=== PATIENT | male | born 1930 | race Caucasian/White ===

== ENCOUNTER 2017-02-12 02:07 | Emergency (ER) | payer MEDICARE, BC ==
[2017-02-12 03:03] LABS: Hematocrit 28 % (42-52); Hemoglobin 8.7 g/dl (14.0-18.0); Mean Corpuscular HGB Conc 31 g/dl (31-36); Mean Corpuscular Hemoglobin 26 pg (27-31); Mean Corpuscular Volume 82 fL (80-94); Mean Platelet Volume 7 um3 (7.4-10.4); Red Blood Count 3.41 10^6/ul (4.0-5.4); Red Cell Distribution Width 19 % (10.5-15); White Blood Count 5.7 10^3/ul (3.5-10.8)
--- NOTE | 2017-02-12 04:01 | ED ---
Alice Lauren Salem, scribed for Andrzej Stone MD on 02/12/17 at 0248 . Throat Pain/Nasal Congestion - HPI Summary HPI Summary: Patient is a 87 y/o M who presents to the ED with sudden onset epistaxis to right naris for the past hour. PMHx of epistaxis. Pt is on Coumadin. He denies any recent trauma and states that he had his Coumadin level checked approximately 1 week ago. - History of Current Complaint Chief Complaint: EDEpistaxis Time Seen by Provider: 02/12/17 02:37 Hx Obtained From: Patient, Family/Religious Education Coordinator Onset/Duration: Sudden Onset, Lasting Minutes, Still Present Severity: Moderate Associated Signs And Symptoms: Positive: Negative Cough: None Related History: Other (Noted In Comments) - Allergies/Home Medications Allergies/Adverse Reactions: Allergies Allergy/AdvReac Type Severity Reaction Status Date / Time Penicillins [PCN] Allergy Unknown Verified 02/12/17 02:40 Reaction Details PMH/Surg Hx/FS Hx/Imm Hx Endocrine/Hematology History: Reports: Hx Anticoagulant Therapy - Coumadin, Hx Diabetes - "PRE DM", Hx Anemia Cardiovascular History: Reports: Hx Pacemaker/ICD, Hx Valvular Heart Disease - artificial valve Denies: Hx Congestive Heart Failure GI History: Reports: Hx Gastrointestinal Bleed Neurological History: Reports: Hx Transient Ischemic Attacks (TIA) - Cancer History Cancer Type, 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 Hx Chemotherapy: No - Surgical History Surgery Procedure, Year, and Place: PACEMAKER, artificial heart valve - Immunization History Date of Tetanus Vaccine: utd Date of Influenza Vaccine: unk Infectious Disease History: No Infectious Disease History: Denies: Traveled Outside the [place] in Last 30 Days - Family History Known Family History: Positive: Cardiac Disease - Father - CAD and [place], Other - Mother -- stomach CA Family History: reviewed and noncontributory - Social History Alcohol Use: None Hx Substance Use: No Substance Use Type: Reports: None Hx Tobacco Use: Yes Smoking Status (MU): Former Smoker Have You Smoked in the Last Year: No Review of Systems Negative: Fever Positive: Epistaxis All Other Systems Reviewed And Are Negative: Yes Physical Exam Triage Information Reviewed: Yes Vital Signs On Initial Exam: Initial Vitals Temp Pulse Resp BP Pulse Ox 97.8 F 70 16 137/52 98 02/12/17 02:02/12/17 02:08 02/12/17 02:08 02/12/17 02:08 02/12/17 02:08 Vital Signs Reviewed: Yes Appearance: Positive: Well-Appearing, No Pain Distress Skin: Positive: Warm Head/Face: Positive: Normal Head/Face Inspection Eyes: Positive: FREDDY ENT: Positive: Pharynx normal, Other - dries blood rt nare Neck: Positive: Supple Respiratory/Lung Sounds: Positive: Breath Sounds Present Cardiovascular: Positive: RRR Neurological: Positive: Alert, Oriented to Person Place, Time - Angel Luis Coma Scale Coma Scale Total: 15 Diagnostics - Vital Signs Vital Signs Temp Pulse Resp BP Pulse Ox 02/12/17 02:37 98.6 F 70 18 130/61 94 02/12/17 02:08 97.8 F 70 16 137/52 98 - Laboratory Lab Results: Lab Results 02/12/17 02/12/17 Range/Units 02:50 02:50 WBC 5.7 (3.5-10.8) 10^3/ul RBC 3.41 L (4.0-5.4) 10^6/ul Hgb 8.7 L (14.0-18.0) g/dl Hct 28 L (42-52) % MCV 82 (80-94) fL MCH 26 L (27-31) pg MCHC 31 (31-36) g/dl RDW 19 H (10.5-15) % Plt Count 163 (150-450) 10^3/ul MPV 7 L (7.4-10.4) um3 Neut % (Auto) 74.0 (38-83) % Lymph % (Auto) 11.7 L (25-47) % [place] % (Auto) 8.3 (1-9) % Eos % (Auto) 4.0 (0-6) % Baso % (Auto) 2.0 (0-2) % Absolute Neuts (auto) 4.2 (1.5-7.7) 10^3/ul Absolute Lymphs (auto) 0.7 L (1.0-4.8) 10^3/ul Absolute Monos (auto) 0.5 (0-0.8) 10^3/ul Absolute Eos (auto) 0.2 (0-0.6) 10^3/ul Absolute Basos (auto) 0.1 (0-0.2) 10^3/ul Absolute Nucleated RBC 0 10^3/ul Nucleated RBC % 0 INR (Anticoag Therapy) 2.15 H (0.89-1.11) Result Diagrams: 02/12/17 02:50 Lab Statement: Any lab studies that have been ordered have been reviewed, and results considered in the medical decision making process. Re-Evaluation - Re-Evaluation First Eval Re-Evaluation Time: 03:58 Comment: Pt is no longer actively bleeding. Second Eval Re-Evaluation Time: 04:24 Comment: Discussed plan. EENT Course/Dx - Course Course Of Treatment: 87 y/o M presents with sudden onset epistaxis to right naris for the past hour. PMHx of epistaxis. Pt is on Coumadin. He denies any recent trauma and states that he had his Coumadin level checked approximately 1 week ago. Pt is no longer bleeding and will be DC'd. - Diagnoses Provider Diagnoses: Epistaxis Discharge - Discharge Plan Condition: Stable Disposition: HOME Patient Education Materials: Nosebleed (ED) Referrals: Arjun Salter MD [Medical Doctor] - Additional Instructions: Please follow up with Dr. Salter (ENT) as needed. The documentation as recorded by the Alice tran Salem accurately reflects the service I personally performed and the decisions made by me, Andrzej Stone MD.
[2017-02-12 04:56] VITALS: BP 133/59
== END 2017-02-12 04:54 | disposition home or self-care (01) ==
LOC: ED 02:07
DX: R04.0 Epistaxis (principal)
CPT/HCPCS: 36415; 85025; 85610; 99282

== ENCOUNTER 2017-02-18 22:16 | Emergency (ER) | payer MEDICARE, BC, OTHER ==
[2017-02-18 22:25] VITALS: BP 118/51
[2017-02-18 23:38] LABS: Hematocrit 28 % (42-52); Mean Corpuscular HGB Conc 33 g/dl (31-36); Mean Corpuscular Hemoglobin 26 pg (27-31); Mean Corpuscular Volume 80 fL (80-94); Mean Platelet Volume 7 um3 (7.4-10.4); Red Blood Count 3.45 10^6/ul (4.0-5.4); Red Cell Distribution Width 20 % (10.5-15); White Blood Count 4.9 10^3/ul (3.5-10.8)
--- NOTE | 2017-02-19 00:04 | ED ---
Meek Lauren Rebecca, scribed for Andrzej Stone MD on 02/18/17 at 2358 . Throat Pain/Nasal Congestion - HPI Summary HPI Summary: Pt is an 87 y/o M who presents to ED c/o epistaxis. Sx began at 2130 tonight and had been constant since onset. Denies any associated pain. Sx aggravated and alleviated by nothing, unchanged by pressure. He was evaluated 6 days ago [place] [facility] [place] after which he has experienced smaller incidences every day. Pt is on Coumadin. Last seen by ENT in early May and last cauterization was a year prior to that appointment. - History of Current Complaint Chief Complaint: EDEpistaxis Time Seen by Provider: 02/18/17 23:57 Hx Obtained From: Patient Onset/Duration: Lasting Hours, Still Present Associated Signs And Symptoms: Positive: Negative - Allergies/Home Medications Allergies/Adverse Reactions: Allergies Allergy/AdvReac Type Severity Reaction Status Date / Time Penicillins [PCN] Allergy Unknown Verified 02/18/17 22:31 Reaction Details PMH/Surg Hx/FS Hx/Imm Hx Endocrine/Hematology History: Reports: Hx Anticoagulant Therapy - Coumadin, Hx Diabetes - "PRE DM", Hx Anemia Cardiovascular History: Reports: Hx Pacemaker/ICD, Hx Valvular Heart Disease - artificial valve Denies: Hx Congestive Heart Failure GI History: Reports: Hx Gastrointestinal Bleed Neurological History: Reports: Hx Transient Ischemic Attacks (TIA) - Cancer History Cancer Type, 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 Hx Chemotherapy: No - Surgical History Surgery Procedure, Year, and Place: PACEMAKER, artificial heart valve - Immunization History Date of Tetanus Vaccine: utd Date of Influenza Vaccine: unk Infectious Disease History: No Infectious Disease History: Denies: Traveled Outside the US in Last 30 Days - Family History Known Family History: Positive: Cardiac Disease - Father - CAD and [place], Other - Mother -- stomach CA - Social History Alcohol Use: None Hx Substance Use: No Substance Use Type: Reports: None Hx Tobacco Use: Yes Smoking Status (MU): Former Smoker Have You Smoked in the Last Year: No Review of Systems Negative: Fever Positive: Epistaxis All Other Systems Reviewed And Are Negative: Yes Physical Exam Triage Information Reviewed: Yes Vital Signs On Initial Exam: Initial Vitals Temp Pulse Resp BP Pulse Ox 98.3 F 87 18 118/51 96 02/18/17 22:22 02/18/17 22:22 02/18/17 22:22 02/18/17 22:22 02/18/17 22:22 Vital Signs Reviewed: Yes Appearance: Positive: Well-Appearing, No Pain Distress Skin: Positive: Warm Head/Face: Positive: Normal Head/Face Inspection Eyes: Positive: FREDDY ENT: Positive: Other - mild bleeding rt nares after holding pressure for 1 hour Neck: Positive: Supple Respiratory/Lung Sounds: Positive: Clear to Auscultation, Breath Sounds Present Cardiovascular: Positive: RRR Abdomen Description: Positive: Nontender, Soft Bowel Sounds: Positive: Present Musculoskeletal: Positive: Strength/ROM Intact Neurological: Positive: Alert, Oriented to Person Place, Time - Angel Luis Coma Scale Coma Scale Total: 15 Procedures - Procedure Summary Procedure Summary: rt nare packed with miracel with good hemostasis, no further active bleeding Diagnostics - Vital Signs Vital Signs Temp Pulse Resp BP Pulse Ox 02/18/17 22:28 98.3 F 87 18 118/51 96 02/18/17 22:22 98.3 F 87 18 118/51 96 - Laboratory Lab Results: Lab Results 02/18/17 02/18/17 Range/Units 23:25 23:25 WBC 4.9 (3.5-10.8) 10^3/ul RBC 3.45 L (4.0-5.4) 10^6/ul Hgb 9.0 L (14.0-18.0) g/dl Hct 28 L (42-52) % MCV 80 (80-94) fL MCH 26 L (27-31) pg MCHC 33 (31-36) g/dl RDW 20 H (10.5-15) % Plt Count 167 (150-450) 10^3/ul MPV 7 L (7.4-10.4) um3 Neut % (Auto) 60.5 (38-83) % Lymph % (Auto) 22.5 L (25-47) % [place] % (Auto) 11.0 H (1-9) % Eos % (Auto) 4.5 (0-6) % Baso % (Auto) 1.5 (0-2) % Absolute Neuts (auto) 2.9 (1.5-7.7) 10^3/ul Absolute Lymphs (auto) 1.1 (1.0-4.8) 10^3/ul Absolute Monos (auto) 0.5 (0-0.8) 10^3/ul Absolute Eos (auto) 0.2 (0-0.6) 10^3/ul Absolute Basos (auto) 0.1 (0-0.2) 10^3/ul Absolute Nucleated RBC 0 10^3/ul Nucleated RBC % 0 INR (Anticoag Therapy) 2.38 H (0.89-1.11) Result Diagrams: 02/18/17 23:25 Lab Statement: Any lab studies that have been ordered have been reviewed, and results considered in the medical decision making process. Re-Evaluation - Re-Evaluation First Eval Re-Evaluation Time: 00:22 Change: Improved Comment: No active bleeding at present time. Second Eval Re-Evaluation Time: 00:51 Change: Improved Comment: Pt continues not to bleed. Discussed D/C plan. EENT Course/Dx - Course Assessment/Plan: Pt is an 87 y/o M who presents to ED c/o constant epistaxis since 2129 tonight. Denies any associated pain. Sx unchanged by pressure. He was evaluated 6 days ago [place] [facility] [place] similar [place]x after which he has experienced smaller incidences every day. Pt is on Coumadin. Last seen by ENT in early May and last cauterization was a year prior to that appointment. RBC of 3.45, INR of 2.38. In the ED course, packing was applied. Pt will be D/C to home with Dx of epistaxis and a follow up wtih his ENT. - Diagnoses Provider Diagnoses: Epistaxis Discharge - Discharge Plan Condition: Improved Disposition: HOME Prescriptions: Cephalexin CAP* [Keflex CAP*] 250 mg PO QID #12 cap Referrals: Alonso Marquez MD [Primary Care Provider] - The documentation as recorded by the Meek tran Rebecca accurately reflects the service I personally performed and the decisions made by me, Andrzej Stone MD.
[2017-02-19] MEDS ORDERED: Cephalexin CAP* 250 MG PO ONE (00:51)
== END 2017-02-19 01:30 | disposition home or self-care (01) ==
LOC: ED 22:16
DX: R04.0 Epistaxis (principal); Z79.01 Long term (current) use of anticoagulants; Z95.0 Presence of cardiac pacemaker; Z95.2 Presence of prosthetic heart valve; Z87.891 Personal history of nicotine dependence; Z88.0 Allergy status to penicillin
CPT/HCPCS: 36415; 85025; 85610; 99282; A9270-GY

== ENCOUNTER 2018-02-06 19:14 | Emergency (ER) | payer MEDICARE, BC ==
[2018-02-06] MEDS ORDERED: Silver Nitrate/Potassium Nitr* 1 EA STICK ONE (20:03)
[2018-02-06] MEDS ORDERED: Saline NASAL SPRAY 0.65%* BTL RIGHT NARE ONE (20:08)
--- NOTE | 2018-02-06 21:16 | ED ---
Sal Lauren Tariq, scribed for Daiana Garcia MD on 02/06/18 at 2003 . Throat Pain/Nasal Congestion - HPI Summary HPI Summary: A 88 y/o male presents to ED c/o sudden onset epistaxis. According to the patient's family, the epistaxis was sudden and is unknown reasons for onset. The patient has had right epistaxis for 1.5 hours. As per triage, "Clip in place and bleeding is controlled at this time". It was noted that the patient has a mechanical valve that was placed in 2000. Additionally, the patient has a biological value that was done 6 days ago (Tuesday), completed via groin. Currently, the patient is on 5 mg/day of Coumadin and just started on 75 mg/day of Plavix. Patient had an INR of 1.3 done today. - History of Current Complaint Chief Complaint: EDEpistaxis Time Seen by Provider: 02/06/18 19:56 Hx Obtained From: Family/Netezza Developer - Family Onset/Duration: Sudden Onset - Right Epistaxis, Lasting Hours - 1.5 hours, Resolved - Currently none. Associated Signs And Symptoms: Positive: Nasal Discharge - Epistaxis of right nostril Cough: None - Allergies/Home Medications Allergies/Adverse Reactions: Allergies Allergy/AdvReac Type Severity Reaction Status Date / Time Penicillins Allergy Unknown Verified 12/30/17 12:23 Reaction Details Home Medications: Home Medications Carvedilol TAB* [Coreg TAB*] 12.5 mg PO BID 02/06/18 [History Confirmed 02/06/18 ] Clopidogrel TAB* [Plavix TAB*] 75 mg PO DAILY 02/06/18 [History Confirmed ] Ferrous Sulfate TAB* 325 mg PO DAILY 02/06/18 [History Confirmed 02/06/18] Furosemide TAB* [Lasix TAB*] 40 mg PO DAILY 02/06/18 [History Confirmed 02/06/18 ] Latanoprost 0.005%* [Xalatan 0.005%*] 1 drop BOTH EYES QPM 02/06/18 [History Confirmed 02/06/18] [place]-3 Fatty Acids (Nf) [Fish Oil (NF)] 1,000 mg PO QAM 02/06/18 [History Confirmed 02/06/18] Spironolactone TAB* [Aldactone TAB*] 12.5 mg PO DAILY 02/06/18 [History Confirmed 02/06/18] PMH/Surg Hx/FS Hx/Imm Hx Endocrine/Hematology History: Reports: Hx Anticoagulant Therapy - Coumadin, Hx Diabetes - "PRE DM", Hx Anemia Cardiovascular History: Reports: Hx Hypertension, Hx Pacemaker/ICD, Hx Valvular Heart Disease - artificial valve Denies: Hx Congestive Heart Failure GI History: Reports: Hx Gastrointestinal Bleed History: Denies: Hx Renal Disease Neurological History: Reports: Hx Transient Ischemic Attacks (TIA) - Cancer History Cancer Type, 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; LUNG CA Hx Chemotherapy: No - Surgical History Surgery Procedure, Year, and Place: PACEMAKER, artificial heart valve, CABG - Immunization History Date of Tetanus Vaccine: utd Date of Influenza Vaccine: unk Infectious Disease History: No Infectious Disease History: Denies: Traveled Outside the [place] in Last 30 Days - Family History Known Family History: Positive: Unknown, Cardiac Disease - Father - CAD and [place], Other - Mother -- stomach CA Family History: reviewed and noncontributory - Social History Alcohol Use: None Hx Substance Use: No Substance Use Type: Reports: None Hx Tobacco Use: Yes Smoking Status (MU): Former Smoker Have You Smoked in the Last Year: No Review of Systems Negative: Fever Positive: Epistaxis All Other Systems Reviewed And Are Negative: Yes Physical Exam - Summary Physical Exam Summary: VITAL SIGNS: Reviewed. GENERAL: Patient is a well-developed and nourished MALE who is lying comfortable in the stretcher. Patient is not in any acute respiratory distress. HEAD AND FACE: No signs of trauma. No ecchymosis, hematomas or skull depressions. No sinus tenderness. Nose exam: That is raw area of the right nostril anteriorly, no active bleeding. left Nostril is normal EYES: PERRLA, EOMI x 2, No injected conjunctiva, no nystagmus. EARS: Hearing grossly intact. Ear canals and tympanic membranes are within normal limits. MOUTH: Mild blood in the oropharynx, no active bleeding NECK: Supple, trachea is midline, no adenopathy, no JVD, no carotid bruit, no c- spine tenderness, neck with full ROM. CHEST: Symmetric, no tenderness at palpation LUNGS: Clear to auscultation bilaterally. No wheezing or crackles. CVS: Regular rate and rhythm, S1 and S2 present, click over the apex no murmurs or gallops appreciated. ABDOMEN: Soft, non-tender. No signs of distention. No rebound no guarding, and no masses palpated. Bowel sounds are normal. EXTREMITIES: FROM in all major joints, no edema, no cyanosis or clubbing. NEURO: Alert and oriented x 3. No acute neurological deficits. Speech is normal and follows commands. SKIN: Dry and warm Patient has an INR of 1.3 done today. Triage Information Reviewed: Yes Vital Signs On Initial Exam: Initial Vitals Temp Pulse Resp BP Pulse Ox 98.4 F 73 20 140/56 96 02/06/18 19:27 02/06/18 19:27 02/06/18 19:27 02/06/18 19:27 02/06/18 19:27 Vital Signs Reviewed: Yes Procedures - Laceration/Wound Repair 1 Location: Other - NOSE Laceration/Wound Explored: Other - RIGHT NOSE EPISTAXIS. USED SILVER NITRATE STICKS TO CAUTERIZE AREA. Diagnostics - Vital Signs Vital Signs Temp Pulse Resp BP Pulse Ox 02/06/18 19:27 98.4 F 73 20 140/56 96 - Laboratory Lab Statement: Any lab studies that have been ordered have been reviewed, and results considered in the medical decision making process. Re-Evaluation - Re-Evaluation First Eval Re-Evaluation Time: 20:55 Change: Improved Comment: NO FURTHER BLEEDING. PATIENT FEELS FINE. DISCUSSED DISCHARGE. EENT Course/Dx - Course Course Of Treatment: A 88 y/o male presents to ED c/o sudden onset epistaxis. According to the patient's family, the epistaxis was sudden and is unknown reasons for onset. The patient has had right epistaxis for 1.5 hours. As per triage, "Clip in place and bleeding is controlled at this time". In the ED course, patient was given saline nasal spray which improved his symptoms. Patient will be discharged with a diagnosis of epistaxis. Patient is to follow up with ENT in 1-2 days. Pt is agreeable with this plan. - Diagnoses Provider Diagnoses: Epistaxis Discharge - Sign-Out/Discharge Documenting (check all that apply): Discharge/Admit/Transfer - DISCHARGE - Discharge Plan Condition: Stable Disposition: HOME Patient Education Materials: Nosebleed (ED) Referrals: Alonso Marquez MD [Primary Care Provider] - Govind Barth MD [Medical Doctor] - 2 Days (FOLLOW UP WITH ENT IN 1-2 DAYS.) Additional Instructions: RETURN TO ED FOR ANY NEW OR WORSENING SYMPTOMS. - Billing Disposition and Condition Condition: STABLE Disposition: Home The documentation as recorded by the Sal tran Tariq accurately reflects the service I personally performed and the decisions made by me, Daiana Garcia MD.
[2018-02-06 21:29] VITALS: BP 125/58
== END 2018-02-06 21:32 | disposition home or self-care (01) ==
LOC: ED 19:14
DX: R10.84 Generalized abdominal pain (principal); R11.0 Nausea
CPT/HCPCS: 96374; 96375; 99283; A9270-GY

== ENCOUNTER 2018-08-03 19:20 | Emergency (ER) | payer MEDICARE, BC ==
[2018-08-03 21:18] LABS: ABS Basophils 0.1 10^3/ul (0-0.2); ABS Eosinophils 0.2 10^3/ul (0-0.6); ABS Lymphocytes 0.9 10^3/ul (1.0-4.8); ABS Monocytes 0.8 10^3/ul (0-0.8); ABS Neutrophils 5.5 10^3/ul (1.5-7.7); ABS Nucleated RBC 0 10^3/ul; Eosinophil % 3.1 %; Hematocrit 36 % (42-52); Hemoglobin 12.3 g/dl (14.0-18.0); Lymphocyte % 12.3 %; Mean Corpuscular HGB Conc 34 g/dl (31-36); Mean Corpuscular Hemoglobin 31 pg (27-31); Mean Corpuscular Volume 90 fL (80-94); Mean Platelet Volume 6.8 fL (7.4-10.4); Nucleated Red Blood Cells % 0; Platelet Count 161 10^3/ul (150-450); Red Blood Count 4.01 10^6/ul (4.00-5.40); Red Cell Distribution Width 15 % (10.5-15); White Blood Count 7.5 10^3/ul (3.5-10.8)
[2018-08-03] MEDS ORDERED: Tranexamic Acid 1,000 MG/10 ML 1,000 MG in NS 0.9% 50 ML* 50 ML IV ONE (21:32)
[2018-08-03] MEDS ORDERED: DOXYcycline CAP(*) 100 MG PO ONE (22:05)
[2018-08-03 22:08] LABS: INR 3.76 (0.77-1.02)
--- NOTE | 2018-08-03 22:11 | ED ---
Throat Pain/Nasal Congestion - HPI Summary HPI Summary: Patient complains of intermittent epistaxis 2 days. History of same. Bleeding only from right nare today. Denies trauma. Denies any other symptoms , injury or pain. No active bleeding at this time. Patient on Coumadin for artificial heart valves 2. - History of Current Complaint Chief Complaint: EDEpistaxis Time Seen by Provider: 08/03/18 20:35 Hx Obtained From: Patient Onset/Duration: Gradual Onset, Lasting Days Severity: Moderate Associated Signs And Symptoms: Positive: Negative Cough: None - Allergies/Home Medications Allergies/Adverse Reactions: Allergies Allergy/AdvReac Type Severity Reaction Status Date / Time Penicillins Allergy Unknown Verified 08/03/18 19:26 Reaction Details PMH/Surg Hx/FS Hx/Imm Hx Endocrine/Hematology History: Reports: Hx Anticoagulant Therapy - Coumadin, Hx Diabetes - "PRE DM", Hx Anemia Cardiovascular History: Reports: Hx Hypertension, Hx Pacemaker/ICD, Hx Valvular Heart Disease - artificial valve Denies: Hx Congestive Heart Failure GI History: Reports: Hx Gastrointestinal Bleed History: Denies: Hx Renal Disease Sensory History: Denies: Hx Eye Prosthesis Neurological History: Reports: Hx Transient Ischemic Attacks (TIA) Denies: Hx Developmental Delay - Cancer History Cancer Type, 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; LUNG CA Hx Chemotherapy: No - Surgical History Surgery Procedure, Year, and Place: PACEMAKER, artificial heart valve, CABG - Immunization History Date of Tetanus Vaccine: utd Date of Influenza Vaccine: unk Infectious Disease History: No Infectious Disease History: Denies: Traveled Outside the [place] in Last 30 Days - Family History Known Family History: Positive: Unknown, Cardiac Disease - Father - CAD and [place], Other - Mother -- stomach CA Family History: reviewed and noncontributory - Social History Alcohol Use: None Hx Substance Use: No Substance Use Type: Reports: None Hx Tobacco Use: Yes Smoking Status (MU): Former Smoker Have You Smoked in the Last Year: No Review of Systems Constitutional: Negative Eyes: Negative Positive: Epistaxis Cardiovascular: Negative Respiratory: Negative Gastrointestinal: Negative Genitourinary: Negative Musculoskeletal: Negative Skin: Negative Neurological: Negative Psychological: Normal All Other Systems Reviewed And Are Negative: Yes Physical Exam - Summary Physical Exam Summary: No obvious source of bleeding in right or left nare. Triage Information Reviewed: Yes Vital Signs On Initial Exam: Initial Vitals Temp Pulse Resp BP Pulse Ox 97.9 F 76 16 143/61 100 08/03/18 19:20 08/03/18 19:20 08/03/18 19:20 08/03/18 19:20 08/03/18 19:20 Vital Signs Reviewed: Yes Appearance: Positive: Well-Appearing Skin: Positive: Warm Head/Face: Positive: Normal Head/Face Inspection Eyes: Positive: Normal ENT: Positive: Normal ENT inspection Neck: Positive: Supple Respiratory/Lung Sounds: Positive: Clear to Auscultation Cardiovascular: Positive: Normal Abdomen Description: Positive: Nontender Musculoskeletal: Positive: Normal Neurological: Positive: Normal Psychiatric: Positive: Normal AVPU Assessment: Alert - Angel Luis Coma Scale Best Eye Response: 4 - Spontaneous Best Motor Response: 6 - Obeys Commands Best Verbal Response: 5 - Oriented Coma Scale Total: 15 Diagnostics - Vital Signs Vital Signs Temp Pulse Resp BP Pulse Ox 08/03/18 19:20 97.9 F 76 16 143/61 100 - Laboratory Lab Results: Lab Results 08/03/18 08/03/18 Range/Units 21:12 21:12 WBC 7.5 (3.5-10.8) 10^3/ul RBC 4.01 (4.00-5.40) 10^6/ul Hgb 12.3 L (14.0-18.0) g/dl Hct 36 L (42-52) % MCV 90 (80-94) fL MCH 31 (27-31) pg MCHC 34 (31-36) g/dl RDW 15 (10.5-15) % Plt Count 161 (150-450) 10^3/ul MPV 6.8 L (7.4-10.4) fL Neut % (Auto) 73.2 % Lymph % (Auto) 12.3 % [place] % (Auto) 10.5 % Eos % (Auto) 3.1 % Baso % (Auto) 0.9 % Absolute Neuts (auto) 5.5 (1.5-7.7) 10^3/ul Absolute Lymphs (auto) 0.9 L (1.0-4.8) 10^3/ul Absolute Monos (auto) 0.8 (0-0.8) 10^3/ul Absolute Eos (auto) 0.2 (0-0.6) 10^3/ul Absolute Basos (auto) 0.1 (0-0.2) 10^3/ul Absolute Nucleated RBC 0 10^3/ul Nucleated RBC % 0 INR (Anticoag Therapy) 3.76 H (0.77-1.02) APTT 45.0 H (26.0-36.3) seconds Result Diagrams: 08/03/18 21:12 Lab Statement: Any lab studies that have been ordered have been reviewed, and results considered in the medical decision making process. EENT Course/Dx - Course Course Of Treatment: Patient complains of intermittent epistaxis 2 days. History of same. Bleeding only from right nare today. Denies trauma. Denies any other symptoms, injury or pain. No active bleeding at this time. Patient on Coumadin for artificial heart valves 2. Physical exam:No obvious source of bleeding in right or left nare. Vital signs within normal limits. Hemoglobin 12.5, and patient baseline. INR 3.7. Rhino Rocket dipped in tranexamic acid inserted into right nare. Inflated with 5 mL's normal saline. Rx for doxycycline. Follow up with ENT. - Diagnoses Provider Diagnoses: Epistaxis Discharge - Sign-Out/Discharge Documenting (check all that apply): Patient Departure - Discharge Plan Condition: Stable Disposition: HOME Prescriptions: DOXYcycline CAP(*) [DOXYcycline 100MG CAP(*)] 100 mg PO BID 7 Days #14 cap Referrals: Alonso Marquez MD [Primary Care Provider] - Arjun Salter MD [Medical Doctor] - Additional Instructions: Take antibiotics as directed. Follow-up with ear nose and throat Dr Salter tomorrow. Return to the ED for any new or worsening symptoms - Billing Disposition and Condition Condition: STABLE Disposition: Home
[2018-08-03 23:10] VITALS: BP 124/74
== END 2018-08-03 23:09 | disposition home or self-care (01) ==
LOC: ED 19:20
DX: R04.0 Epistaxis (principal); Z79.01 Long term (current) use of anticoagulants; Z95.2 Presence of prosthetic heart valve; Z95.810 Presence of automatic (implantable) cardiac defibrillator; Z95.1 Presence of aortocoronary bypass graft; Z88.0 Allergy status to penicillin; Z87.891 Personal history of nicotine dependence
CPT/HCPCS: 36415; 85025; 85610; 85730; 99282; A9270-GY

== ENCOUNTER 2019-04-18 07:35 | Emergency (ER) | payer MEDICARE, BC ==
--- OUTSIDE RECORDS SUMMARY | 2019-04-18 07:42 | XMS REPORT | Continuity of Care Document ---
:1930 External Reference #:[id number] Author Name Amy Melara O.D. Address [address] [place] [address] Care Team Providers Name Role Phone Alonso Marquez M.D. 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 Onset: 02/17/2015 Open angle with borderline findings Afua Diaz O.D. 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 Onset: 01/21/2016 Primary open-angle glaucoma, severe stage Afua Diaz O.D. Onset: 2015 Open angle with borderline findings, high Afua Diaz O.D. Onset: 2015 risk, bilateral Bilateral primary open angle glaucoma Afua Diaz O.D. Onset: 02/03/2017 Long-term current use of drug therapy Amy Melara O.D. Onset: 2018 Social History Type Date Description Comments Sex Unknown ETOH Use Never used alcohol Tobacco Use Start: Unknown End: Unknown Patient is a former smoker Recreational Drug Use Never Used Drugs Smoking Status Reviewed: 04/06/19 Patient is a former smoker Allergies, Adverse Reactions, Alerts Active Allergies Reaction Severity Comments Date Penicillin 02/17/2015 Medications Active Medications SIG Qnty Indications Ordering Date Provider Latanoprost place 1 drop 7.5units H40.1133 Afua Diaz, 02/03/2017 0.005% Solution into both eyes O.D. every Night Preservision Areds 2 1 cap by mouth Afua Diaz, 04/22/2015 Areds twice a day O.D. 2 Capsules Carvedilol take 1 tablet Unknown 25mg Tablets by mouth twice a day with Meals Furosemide TreelowAlonso A 40mg Tablets M.D. Spironolactone Unknown 12.5mg Tablets Metformin HCL Unknown 500mg Tablets Iron Supplement Unknown 325(65Fe) mg Tablets Coumadin Unknown 5mg Tablets Omeprazole every day Unknown 20mg Capsules DR Bettes Description No Information Available Vital Signs Description No Information Available Results Description No Information Available Procedures Description No Information Available Medical Devices Description No Information Available Encounters Description No Information Available Assessments Date Code Description Provider 04/06/2019 H40.1133 Primary open-angle glaucoma, bilateral, Amy Melara O.D. severe stage 04/06/2019 E11.9 Type 2 diabetes mellitus without Amy Melara O.D. complications 04/06/2019 Z79.84 care home (current) use of oral Amy Melara O.D. 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 If you are a smoker, we strongly recommend that you quit.If you are not a smoker, we strongly recommend that you do not start. Your glaucoma is stable at this time.Your eye pressure is within an acceptable range, and your testing does not show any Glaucoma related changes at thistime. Please continue your treatment.Follow up:6 Month Follow Up OCT MAC At your next visit, we are not planning to dilate your eyes. However, if you have any changes in your vision or new symptoms, there are certain situations that require us to dilate your eyes. If Dr. Melara requests any additional testing, that may require extra time. If you have any questions before your next appointment, please call our office at .E11.9 Type 2 diabetes mellitus without complicationsComments:You have diabetes. I do not detect any changes in both of your retinas from diabetes at this time. Proper control of your diabetes is important for the health of your eyes. Changes in your eyes from diabetes can happen without symptoms, so it is important that you have your eyes examined.Z79.84 care home (current) use of oral hypoglycemic [id number] Dystrophies primarily involving the retinal pigment epitheliumComments:continue to take areds 2 formula Functional Status Description No Information Available Mental Status Description No Information Available Referrals Description No Information Available
[2019-04-18] MEDS ORDERED: Oxymetazoline 0.05% NASAL SPR* 15 ML BTL RIGHT NARE ONE (08:22)
[2019-04-18] MEDS ORDERED: Tranexamic Acid 1,000 MG/10 ML SDV TOPICAL ONE (08:22)
[2019-04-18] MEDS ORDERED: Lidocaine 4% GEL* 10 GM TUBE TOPICAL ONE (08:23)
[2019-04-18] MEDS ORDERED: Silver Nitrate/Potassium Nitr* 1 EA STICK TOPICAL ONE (08:25)
[2019-04-18 08:28] LABS: ABS Eosinophils 0.2 10^3/ul (0-0.6); ABS Lymphocytes 0.6 10^3/ul (1.0-4.8); ABS Monocytes 0.7 10^3/ul (0-0.8); ABS Neutrophils 4.8 10^3/ul (1.5-7.7); Eosinophil % 2.5 %; Hematocrit 35 % (42-52); Lymphocyte % 9.6 %; Mean Corpuscular HGB Conc 34 g/dL (31-36); Mean Corpuscular Hemoglobin 30 pg (27-31); Mean Corpuscular Volume 89 fL (80-94); Mean Platelet Volume 6.6 fL (7.4-10.4); Nucleated Red Blood Cells % 0.1; Platelet Count 181 10^3/uL (150-450); Red Blood Count 3.95 10^6 /uL (4.18-5.48); Red Cell Distribution Width 15 % (10-15); White Blood Count 6.3 10^3/uL (3.5-10.8)
[2019-04-18] MEDS ORDERED: Lidocaine 2% JELLY* 10 ML JELLY TOPICAL ONE (08:32)
[2019-04-18 08:36] LABS: Activated Partial Thrombo Time 44.9 seconds (26.0-38.0); INR 2.83 (0.82-1.09)
--- NOTE | 2019-04-18 08:49 | ED ---
Throat Pain/Nasal Congestion - HPI Summary HPI Summary: 89-year-old male presents with a nosebleed today. Has history of nosebleeds. Is on Coumadin for valve replacement. Had an INR checked last week was 1.9. He states it started 2 hours ago and has since resolved. He denies any sinus congestion. No fevers. No pain. Nothing down his throat. Blood is in his right naris. no chest pain or shortness breath. No dizziness. denies any other symptoms. - History of Current Complaint Chief Complaint: EDEpistaxis Time Seen by Provider: 04/18/19 08:08 - Allergies/Home Medications Allergies/Adverse Reactions: Allergies Allergy/AdvReac Type Severity Reaction Status Date / Time Penicillins Allergy Unknown Verified 08/03/18 19:26 Reaction Details PMH/Surg Hx/FS Hx/Imm Hx Endocrine/Hematology History: Reports: Hx Anticoagulant Therapy - Coumadin, Hx Diabetes - "PRE DM", Hx Anemia Cardiovascular History: Reports: Hx Hypertension, Hx Pacemaker/ICD, Hx Valvular Heart Disease - artificial valve Denies: Hx Congestive Heart Failure GI History: Reports: Hx Gastrointestinal Bleed History: Denies: Hx Dialysis, Hx Renal Disease Musculoskeletal History: Sensory History: Denies: Hx Eye Prosthesis Opthamlomology History: Denies: Hx Eye Prosthesis Neurological History: Reports: Hx Transient Ischemic Attacks (TIA) Denies: Hx Developmental Delay - Cancer History Cancer Type, 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; LUNG CA Hx Chemotherapy: No - Surgical History Surgery Procedure, Year, and Place: PACEMAKER, artificial heart valve, CABG - Immunization History Date of Tetanus Vaccine: utd Date of Influenza Vaccine: unk Infectious Disease History: No Infectious Disease History: Denies: Traveled Outside the [place] in Last 30 Days - Family History Known Family History: Positive: Unknown, Cardiac Disease - Father - CAD and [place], Other - Mother -- stomach CA Family History: reviewed and noncontributory - Social History Alcohol Use: None Hx Substance Use: No Substance Use Type: Reports: None Hx Tobacco Use: Yes Smoking Status (MU): Former Smoker Have You Smoked in the Last Year: No Review of Systems Negative: Fever Positive: Epistaxis Negative: Chest Pain Negative: Shortness Of Breath All Other Systems Reviewed And Are Negative: Yes Physical Exam Triage Information Reviewed: Yes Vital Signs On Initial Exam: Initial Vitals Temp Pulse Resp BP Pulse Ox 97.9 F 75 14 139/69 95 04/18/19 07:36 04/18/19 07:36 04/18/19 07:36 04/18/19 07:36 04/18/19 07:36 Vital Signs Reviewed: Yes Appearance: Positive: Well-Appearing Skin: Positive: Warm, Dry Head/Face: Positive: Normal Head/Face Inspection Eyes: Positive: Normal, EOMI, FREDDY, Conjunctiva Clear ENT: Positive: Pharynx normal, TMs normal, Other - blood in right nares Respiratory/Lung Sounds: Positive: Clear to Auscultation, Breath Sounds Present Cardiovascular: Positive: Normal, RRR Musculoskeletal: Positive: Normal Neurological: Positive: Normal Psychiatric: Positive: Normal Diagnostics - Vital Signs Vital Signs Temp Pulse Resp BP Pulse Ox 04/18/19 07:36 97.9 F 75 14 139/69 95 - Laboratory Lab Results: Lab Results 04/18/19 04/18/19 Range/Units 08:18 08:19 WBC 6.3 (3.5-10.8) 10^3/uL RBC 3.95 L (4.18-5.48) 10^6 /uL Hgb 12.0 L (14.0-18.0) g/dL Hct 35 L (42-52) % MCV 89 (80-94) fL MCH 30 (27-31) pg MCHC 34 (31-36) g/dL RDW 15 (10-15) % Plt Count 181 (150-450) 10^3/uL MPV 6.6 L (7.4-10.4) fL Neut % (Auto) 76.5 % Lymph % (Auto) 9.6 % [place] % (Auto) 10.8 % Eos % (Auto) 2.5 % Baso % (Auto) 0.6 % Absolute Neuts (auto) 4.8 (1.5-7.7) 10^3/ul Absolute Lymphs (auto) 0.6 L (1.0-4.8) 10^3/ul Absolute Monos (auto) 0.7 (0-0.8) 10^3/ul Absolute Eos (auto) 0.2 (0-0.6) 10^3/ul Absolute Basos (auto) 0.0 (0-0.2) 10^3/ul Absolute Nucleated RBC 0.0 10^3/ul Nucleated RBC % 0.1 INR (Anticoag Therapy) 2.83 H (0.82-1.09) APTT 44.9 H (26.0-38.0) seconds Result Diagrams: 04/18/19 08:18 Lab Statement: Any lab studies that have been ordered have been reviewed, and results considered in the medical decision making process. Re-Evaluation - Re-Evaluation First Eval Change: Improved Comment: no bleeding after silver nitrate Second Eval Re-Evaluation Time: 09:23 Change: Improved Comment: ambulated without any bleeding EENT Course/Dx - Course Course Of Treatment: 89-year-old male presents with a nosebleed today. Has history of nosebleeds. Is on Coumadin for valve replacement. Had an INR checked last week was 1.9. He states it started 2 hours ago and has since resolved. He denies any sinus congestion. No fevers. No pain. Nothing down his throat. Blood is in his right naris. no chest pain or shortness breath. No dizziness. denies any other symptoms. On exam has irritated right nares. No active bleeding noted but area could easily start bleeding. gave dose of Afrin. applied silver ntirate and no rebleeding. patient ambulate around ED with no rebleeding. inr 2.8. told if bleeding returns to come back. patient understand and agrees with plan. - Differential Diagnoses Differential Diagnoses: Epistaxis, Sinusitis - Diagnoses Provider Diagnoses: Epistaxis Discharge ED - Sign-Out/Discharge Documenting (check all that apply): Patient Departure Patient Received Moderate/Deep Sedation with Procedure: No - Discharge Plan Condition: Good Disposition: HOME Patient Education Materials: Nosebleed (ED) Referrals: Alonso Marquez MD [Primary Care Provider] - Additional Instructions: use saline in nose daily Return to ED if nose bleed returns or any new or worsening symptoms - Billing Disposition and Condition Condition: GOOD Disposition: Home
[2019-04-18] MEDS ORDERED: Lidocaine 2% JELLY* 6 ML JELLY TOPICAL ONE (09:00)
[2019-04-18 09:34] VITALS: BP 148/64
== END 2019-04-18 09:32 | disposition home or self-care (01) ==
LOC: ED 07:35
DX: R04.0 Epistaxis (principal); R73.03 Prediabetes; D64.9 Anemia, unspecified; I10 Essential (primary) hypertension; Z95.2 Presence of prosthetic heart valve; Z86.73 Personal history of transient ischemic attack (TIA), and cerebral infarction without residual deficits; Z85.89 Personal history of malignant neoplasm of other organs and systems; Z85.118 Personal history of other malignant neoplasm of bronchus and lung; Z87.891 Personal history of nicotine dependence; Z95.1 Presence of aortocoronary bypass graft; Z95.0 Presence of cardiac pacemaker; Z79.01 Long term (current) use of anticoagulants; Z79.84 Long term (current) use of oral hypoglycemic drugs; Z79.899 Other long term (current) drug therapy; Z88.0 Allergy status to penicillin
CPT/HCPCS: 36415; 85025; 85610; 85730; 99282; A9270-GY

== ENCOUNTER 2019-05-16 12:00 | Observation (INO) | payer MEDICARE, BC ==
[2019-05-16 12:38] LABS: ABS Basophils 0.1 10^3/ul (0-0.2); ABS Eosinophils 0.1 10^3/ul (0-0.6); ABS Lymphocytes 0.7 10^3/ul (1.0-4.8); ABS Monocytes 0.7 10^3/ul (0-0.8); ABS Neutrophils 5.3 10^3/ul (1.5-7.7); Eosinophil % 0.9 %; Hematocrit 33 % (42-52); Hemoglobin 11.3 g/dL (14.0-18.0); Lymphocyte % 10.4 %; Mean Corpuscular HGB Conc 34 g/dL (31-36); Mean Corpuscular Hemoglobin 30 pg (27-31); Mean Corpuscular Volume 88 fL (80-94); Mean Platelet Volume 6.9 fL (7.4-10.4); Platelet Count 190 10^3/uL (150-450); Red Blood Count 3.76 10^6 /uL (4.18-5.48); Red Cell Distribution Width 15 % (10-15); White Blood Count 6.8 10^3/uL (3.5-10.8)
[2019-05-16 12:46] LABS: INR 3.32 (0.82-1.09)
[2019-05-16 12:58] LABS: ALT 9 U/L (7-52); AST 13 U/L (13-39); Albumin 3.7 g/dL (3.2-5.2); Albumin/Globulin Ratio 1.1 (1-3); Alkaline Phosphatase 76 U/L (34-104); Anion Gap 6 mmol/L (2-11); BUN/Creatinine Ratio 21.5 (8-20); Blood Urea Nitrogen 20 mg/dL (6-24); CO2 Carbon Dioxide 35 mmol/L (22-32); Calcium 9.1 mg/dL (8.6-10.3); Chloride 97 mmol/L (101-111); EGFR African American 92.6 (>60); EGFR Non-African American 76.5 (>60); Globulin 3.3 g/dL (2-4); Glucose 139 mg/dL (70-100); Magnesium 1.9 mg/dL (1.9-2.7); Potassium 3.9 mmol/L (3.5-5.0); Sodium 138 mmol/L (135-145)
[2019-05-16 13:00] LABS: Troponin I 0.05 ng/mL (<0.04)
[2019-05-16] MEDS ORDERED: Magnesium Sulfate 2 GM IV* 2 GM/50 ML BAG IVPB ONE (13:03)
[2019-05-16] MEDS ORDERED: KCL 10 MEQ/50 ML IVPREMIX* 10 MEQ/50 ML BAG IV ONE (13:03)
--- NOTE | 2019-05-16 13:05 | ED ---
Palpitations / Dysrhythmia - HPI Summary HPI Summary: Pt is an 89 y/o M presenting to the ED with a chief complaint of an arrhythmia. The pt has an AICD/pacemaker that went off twice last night in such a short time of each other that Jose G called and told him to go to the ER. The pt feels normal. He denies fever, vomiting, and diarrhea. He notes he has had a cough and congestion recently, and has hx of CA in remission. - History of Current Complaint Chief Complaint: EDDysrhythmPalp Time Seen by Provider: 05/16/19 12:08 Hx Obtained From: Patient Onset/Duration: Sudden Onset, Lasting Minutes, Resolved Timing: Constant Severity Initially: Moderate Severity Currently: None Aggravating: Nothing Alleviating: Nothing Associated Signs & Symptoms: Negative - Allergy/Home Medications Allergies/Adverse Reactions: Allergies Allergy/AdvReac Type Severity Reaction Status Date / Time Penicillins Allergy Unknown Verified 08/03/18 19:26 Reaction Details Home Medications: Home Medications Vit A/Vit C/Vit E/Zinc/Copper [Preservision Areds Softgel] 1 each PO BID [History Confirmed 05/16/19] PMH/Surg Hx/FS Hx/Imm Hx Previously Healthy: Yes Endocrine/Hematology History: Reports: Hx Anticoagulant Therapy - Coumadin, Hx Diabetes - "PRE DM", Hx Anemia Cardiovascular History: Reports: Hx Auto Implanted Cardiovert Defib, Hx Hypertension, Hx Pacemaker/ICD, Hx Valvular Heart Disease - artificial valve Denies: Hx Congestive Heart Failure GI History: Reports: Hx Gastrointestinal Bleed History: Denies: Hx Dialysis, Hx Renal Disease Musculoskeletal History: Sensory History: Denies: Hx Eye Prosthesis Opthamlomology History: Denies: Hx Eye Prosthesis Neurological History: Reports: Hx Transient Ischemic Attacks (TIA) Denies: Hx Developmental Delay - Cancer History Cancer Type, 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; LUNG CA Hx Chemotherapy: No - Surgical History Surgery Procedure, Year, and Place: PACEMAKER, artificial heart valve, CABG - Immunization History Date of Tetanus Vaccine: utd Date of Influenza Vaccine: unk Infectious Disease History: No Infectious Disease History: Denies: Traveled Outside the [place] in Last 30 Days - Family History Known Family History: Positive: Cardiac Disease - Father - CAD and [place], Other - Mother -- stomach CA - Social History Alcohol Use: None Hx Substance Use: No Substance Use Type: Reports: None Hx Tobacco Use: Yes Smoking Status (MU): Former Smoker Have You Smoked in the Last Year: No Review of Systems Negative: Fever Positive: Other - congestion Positive: Palpitations Positive: Cough Negative: Vomiting, Diarrhea All Other Systems Reviewed And Are Negative: Yes Physical Exam - Summary Physical Exam Summary: Constitutional: Well-developed, Well-nourished, Alert. (-) Distressed Skin: Warm, Dry HENT: Normocephalic; Atraumatic Eyes: Conjunctiva normal Neck: Musculoskeletal ROM normal neck. (-) JVD, (-) Stridor, (-) Tracheal deviation Cardio: Rhythm regular, rate normal, Heart sounds normal; Intact distal pulses; Radial pulses are 2+ and symmetric. (-) Murmur Pulmonary/Chest wall: Effort normal. (-) Respiratory distress, (-) Wheezes, (-) Rales Abd: Soft, (-) tenderness, (-) Distension, (-) Guarding, (-) Rebound Musculoskeletal: (-) Edema Lymph: (-) Cervical adenopathy Neuro: Alert, Oriented x3 Psych: Mood and affect Normal Triage Information Reviewed: Yes Vital Signs On Initial Exam: Initial Vitals Temp Pulse Resp BP Pulse Ox 98.1 F 72 16 141/57 99 05/16/19 12:04 05/16/19 12:04 05/16/19 12:04 05/16/19 12:04 05/16/19 12:04 Vital Signs Reviewed: Yes Procedures - Sedation Patient Received Moderate/Deep Sedation with Procedure: No Diagnostics - Vital Signs Vital Signs Temp Pulse Resp BP Pulse Ox 05/16/19 12:48 74 05/16/19 12:42 70 23 112/46 92 05/16/19 12:12 14 122/57 05/16/19 12:11 17 05/16/19 12:04 98.1 F 72 16 141/57 99 - Laboratory Lab Results: Lab Results 05/16/19 05/16/19 05/16/19 Range/Units 12:30 12:30 12:30 WBC 6.8 (3.5-10.8) 10^3/uL RBC 3.76 L (4.18-5.48) 10^6 /uL Hgb 11.3 L (14.0-18.0) g/dL Hct 33 L (42-52) % MCV 88 (80-94) fL MCH 30 (27-31) pg MCHC 34 (31-36) g/dL RDW 15 (10-15) % Plt Count 190 (150-450) 10^3/uL MPV 6.9 L (7.4-10.4) fL Neut % (Auto) 77.9 % Lymph % (Auto) 10.4 % [place] % (Auto) 10.0 % Eos % (Auto) 0.9 % Baso % (Auto) 0.8 % Absolute Neuts (auto) 5.3 (1.5-7.7) 10^3/ul Absolute Lymphs (auto) 0.7 L (1.0-4.8) 10^3/ul Absolute Monos (auto) 0.7 (0-0.8) 10^3/ul Absolute Eos (auto) 0.1 (0-0.6) 10^3/ul Absolute Basos (auto) 0.1 (0-0.2) 10^3/ul Absolute Nucleated RBC 0.0 10^3/ul Nucleated RBC % 0.0 INR (Anticoag Therapy) 3.32 H (0.82-1.09) Sodium 138 (135-145) mmol/L Potassium 3.9 (3.5-5.0) mmol/L Chloride 97 L (101-111) mmol/L Carbon Dioxide 35 H (22-32) mmol/L Anion Gap 6 (2-11) mmol/L BUN 20 (6-24) mg/dL Creatinine 0.93 (0.67-1.17) mg/dL Est GFR ( Amer) 92.6 (>60) Est GFR (Non-Af Amer) 76.5 (>60) BUN/Creatinine Ratio 21.5 H (8-20) Glucose 139 H (70-100) mg/dL Calcium 9.1 (8.6-10.3) mg/dL Magnesium 1.9 (1.9-2.7) mg/dL Total Bilirubin 0.60 (0.2-1.0) mg/dL AST 13 (13-39) U/L ALT 9 (7-52) U/L Alkaline Phosphatase 76 (34-104) U/L Troponin I 0.05 H* (<0.04) ng/mL Total Protein 7.0 (6.4-8.9) g/dL Albumin 3.7 (3.2-5.2) g/dL Globulin 3.3 (2-4) g/dL Albumin/Globulin Ratio 1.1 (1-3) TSH Pending Free T4 Pending Result Diagrams: 05/16/19 12:30 05/16/19 12:30 Lab Statement: Any lab studies that have been ordered have been reviewed, and results considered in the medical decision making process. Course/Dx - Course Course Of Treatment: Patient was sent in by his isotope technologist as his defibrillator went off twice last night. Patient is asymptomatic upon arrival. Patient had blood or performed showed a mildly elevated troponin likely due to the defibrillation process itself. Patient had electrolytes that were unremarkable. Patient had a chest x-ray which was unremarkable. Patient had his pacemaker interrogated which showed 2 episodes of sustained V. tach and one of V. fib which were successfully cardioverted by his defibrillate her. Cardiology was called and she recommended potassium and magnesium even though his LITES are normal as is good improvement of his chance of not going back into V. fib. He is admitted to the hospitalist - Diagnoses Provider Diagnoses: Ventricular tachycardia, Elevated troponin Discharge ED - Sign-Out/Discharge Documenting (check all that apply): Patient Departure - Discharge Plan Condition: Stable Disposition: ADMITTED TO [facility] Referrals: Alonso Marquez MD [Primary Care Provider] - - Billing Disposition and Condition Condition: STABLE Disposition: Admitted to [facility] - Attestation Statements Document Initiated by Sailajaibe: Yes Documenting Scribe: Estela Hurtdao Provider For Whom Moraima is Documenting (Include Credential): Hilton Duval MD. Scribe Attestation: I, Estela Hurtado, scribed for Hilton Duval MD. on 05/16/19 at 1336. Scribe Documentation Reviewed: Yes Provider Attestation: The documentation as recorded by the Estela tran accurately reflects the service I personally performed and the decisions made by me, Hilton Duval MD. Status of Scribe Document: Viewed Consult Consult: I spoke with Dr. Cerrato at 1301 who recommends giving the pt Magnesium and Potassium and admitting to the hospital. 1311 - Dr. Robertson accepts the pt for admission.
[2019-05-16 13:29] LABS: TSH (Thyroid Stimulating Horm) 2.59 mcIU/mL (0.34-5.60)
[2019-05-16 13:32] LABS: Free T4 1.02 ng/dL (0.61-1.12)
[2019-05-16] MEDS ORDERED: Acetaminophen TAB* 325 MG PO PRN (14:55)
[2019-05-16 16:02] LABS: Troponin I 0.04 ng/mL (<0.04)
[2019-05-16] MEDS ORDERED: Warfarin TAB(*) 2.5 MG PO ONE (17:00)
[2019-05-16] MEDS ORDERED: Warfarin TAB(*) 2.5 MG PO SCH (17:00)
[2019-05-16] MEDS: Latanoprost 0.005%* 2.5 ml BTL BOTH EYES SCH (17:20)
--- NOTE | 2019-05-16 18:39 | HP ---
CC: Dr. Marquez * HISTORY AND PHYSICAL: DATE OF ADMISSION: 05/16/19 PRIMARY CARE PROVIDER: Dr. Marquez. PRIMARY POULTICE MACHINE OPERATOR: Dr. Cerrato. ATTENDING PHYSICIAN WHILE IN THE HOSPITAL: Dr. Nicole Robertson * (dictated by Rhianna Pham NP) CHIEF COMPLAINT: AICD discharge x3. HISTORY OF PRESENT ILLNESS: Mr. Brantley is an 89-year-old male with a past medical history significant for mitral and aortic valve replacement, atrial fibrillation, history of diastolic and systolic heart failure, iron deficiency anemia, who presented to the emergency room due to his AICD discharging 3 times yesterday. The patient reports that he was called by Araiza who monitors his AICD and was told to report to the emergency room as his pacemaker had discharged 3 times yesterday. The patient reports that he had pacemaker discharge once yesterday afternoon and twice during the night. The patient denies any associated chest pain or palpitations associated with the discharge. He does report that he has had a cough x3 weeks. He denies any fever or chills, unintended weight loss. Denies any chest pain or edema. Denies any hemoptysis or shortness of breath. No nausea, vomiting, diarrhea, abdominal pain, hematuria, or dysuria. Denies any focal weakness, sensory loss, visual complaints, dysphagia, arthralgias, myalgias, rashes, lesions, open sores, psychosis or anxiety. While in the emergency room, the patient had routine lab work drawn. He was found to have a troponin of 0.05. The patient currently denies any chest pain due to his pacemaker discharging 3 times. Hospital Medicine was asked to evaluate for admission. 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 PAST SURGICAL HISTORY: 1. Mitral valve replacement. 2. Aortic valve replacement. 3. Pacemaker placement and AICD in 2002. 4. Cardiac catheterization in 2017. HOME MEDICATIONS: Include: 1. Coumadin 5 mg p.o. daily alternating with 2.5 mg. 2. Xalatan 0.005% 1 drop to both eyes daily. 3. Ferrous sulfate 325 mg p.o. daily. 4. PreserVision 1 tab p.o. b.i.d. 5. Omeprazole 20 mg p.o. b.i.d. 6. Metformin 500 mg p.o. daily. 7. Carvedilol 12.5 mg p.o. b.i.d. 8. Aldactone 12.5 mg p.o. daily. 9. Digoxin 0.125 mg p.o. daily. 10. Furosemide 40 mg p.o. daily. ALLERGIES: PENICILLIN. FAMILY HISTORY: Father with history of coronary artery disease and NH. Mother and sister both strokes. No reported history of diabetes. Grandfather with stomach cancer. SOCIAL HISTORY: The patient quit smoking in 1986. Does report occasional alcohol use, no illicit drug use. He is . He lives with his . Surrogate decision maker in the event he is unable to make his own decisions is his daughter, Afua Mar. He is a DNR/DNI. REVIEW OF SYSTEMS: A 14-point review of systems was completed, all pertinent positives as mentioned in the HPI. The patient does report an occasional productive cough with yellow sputum. PHYSICAL EXAMINATION GENERAL: At this time, Mr. Brantley is an 89-year-old male. He is alert and oriented, resting on the stretcher in the emergency room. He is in no acute distress. VITAL SIGNS: Blood pressure 131/58, heart rate 72, respirations are 21, O2 saturation 96%, temperature is 98.1 HEENT: Head is atraumatic, normocephalic. Eyes: EOMs are intact. Sclerae anicteric, not pale. Oral mucosa appeared to be moist. NECK: supple. LUNGS: Diminished bilaterally. There is no wheezes, rales or rhonchi. HEART: S1, S2. Regular rate and rhythm. No rubs or gallops. ABDOMEN: Soft and nontender. Bowel sounds are present x4. EXTREMITIES: He is able to move all 4 extremities. There is no clubbing or cyanosis. Pedal pulses are +2 bilaterally. NEUROLOGIC: He is awake, alert and oriented x3. Speech is clear. Thought process is intact. There is no gross focal deficits. SKIN: He does have a spot on his right ear. Biopsied today, bleeding is currently controlled. Band-Aid is intact. DIAGNOSTIC STUDIES/LAB DATA: WBCs are 6.8, RBCs 3.76, hemoglobin 11.3, hematocrit 33, platelet count is 190. INR is 3.32. Sodium 138, potassium 3.9, chloride 97, carbon dioxide 35, anion gap of 6, BUN is 20, creatinine 0.93. Glucose is 139, calcium 9.1, magnesium 1.9, total bilirubin 0.60. ASTs are 13, ALTs are 9, alkaline phosphatase 76, troponin was 0.05. He had a chest x-ray. Radiologist's impression: Cardiomegaly, small left pleural effusion. He had an electrocardiogram that showed a paced rhythm. ASSESSMENT AND PLAN: Mr. Brantley is an 89-year-old male with a past medical history significant for coronary artery disease with mechanical mitral valve and transcatheter aortic valve replacement, history of diastolic and systolic congestive heart failure, iron deficiency anemia, macular degeneration, history of lung cancer, who presented to [facility] at the direction of [place] after his automated implantable cardioverter defibrillator discharged x3 yesterday. He will be admitted under observation for: 1. Automated implantable cardioverter defibrillator discharge. We we will monitor him on telemetry. Dr. Cerrato from Cardiology has been consulted and we will see the patient in consult. I will order transthoracic echocardiogram. His troponin is mildly elevated at 0.05. I suspect this is related to the 3 automated implantable cardioverter defibrillator discharges. I will repeat his troponin level. The patient is currently chest pain-free and has not had any chest pain throughout the episodes of pacemaker discharge. 2. History of atrial fibrillation and mechanical valve. The patient will continue on Coumadin. He alternates Coumadin 5 mg/2.5 mg. He will receive 2.5 mg today. INR is 3.32. We will repeat an INR in the a.m. 3. Diabetes Type II. I will hold his metformin. I will place him on fingersticks a.c, will add lispro coverage if needed. 4. Macular degeneration. He will continue on Xalatan eyedrops daily. 5. Iron deficiency anemia. The patient should continue on iron ferrous sulfate as previously prescribed. 6. History of atrial fibrillation. He should continue on carvedilol, digoxin as previously prescribed. 7. History of diastolic and systolic heart failure not in acute exacerbation. He will continue on Aldactone and Lasix 40 mg p.o. daily. 8. FEN. He can have heart healthy caffeine okay diet. 9. Code status. He is DNR/DNI. 10. DVT prophylaxis. He will continue on Coumadin as his risk assessment is 4 making him high risk. His INR is therapeutic at this time. TIME SPENT: Time spent on this admission was 60 minutes, greater than half the time was spent at the bedside reviewing the events leading to thus far to hospitalization, performing physical exam and reviewing my plan of care. I have discussed this case with Dr. Nicole Robertson. She is in agreement with my plan. RHIANNA PHAM, STAMP MAKER [id number]/[facility] #: [id number] PENG
--- NOTE | 2019-05-16 20:55 | ECHO ---
*[facility]* [place] [address] Fax #: [phone] Transthoracic Echocardiogram Patient: Wayne Brantley : 1930 Study Date: 05/16/2019 Age: 89 Gender: M HR: Height: 71 in /180.3 cm BSA: 2.06 m^2 Weight: 189.6 lb /86.2 kg BMI: 26.5 kg/m^2 *Laboratory Operations Coordinator: Raquel Prescott RDCS RN *Referring Physician: * Rhianna Pham *Reading Physician: * Anna Cerrato MD Indications: Valvular disease. Ventricular tachycardia. History: Lung cancer. Anemia. GI bleed. TIA. Risk factors: Former tobacco use. Diabetes mellitus. Labs, prior tests, procedures, and surgery: CABG. # 33 [employer] mechanical valve in the mitral position. #29 Jalloh S3 bioprosthetic valve in the aortic position. AICD implantation. Conclusions Summary: - Left ventricle: Systolic function is at the lower limits of normal. The estimated ejection fraction is 50-55%. Doppler parameters are consistent with elevated ventricular end-diastolic filling pressure. - Right ventricle: The cavity size is mildly dilated. Pacer wire noted in the right ventricle. Systolic function is mildly reduced. - Left atrium: The atrium is massively dilated. - Right atrium: The atrium is severely dilated. - Mitral valve: There is a mechanical prosthesis. Leaflet separation is normal, grossly based on long axis view. There is mild regurgitation. This may be underestimated due to shadowing from the prosthetic valve. The peak gradient is 21mmHg and the mean PG is 6 mmHg. The peak E-wave velocity is 2.07 m/sec. The pressure half-time is 66 ms. The mean diastolic gradient is 6.0 mm Hg. The peak diastolic gradient is 21.0 mm Hg. The valve area by pressure half-time is 3.3 cm^2. The valve area (LVOT continuity) is 1.5 cm^2. - Aortic valve: There is a bioprosthetic valve. Cusp separation is normal. The peak systolic velocity is 2.08 m/sec. The mean systolic gradient is 9.0 mm Hg. The peak systolic gradient is 17.0 mm Hg. The LVOT to aortic valve VTI ratio is 0.42. The valve area by the velocity-time integral method is 1.44 cm^2. The valve area by the peak velocity method is 1.60 cm^2. - Tricuspid valve: There is moderate regurgitation. - Pulmonary arteries: Systolic pressure is severely increased, estimated to be 60 mm Hg. - Compared with prior echocardiogram of 03/06/18 ([facility]), ventricular function is stable. Elevated LVEDP newly described. No longer see paravalvular AI, prosthetic mitral valve gradients are stable, previously 6 mmHg (mean) and 21 mmHg (peak). Pulmonary artery pressure has increased from 39 mmHg. Study data: Transthoracic echocardiogram. Procedure: Transthoracic echocardiography was performed. Image quality was fair. The study was technically limited due to Smoking history. Complete 2D, spectral Doppler, and color flow Doppler. Location: Bedside. Patient status: Observation. Patient room number: ED 15. Rhythm: Paced rhythm. Findings Left ventricle: The cavity size is normal. Wall thickness is normal. Systolic function is at the lower limits of normal. The estimated ejection fraction is 50-55%. Wall motion is normal; there are no regional wall motion abnormalities. Left ventricular diastolic function parameters are indeterminate. Doppler parameters are consistent with elevated ventricular end-diastolic filling pressure. Right ventricle: The cavity size is mildly dilated. Pacer wire noted in the right ventricle. Systolic function is mildly reduced. Ventricular septum: Ventricular septal wall motion has a postoperative appearance. Left atrium: The atrium is massively dilated. Right atrium: The atrium is severely dilated. Pacer wire noted in right atrium. Mitral valve: There is a mechanical prosthesis. Leaflet separation is normal, grossly based on long axis view. There is mild regurgitation. This may be underestimated due to shadowing from the prosthetic valve. The peak gradient is 21mmHg and the mean PG is 6 mmHg. Aortic valve: There is a bioprosthetic valve. The leaflets are normal thickness. Cusp separation is normal. There is no significant regurgitation. Tricuspid valve: The valve is structurally normal. There is no evidence of stenosis. There is moderate regurgitation. Pulmonic valve: Not well visualized. There is trace to mild regurgitation. Aorta: Aortic root: The aortic root is not dilated. Ascending aorta: The ascending aorta is not dilated. Aortic arch: The aortic arch is not visualized. Pericardium: There is no pericardial effusion. Pulmonary arteries: The main pulmonary artery is normal-sized. Systolic pressure is severely increased, estimated to be 60 mm Hg. Systemic veins: Inferior vena cava: The vessel is dilated. There is (>= 50%) respiratory change in the IVC dimension. Measurements Left ventricle Value Ref Aortic valve Value Ref HERBER, LAX 5.1 cm 4.2 - Radha diam, ED 2.1 cm ---- 5.8 Peak v, S 2.08 m/sec ---- ESD, LAX 3.7 cm 2.5 - VTI, S 41.6 cm ---- 4.0 Mean grad, S 9.0 mm Hg ---- FS, LAX 28 % 25 - 43 Peak grad, S 17.0 mm Hg ---- PW, ED 1.0 cm 0.6 - LVOT/AV, VTI ratio 0.42 ---- 1.0 MARTÍNEZ, VTI 1.44 cm^2 ---- IVS/PW, ED 1 -------- MARTÍNEZ, Vmax 1.60 cm^2 ---- E', lat radha, TDI 12.1 cm/sec >=10.0 E/e', lat radha, TDI 17 -------- Mitral valve Value Ref E', med radha, TDI 7.2 cm/sec >=7.0 Peak E 2.07 m/sec --- - E/e', med radha, TDI 29 -------- Decel time 232 ms ---- E', avg, TDI 9.7 cm/sec -------- PHT 66 ms ---- E/e', avg, TDI (H) 21 <=14 Mean grad, D 6.0 mm Hg --- - Peak grad, D 21.0 mm Hg ---- LVOT Value Ref MVA, PHT 3.3 cm^2 ---- Diam, S 2.10 cm -------- MVA, LVOT cont 1.5 cm^2 ---- Area 3.5 cm^2 -------- Peak eddie, S 0.96 m/sec -------- Pulmonic valve Value Ref VTI, S 17.3 cm -------- Peak v, S 0.72 m/sec ---- Mean grad, S 2 mm Hg -------- Peak grad, S 2.0 mm Hg ---- SV 58 ml -------- SV/bsa 28 ml/m^2 -------- Tricuspid valve Value Ref Peak RV-RA grad, S 52 mm Hg ---- Ventricular septum Value Ref Max TR eddie 3.6 m/sec ---- IVS, ED 1.0 cm 0.6 - 1.0 Aortic root Value Ref Root diam 2.5 cm <4.2 Right ventricle Value Ref HERBER, LAX 4.0 cm -------- Ascending aorta Value Ref HERBER minor ax, A4C (H) 4.4 cm 1.9 - AAo AP diam, S 2.7 cm ---- mid 3.5 Pressure, S 60 mm Hg -------- Pulmonary artery Value Ref Pressure, S 58.0 mm Hg ---- Left atrium Value Ref ML dim, A4C 8.3 cm -------- Inferior vena cava Value Ref SI dim, A4C 8.5 cm -------- Diam 2.5 cm ---- Vol/bsa, ES, 1-p (H) 175 ml/m^2 12 - 37 A4C Vol/bsa, ES, A/L (H) 156 ml/m^2 16 - 34 Right atrium Value Ref ML dim, ES, A4C (H) 5.8 cm 2.6 - 4.4 SI dim, ES, A4C (H) 8.2 cm 3.4 - 5.3 Estimated RAP 8 mm Hg -------- Legend: (L) and (H) gaby values outside specified reference range. Prepared and electronically signed by Anna Cerrato MD 05/16/2019 20:54
[2019-05-16] MEDS: Multivitamins/Minerals TAB PO SCH (20:58)
[2019-05-16] MEDS: Carvedilol TAB* 6.25 MG PO SCH (20:59)
[2019-05-16] MEDS: Pantoprazole TAB * 40 MG TAB PO SCH (20:59)
[2019-05-17 07:42] LABS: ABS Basophils 0.1 10^3/ul (0-0.2); ABS Eosinophils 0.1 10^3/ul (0-0.6); ABS Lymphocytes 0.7 10^3/ul (1.0-4.8); ABS Monocytes 0.7 10^3/ul (0-0.8); Eosinophil % 1.3 %; Hematocrit 32 % (42-52); Hemoglobin 11.1 g/dL (14.0-18.0); Lymphocyte % 9.1 %; Mean Corpuscular HGB Conc 35 g/dL (31-36); Mean Corpuscular Hemoglobin 31 pg (27-31); Mean Corpuscular Volume 87 fL (80-94); Platelet Count 207 10^3/uL (150-450); Red Blood Count 3.65 10^6 /uL (4.18-5.48); Red Cell Distribution Width 15 % (10-15); White Blood Count 7.5 10^3/uL (3.5-10.8)
[2019-05-17 07:50] LABS: INR 3.27 (0.82-1.09)
[2019-05-17] MEDS ORDERED: Furosemide IV* 10 MG/ML VIAL (40 MG) IV ONE (08:00)
[2019-05-17] MEDS: Pantoprazole TAB * 40 MG TAB PO SCH ×2 (08:36→21:37)
[2019-05-17] MEDS: Multivitamins/Minerals TAB PO SCH ×2 (08:36→21:37)
[2019-05-17] MEDS: Carvedilol TAB* 6.25 MG PO SCH ×2 (08:36→21:39)
[2019-05-17 08:38] LABS: BUN/Creatinine Ratio 21.4 (8-20); Calcium 9.2 mg/dL (8.6-10.3); EGFR African American 104.1 (>60)
[2019-05-17] MEDS ORDERED: Furosemide TAB* 40 MG PO SCH (09:00)
[2019-05-17] MEDS ORDERED: Spironolactone TAB* 25 MG PO SCH (09:00)
[2019-05-17] MEDS ORDERED: Ferrous Sulfate TAB* 325 MG PO SCH (09:00)
--- NOTE | 2019-05-17 09:20 | CONS ---
CC: Dr. Alonso Marquez; Dr. Sherwood; Dr. Bc Jo * CARDIOLOGY CONSULTATION REPORT: DATE OF CONSULT: 05/16/19 REASON FOR CONSULTATION: ICD shock. HISTORY OF PRESENT ILLNESS: Mr. Brantley is an 89-year-old gentleman with a history of valvular heart disease and he originally had a pacer implanted and then underwent biventricular upgrade in 2008 for cardiomyopathy felt to be related to RV apical pacing. The patient was sleeping when he felt his device shocked him. He went to the [facility] doctor yesterday and then [facility] called him and his daughter on return and told them that he had had several episodes of ventricular tachycardia and to present to our hospital. I do not have any records from [facility] available at the time of the consultation. No ICD records in my outpatient chart or at [facility] for review from the recent events. The patient was seen with his daughter. For about 3 weeks, he has been anorexic with lower energy and some coughing. He did feel the shock of the defibrillator and it awoke him from sleep. He has not made any changes in his medications, no [id number] medications, and no chest pain. PAST MEDICAL HISTORY: 1. Mitral valve insufficiency, status post [employer] Manoj's #33 aortic valve replacement 2000 (Jose G). 2. Aortic valve stenosis, status post TAVR 2018. 3. 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 Mendez and treated by Dr. Jo. 4. 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 5. Paroxysmal AFib. 6. Type 2 diabetes. 7. Hypertension. 8. Dyslipidemia. 9. Waldenstrom's, followed by Dr. Jo. 10. GI bleed/AVM 2016. 11. Mild coronary artery disease (OM occlusion on medical management). OUTPATIENT MEDICATIONS: Include: 1. Spironolactone 12.5 mg a day. 2. Coreg 12.5 mg b.i.d. 3. Digoxin 0.125 mg a day. 4. Lasix 40 mg a day. 5. Metformin 500 mg a day. 6. Coumadin. 7. Omeprazole 20 mg a day. 8. PreserVision. 9. Latanoprost 0.005%. 10. Iron 325 mg a day. 11. Oxygen p.r.n. ALLERGIES: Include PENICILLIN. FAMILY HISTORY: Positive for coronary artery disease with his father having a heart attack. The patient's mother and sister had a history of strokes. 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 Former heavy smoker, stopped in 1986. Rare alcohol intake. Drinks coffee. Does chores around the house. No formal exercise program. Supportive daughter. REVIEW OF SYSTEMS: As above, he has the recent anorexia, low energy, coughing. Denies chest pain, pressure, heaviness, weirdness, palpitations or racing of the heart. No new medications. No swelling. No new orthopnea or PND. No recent fevers, chills, sweats, trouble with bowel habits. No trouble urinating. All other review of systems were negative. PHYSICAL EXAM: The patient is 5 feet 11 inches and weighs 290 pounds with a BMI of 26.5. Vital Signs: On admission in the emergency room show blood pressure 141/57, pulse was 72, afebrile, oxygen saturation is 99% on room air. General Appearance: Elderly gentleman, mildly centripetally overweight, appears in his usual state of health. Psychologically pleasant and cooperative. Neurologically, awake, alert, oriented to person and place. Speech is articulate. Comprehension is good. No gross sensory or motor deficits other than some hard of hearing on bedside exam. Skin: Warm, dry. ICD pocket and midline sternotomy scar is well healed. No cyanosis appreciated. HEENT: Mucous membranes were moist. Neck: Without appreciable increase in JVP. No thyromegaly. Diminished breath sounds in the left base. Other lung mortensen were clear. Coronary: S1, S2. Regular. Soft systolic murmur heard along the left sternal border. Mechanical heart sounds. Abdomen: Obese, active bowel sounds, soft, nontender. No appreciable hepatosplenomegaly. Lower extremities showed 1 to 2+ pitting edema. DIAGNOSTIC STUDIES/LAB DATA: White count 6.8, hemoglobin 11.3, hematocrit 33, platelets 190. INR 3.32. Sodium 138, potassium 3.9, chloride 97, bicarb 35, BUN 20, creatinine 0.93, glucose 139. Calcium 9.1, magnesium 1.9, AST 13, ALT 9. Troponin #1 0.05, troponin #2 0.04. Total protein 7, albumin 3.7. TSH 2.59 , free T4 1.02. Echocardiogram from 05/16/19 showed left ventricular systolic function 50% to 55 % with evidence of elevated left ventricular end-diastolic filling, RV mildly dilated and systolic function mildly reduced, severe biatrial enlargement, mitral valve with mechanical bileaflet valve with mild mitral insufficiency. Mean gradient 6 mmHg, peak gradient 21 mmHg, bioprosthetic aortic valve replacement with normal function, mean gradient 9 mmHg, dimensionless index is 0.42, moderate tricuspid insufficiency, severe elevation in PA pressure at 60 mmHg and compared with this [place] echo of March 2018, ventricular and valvular function are stable but PA pressure has increased from 39 mmHg. AICD interrogation not available in 2019. Cardiac catheterization from showed single vessel coronary artery disease with OM branch off the circumflex having 80% occlusion. IMPRESSION AND PLAN: Mr. Brantley is an 89-year-old gentleman who presented to our emergency room at the recommendation of [place] concrete pourer due to ventricular tachycardia and ICD shocks. The patient had 3 weeks of coughing, lower energy, and anorexia and echo reveals increased PA pressures that are new. He has mild elevation in troponins. The patient has preserved ventricular function. It is possible that ICD shocks are related to his decompensated failure, but that could also be related to ischemia from his OM branch coronary artery disease, on medical management. Overnight, I am going to treat him with a dose of IV Lasix to try to get his PA pressures down. We will get his records from [place] to verify the dysrhythmias and we can get an updated pacer check here as well. I ordered overnight oximetry to evaluate if hypoxia could be a factor in VT as events occured sleeping per patient history. I will order an updated stress test and discuss with Interventional Cardiology either here or [place] about the feasibility of intervention on the 80% occlusion seen a couple of years ago. Optimization of electrolytes with potassium and magnesium was initiated under my direction in the ER. The patient may need an initiation of an antiarrhythmic to minimize further ICD shocks. Further recommendations will be made pending his clinical course and response to the above measures. ADDENDUM: ICD DOWNLOAD OBTAINED FROM [facility] [employer]: 05/15/19 VF + SHOCK 8:38 AM, VF AND SHOCK 1:13 AM. 5 NON SUSTAINED EPISODES BETWEEN AND 05/16 LYNNE. [id number]/[facility] #: [id number] PENG
[2019-05-17 11:51] LABS: Magnesium 2.2 mg/dL (1.9-2.7)
[2019-05-17] MEDS ORDERED: Regadenoson* 0.4 MG/5 ML SYRINGE ONE (12:40)
[2019-05-17] MEDS ORDERED: Warfarin TAB(*) 5 MG PO SCH (17:00)
[2019-05-17] MEDS ORDERED: Warfarin TAB(*) 3 MG PO SCH (17:00)
[2019-05-17] MEDS ORDERED: Digoxin TAB* 0.125 MG PO SCH (17:00)
[2019-05-17] MEDS ORDERED: Warfarin TAB(*) 1 MG PO SCH (17:00)
--- NOTE | 2019-05-17 17:30 | PN ---
Subjective Date of Service: 05/17/19 Interval History: HD 2 on 05/17 89 y/o M with PMH of mitral and aortic valve repair, Atrial Fibrillation(on warfarin), Heart Failure, Anemia presented after 3 AICD discharge; Ventricular Tachy Overnight- Pulse oximetry showed desaturation events. VS stable No complaint at present. Complains of cough, cold and fatigue for 3 weeks. Objective Active Medications: Acetaminophen (Tylenol Tab*) 650 mg PO Q4H PRN PRN Reason: MILD PAIN or TEMP > 100.4 Carvedilol (Coreg Tab*) 12.5 mg PO BID [facility] Last Admin: 05/17/19 08:36 Dose: 12.5 mg Digoxin (Lanoxin Tab*) 0.125 mg PO DAILY@1700 [facility] Ferrous Sulfate (Ferrous Sulfate Tab*) 325 mg PO DAILY [facility] Last Admin: 05/17/19 08:37 Dose: 325 mg Furosemide (Lasix Tab*) 40 mg PO DAILY [facility] Latanoprost (Xalatan 0.005%*) 1 drop BOTH EYES QPM [facility] Last Admin: 05/16/19 17:20 Dose: 1 drop Multivitamins/Minerals (Theragran/Minerals Tab*) 1 tab PO BID [facility] Last Admin: 05/17/19 08:36 Dose: 1 tab Nitroglycerin (Nitroglycerin 5 Mg Patch*) 1 patch TRANSDERM BEDTIME@2000 [facility] Pantoprazole Sodium (Protonix Tab*) 20 mg PO BID [facility] Last Admin: 05/17/19 08:36 Dose: 20 mg Pharmacy Profile Note (Nitro Patch/Oint Remove*) 1 note PATCH OFF 0800 [facility] Phytonadione (Vitamin K Oral Solution*) 2.5 mg PO ONCE ONE Stop: 05/17/19 18:01 Spironolactone (Aldactone Tab*) 12.5 mg PO DAILY [facility] Last Admin: 05/17/19 08:36 Dose: 12.5 mg Vital Signs - 8 hr 05/17/19 05/17/19 05/17/19 12:49 15:03 15:25 Temperature 97.7 F 97.5 F Pulse Rate 72 73 Respiratory 16 17 Rate Blood Pressure 124/55 138/65 (mmHg) O2 Sat by Pulse 95 89 93 Oximetry Oxygen Devices in Use Now: None Exam: Patient is lying on a bed with no acute distress HEENT: Normocephalic and atraumatic Lungs: Clear with no addded sound Heart: S1/S2 heard with no murmur Abdomen: Soft, nondistended and nontender Extremities: Pitting edema Neuro: Alert, conscious and oriented Result Diagrams: 05/17/19 07:28 05/17/19 07:28 Additional Lab and Data: Lab Results 05/16/19 05/16/19 05/16/19 Range/Units 12:30 12:30 12:30 WBC 6.8 (3.5-10.8) 10^3/uL RBC 3.76 L (4.18-5.48) 10^6 /uL Hgb 11.3 L (14.0-18.0) g/dL Hct 33 L (42-52) % MCV 88 (80-94) fL MCH 30 (27-31) pg MCHC 34 (31-36) g/dL RDW 15 (10-15) % Plt Count 190 (150-450) 10^3/uL MPV 6.9 L (7.4-10.4) fL Neut % (Auto) 77.9 % Lymph % (Auto) 10.4 % Bill[place] % (Auto) 10.0 % Eos % (Auto) 0.9 % Baso % (Auto) 0.8 % Absolute Neuts (auto) 5.3 (1.5-7.7) 10^3/ul Absolute Lymphs (auto) 0.7 L (1.0-4.8) 10^3/ul Absolute Monos (auto) 0.7 (0-0.8) 10^3/ul Absolute Eos (auto) 0.1 (0-0.6) 10^3/ul Absolute Basos (auto) 0.1 (0-0.2) 10^3/ul Absolute Nucleated RBC 0.0 10^3/ul Nucleated RBC % 0.0 INR (Anticoag Therapy) 3.32 H (0.82-1.09) Sodium 138 (135-145) mmol/L Potassium 3.9 (3.5-5.0) mmol/L Chloride 97 L (101-111) mmol/L Carbon Dioxide 35 H (22-32) mmol/L Anion Gap 6 (2-11) mmol/L BUN 20 (6-24) mg/dL Creatinine 0.93 (0.67-1.17) mg/dL Est GFR ( Amer) 92.6 (>60) Est GFR (Non-Af Amer) 76.5 (>60) BUN/Creatinine Ratio 21.5 H (8-20) Glucose 139 H (70-100) mg/dL Calcium 9.1 (8.6-10.3) mg/dL Magnesium 1.9 (1.9-2.7) mg/dL Total Bilirubin 0.60 (0.2-1.0) mg/dL AST 13 (13-39) U/L ALT 9 (7-52) U/L Alkaline Phosphatase 76 (34-104) U/L Troponin I 0.05 H* (<0.04) ng/mL Total Protein 7.0 (6.4-8.9) g/dL Albumin 3.7 (3.2-5.2) g/dL Globulin 3.3 (2-4) g/dL Albumin/Globulin Ratio 1.1 (1-3) TSH Pending Free T4 Pending Assess/Plan/Problems-Billing Assessment: 89 y/o M with PMH of mitral and aortic valve repair, Atrial Fibrillation(on warfarin), Heart Failure, Anemia presented after 3 AICD discharge; Ventricular Tachy and mild elevation in troponins - Patient Problems (1) Ventricular tachyarrhythmia Current Visit: No Status: Acute Code(s): I47.2 - VENTRICULAR TACHYCARDIA SNOMED Code(s): 13080661 Comment: -One during daytime and two at night time. -Could be because of ischemia or hypoxia(less likely given VT on daytime as well ). -He is following with [place] -According to building maintenance engineer in [place], there was occlusion of Circumflex artery when doing valve replacement but no intervention done for occlusion. -This could be the cause of VT -His stress test was low risk. -He will need cardiac cath and as he is high risk and may need EP he will be transferred to [place]. -Discussed with Dr. Packer -Pt to be traansferred gate watchman tomorrow. (2) Heart failure Current Visit: Yes Status: Acute Code(s): I50.9 - HEART FAILURE, UNSPECIFIED SNOMED Code(s): 80398491 Comment: -No evidence of acute exacerbation -Echo on 05/16 showed EF of 50-55% with elevated ventricular end diastolic pressur, RV mildly dilated, severe bilateral atrial enlargement with elevated PA pressure of 60 mm Hg. -Continue aldactone and lasix (3) Atrial fibrillation Current Visit: No Status: Acute Code(s): I48.91 - UNSPECIFIED ATRIAL FIBRILLATION SNOMED Code(s): 85235643 Comment: -On carvedilol and digoxin (4) Diabetes Current Visit: Yes Status: Acute Code(s): E11.9 - TYPE 2 DIABETES MELLITUS WITHOUT COMPLICATIONS SNOMED Code(s): 36766007 Comment: -Metformin on hols -On fingersticks (5) MARIBEL (iron deficiency anemia) Current Visit: Yes Status: Acute Code(s): D50.9 - IRON DEFICIENCY ANEMIA, UNSPECIFIED SNOMED Code(s): 45751533 Comment: -On PO iron (6) Mechanical heart valve present Current Visit: No Status: Acute Code(s): Z95.2 - PRESENCE OF PROSTHETIC HEART VALVE SNOMED Code(s): 87979153480234 Comment: -Hold warfarin as pt is going to have procedure tomorrow. Vit K given for reversal (7) DVT prophylaxis Current Visit: No Status: Acute Code(s): EYZ8236 - SNOMED Code(s): 729867561 Comment: INR 3.3 hold warfarin procedure tomorrow (8) DNR (do not resuscitate) Current Visit: Yes Status: Acute Status and Disposition: Inpatient transfer to [facility] tomorrow-gate watchman at 5 am Attending: Hiram Burdick Attestation Documenting Resident: Carmine Mckeon Supervising Physician: Remy Burdick Attestation: This service has been performed in part by a resident under the direction of a teaching physician.I, Remy Burdick, performed the service, or was physically present during the critical, or leo portions of the service, furnished by the resident. I participated in the management of the patient.
[2019-05-17] MEDS ORDERED: Phytonadione Oral Solution* 5 MG/25 ML UDC PO ONE (18:00)
[2019-05-17] MEDS: Latanoprost 0.005%* 2.5 ml BTL BOTH EYES SCH (18:02)
[2019-05-17] MEDS ORDERED: Dextrose 50% VIAL 50 ml IV PUSH PRN (18:25)
[2019-05-17] MEDS ORDERED: Nitroglycerin 0.2 MG/HR PATCH* (5 MG) TRANSDERM SCH (20:00)
[2019-05-17] MEDS ORDERED: Phytonadione SUBCUT/IM Adult* 10 MG/ML AMP (IM or SQ not preferred route) SUBCUT ONE (20:25)
[2019-05-17] MEDS ORDERED: Insulin LISPRO* 1 UNITS UNIT SUBCUT SCH (21:00)
[2019-05-17] MEDS ORDERED: Phytonadione IV (Adult)* 10 MG/ML 1 ML AMP ONE (21:57)
[2019-05-17] MEDS ORDERED: Phytonadione IV (Adult)* 5 MG in NS 0.9% 50 ML* 50 ML IV ONE (22:00)
--- NOTE | 2019-05-17 22:33 | TRS ---
CC: Dr. Stalin Cambpell; Dr. Marquez; Dr. Jo * TRANSFER SUMMARY: DATE OF ADMISSION: 05/16/19 DATE OF ANTICIPATED TRANSFER: 05/18/19 ACCEPTING PHYSICIAN: Dr. Stalin Campbell, [facility]. PRIMARY DIAGNOSIS: Nonsustained ventricular tachycardia. SECONDARY DIAGNOSES: 1. 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 2. Aortic stenosis, status post TAVR in 2018. 3. Lung cancer diagnosed in 2017. 4. Adenocarcinoma, status post radiation therapy. 5. 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 6. Paroxysmal atrial fibrillation. 7. Type 2 diabetes. 8. Hypertension. 9. Dyslipidemia. 10. Waldenstrom's macroglobulinemia. 11. Gastrointestinal bleed secondary to arteriovenous malformations in 2016. 11. Coronary artery disease with 80% occlusion of obtuse marginal branch on cardiac catheterization 2 years ago. CONSULTATION: Dr. Cerrato, Cardiology. PROCEDURE: None. HOSPITAL COURSE: Please see history and physical for full presentation. The patient is an 89-year-old man with nonischemic cardiomyopathy and coronary artery disease who presented with 3 ICD discharges that occurred at home when he was at rest. The patient was certainly aware of these events, but also received a call from [facility] that he should come to the emergency department. The initial workup showed troponin of 0.05 which dropped to 0.04 on repeat in 3 hours. Electrolytes essentially normal with a potassium of 4.0 and magnesium 2.2. On the second day of admission, his BNP was 115, his TSH was 2.59. He has normal white count, hemoglobin of 11.1, hematocrit of 32%, normal platelet count. Chest x-ray on admission showed small left pleural effusion and cardiomegaly, no infiltrates. The patient was then started on telemetry and had no further AICD discharges. Overnight between 05/16/19 and , he had an oximetry study which showed that his saturation was less than 90% more than 95% of the time. The patient has either sleep apnea or has hypoxia when he is supine due to heart failure. Further investigation with outpatient sleep study would be indicated. Nighttime supplemental oxygen is also indicated which may prevent some of his defibrillator discharges. On the day after admission, the patient underwent chemical stress Myoview test which was thought to be a low risk nonischemic result. The patient also had an echocardiogram on 05/16/19 which showed ejection fraction in 50% to 55% range and St. Manoj valve in mitral position and a bioprosthetic valve in aortic position with no significant regurgitation or residual stenosis. Discussions were had between Dr. Campbell and Dr. Cerrato and a decision was made that the patient needs to have cardiac catheterization with an eye towards intervention on previously known coronary lesions may be causing ischemia. The patient needs to be treated at a level of care where there is Cardiothoracic Surgery backup due to his age and high risk coronary lesion. He also may need electrophysiology studies which is available at [facility], but not at our hospital. The patient accepts the risks of transfer including the decompensation arrhythmias during transport. MEDICATIONS: On discharge are: 1. Acetaminophen 650 mg p.o. q.4 hours p.r.n. mild pain or temperature. 2. Carvedilol 12.5 mg p.o. b.i.d. 3. Dextrose D50 25 mL IV push for fingersticks less than 60. 4. Digoxin 0.125 mg p.o. q. day. 5. Ferrous sulfate 325 mg p.o. q. day. 6. Furosemide 40 mg p.o. q.a.m. 7. Lispro insulin a.c., h.s., sliding scale. 8. Xalatan 0.005% one drop both eyes q.p.m. 9. Multivitamin 1 tab p.o. b.i.d. 10. Nitroglycerin patch 5 mg one patch topically at night time, remove in the morning. 11. Pantoprazole 20 mg p.o. b.i.d. 12. Spironolactone 12.5 mg p.o. q.a.m. The patient was on warfarin on admission and had a therapeutic INR at 3.27 on . He has been given one dose of vitamin K in anticipation of cardiac catheterization and orally 2.5 mg. Therefore, the patient's warfarin has been stopped. We will give additional dose of vitamin K subcutaneous tonight before discharge tomorrow morning early. STATUS: Observation. CONDITION: Stable. DIET: Cardiac diet. ACTIVITY: Bed rest at the moment. [id number]/[facility] #: [id number] [facility]
[2019-05-18 06:03] LABS: INR 2.13 (0.82-1.09)
[2019-05-18 06:07] LABS: BUN/Creatinine Ratio 21.2 (8-20); Calcium 8.9 mg/dL (8.6-10.3); EGFR African American 102.7 (>60); EGFR Non-African American 84.9 (>60); Potassium 3.8 mmol/L (3.5-5.0)
[2019-05-18] MEDS ORDERED: Nitro Patch/OINT Remove PATCH OFF SCH (08:00)
[2019-05-18 08:39] VITALS: BP 129/55
[2019-05-18] MEDS ORDERED: Furosemide TAB* 40 MG PO SCH (09:00)
== END 2019-05-18 08:00 | disposition short-term general hospital (02) ==
LOC: ED 12:00 → MEDTELE 14:55
PROVIDERS: ADMIT Hospitalist; ATTEND Internal Medicine
DX: I47.2 Ventricular tachycardia (principal); I34.0 Nonrheumatic mitral (valve) insufficiency; Z95.2 Presence of prosthetic heart valve; I25.10 Atherosclerotic heart disease of native coronary artery without angina pectoris; I42.8 Other cardiomyopathies; I50.40 Unspecified combined systolic (congestive) and diastolic (congestive) heart failure; C34.90 Malignant neoplasm of unspecified part of unspecified bronchus or lung; D50.9 Iron deficiency anemia, unspecified; C80.1 Malignant (primary) neoplasm, unspecified; I48.0 Paroxysmal atrial fibrillation; E11.9 Type 2 diabetes mellitus without complications; I10 Essential (primary) hypertension; E78.5 Hyperlipidemia, unspecified; C88.0 Waldenstrom macroglobulinemia; K92.2 Gastrointestinal hemorrhage, unspecified; Z95.0 Presence of cardiac pacemaker; Z79.899 Other long term (current) drug therapy; Z92.21 Personal history of antineoplastic chemotherapy; Z79.01 Long term (current) use of anticoagulants; Z66 Do not resuscitate; Z87.891 Personal history of nicotine dependence
CPT/HCPCS: 36415; 71045; 78452; 80048; 80053; 83735; 83880; 84439; 84443; 84484; 85025; 85610; 93005; 93017; 93306; 94762; 96365; 96366; 96367; 96375; 99284; A9270-GY; A9502; G0378; J1940; J2785; J3430; J3475; J3480

== ENCOUNTER 2019-06-03 12:38 | Inpatient (IN) | payer MEDICARE, BC ==
--- OUTSIDE RECORDS SUMMARY | 2019-06-03 12:58 | XMS REPORT | Continuity of Care Document ---
:1930 External Reference #:[id number] Author Name Lily Eubanks N.P. (transmitted by agent of provider Sheyla Schofield) Address [address] [place] [address] Care Team Providers Name Role Phone Alonso Marquez MD - Family Care Team Information Spinning Operator [phone] Medicine Bc Jo MD - Hematology Care Team Information Spinning Operator [phone] Remy Mendez MD - Radiation Care Team Information Spinning Operator Oncology Problems Active Problems Provider Date Atrial fibrillation GHANSHYAM Mcdowell Onset: 02/25/2014 Benign hypertension GHANSHYAM Mcdowell Onset: 02/25/2014 Diabetes mellitus GHANSHYAM Mcdowell Onset: 02/25/2014 Osteoarthritis Shelly Cárdenas PA Onset: 02/25/2014 History of mechanical mitral valve replacement GHANSHYAM Mcdowell Onset: 2000 Cardiac pacemaker in situ GHANSHYAM Mcdowell Onset: 02/25/2014 Dyslipidemia GHANSHYAM Mcdowell Onset: 02/25/2014 Mitral valve disorder Anna Cerrato M.D. Onset: 10/03/2015 Essential hypertension Anna Cerrato M.D. Onset: 10/03/2015 Macroglobulinemia Anna Cerrato M.D. Onset: 10/03/2015 Dyspnea Anna Cerrato M.D. Onset: 10/03/2015 Aortic valve disorder Anna Cerrato M.D. Onset: 10/03/2015 Acute on chronic systolic heart failure Anna Cerrato M.D. Onset: 10/03/2015 Other cardiomyopathies Anna Cerrato M.D. Onset: 10/03/2015 Chronic diastolic heart failure nAna Cerrato M.D. Onset: 10/10/2015 Chronic atrial fibrillation Anna Cerrato M.D. Onset: 09/29/2018 Atherosclerotic heart disease of [place] coronary Anna Cerrato M.D. Onset: artery without angina pectoris Social History Type Date Description Comments Sex Unknown Tobacco Use Start: Unknown quit smoking 1986 ETOH Use Rarely consumes beer Tobacco Use Start: Unknown End: Patient is a former Unknown smoker Recreational Drug Use Denies Drug Use Tobacco Use Start: Unknown Heavy tobacco smoker (more than 10 cigarettes/day) Smoking Status Reviewed: 05/31/19 Heavy tobacco smoker (more than 10 cigarettes/day) Exercise Type/Frequency Exercises rarely waking 500 to 800 steps a day Allergies, Adverse Reactions, Alerts Active Allergies Reaction Severity Comments Date Penicillin 10/03/2015 Inactive Allergies NKDA 02/25/2014 Medications Active Medications SIG Qnty Indications Ordering Date Provider Oxygen d/c all oxygen , 1units Anna Cerrato, 09[place]05/2017 [facility] [place] Arely [place] and all tanks Amoxicillin take 4 tabs by mouth 4tabs Anna Cerrato, 02/25/2014 500mg 1 hour prior to M.D. Tablets dental procedures Carvedilol 1 tab by mouth twice 90tabs Anna Cerrato, 25mg a day M.D. Tablets Furosemide 1 po every day Unknown 40mg Tablets Metformin HCL 1 tablet daily Unknown 500mg Tablets Coumadin as directed Unknown Omeprazole 1 by mouth twice a Unknown 20mg day Capsules Presalbina Areds 2 take one cap in the Unknown moring and one cap Areds 2 Capsules in the evening Latanoprost as directed Unknown 0.005% Solution Iron 1 by mouth every day Unknown 325(65Fe) mg Tablets Amiodarone HCL 1 tab by mouth 3 x Unknown 200mg daily until 06/03 Tablets then 1 tab by mouth 2x daily until 06/17 then 1 tab by mouth daily Brilinta 1 tab by mouth twice Unknown 90mg Tablets a day Immunizations Description No Information Available Vital Signs Date Vital Result Comment 05/31/2019 1:42pm Height 70 inches 5'10" Weight 188.50 lb with shoes Heart Rate 70 /min BP Systolic Sitting 116 mmHg Ra BP Diastolic Sitting 82 mmHg Ra BP Systolic Standing 110 mmHg Ra BP Diastolic Standing 80 mmHg Ra BMI (Body Mass Index) 27.0 kg/m2 Ejection Fraction 50-55% Echo 05/16/19 09/29/2018 9:04am Height 70 inches 5'10" Weight 199.00 lb with shoes Heart Rate 70 /min BP Systolic Sitting 118 mmHg BP Diastolic Sitting 82 mmHg BMI (Body Mass Index) 28.6 kg/m2 Ejection Fraction 55% echo 03/06/18 Results Test Acquired Date Facility Test Result H/L Range Note Comp Metabolic 05/16/2019 [facility] Sodium 138 mmol/L Normal 135-145 Panel [address] [place] [address] [phone] Potassium 3.9 mmol/L Normal 3.5-5.0 Chloride 97 mmol/L Low 101-111 Co2 Carbon Dioxide 35 mmol/L High 22-32 Anion Gap 6 mmol/L Normal 2-11 Glucose 139 mg/dL High 70-100 Blood Urea Nitrogen 20 mg/dL Normal 6-24 Creatinine 0.93 mg/dL Normal 0.67-1.17 BUN/Creatinine Ratio 21.5 High 8-20 Calcium 9.1 mg/dL Normal 8.6-10.3 Total Protein 7.0 g/dL Normal 6.4-8.9 Albumin 3.7 g/dL Normal 3.2-5.2 Globulin 3.3 g/dL Normal 2-4 Albumin/Globulin Ratio 1.1 Normal 1-3 Total Bilirubin 0.60 mg/dL Normal 0.2-1.0 Alkaline Phosphatase 76 U/L Normal 34-104 Alt 9 U/L Normal 7-52 Ast 13 U/L Normal 13-39 Egfr Non- 76.5 >60 Egfr 92.6 >60 1 Laboratory test 05/16/2019 [facility] Magnesium 1.9 mg/dL Normal 1.9-2.[address] [place] [address] [phone] Troponin-I (TnI) 0.05 ng/mL Critical high <0.04 2 TSH (Thyroid Stim Horm) 2.59 mcIU/mL Normal 0.34-5.60 Free T4 (Free Thyroxine) 1.02 ng/dL Normal 0.61-1.12 Inr/Protime 05/16/2019 [facility] Inr 3.32 High 0.82-1.[address] [place] [address] [phone] CBC Auto Diff 05/16/2019 [facility] White Blood 6.8 Normal 3.5 -10.[address] Count 10^3/uL [place], [place] [id number] [phone] Red Blood Count 3.76 10^6/uL Low 4.18-5.48 Hemoglobin 11.3 g/dL Low 14.0-18.0 Hematocrit 33 % Low 42-52 Mean Corpuscular Volume 88 fL Normal 80-94 Mean Corpuscular Hemoglobin 30 pg Normal 27-31 Mean Corpuscular HGB Conc 34 g/dL Normal 31-36 Red Cell Distribution Width 15 % Normal 10-15 Platelet Count 190 10^3/uL Normal 150-450 Mean Platelet Volume 6.9 fL Low 7.4-10.4 Abs Neutrophils 5.3 10^3/uL Normal 1.5-7.7 Abs Lymphocytes 0.7 10^3/uL Low 1.0-4.8 Abs Monocytes 0.7 10^3/uL Normal 0-0.8 Abs Eosinophils 0.1 10^3/uL Normal 0-0.6 Abs Basophils 0.1 10^3/uL Normal 0-0.2 Abs Nucleated RBC 0.0 10^3/uL Granulocyte % 77.9 % Lymphocyte % 10.4 % Monocyte % 10.0 % Eosinophil % 0.9 % Basophil % 0.8 % Nucleated Red Blood Cells % 0.0 1 Because ethnic data is not always readily available, this report includes an eGFR for both -Americans and non- Americans. The National Kidney Disease Education Program (NKDEP) does not endorse the use of the MDRD equation for patients that are not between the ages of 18 and 70, are , have extremes of body size, muscle mass, or nutritional status, or are non- or non-. According to the National Kidney Foundation, irrespective of diagnosis, the stage of the disease is based on the level of kidney function: Stage Description GFR(mL/min/1.73 m(2)) 1 Kidney damage with normal or decreased GFR 90 2 Kidney damage with mild decrease in GFR 60-89 3 Moderate decrease in GFR 30-59 4 Severe decrease in GFR 15-29 5 Kidney failure <15 (or dialysis) 2 Result TnIDx:0.05 Called to [id number] at: 12:58:05 by:[id number] Read back by: THOMAS Troponin-I testing on Plasma Separator Tubes (PST) has a known false positive rate of 0.20-0.40%. All positive troponins reflex immediately to secondary confirmatory testing. Using the [employer] DxI NextGxDX Access Immunoassay systems, the 99th percentile upper reference limit was demonstrated to be < 0.03 ng/mL. 3 Standard intensity warfarin therapeutic range: 2.0-3.0 High intensity warfarin therapeutic range: 2.5-3.5 Procedures Date Code Description Status 05/31/2019 33447 EKG Tracing & Interpretation Completed 05/17/2019 01570 Treadmill Interp/Report Only Completed 05/17/2019 95847 Stress Test Supervsn W/Out I/R Completed 05/16/2019 08477 ECHO Transthorasic Realtime 2D W Doppler & Color Flow Hosp Completed 05/16/2019 19394 Dest Lesion Each Addl Lesion 2 Through 14 Each Completed 05/16/2019 29010 Destruction ALL Benign Or Premalignant Lesion (Other Than Completed [place] 05/16/2019 89955 Each Separate/Additional Lesion Completed 05/16/2019 16172 Tangential Biopsy Of Skin, Single Lesion Completed Medical Devices Description No Information Available Encounters Type Date Location Provider Dx Diagnosis Office Visit 05/17/2019 [facility] Govind Hilton R79.89 Other specified 12:15p Arely Packer abnormal findings of blood chemistry R94.31 Abnormal electrocardiogram [ECG] [EKG] I25.10 Athscl heart disease of [place] coronary artery w/o ang pctrs I47.2 Ventricular tachycardia I49.01 Ventricular fibrillation Office Visit 05/16/2019 11:07a [facility] Anna Cerrato, I47.2 Ventricular Of Suzette Mcgee tachycardia 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 Office Visit 05/16/2019 8:00a [facility] Liz Quezada, L82.1 Other seborrheic MD keratosis D22.5 Melanocytic nevi of trunk D22.61 Melanocytic nevi of right upper limb, including shoulder D22.4 Melanocytic nevi of scalp and neck Z08 Encntr for follow-up exam after trtmt for malignant neoplasm Z85.828 Personal history of other malignant neoplasm of skin D48.5 Neoplasm of uncertain behavior of skin L57.0 Actinic keratosis Assessments Date Code Description Provider 05/31/2019 I47.2 Ventricular tachycardia Lily Eubanks, N.P. 05/31/2019 I25.10 Atherosclerotic heart disease of Lily Eubanks, N.P. [place] coronary artery without angina pectoris 05/31/2019 I48.20 Chronic atrial fibrillation, Lily Eubanks, N.P. unspecified 05/31/2019 I35.0 Nonrheumatic aortic (valve) stenosis Lily Eubanks, N.P. 05/31/2019 I44.2 Atrioventricular block, complete Lily Eubanks, N.P. 05/17/2019 R79.89 Other specified abnormal findings of Govind Packer M.D. blood chemistry 05/17/2019 R94.31 Abnormal electrocardiogram [ECG] [EKG] Govind Packer M.D. 05/17/2019 I47.2 Ventricular tachycardia Hiram Burdick M.D.,FACP 05/17/2019 I25.10 Atherosclerotic heart disease of Govind Packer M.D. [place] coronary artery without angina pectoris 05/17/2019 I47.2 Ventricular tachycardia Govind Packer M.D. 05/17/2019 I49.01 Ventricular fibrillation Govind Packer M.D. 05/16/2019 I47.2 Ventricular tachycardia Rhianna Pham NP 05/16/2019 I47.2 Ventricular tachycardia Anna Cerrato M.D. 05/16/2019 Z95.2 Presence of prosthetic heart valve Rhianna Pham NP 05/16/2019 Z95.810 Presence of automatic (implantable) Rhianna Pham NP cardiac defibrillator 05/16/2019 Z95.2 Presence of prosthetic heart valve Anna Cerrato M.D. 05/16/2019 Z95.810 Presence of automatic (implantable) Anna Cerrato M.D. cardiac defibrillator 05/16/2019 L82.1 Other seborrheic keratosis Liz Quezada MD 05/16/2019 D22.5 Melanocytic nevi of trunk Liz Quezada MD 05/16/2019 D22.61 Melanocytic nevi of right upper limb, Liz Quezada MD including shoulder 05/16/2019 D22.4 Melanocytic nevi of scalp and neck Liz Quezada MD 05/16/2019 Z08 Encounter for follow-up examination Liz Quezada MD after completed treatment for malignant neoplasm 05/16/2019 Z85.828 Personal history of other malignant Liz Quezada MD neoplasm of skin 05/16/2019 D48.5 Neoplasm of uncertain behavior of skin Liz Quezada MD 05/16/2019 L57.0 Actinic keratosis Liz Quezada MD Plan of Treatment Future Appointment(s):08/14/2019 11:15 am - Anna Cerrato M.D. at [facility]07/18/2019 11:30 am - Liz Quezada MD at [facility] Nrjrthohcoj84/ 17/2020 9:30 am - Liz Quezada MD at [facility] Zfhsutcsdij58/31/2019 - Cole HinesP.I47.2 Ventricular finnkvsbzgqR76.10 Atherosclerotic heart disease of [place] coronary artery without angina pectorisNew Therapy:Cardiac RehabFollow up:[facility] 07/2019 or 08/2019 please obtain pacer interrogation from [employer]. [facility] Spironolactone. Hold Lasix for 2 days then restart. Let us know if you have any weight gain orleg swelling. Have labs checked in 7-10 days to check KCl level. WE want to make sure potassium doesnt drop too low.I48.20 Chronic atrial fibrillation, xlvdgrtaoxjI85.0 Nonrheumatic aortic (valve) lumgdeffV72.2 Atrioventricular block, complete Functional Status Description No Information Available Mental Status Description No Information Available Referrals Description No Information Available
--- OUTSIDE RECORDS SUMMARY | 2019-06-03 12:58 | XMS REPORT | Summary of Care ---
:1930 Author Organization [facility] Address [address] [address] Care Team Providers Name Role Phone Alonso Marquez MD Primary Care Provider Reason for Referral Durable Medical Equipment (Routine) Status Reason Specialty Diagnoses / Procedures Referred By Referred To Contact Contact Pending Review Diagnoses Physical deconditioning Theresa Zambrano ANP-C [address] [address] Reason for Visit Auth/Cert Status Reason Specialty Diagnoses / Procedures Referred By Contact Referred To Contact Encounter Details Date Type Department Care Team Description 05/18/2019 - Hospital Encounter [facility] [address] [place] Marc Hardin DO [address] [address] Inpatient 05/22/2019 1 Ha Monteiro MD [address] [place] [address] [phone] [address] [address] Allergies Active Allergy Reactions Severity Noted Date Comments Penicillins Unknown Reaction 07/01/2014 Statins Musculoskeletal 01/31/2018 documented as of this encounter (statuses as of 05/23/2019) Medications Medication Sig Dispensed Refills Start Date End Date Status metFORMIN HCL 500 Take 1 Tab by 0 Active MG (MOD) Oral mouth DAILY. TABLET SR 24 HR spironolactone take 1/2 45 Tab 0 12/31/2013 Active (ALDACTONE) 25 MG tablet once Oral Tab daily Omeprazole 20 MG Take 1 Tab by 0 Active Oral Tab EC mouth TWICE DAILY. Multiple Take 1 Cap by 0 Active Vitamins-Minerals mouth TWICE (PRESERVISION AREDS DAILY. 2 PO) furosemide (LASIX) Take 40 mg by 0 Active 40 MG Oral Tab mouth DAILY. latanoprost Place 1 Drop 0 Active (XALATAN) 0.005 % in both eyes Ophthalmic Solution EVERY EVENING. IRON PO Take 1 Tab by 0 Active mouth EVERY MORNING. Natures Made iron ticagrelor Take 1 Tab by 60 Tab 11 05/21/2019 Active (BRILINTA) 90 MG mouth TWICE Oral Tab DAILY. COUMADIN 5 MG Oral Take 1 Tab by 90 Tab 3 05/22/2019 Active Tab mouth DAILY. As directed - 5 mg on Tuesday and Tuesday, 2.5 the rest of the week. amiodarone Take 1 Tab by 70 Tab 0 05/21/2019 06/18/20 Active (PACERONE, mouth THREE 19 CORDARONE) 200 MG TIMES DAILY Oral Tab WITH MEALS for 14 days, THEN 1 Tab TWICE DAILY for 14 days. Then decrease to 200 mg daily amiodarone Take 1 Tab by 30 Tab 2 05/22/2019 Active (PACERONE, mouth DAILY. CORDARONE) 200 MG Starting Oral Tab 06/18/19 carvedilol (COREG) Take 1 Tab by 60 Tab 11 05/22/2019 Active 25 MG Oral Tab mouth TWICE DAILY. Dose has been increased from 12.5 mg twice a day to 25 mg twice a day. Digoxin is discontinued. digoxin (LANOXIN, Take 0.125 mg 0 05/22/20 Discontinued DIGITEK) 0.125 MG by mouth 19 Oral Tab DAILY. COUMADIN 5 MG Oral Take 1 Tab by 90 Tab 3 04/17/2015 05/22/20 Discontinued Tab mouth DAILY. 19 (Reorder) As directed which is 5mg daily carvedilol (COREG) Take 1 Tab by 60 Tab 11 05/25/2018 05/22/20 Discontinued 12.5 MG Oral Tab mouth TWICE 19 (Reorder) DAILY. ticagrelor Take 1 Tab by 60 Tab 11 05/21/2019 05/21/20 Discontinued (BRILINTA) 90 MG mouth TWICE 19 Oral Tab DAILY. carvedilol (COREG) Take 1 Tab by 60 Tab 11 05/22/2019 05/22/20 Discontinued 12.5 MG Oral Tab mouth TWICE 19 (Reorder) DAILY. Dose has been increased from 12.5 mg twice a day to 25 mg twice a day. Digoxin is discontinued. amiodarone Take 1 Tab by 70 Tab 0 06/04/2019 05/22/20 Discontinued (PACERONE, mouth THREE 19 CORDARONE) 200 MG TIMES DAILY Oral Tab WITH MEALS for 14 days, THEN 1 Tab TWICE DAILY for 14 days. Then decrease to 200 mg daily amiodarone Take 1 Tab by 30 Tab 2 05/22/2019 05/22/20 Discontinued (PACERONE, mouth DAILY. 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 Mass of left lung 05/04/2017 Chronic diastolic congestive heart failure, NYHA class 2 05/04/2017 Nonrheumatic aortic valve stenosis 03/31/2017 Type 2 diabetes mellitus 03/31/2017 Essential hypertension, benign 03/31/2017 Dyslipidemia 03/31/2017 Waldenstrom macroglobulinemia 03/31/2017 History of implantable cardioverter-defibrillator (ICD) placement 03/31/2017 H/O cardiac pacemaker 03/31/2017 H/O: CVA (cerebrovascular accident) 03/31/2017 Retroperitoneal hematoma 01/07/2015 Nonischemic cardiomyopathy 06/19/2014 Mitral regurgitation 06/30/2009 Status post mitral valve replacement 06/30/2009 Overview: #[address] [facility] (type) II atrioventricular block 10/04/2007 jail current use of anticoagulant therapy 08/30/2007 Overview: Managed by [facility] Referring Provider: Piper Indication: MVR, Afib Target Range: 2.5-3.5 CHADS2 score of 6 for Age, HTN, CHF, DM, CVA [place] 3 fatty Acid (fish oil) may result in increased bleeding. Spironolactone (Aldactone) may result in increased decreased anticoagulant effectiveness Updated Referral: 09/2013, 11/04/14 Updated ACS Orders: 10/2013, 10/[address] Marquez Atrial fibrillation 06/27/2007 Edema of male genital organs 08/13/2004 Sinoatrial node dysfunction 01/10/2004 documented as of this encounter (statuses as of 05/23/2019) Resolved Problems Problem Noted Date Resolved Date ICD (implantable cardioverter-defibrillator) malfunction 07/01/20142015 documented as of this encounter (statuses as of 05/23/2019) Immunizations Name Administration Dates Next Due Influenza (IM) Preservative Free 05/21/2019 Influenza Vaccine Whole 05/29/2009 documented as of this encounter Social History Tobacco Use Types Packs/Day Years Used Date Former Smoker Cigarettes 2 30 Quit: 08/01/1986 Smokeless Tobacco: Never Used Alcohol Use Drinks/Week oz/Week Comments Yes rare Sex Assigned at Date Recorded Not on file Job Start Date Occupation Industry Not on file Not on file Not on file Travel History Travel Start Travel End No recent travel history available. documented as of this encounter Last Filed Vital Signs Vital Sign Reading Time Taken Comments Blood Pressure 125/56 05/22/2019 7:40 AM EDT Pulse 76 05/22/2019 8:45 AM EDT Temperature 36.6 05/22/2019 7:40 AM EDT C (97.8 F) Respiratory Rate 20 05/22/2019 7:40 AM EDT Oxygen Saturation 95% 05/22/2019 7:40 AM EDT Inhaled Oxygen Concentration - - Weight 85.3 kg (188 lb 1.6 oz) 05/21/2019 5:45 AM EDT Height 177.8 cm (5' 10") 05/18/2019 9:45 AM EDT Body Mass Index 26.99 05/18/2019 9:45 AM EDT documented in this encounter Discharge Instructions Ayaka Isbell RN - 05/22/2019Provider's Instructions Reason for Admission or Diagnosis: Ventricular tachycardia, coronary artery disease, PCI with a drugeluting stent to the Circumflex coronary artery Activity/Restrictions: activity as tolerated Skin/Wound Care: None needed Discharge Diet: Cardiac Diet Special Instructions: Follow up with Lily Eubanks NP (Dr Cerrato) on 05/31/19 at 1:45 pm Follow up [address] Dr Marquez Follow up with the coumadin clinic later this week (Dr Marquez's office will contact you with arrangements) Follow up with Dr. Sherwood in two to three weeks NEW MEDICATIONS: Brilinta (Ticagrelor) 90 mg twice a day. It is very important that you take this medication every day for one full year. You must not stop taking it for any reason. Amiodarone (Cordarone) 200 mg - take one tablet 3 times a day for two weeks, then decrease to 200 mgtwice a day for two weeks, then decrease to 200 mg once a day MEDICATION CHANGES: Coumadin (Warfarin) - decrease your dose to 5 mg on Tuesday and Tuesday, 2.5 mg the rest of the week. INR on or Tuesday of this week. Coreg (Carvedilol) has been increased from 12.5 mg twice a day to 25 mg twice a day. STOP TAKING: Digoxin (Lanoxin, Digitek) If you have any questions please feel free to contact me at [phone] ( Tuesday - Tuesday). Please leave me a message and I will call you back by the end of the day. If you need assistance after 5 pm or on the weekend please call [phone] and ask for the international controller cardiology provider. Theresa ECHOLSC Discharge Provider: SIMONA Moore Attending: Ha Bowie MD Time: 12:03 Nurse's Instructions Problems to report to your Physician: Excessive pain or discomfort Fever > 100.5 degrees Difficulty breathing Increase or smell in wound drainage Skin/Wound Care: Skin intact on discharge: May shower Medical Equipment/Supplies to help you at home: walker Patient's medications returned: N/A Help arranged for you Home Health/Receiving Agency: N/A *Please Return Patient Satisfaction Survey* documented in this encounter Plan of Treatment Date Type Specialty Care Team Description 06/14/2019 Office Visit Cardiology Jose Sherwood MD [address] [address] [phone] 09/24/2019 [facility] 12/25/2019 [facility] 03/14/2020 Appointment Cardiology 03/14/2020 Office Visit Cardiology Hitesh Carvalho Jr., PA-C [address] [address] 03/14/2020 [facility] Name Type Priority Associated Diagnoses Date/Time INPT/ED 12 LEAD EKG EKG Routine 05/18/2019 11:47 AM EDT PFT ROUTINE STUDIES Pulmonary Routine 05/21/2019 11:27 AM EDT Name Type Priority Associated Diagnoses Order Schedule DME-WALKER Referral Routine Physical deconditioning TOMORROW FOR 0600 LABS for 1 Occurrences starting 05/23/2019 until 05/23/2019 Health Maintenance Due Date Last Done Comments Diabetic Eye Exam 1930 MEDICARE ANNUAL WELLNESS VISIT 1930 URINE MICROALBUMIN 1930 DEPRESSION SCREENING 1942 HIV SCREENING 1945 FOOT EXAM 01/26/1948 ZOSTER IMMUNIZATION SERIES (1 01/26/1980 of 2) FALL RISK ASSESSMENT 1995 PNEUMOCOCCAL 65+YRS (1 of 2 - 1995 PCV13) HEMOGLOBIN A1C 07/13/2018 01/11/2018, 03/31/2017 INFLUENZA VACCINE Completed 05/21/2019, 05/29/2009 HPV IMMUNIZATION SERIES Aged Out No longer eligible based on patient's age to complete this topic MENINGOCOCCAL VACCINE IMM Aged Out No longer eligible based on patient's age to complete this topic documented as of this encounter Implants Implanted Type Area Junior Data Analyst Device Shelf Model / Identifier Expiration Serial / Date Lot Current Plus [id number] - [id number] Chest [facility] MANOJ 08/31/2010 [id number] / Implanted: Qty: 1 on 07/16/2009 at [facility]. [id number] / 7121/65 Durata Lead - [id number] Chest ST[facility] MANOJ 11/29/2011 7121/65 / Implanted: Qty: 1 on 07/16/2009 at [facility] [id number] / 1158t Quickflex Lead - [id number] Chest [facility] MANOJ 05/31/2012 [id number] / Implanted: Qty: 1 on 07/16/2009 at [facility] [id number] / Fortify Assura Cd-[id number] - [id number] N/A: Chest ST. MANOJ 09/28/2016 [id number] / Implanted: Qty: 1 on 05/29/2015 by Jose Sherwood MD at [facility] [id number] / 29mm Jalloh Damien 3 Heart Valve/Commander Del - [id number] N/A: Aortic EDWRDS 03/22/2019 [id number] / Implanted: Qty: 1 on 01/31/2018 by Regis Hernandez MD at [facility] [employer] [id number] / Synergy (Mr) 3.50 Mm X 28 Mm - [id number] N/A: Marginal BOSTON [id number] / Implanted: Qty: 1 on 05/18/2019 by Cuauhtemoc Hopson MD at [facility] SCIENTIFIC / [id number] 5.0/20 Synergy Stent - [id number] N/A: BOSTON [id number] / Implanted: Qty: 1 on 05/18/2019 by Cuauhtemoc Hopson MD at [facility] Circumflex SCIENTIFIC / Proximal [id number] documented as of this encounter Procedures Procedure Name Priority Date/Time Associated Comments Diagnosis HC GLUCOSE, BY MONITOR Routine 05/22/2019 8:14 Results for this AM EDT procedure are in the results section. CBC WITH DIFFERENTIAL Routine 05/22/2019 4:29 Results for this AM EDT procedure are in the results section. MAGNESIUM LEVEL Routine 05/22/2019 4:29 Results for this AM EDT procedure are in the results section. BASIC METABOLIC PANEL Routine 05/22/2019 4:29 Results for this AM EDT procedure are in the results section. PROTHROMBIN TIME STAT 05/22/2019 4:29 Results for this AM EDT procedure are in the results section. HC GLUCOSE, BY MONITOR Routine 05/21/2019 8:10 Results for this PM EDT procedure are in the results section. TROPONIN STAT 05/21/2019 6:46 Results for this PM EDT procedure are in the results section. HC GLUCOSE, BY MONITOR Routine 05/21/2019 4:26 Results for this PM EDT procedure are in the results section. HC GLUCOSE, BY MONITOR Routine 05/21/2019 11:40 Results for this AM EDT procedure are in the results section. TROPONIN STAT 05/21/2019 11:38 Results for this AM EDT procedure are in the results section. THYROID STIMULATING STAT 05/21/2019 11:38 Results for this HORMONE AM EDT procedure are in the results section. COMPREHENSIVE STAT 05/21/2019 11:38 Results for this METABOLIC PANEL AM EDT procedure are in the results section. PFT ROUTINE STUDIES Routine 05/21/2019 11:27 AM EDT Procedure Note - Interface, Multispeciality Results - 05/21/2019 11:59 AM EDT [facility] Pul[facility] Function Lab [address] [address] Last Name: WAYNE LI Room Number: 8NW Flexo Press Operator: AV Date: 1930 Age: 89 Weight: 200.0 lbs, 90.9 kg Gender: Male Height: 68.7 in, 174.5 cm Physician Name: DUTCH COOPER ([id number]) Date: 05/21/2019 11:27:33 AM Smoke Status: Quit BMI: 29.86 kg/m2 Predicted Protocol: MOD 01 EigenWang NHANESIII C LABORER HIGH DENSITY PRESS NOTES Click "view image" for full report Spirometry Test Quality:4 DLCO Test Quality:4 DLCO Corrected to HGB of:9.9 Diagnosis / Reason for Test:amnioderone therapy baseline Last Study:no previous good effort. PFT ROUTINE STUDIES Routine 05/21/2019 11:02 AM EDT HC GLUCOSE, BY MONITOR Routine 05/21/2019 8:04 AM EDT CBC WITH DIFFERENTIAL Routine 05/21/2019 4:26 AM EDT MAGNESIUM LEVEL Routine 05/21/2019 4:26 AM EDT BASIC METABOLIC PANEL Routine 05/21/2019 4:26 AM EDT PROTHROMBIN TIME STAT 05/21/2019 4:25 AM EDT HC GLUCOSE, BY MONITOR Routine 05/20/2019 9:24 PM EDT HC GLUCOSE, BY MONITOR Routine 05/20/2019 4:04 PM EDT PROTHROMBIN TIME STAT 05/20/2019 10:44 AM EDT HC GLUCOSE, BY MONITOR Routine 05/20/2019 10:43 AM EDT CBC WITH DIFFERENTIAL Routine 05/20/2019 4:41 AM EDT MAGNESIUM LEVEL Routine 05/20/2019 4:41 AM EDT BASIC METABOLIC PANEL Routine 05/20/2019 4:41 AM EDT HC GLUCOSE, BY MONITOR Routine 05/19/2019 9:44 PM EDT HC GLUCOSE, BY MONITOR Routine 05/19/2019 5:09 PM EDT XR CHEST 2 VIEW PA AND Routine 05/19/2019 1:13 PM EDT Results for this LATERAL (STANDARD) procedure are in the results section. HC GLUCOSE, BY MONITOR Routine 05/19/2019 12:15 PM EDT HC GLUCOSE, BY MONITOR Routine 05/19/2019 8:08 AM EDT CBC WITH DIFFERENTIAL Routine 05/19/2019 4:32 AM EDT BASIC METABOLIC PANEL Routine 05/19/2019 4:32 AM EDT Results for this W/REFLEX MAGNESIUM procedure are in the results section. NT PROBNP Routine 05/19/2019 4:32 AM EDT PROTHROMBIN TIME Routine 05/19/2019 4:32 AM EDT TROPONIN Routine 05/18/2019 7:12 PM EDT ANGIOGRAM,CORONARY Routine 05/18/2019 5:50 PM EDT ANGIOPLASTY STENT CORONARY Routine 05/18/2019 5:50 PM EDT CARDIOLOGY TEST RESULT 05/18/2019 12:00 PM EDT SIGN PERMIT 05/18/2019 12:00 PM EDT TROPONIN Routine 05/18/2019 11:41 AM EDT PROTHROMBIN TIME Routine 05/18/2019 11:41 AM EDT documented in this encounter Results GLUCOSE (POCT) (05/22/2019 8:14 AM EDT) Glucose POCT 127 (H) 70 - 99 mg/dl POINT OF CARE Result Comment: TESTING Performed at: [facility] POCT Marcelino Montgomery MD, Laboratory Death Clearance Coordinator [address] [address] Specimen Performing Organization Address City/State/Zipcode Phone Number POINT OF CARE TESTING PROTHROMBIN TIME (05/22/2019 4:29 AM EDT) INR 1.71 (H)Comment: INR 0.79 - 1.15 [facility] Therapeutic Range: Ratio [facility] 2.0 - 3.5 Protime 19.8 (H) 11.4 - 14.3 sec [facility] Specimen Blood - Blood specimen (specimen) Performing Organization Address [facility] Phone Number [facility] [address] [place] [address] [phone] MAGNESIUM LEVEL (05/22/2019 4:29 AM EDT) Magnesium 2.3 1.6 - 2.3 MG/DL [facility] Specimen Blood - Blood specimen (specimen) Performing Organization Address [facility]/[place] Phone Number [facility] [address] [place] [address] BASIC METABOLIC PANEL (05/22/2019 4:29 AM EDT) Glucose 126 (H) 70 - 99 mg/dl [facility] BUN 28 (H) 9 - 20 mg/dl [facility] Creatinine 1.0 0.8 - 1.5 mg/dl [facility] Sodium 142 134 - 145 mmol/L [facility] Potassium 4.3 3.5 - 5.1 mmol/L [facility] Chloride 98 98 - 107 mmol/L [facility] CO2 37 (H) 22 - 30 mmol/L [facility] Calcium 9.3 8.3 - 10.1 mg/dl [facility] eGFR >60 See Interpretation [facility] Comment: Below ml/min/1.73ml GROUP Estimated GFR Interpretation: LABORATORY Above 60ml/min/1.73m2 = Normal Renal Function 30-59 ml/min/1.73m2 = Stage 3 Chronic Kidney Disease 15-29 ml/min/1.73m2 = Stage 4 Chronic Kidney Disease Less than 15 ml/min/1.73m2 = Stage 5 Chronic Kidney Disease The GFR value is calculated using the Modification of Diet in Renal Disease ( MDRD) Study Equation which can be found at: https://www.kidney.org/content/gvfk-ikggb-oxzddxkp BUN/Creatinine 28 (H) 6 - 22 RATIO [facility] LABORATORY Anion Gap 7 3 - 11 mmol/L [facility] Specimen Blood - Blood specimen (specimen) Performing Organization Address City/State/Zipcode Phone Number [facility] [address] [facility] [place] [address] [phone] CBC WITH DIFFERENTIAL (05/22/2019 4:29 AM EDT) WBC Count 7.31 4.23 - 9.07 K/uL [facility] RBC Count 3.35 (L) 4.30 - 5.89 M/UL [facility] Hemoglobin 10.0 (L) 13.7 - 17.5 g/dL [facility] Hematocrit 30.7 (L) 40.1 - 51.0 % [facility] MCV 91.6 79.0 - 92.2 FL [facility] MCH 29.9 25.7 - 32.2 PG [facility] MCHC 32.6 32.3 - 36.5 g/dL [facility] Platelet Count 218 163 - 337 K/uL [facility] MPV 9.2 (L) 9.4 - 12.4 FL [facility] RDW 14.8 (H) 11.6 - 14.4 % [facility] Neutrophil % 76.2 (H) 34.0 - 67.9 % [facility] Lymphocyte % 11.2 (L) 21.8 - 53.1 % [facility] Monocyte % 10.1 5.3 - 12.2 % [facility] Eosinophil % 1.5 0.8 - 7.0 % [facility] Basophil % 0.5 0.2 - 1.2 % [facility] nRBC % 0.0 0.0 - 0.2 % [facility] Neutrophil # 5.56 (H) 1.78 - 5.38 K/UL [facility] Lymphocyte # 0.82 (L) 1.32 - 3.57 K/UL [facility] Monocyte # 0.74 0.30 - 0.82 K/UL [facility] Eosinophil # 0.11 0.04 - 0.54 K/UL [facility] Basophil # 0.04 0.01 - 0.08 K/UL [facility] Immature Gran % 0.5 (H) 0.0 - 0.4 % [facility] Immature Gran # 0.04 (H) 0.00 - 0.03 K/uL [facility] NRBC # 0.00 0.00 - 0.12 K/uL [facility] Specimen Blood - Blood specimen (specimen) Performing Organization Address [facility]/[place] Phone Number [facility] [address] [place] [address] GLUCOSE (POCT) (05/21/2019 8:10 PM EDT) Glucose POCT 124 (H) 70 - 99 mg/dl POINT OF CARE Result Comment: TESTING Performed at: [facility] POCT Marcelino Montgomery MD, Laboratory Death Clearance Coordinator [address] [place] [address] Specimen Performing Organization Address [facility]/[place] Phone Number POINT OF CARE TESTING TROPONIN (05/21/2019 6:46 PM EDT) Troponin 0.211 (HH) 0.000 - 0.034 [facility] Comment: ng/ml [facility] LAB[facility]ORY Negative less than or equal to 0.034 ng/ml Indeterminate 0.0351 - 0.119 ng/ml (Suggest Repeat in 4 Hours) Critical (AMI Cutoff) greater than or equal to 0.120 ng/ml Specimen Blood - Blood specimen (specimen) Performing Organization Address [facility]/[place] Phone Number [facility] [address] [place] [address] [phone] GLUCOSE (POCT) (05/21/2019 4:26 PM EDT) Glucose POCT 109 (H) 70 - 99 mg/dl POINT OF CARE Result Comment: TESTING Performed at: [facility] POCT Marcelino Montgomery MD, Laboratory Death Clearance Coordinator [address] [place] [address] Specimen Performing Organization Address [facility]/[place] Phone Number POINT OF CARE TESTING GLUCOSE (POCT) (05/21/2019 11:40 AM EDT) Glucose POCT 162 (H) 70 - 99 mg/dl POINT OF CARE Result Comment: TESTING Performed at: [facility] POCT Marcelino Montgomery MD, Laboratory Death Clearance Coordinator [address] [address] Specimen Performing Organization Address City/State/Zipcode Phone Number POINT OF CARE TESTING COMPREHENSIVE METABOLIC PANEL (05/21/2019 11:38 AM EDT) Sodium 140 134 - 145 mmol/L [facility] Potassium 4.3 3.5 - 5.1 mmol/L [facility] Chloride 98 98 - 107 mmol/L [facility] CO2 36 (H) 22 - 30 mmol/L [facility] Calcium 9.2 8.3 - 10.1 mg/dl [facility] Albumin 3.8 3.5 - 5.0 g/dl [facility] BUN 28 (H) 9 - 20 mg/dl [facility] Creatinine 0.9 0.8 - 1.5 mg/dl [facility] Glucose 159 (H) 70 - 99 mg/dl [facility] Total Protein 7.4 6.3 - 8.2 g/dl [facility] Total Bilirubin 0.5 0.0 - 1.1 MG/DL [facility] AST 20 17 - 59 U/L [facility] ALT 17 (L) 21 - 72 U/L [facility] Alkaline 67 40 - 150 U/L [facility] LABORATORY eGFR >60 See Interpretation [facility] Comment: Below ml/min/1.73ml GROUP Estimated GFR Interpretation: Sq LABORATORY Above 60ml/min/1.73m2 = Normal Renal Function 30-59 ml/min/1.73m2 = Stage 3 Chronic Kidney Disease 15-29 ml/min/1.73m2 = Stage 4 Chronic Kidney Disease Less than 15 ml/min/1.73m2 = Stage 5 Chronic Kidney Disease The GFR value is calculated using the Modification of Diet in Renal Disease ( MDRD) Study Equation which can be found at: https://www.kidney.org/content/idos-cbbxl-rjgdrezb BUN/Creatinine 31 (H) 6 - 22 RATIO [facility] GROUP LABORATORY Anion Gap 6 3 - 11 mmol/L [facility] A/G Ratio 1.1 0.8 - 2.0 ratio [facility] Specimen Blood - Blood specimen (specimen) Performing Organization Address [facility]/[place] Phone Number [facility] [address] [address] THYROID STIMULATING HORMONE (05/21/2019 11:38 AM EDT) TSH 2.51 0.47 - 4.68 uIu/ml [facility] Specimen Blood - Blood specimen (specimen) Performing Organization Address [facility]/[place] Phone Number [facility] [address] [address] [phone] TROPONIN (05/21/2019 11:38 AM EDT) Troponin 0.237 (HH) 0.000 - 0.034 [facility] Comment: ng/ml [facility] LAB[facility] Negative less than or equal to 0.034 ng/ml Indeterminate 0.0351 - 0.119 ng/ml (Suggest Repeat in 4 Hours) Critical (AMI Cutoff) greater than or equal to 0.120 ng/ml Specimen Blood - Blood specimen (specimen) Performing Organization Address [facility]/[place] Phone Number [facility] [address] [place] [address] [phone] GLUCOSE (POCT) (05/21/2019 8:04 AM EDT) Glucose POCT 138 (H) 70 - 99 mg/dl POINT OF CARE Result Comment: TESTING Performed at: [facility] POCT Marcelino Montgomery MD, Laboratory Death Clearance Coordinator [address] [place] [address] Specimen Performing Organization Address [facility] Number POINT OF CARE TESTING MAGNESIUM LEVEL (05/21/2019 4:26 AM EDT) Magnesium 2.1 1.6 - 2.3 MG/DL [facility] Specimen Blood - Blood specimen (specimen) Performing Organization Address [facility]/[place] Phone Number [facility] [address] [place] [address] BASIC METABOLIC PANEL (05/21/2019 4:26 AM EDT) Glucose 122 (H) 70 - 99 mg/dl [facility] BUN 28 (H) 9 - 20 mg/dl [facility] Creatinine 0.9 0.8 - 1.5 mg/dl [facility] Sodium 139 134 - 145 mmol/L [facility] Potassium 4.0 3.5 - 5.1 mmol/L [facility] Chloride 98 98 - 107 mmol/L [facility] CO2 33 (H) 22 - 30 mmol/L [facility] Calcium 9.0 8.3 - 10.1 mg/dl [facility] eGFR >60 See Interpretation [facility] Comment: Below ml/min/1.73ml GROUP Estimated GFR Interpretation: LABORATORY Above 60ml/min/1.73m2 = Normal Renal Function 30-59 ml/min/1.73m2 = Stage 3 Chronic Kidney Disease 15-29 ml/min/1.73m2 = Stage 4 Chronic Kidney Disease Less than 15 ml/min/1.73m2 = Stage 5 Chronic Kidney Disease The GFR value is calculated using the Modification of Diet in Renal Disease ( MDRD) Study Equation which can be found at: https://www.kidney.org/content/lkox-sapgq-hocvngwy BUN/Creatinine 31 (H) 6 - 22 RATIO [facility] Anion Gap 8 3 - 11 mmol/L [facility] Specimen Blood - Blood specimen (specimen) Performing Organization Address City/State/Zipcode Phone Number [facility] [address] [place] [address] CBC WITH DIFFERENTIAL (05/21/2019 4:26 AM EDT) WBC Count 7.39 4.23 - 9.07 K/uL [facility] RBC Count 3.36 (L) 4.30 - 5.89 M/UL [facility] Hemoglobin 9.9 (L) 13.7 - 17.5 g/dL [facility] Hematocrit 30.5 (L) 40.1 - 51.0 % [facility] MCV 90.8 79.0 - 92.2 FL [facility] MCH 29.5 25.7 - 32.2 PG [facility] MCHC 32.5 32.3 - 36.5 g/dL [facility] Platelet Count 197 163 - 337 K/uL [facility] MPV 8.8 (L) 9.4 - 12.4 FL [facility] RDW 14.5 (H) 11.6 - 14.4 % [facility] Neutrophil % 77.8 (H) 34.0 - 67.9 % [facility] Lymphocyte % 9.6 (L) 21.8 - 53.1 % [facility] Monocyte % 10.3 5.3 - 12.2 % [facility] Eosinophil % 1.4 0.8 - 7.0 % [facility] Basophil % 0.4 0.2 - 1.2 % [facility] nRBC % 0.0 0.0 - 0.2 % [facility] Neutrophil # 5.75 (H) 1.78 - 5.38 K/UL [facility] Lymphocyte # 0.71 (L) 1.32 - 3.57 K/UL [facility] Monocyte # 0.76 0.30 - 0.82 K/UL [facility] Eosinophil # 0.10 0.04 - 0.54 K/UL [facility] Basophil # 0.03 0.01 - 0.08 K/UL [facility] Immature Gran % 0.5 (H) 0.0 - 0.4 % [facility] Immature Gran # 0.04 (H) 0.00 - 0.03 K/uL [facility] NRBC # 0.00 0.00 - 0.12 K/uL [facility] Specimen Blood - Blood specimen (specimen) Performing Organization Address City/State/Zipcode Phone Number [facility] [address] [address] PROTHROMBIN TIME (05/21/2019 4:25 AM EDT) INR 1.48 (H)Comment: INR 0.79 - 1.15 [facility] Therapeutic Range: Ratio GROUP LABORATORY 2.0 - 3.5 Protime 17.6 (H) 11.4 - 14.3 sec [facility] Specimen Blood - Blood specimen (specimen) Performing Organization Address [facility] Phone Number [facility] [address] [address] GLUCOSE (POCT) (05/20/2019 9:24 PM EDT) Glucose POCT 123 (H) 70 - 99 mg/dl POINT OF CARE Result Comment: TESTING Performed at: [facility] POCT Marcelino Montgomery MD, Laboratory Death Clearance Coordinator [address] [place] [address] Specimen Performing Organization Address [facility]/[place] Phone Number POINT OF CARE TESTING GLUCOSE (POCT) (05/20/2019 4:04 PM EDT) Glucose POCT 107 (H) 70 - 99 mg/dl POINT OF CARE Result Comment: TESTING Performed at: [facility] POCT Marcelino Montgomery MD, Laboratory Death Clearance Coordinator [address] [place] [address] Specimen Performing Organization Address [facility]/[place] Phone Number POINT OF CARE TESTING PROTHROMBIN TIME (05/20/2019 10:44 AM EDT) INR 1.39 (H)Comment: INR 0.79 - 1.15 [facility] Therapeutic Range: [facility] GROUP LABORATORY 2.0 - 3.5 Protime 16.8 (H) 11.4 - 14.3 sec [facility] Specimen Blood - Blood specimen (specimen) Performing Organization Address [facility]/[place] Phone Number [facility] [address] [address] GLUCOSE (POCT) (05/20/2019 10:43 AM EDT) Glucose POCT 141 (H) 70 - 99 mg/dl POINT OF CARE Result Comment: TESTING Performed at: [facility] POCT Marcelino Montgomery MD, Laboratory Death Clearance Coordinator [address] [place] [address] Specimen Performing Organization Address [facility] Phone Number POINT OF CARE TESTING MAGNESIUM LEVEL (05/20/2019 4:41 AM EDT) Magnesium 2.1 1.6 - 2.3 MG/DL [facility] Specimen Blood - Blood specimen (specimen) Performing Organization Address [facility] Phone Number [facility] [address] [place] [address] [phone] BASIC METABOLIC PANEL (05/20/2019 4:41 AM EDT) Glucose 123 (H) 70 - 99 mg/dl [facility] BUN 26 (H) 9 - 20 mg/dl [facility] Creatinine 0.9 0.8 - 1.5 mg/dl [facility] Sodium 138 134 - 145 mmol/L [facility] Potassium 3.8 3.5 - 5.1 mmol/L [facility] Chloride 97 (L) 98 - 107 mmol/L [facility] CO2 35 (H) 22 - 30 mmol/L [facility] Calcium 8.9 8.3 - 10.1 mg/dl [facility] eGFR >60 See Interpretation [facility] Comment: Below ml/min/1.73ml GROUP Estimated GFR Interpretation: Sq LABORATORY Above 60ml/min/1.73m2 = Normal Renal Function 30-59 ml/min/1.73m2 = Stage 3 Chronic Kidney Disease 15-29 ml/min/1.73m2 = Stage 4 Chronic Kidney Disease Less than 15 ml/min/1.73m2 = Stage 5 Chronic Kidney Disease The GFR value is calculated using the Modification of Diet in Renal Disease ( MDRD) Study Equation which can be found at: https://www.kidney.org/content/cvvu-ngfpa-aykxgjym BUN/Creatinine 29 (H) 6 - 22 RATIO [facility]ORY Anion Gap 6 3 - 11 mmol/L [facility] Specimen Blood - Blood specimen (specimen) Performing Organization Address City/[facility]/Zipcode Phone Number [facility] [address] [place] [address] CBC WITH DIFFERENTIAL (05/20/2019 4:41 AM EDT) WBC Count 8.28 4.23 - 9.07 K/uL [facility] RBC Count 3.29 (L) 4.30 - 5.89 M/UL [facility] Hemoglobin 9.9 (L) 13.7 - 17.5 g/dL [facility] Hematocrit 29.7 (L) 40.1 - 51.0 % [facility] MCV 90.3 79.0 - 92.2 FL [facility] MCH 30.1 25.7 - 32.2 PG [facility] MCHC 33.3 32.3 - 36.5 g/dL [facility] Platelet Count 181 163 - 337 K/uL [facility] MPV 8.9 (L) 9.4 - 12.4 FL [facility] RDW 14.6 (H) 11.6 - 14.4 % [facility] Neutrophil % 79.4 (H) 34.0 - 67.9 % [facility] Lymphocyte % 9.4 (L) 21.8 - 53.1 % [facility] Monocyte % 9.2 5.3 - 12.2 % [facility] Eosinophil % 1.1 0.8 - 7.0 % [facility] Basophil % 0.4 0.2 - 1.2 % [facility] nRBC % 0.0 0.0 - 0.2 % [facility] Neutrophil # 6.58 (H) 1.78 - 5.38 K/UL [facility] Lymphocyte # 0.78 (L) 1.32 - 3.57 K/UL [facility] Monocyte # 0.76 0.30 - 0.82 K/UL [facility] Eosinophil # 0.09 0.04 - 0.54 K/UL [facility] Basophil # 0.03 0.01 - 0.08 K/UL [facility] Immature Gran % 0.5 (H) 0.0 - 0.4 % [facility] Immature Gran # 0.04 (H) 0.00 - 0.03 K/uL [facility] NRBC # 0.00 0.00 - 0.12 K/uL [facility] Specimen Blood - Blood specimen (specimen) Performing Organization Address City/State/Zipcode Phone Number [facility] [address] [place] [address] GLUCOSE (POCT) (05/19/2019 9:44 PM EDT) Glucose POCT 126 (H) 70 - 99 mg/dl POINT OF CARE Result Comment: TESTING Performed at: [facility] POCT Marcelino Montgomery MD, Laboratory Death Clearance Coordinator [address] [place] [address] Specimen Performing Organization Address City/State/[facility] Phone Number POINT OF CARE TESTING GLUCOSE (POCT) (05/19/2019 5:09 PM EDT) Glucose POCT 124 (H) 70 - 99 mg/dl POINT OF CARE Result Comment: TESTING Performed at: [facility] POCT Marcelino Montgomery MD, Laboratory Death Clearance Coordinator 1 [address] [place] [address] Specimen Performing Organization Address [facility]/[place] Phone Number POINT OF CARE TESTING XR CHEST 2 VIEW PA AND LATERAL (STANDARD) (05/19/2019 1:13 PM EDT) Specimen Impressions Performed At Dense consolidative opacity in the left lower lobe with associated obscuration of the left diaphragm and blunting of the costophrenic angle may reflect any combination of atelectasis, pneumonia and pleural fluid. Stable mild cardiomegaly. Signed by Luz Pearson MD on 05/19/2019 2:03 PM Narrative Performed At Procedure(s): XR CHEST 2 VIEW PA AND LATERAL (STANDARD) Date of service: 05/19/2019 1:08 PM Provided clinical information: 89 years, Male, "cough" Procedure and materials: PA and lateral x-rays of the chest were obtained. Comparison studies: February 13, 2018 Observations: PA and lateral x-rays of the chest demonstrate a consolidative opacity in the left lung base with obscuration of the left costophrenic angle. Cardiac silhouette is mildly enlarged. Right lung is relatively well-aerated and clear. Cardiac pacemaker is in place. Vascular prostheses are again noted. Median sternotomy wires are in place. Procedure Note Interface, Rad Results - 05/19/2019 2:05 PM EDT Procedure(s): XR CHEST 2 VIEW PA AND LATERAL (STANDARD) Date of service: 05/19/2019 1:08 PM Provided clinical information: 89 years, Male, "cough" Procedure and materials: PA and lateral x-rays of the chest were obtained. Comparison studies: February 13, 2018 Observations: PA and lateral x-rays of the chest demonstrate a consolidative opacity in the left lung base with obscuration of the left costophrenic angle. Cardiac silhouette is mildly enlarged. Right lung is relatively well-aerated and clear. Cardiac pacemaker is in place. Vascular prostheses are again noted. Median sternotomy wires are in place. IMPRESSION Dense consolidative opacity in the left lower lobe with associated obscuration of the left diaphragm and blunting of the costophrenic angle may reflect any combination of atelectasis, pneumonia and pleural fluid. Stable mild cardiomegaly. Signed by Luz Pearson MD on 05/19/2019 2:03 PM GLUCOSE (POCT) (05/19/2019 12:15 PM EDT) Glucose POCT 136 (H) 70 - 99 mg/dl POINT OF CARE Result Comment: TESTING Performed at: [facility] POCT Marcelino Montgomery MD, Laboratory Death Clearance Coordinator [address] [place] [address] Specimen Performing Organization Address [facility]/[place] Phone Number POINT OF CARE TESTING GLUCOSE (POCT) (05/19/2019 8:08 AM EDT) Glucose POCT 136 (H) 70 - 99 mg/dl POINT OF CARE Result Comment: TESTING Performed at: [facility] POCT Marcelino Montgomery MD, Laboratory Death Clearance Coordinator [address] [place] [address] Specimen Performing Organization Address [facility]/[place] Phone Number POINT OF CARE TESTING PROTHROMBIN TIME (05/19/2019 4:32 AM EDT) INR 1.36 (H)Comment: INR 0.79 - 1.15 [facility] Therapeutic Range: Ratio GROUP LABORATORY 2.0 - 3.5 Protime 16.5 (H) 11.4 - 14.3 sec [facility]ORY Specimen Blood - Blood specimen (specimen) Performing Organization Address [facility] Phone Number [facility]ORY [address] [place] [address] [phone] NT PROBNP (05/19/2019 4:32 AM EDT) NT PRO BNP 807 (H) <450 pg/ml [facility] Comment: GROUP LAB[facility]ATORY Recommended cut points for the diagnostic evaluation of heart failure patients with acute dyspnea* Ages (years) Optimal [place] (pg/ml) <50 450 50-75 900 >75 1800 *The [place] Journal of Cardiology NTproBNP results should be interpreted in the context of the overall picture. Serum concentrations of natriuretic peptides may be elevated in patients with acute myocardial infarction and renal insuffic iency. Certain drugs may alter results. Heterophilic antibodies are known to cause interference with immunoassays. Results which are inconsistent with clinical observation indicate a need for additional testing. NTproBNP testing performed on [employer]. Results will not correlate with other methodologies. Specimen Blood - Blood specimen (specimen) Performing Organization Address City/[facility] Phone Number [facility] [address] [place] [address] BASIC METABOLIC PANEL W/REFLEX MAGNESIUM (05/19/2019 4:32 AM EDT) Sodium 138 134 - 145 mmol/L [facility] Potassium 4.1 3.5 - 5.1 mmol/L [facility] Chloride 96 (L) 98 - 107 mmol/L [facility] CO2 35 (H) 22 - 30 mmol/L [facility] Calcium 8.9 8.3 - 10.1 mg/dl [facility] BUN 19 9 - 20 mg/dl [facility] Creatinine 0.9 0.8 - 1.5 mg/dl [facility] Glucose 142 (H) 70 - 99 mg/dl [facility] eGFR >60 See Interpretation [facility] Comment: Below ml/min/1.73ml GROUP Estimated GFR Interpretation: LABORATORY Above 60ml/min/1.73m2 = Normal Renal Function 30-59 ml/min/1.73m2 = Stage 3 Chronic Kidney Disease 15-29 ml/min/1.73m2 = Stage 4 Chronic Kidney Disease Less than 15 ml/min/1.73m2 = Stage 5 Chronic Kidney Disease The GFR value is calculated using the Modification of Diet in Renal Disease ( MDRD) Study Equation which can be found at: https://www.kidney.org/content/lfzg-zqcuq-fwgsjfek BUN/Creatinine 21 6 - 22 RATIO [facility] GROUP LABORATORY Anion Gap 7 3 - 11 mmol/L [facility] Specimen Blood - Blood specimen (specimen) Performing Organization Address City/[facility] Phone Number [facility] [address] [place] [address] CBC WITH DIFFERENTIAL (05/19/2019 4:32 AM EDT) WBC Count 9.10 (H) 4.23 - 9.07 K/uL [facility] RBC Count 3.53 (L) 4.30 - 5.89 M/UL [facility] Hemoglobin 10.5 (L) 13.7 - 17.5 g/dL [facility] Hematocrit 32.2 (L) 40.1 - 51.0 % [facility] MCV 91.2 79.0 - 92.2 FL [facility] MCH 29.7 25.7 - 32.2 PG [facility] MCHC 32.6 32.3 - 36.5 g/dL [facility] Platelet Count 187 163 - 337 K/uL [facility] MPV 9.2 (L) 9.4 - 12.4 FL [facility] RDW 14.6 (H) 11.6 - 14.4 % [facility] Neutrophil % 83.6 (H) 34.0 - 67.9 % [facility] Lymphocyte % 6.7 (L) 21.8 - 53.1 % [facility] Monocyte % 7.9 5.3 - 12.2 % [facility] Eosinophil % 1.1 0.8 - 7.0 % [facility] Basophil % 0.3 0.2 - 1.2 % [facility] nRBC % 0.0 0.0 - 0.2 % [facility] Neutrophil # 7.60 (H) 1.78 - 5.38 K/UL [facility] Lymphocyte # 0.61 (L) 1.32 - 3.57 K/UL [facility] Monocyte # 0.72 0.30 - 0.82 K/UL [facility] Eosinophil # 0.10 0.04 - 0.54 K/UL [facility] Basophil # 0.03 0.01 - 0.08 K/UL [facility] Immature Gran % 0.4 0.0 - 0.4 % [facility] Immature Gran # 0.04 (H) 0.00 - 0.03 K/uL [facility] NRBC # 0.00 0.00 - 0.12 K/uL [facility] Specimen Blood - Blood specimen (specimen) Performing Organization Address [facility]/[place] Phone Number [facility] [address] [place] [address] TROPONIN (05/18/2019 7:12 PM EDT) Troponin 0.027 0.000 - 0.034 [facility] Comment: ng/ml GROUP LABORATORY Negative less than or equal to 0.034 ng/ml Indeterminate 0.0351 - 0.119 ng/ml (Suggest Repeat in 4 Hours) Critical (AMI Cutoff) greater than or equal to 0.120 ng/ml Specimen Blood - Blood specimen (specimen) Performing Organization Address [facility]/[place] Phone Number [facility] [address] [place] [address] [phone] CARDIAC CATHETERIZATION (05/18/2019 5:50 PM EDT) Specimen Narrative Performed At 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 No other significant obstructive CAD. Performing Organization Address [facility] Number [facility] POCT 1 [facility] [place] [address] CARDIOLOGY TEST RESULT (05/18/2019 12:00 PM EDT) Narrative Performed At PROTHROMBIN TIME (05/18/2019 11:41 AM EDT) INR 1.65 (H)Comment: INR 0.79 - 1.15 [facility] Therapeutic Range: Ratio GROUP LABORATORY 2.0 - 3.5 Protime 19.2 (H) 11.4 - 14.3 sec [facility] Specimen Blood - Blood specimen (specimen) Performing Organization Address [facility]/[place] Phone Number [facility] [address] [facility] [place] [address] [phone] TROPONIN (05/18/2019 11:41 AM EDT) Troponin 0.024 0.000 - 0.034 [facility] Comment: ng/ml GROUP LABORATORY Negative less than or equal to 0.034 ng/ml Indeterminate 0.0351 - 0.119 ng/ml (Suggest Repeat in 4 Hours) Critical (AMI Cutoff) greater than or equal to 0.120 ng/ml Specimen Blood - Blood specimen (specimen) Performing Organization Address City/State/Zipcode Phone Number [facility]ORATORY [address] [place] [address] documented in this encounter Visit Diagnoses Diagnosis Paroxysmal ventricular tachycardia (HCC) - Primary Paroxysmal ventricular tachycardia Physical deconditioning Debility, unspecified documented in this encounter Administered Medications Medication Order MAR Action Action Date Dose Rate Site amiodarone (PACERONE, CORDARONE) Given 05/22/2019 12:25 PM EDT 200 mg tablet 200 mg 200 mg, Oral, TID WITH MEALS, First dose on 05/21/19 at 1700, Until Discontinued Given 05/22/2019 8:51 AM EDT 200 mg Given 05/21/2019 4:28 PM EDT 200 mg aspirin (ECOTRIN) enteric coated tablet 325 Given 05/18/2019 12:39 PM EDT 325 mg mg 325 mg, Oral, NOW, 1 dose, Tue05/18/19 at 1220, 2 Day of Surgery Pre Procedure aspirin (ECOTRIN) enteric coated tablet 81 mg Given 05/19/2019 8:12 AM EDT 81 mg 81 mg, Oral, DAILY, First dose on 05/19/19 at 0900, Until Discontinued atropine syringe 1 mg 1 mg, Intravenous, X1 PRN, 1 dose, Starting Tue05/18/19 at 1817, Until Tue05/22/19 at 1531, heart rate < ___, PRN symptomatic bradycardia (i.e. hypotension, diaphoresis, nausea, pale skin, acute altered mental status, ongoing chest pain , other signs of shock) AND heart rate < 60. Call provider. carvedilol (COREG) tablet 12.5 mg Given 05/21/2019 8:10 AM EDT 12.5 mg 12.5 mg, Oral, BID, First dose on Tue05/18/19 at 1220, Until Discontinued Given 05/20/2019 9:23 PM EDT 12.5 mg Given 05/20/2019 8:05 AM EDT 12.5 mg carvedilol (COREG) tablet 12.5 mg Given 05/21/2019 10:31 AM EDT 12.5 mg 12.5 mg, Oral, X1, 1 dose, First dose on Tue05/21/19 at 1010 carvedilol (COREG) tablet 25 mg Given 05/22/2019 8:51 AM EDT 25 mg 25 mg, Oral, BID, First dose (after last modification) on Tue05/21/19 at 2100, Until Discontinued Given 05/21/2019 8:07 PM EDT 25 mg digoxin (LANOXIN, DIGITEK) tablet 0.125 mg Given 05/21/2019 8:10 AM EDT 0.125 mg 0.125 mg, Oral, DAILY, First dose on Tue05/18/19 at 1220, Until Discontinued Given 05/20/2019 8:05 AM EDT 0.125 mg Given 05/19/2019 8:12 AM EDT 0.125 mg enoxaparin (LOVENOX) injection Given 05/20/2019 4:48 PM EDT 90 mg Abdominal Tissue (ODD DOSES) 90 mg 90 mg, Subcutaneous, NOW, 1 dose, 05/20/19 at 1630 furosemide (LASIX) tablet 40 mg Given 05/22/2019 8:51 AM EDT 40 mg 40 mg, Oral, DAILY, First dose on Tue05/19/19 at 1210, Until Discontinued Given 05/21/2019 8:10 AM EDT 40 mg Given 05/20/2019 8:05 AM EDT 40 mg influenza virus vaccine Given 05/21/2019 2:51 PM 0.5 mL Arm - Upper Left (FLUZONE,FLULAVAL) injection EDT 0.5 mL 0.5 mL, Intramuscular, X1 BEFORE DISCHARGE, 1 dose, First dose on Tue05/21/19 at 1520 LISPRO insulin (RAPID-Acting) Given 05/21/2019 12:08 PM 2 Units Arm - Upper Right USUAL Correction Scale Inj EDT Subcutaneous, AC/HS, First dose on Tue05/19/19 at 1100, Until Discontinued nitroglycerin (NITROSTAT) sublingual tablet (1/150) 0.4 mg 0.4 mg, Sublingual, Q5 MIN PRN, 3 doses, Starting Tue05/18/19 at 1817, Until Tue05/22/19 at 1531, chest pain normal saline IV New Bag 05/18/2019 12:46 PM EDT 100 mL/hr Intravenous, at 100 mL/hr, CONTINUOUS, Starting Tue05/18/19 at 1310, Until Tue05/18/19 at 1808, 2 Day of Surgery Pre Procedure pantoprazole (PROTONIX) enteric coated tablet Given 05/22/2019 8:51 AM EDT 40 mg 40 mg 40 mg, Oral, BID, First dose on Tue05/18/19 at 1240, Until Discontinued Given 05/21/2019 8:07 PM EDT 40 mg Given 05/21/2019 8:10 AM EDT 40 mg potassium chloride (K-DUR) controlled Given 05/20/2019 8:05 AM EDT 20 mEq release tablet 20 mEq 20 mEq, Oral, X1, 1 dose, First dose on Tue05/20/19 at 0750 SODIUM CHLORIDE 0.9 % IV SOLN 1 dose, Starting Tue05/18/19 at 1227, Until Tue05/22/19 at 1531, Afua Kumar: madeline override, spironolactone (ALDACTONE) tablet Given 05/22/2019 8:51 AM EDT 12.5 mg (1/2X25mg) 12.5 mg 12.5 mg, Oral, DAILY, First dose on Tue05/18/19 at 1220, Until Discontinued Given 05/21/2019 8:10 AM EDT 12.5 mg Given 05/20/2019 8:05 AM EDT 12.5 mg ticagrelor (BRILINTA) tablet 90 mg Given 05/22/2019 8:51 AM EDT 90 mg 90 mg, Oral, BID, First dose on Tue05/18/19 at 2100, Until Discontinued Given 05/21/2019 8:07 PM EDT 90 mg Given 05/21/2019 8:10 AM EDT 90 mg warfarin (COUMADIN) tablet 5 mg Given 05/19/2019 5:26 PM EDT 5 mg 5 mg, Oral, PM X1 1700, 1 dose, 05/19/19 at 1700 warfarin (COUMADIN) tablet 5 mg Given 05/20/2019 4:18 PM EDT 5 mg 5 mg, Oral, PM X1 1700, 1 dose, 05/20/19 at 1700 warfarin (COUMADIN) tablet 5 mg Given 05/21/2019 4:28 PM EDT 5 mg 5 mg, Oral, PM X1 1700, 1 dose, 05/21/19 at 1700 warfarin (COUMADIN) tablet 5 mg 5 mg, Oral, PM X1 1700, 1 dose, 05/22/19 at 1700 warfarin patient Does not apply, DAILY 1400, First dose on 05/19/19 at 1400, Until Discontinued documented in this encounter Insurance Payer Benefit Plan / Subscriber ID Effective Dates Phone Address Type Group MEDICARE MEDICARE PART A xxxxxxxxxxx 1994-Present Medicare & B BCBS EMPIRE BCBS EMPIRE PPO xxxxxxxxxxxx 2016-Present Blue Cross/Blue Shield Guarantor Name Account Type Relation to Date of Phone Billing Patient Address Wayne Li Personal/Family 1930 [address] (Home) [phone] [place], [place] (Work) [id number] documented as of this encounter Advance Directives Type Date Recorded 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 Yes Order was discussed with: Patient I discussed all options and patient/surrogate requested and agreed to: Full Code DNI 05/18/2019 12:18 PM 05/18/2019 5:37 PM Does the patient have decision making capacity? Yes Order was discussed with: Patient I discussed all options and patient/surrogate requested and Do not intubate ( DNI) agreed to: DNR 01/03/2015 7:23 AM 01/07/2015 4:23 PM Does patient have decision making capacity? yes Order discussed with: Patient I discussed all options and patient/surrogate requested and agreed to: Do not resuscitate (DNR)
--- OUTSIDE RECORDS SUMMARY | 2019-06-03 12:58 | XMS REPORT | Continuity of Care Document ---
:1930 External Reference #:[id number] Author Name Mikaela Diaz Care Team Providers Name Role Phone Alonso Marquez MD - Family Care Team Information Anesthetic Assistant [phone] Medicine Bc Jo MD - Hematology Care Team Information Anesthetic Assistant Remy Mendez MD - Radiation Care Team Information Anesthetic Assistant [phone] Oncology Problems Active Problems Provider Date Atrial fibrillation GHANSHYAM Mcdowell Onset: 02/25/2014 Benign hypertension GHANSHYAM Mcdowell Onset: 02/25/2014 Diabetes mellitus GHANSHYAM Mcdowell Onset: 02/25/2014 Osteoarthritis GHANSHYAM Mcdowell Onset: 02/25/2014 History of mechanical mitral valve replacement GHANHSYAM Mcdowell Onset: 2000 Cardiac pacemaker in situ [...] M.D. Onset: 10/03/2015 Chronic diastolic heart failure Anna Cerrato M.D. Onset: 10/10/2015 Chronic atrial fibrillation Anna Cerrato M.D. Onset: 09/29/2018 Atherosclerotic heart disease of [place] coronary Anna Cerrato M.D. Onset: artery without angina pectoris Social History Type Date Description Comments Sex Unknown Tobacco Use Start: Unknown quit smoking 1986 ETOH Use Rarely consumes beer Tobacco Use Start: Unknown End: Patient is a former Unknown smoker Recreational Drug Use Denies Drug Use Tobacco Use Start: Unknown Heavy tobacco smoker (more than 10 cigarettes/day) Smoking Status Reviewed: 09/29/18 Heavy tobacco smoker (more than 10 cigarettes/day) Exercise Type/Frequency Exercises rarely waking 500 to 800 steps a day Allergies, Adverse Reactions, Alerts Active Allergies Reaction Severity Comments Date Penicillin 10/03/2015 Inactive Allergies NKDA 02/25/2014 Medications Active Medications SIG Qnty Indications Ordering Date Provider Oxygen d/c all oxygen , 1units [facility] M.DS[facility] portable oxygen and all tanks Amoxicillin take 4 tabs by 4tabs Anna Cerrato, 02/25/2014 500mg mouth 1 hour prior M.D. Tablets to dental procedures Spironolactone 1/2 tab 90tabs Unknown 25mg Tablets Carvedilol 1/2 tablet by mouth 90tabs Anna Cerrato, 25mg Tablets twice a day M.D. Digox 1 tablet daily 100tabs Unknown 125mcg Tablets Furosemide 1 po every day Unknown 40mg Tablets Metformin HCL 1 tablet daily Unknown 500mg Tablets Coumadin as directed Unknown Omeprazole 1 by mouth twice a Unknown 20mg day Capsules Preservdavid Areds 2 take one cap in the Unknown moring and one cap Areds 2 Capsules in the evening Latanoprost as directed Unknown 0.005% Solution Iron 1 by mouth every Unknown 325(65Fe) mg day Tablets Immunizations Description No Information Available Vital Signs Date Vital Result Comment 09/29/2018 9:04am Height 70 inches 5'10" Weight 199.00 lb with shoes Heart Rate 70 /min BP Systolic Sitting 118 mmHg BP Diastolic Sitting 82 mmHg BMI (Body Mass Index) 28.6 kg/m2 Ejection Fraction 55% echo 03/06/18 03/20/2018 12:34pm Height 70 inches 5'10" Weight 188.00 lb Heart Rate 72 /min BP Systolic Sitting 122 mmHg manual cuff BP Diastolic Sitting 58 mmHg manual cuff BP Systolic Standing 124 mmHg manual cuff BP Diastolic Standing 60 mmHg manual cuff Pain Level 0 BMI (Body Mass Index) 27.0 kg/m2 Results Test Date Facility Test Result H/L Range Note Comp Metabolic 05/16/2019 [facility] Sodium 138 mmol/L Normal 135-145 [address] [place] [address] [phone] Potassium 3.9 mmol/L Normal 3.5-5.0 Chloride 97 [...] Egfr 92.6 >60 1 Laboratory test 05/16/2019 [facility] Magnesium 1.9 mg/dL Normal 1.9-2.[address] [place] [address] [phone] Troponin-I (TnI) 0.05 ng/mL Critical high <0.04 2 TSH (Thyroid Stim Horm) 2.59 mcIU/mL Normal 0.34-5.60 Free T4 (Free Thyroxine) 1.02 ng/dL Normal 0.61-1.12 Inr/Protime 05/16/2019 [facility] Inr 3.32 High 0.82-1.09 3 [address] [place] [address] [phone] CBC Auto Diff 05/16/2019 [facility] White Blood 6.8 Normal 3.5 -10.[address] Count 10^3/[place] [address] [phone] Red Blood Count 3.76 10^6/uL Low 4.18-5.48 [...] (or dialysis) 2 Result TnIDx:0.05 Called to [id number] at: 12:58:05 by:[id number] Read back by: [id number] Troponin-I testing on Plasma Separator Tubes (PST) has a known false positive rate of 0.20-0.40%. All positive troponins reflex immediately to secondary confirmatory testing. Using the [employer] DxI 800 Access Immunoassay systems, the 99th percentile upper reference limit was demonstrated to be < 0.03 ng/mL. 3 Standard intensity warfarin therapeutic range: 2.0-3.0 High intensity warfarin therapeutic range: 2.5-3.5 Procedures Date Code Description Status 05/17/2019 02070 Treadmill Interp/Report Only Completed 05/17/2019 83974 Stress Test Supervsn W/Out I/R Completed 05/16/2019 02236 ECHO Transthorasic Realtime 2D W Doppler & Color Flow Hosp Completed 05/16/2019 54243 Dest Lesion Each Addl Lesion 2 Through 14 Each Completed 05/16/2019 31174 Destruction ALL Benign Or Premalignant Lesion (Other Than Completed [place] 05/16/2019 69126 Each Separate/Additional Lesion Completed 05/16/2019 29563 Tangential Biopsy Of Skin, Single Lesion Completed Medical Devices Description No Information Available Encounters Type Date Location Provider Dx Diagnosis Office Visit 05/16/2019 [facility] Anna Cerrato, I47.2 Ventricular 11:07a Of Suzette Mcgee tachycardia 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 Office Visit 05/16/2019 8:00a [facility] Liz Quezada, L82.1 Other seborrheic [...] Actinic keratosis Assessments Date Code Description Provider 05/17/2019 I47.2 Ventricular tachycardia Hiram Burdick M.D.,FACP 05/16/2019 I47.2 Ventricular tachycardia Rhianna Pham, HERB 05/16/2019 I47.2 Ventricular tachycardia Anna Cerrato M.D. 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 MD skin 05/16/2019 L57.0 Actinic keratosis Liz Quezada MD Plan of Treatment Future Appointment(s):07/18/2019 11:30 am - Liz Quezada MD at [facility] Cxqtdgtfvlb21/17/2020 9:30 am - Liz Quezada MD at [facility] Comkqufqknw44/01/ 2019 - Anna Cerrato M.D.Z95.2 Presence of prosthetic heart valveComments:Both the aortic valve and mitral valve sound as the should on exam.Recommendations:I will review updated echo planned at [place] this summer.I48.2 Chronic atrial fibrillationFollow up:OV 9-12 months with ECG.Recommendations:Continue coumadin for mitral valve and afib for stroke prevention. Continue furosemide, spironolactone and Carvedilol for BP control, fluid control. We need updated electrolytes on the above meds, ifnone done w/in 6 months I will order.I44.2 Atrioventricular block, pdayuygoF59.810 Presence of automatic (implantable) cardiac defibrillatorComments:[place] monitoring.I25.10 Atherosclerotic heart disease of [place] coronary artery withComments:To prevent more plaque build up we need to optimize risks: cholesterol, blood pressure, diet and exercise. Functional Status Description No Information Available Mental Status Description No Information Available Referrals Description No Information Available
--- OUTSIDE RECORDS SUMMARY | 2019-06-03 12:59 | XMS REPORT | Continuity of Care Document ---
:1930 External Reference #:[id number] Author Name Lesley Segundo MD, [facility], [facility] (transmitted by agent of provider Mikaela Diaz) Address [address] [place] [id number] Care Team Providers Name Role Phone Alonso Marquez MD - Family Care Team Information Finisher Brush [phone] Medicine Bc Jo MD - Hematology Care Team Information Finisher Brush Remy Mendez MD - Radiation Care Team Information Finisher Brush Oncology Problems Active Problems Provider Date Atrial [...] M.D. Onset: 09/29/2018 Atherosclerotic heart disease of [place] coronary Anna Cerrato M.D. Onset: artery without [...] all oxygen , 1units Anna Cerrato, 09/05/2017 [facility] concentrator Arely portable oxygen and all tanks [...] Result H/L Range Note Comp Metabolic 05/16/2019 [facility] Sodium 138 mmol/L Normal 135-[address] [place] [address] [phone] Potassium 3.9 mmol/L Normal 3.5-5.0 Chloride 97 [...] Egfr 92.6 >60 1 Laboratory test 05/16/2019 [facility] Magnesium 1.9 mg/dL Normal 1.9-2.7 finding [address] [place] [address] [phone] Troponin-I (TnI) 0.05 ng/mL Critical high <0.04 2 TSH (Thyroid Stim Horm) 2.59 mcIU/mL Normal 0.34-5.60 Free T4 (Free Thyroxine) 1.02 ng/dL Normal 0.61-1.12 Inr/Protime 05/16/2019 [facility] Inr 3.32 High 0.82-1.[address] [place] [address] [phone] CBC Auto Diff 05/16/2019 [facility] White Blood 6.8 Normal 3.5 -10.[address] Count 10^3/uL [place], [place] [id number] [phone] Red Blood Count 3.76 10^6/uL Low 4.18-5.48 [...] (or dialysis) 2 Result TnIDx:0.05 Called to [id number] at: 12:58:05 by:[id number] Read back by: [email or web address] Troponin-I testing on Plasma Separator Tubes (PST) has a known false positive rate of 0.20-0.40%. All positive troponins reflex immediately to secondary confirmatory testing. Using the [employer] DxI 800 Access Immunoassay systems, the 99th percentile upper reference limit was demonstrated to be < 0.03 ng/mL. 3 Standard intensity warfarin therapeutic range: 2.0-3.0 High intensity warfarin therapeutic range: 2.5-3.5 Procedures Date Code Description Status 05/16/2019 42221 Biopsy External Ear Completed 05/16/2019 02343 Dest Lesion Each Addl Lesion 2 Through 14 Each Completed 05/16/2019 73722 Destruction ALL Benign Or Premalignant Lesion (Other Than Completed [place] 05/16/2019 87534 Each Separate/Additional Lesion Completed 05/16/2019 77918 Tangential Biopsy Of Skin, Single Lesion Completed Medical Devices Description No Information Available Encounters Description No Information Available Assessments Date Code Description Provider 05/16/2019 L82.1 Other seborrheic keratosis Liz Quezada MD 05/16/2019 D22.5 Melanocytic nevi of trunk Liz Quezada MD 05/16/2019 D22.61 Melanocytic nevi of right upper limb, including Liz Quezada MD shoulder 05/16/2019 D22.4 Melanocytic nevi of scalp and neck Liz Quezada MD 05/16/2019 Z08 Encounter for follow-up examination after Liz Quezada MD completed treatment for malignant neoplasm 05/16/2019 Z85.828 Personal history of other malignant neoplasm of Liz Quezada MD skin 05/16/2019 D48.5 Neoplasm of uncertain behavior of skin Liz Quezada MD 05/16/2019 L57.0 Actinic keratosis Liz Quezada MD Plan of Treatment Future Appointment(s):08/17/2019 9:30 am - Liz Quezada MD at [facility] Wanbqeuvzxe32/01/2019 - Anna Cerrato M.D.Z95.2 Presence of prosthetic heart valveComments:Both the aortic valve and mitral valve sound as the should on exam.Recommendations:I will review updated echo planned at [place] this summer.I48.2 Chronic atrial fibrillationFollow up:OV 9-12 months with ECG.Recommendations:Continue coumadin for mitral valve and afib for stroke prevention. Continue furosemide, spironolactone and Carvedilol for BP control, fluid control. We need updated electrolytes on the above meds, ifnone done w/ in 6 months I will order.I44.2 Atrioventricular block, byjlcyslS78.810 Presence of automatic (implantable) cardiac defibrillatorComments:[place] monitoring.I25.10 Atherosclerotic heart disease of [place] coronary artery withComments:To prevent more plaque build up we need to optimize risks: cholesterol, blood pressure, diet and exercise. Functional Status Description No Information Available Mental Status Description No Information Available Referrals Description No Information Available
[2019-06-03 13:50] LABS: ABS Basophils 0.1 10^3/ul (0-0.2); ABS Eosinophils 0.1 10^3/ul (0-0.6); ABS Lymphocytes 0.8 10^3/ul (1.0-4.8); ABS Monocytes 0.8 10^3/ul (0-0.8); ABS Neutrophils 10.2 10^3/ul (1.5-7.7); Eosinophil % 0.5 %; Hematocrit 25 % (42-52); Hemoglobin 8.1 g/dL (14.0-18.0); Lymphocyte % 6.9 %; Mean Corpuscular HGB Conc 33 g/dL (31-36); Mean Corpuscular Hemoglobin 29 pg (27-31); Mean Corpuscular Volume 89 fL (80-94); Platelet Count 210 10^3/uL (150-450); Red Cell Distribution Width 15 % (10-15)
[2019-06-03 14:07] LABS: Albumin 3.8 g/dL (3.2-5.2); Albumin/Globulin Ratio 1.3 (1-3); BUN/Creatinine Ratio 40.2 (8-20); Calcium 9.3 mg/dL (8.6-10.3); EGFR African American 74.7 (>60); EGFR Non-African American 61.7 (>60); Globulin 2.9 g/dL (2-4); Potassium 3.6 mmol/L (3.5-5.0); Total Bilirubin 0.5 mg/dL (0.2-1.0); Total Protein 6.7 g/dL (6.4-8.9)
[2019-06-03 14:08] LABS: Troponin I 0.02 ng/mL (<0.04)
[2019-06-03] MEDS ORDERED: NS 0.9% 1000 ML** 1,000 ML IV ONE (14:27)
[2019-06-03 14:29] LABS: TSH (Thyroid Stimulating Horm) 2.6 mcIU/mL (0.34-5.60)
--- NOTE | 2019-06-03 14:46 | ED ---
Dizziness - HPI Summary HPI Summary: This pt is an 89 Y/O M [facility] accompanied by his daughter with a CC of generalized weakness and increased fatigue. He states that he has been exhausted since his last visit to [facility] at 05[facility]. He was then sent to [facility] to receive 2 stents. He was then placed on Brilinta and Coumadin. He states that he has had increased fatigue, lightheadedness, dark diarrhea, and headaches. He has no aggravating or alleviating factors. He states that he has a PMHx of Diabetes, Anemia, AICD, HTN, and hypercholesterolemia. - History Of Current Complaint Chief Complaint: EDWeakness Stated Complaint: WEAKNESS,DIZZINESS PER PT Time Seen by Provider: 06/03/19 13:46 Hx Obtained From: Patient Last Known Well Date: 05/17/19 Onset/Duration: Still Present Timing: Constant Severity Initially: Moderate Severity Currently: Moderate Character: Lightheaded, Weak Aggravating Factor(s): Nothing Alleviating Factor(s): Nothing Associated Signs And Symptoms: Positive: Diarrhea - described as dark, Other: - POSITIVE: increased fatigue, lightheadedness. Negative: Nausea, Vomiting, Chest Pain, SOB, Fever, Chills - Allergies/Home Medications Allergies/Adverse Reactions: Allergies Allergy/AdvReac Type Severity Reaction Status Date / Time Penicillins Allergy Unknown Verified 08/03/18 19:26 Reaction Details PMH/Surg Hx/FS Hx/Imm Hx Previously Healthy: Yes Endocrine/Hematology History: Reports: Hx Anticoagulant Therapy - Coumadin, Hx Diabetes - "PRE DM", Hx Anemia Cardiovascular History: Reports: Hx Auto Implanted Cardiovert Defib, Hx Hypercholesterolemia, Hx Hypertension, Hx Pacemaker/ICD, Hx Valvular Heart Disease - artificial valve Denies: Hx Congestive Heart Failure GI History: Reports: Hx Gastrointestinal Bleed History: Denies: Hx Dialysis, Hx Renal Disease Musculoskeletal History: Sensory History: Denies: Hx Contacts or Glasses, Hx Eye Prosthesis, Hx Hearing Aid Opthamlomology History: Denies: Hx Contacts or Glasses, Hx Eye Prosthesis Neurological History: Reports: Hx Transient Ischemic Attacks (TIA) Denies: Hx Developmental Delay - Cancer History Cancer Type, 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; LUNG CA Hx Chemotherapy: No - Surgical History Surgery Procedure, Year, and Place: PACEMAKER, artificial heart valve, CABG - Immunization History Date of Tetanus Vaccine: utd Date of Influenza Vaccine: unk Infectious Disease History: No Infectious Disease History: Denies: Traveled Outside the [place] in Last 30 Days - Family History Known Family History: Positive: Cardiac Disease - Father - CAD and KS, Other - Mother -- stomach CA - Social History Alcohol Use: None Hx Substance Use: No Substance Use Type: Reports: None Hx Tobacco Use: Yes Smoking Status (MU): Former Smoker Have You Smoked in the Last Year: No Review of Systems Positive: Fatigue. Negative: Fever, Chills Negative: Chest Pain Negative: Shortness Of Breath Negative: Vomiting, Nausea Positive: Weakness All Other Systems Reviewed And Are Negative: Yes Physical Exam - Summary Physical Exam Summary: Constitutional: Well-developed, Well-nourished, Alert. (-) Distressed Skin: Warm, Dry HENT: Normocephalic; Atraumatic Eyes: Conjunctiva normal Neck: Musculoskeletal ROM normal neck. (-) JVD, (-) Stridor, (-) Nuchal rigidity Cardio: Rhythm regular, rate normal, Heart sounds normal; Intact distal pulses; Radial pulses are 2+ and symmetric. (-) Murmur Pulmonary/Chest wall: Effort normal. (-) Respiratory distress, (-) Wheezes, (-) Rales Abd: Soft, (-) tenderness, (-) Distension, (-) Guarding, (-) Rebound Musculoskeletal: (-) Edema Lymph: (-) Cervical adenopathy Neuro: Alert, Oriented x3 Psych: Mood and affect Normal Triage Information Reviewed: Yes Vital Signs On Initial Exam: Initial Vitals Temp Pulse Resp BP Pulse Ox 97.7 F 77 16 96/37 97 06/03/19 12:44 06/03/19 12:44 06/03/19 12:44 06/03/19 12:44 06/03/19 12:44 Vital Signs Reviewed: Yes Procedures - Sedation Patient Received Moderate/Deep Sedation with Procedure: No Diagnostics - Vital Signs Vital Signs Temp Pulse Resp BP Pulse Ox 06/03/19 14:22 72 21 108/48 93 06/03/19 14:00 70 16 96 06/03/19 13:52 71 21 118/64 98 06/03/19 12:44 97.7 F 77 16 96/37 97 - Laboratory Lab Results: Lab Results 06/03/19 06/03/19 06/03/19 Range/Units 13:44 13:44 13:44 WBC 12.0 H (3.5-10.8) 10^3/uL RBC 2.80 L (4.18-5.48) 10^6 /uL Hgb 8.1 L (14.0-18.0) g/dL Hct 25 L (42-52) % MCV 89 (80-94) fL MCH 29 (27-31) pg MCHC 33 (31-36) g/dL RDW 15 (10-15) % Plt Count 210 (150-450) 10^3/uL MPV 7.0 L (7.4-10.4) fL Neut % (Auto) 85.2 % Lymph % (Auto) 6.9 % [place] % (Auto) 6.7 % Eos % (Auto) 0.5 % Baso % (Auto) 0.7 % Absolute Neuts (auto) 10.2 H (1.5-7.7) 10^3/ul Absolute Lymphs (auto) 0.8 L (1.0-4.8) 10^3/ul Absolute Monos (auto) 0.8 (0-0.8) 10^3/ul Absolute Eos (auto) 0.1 (0-0.6) 10^3/ul Absolute Basos (auto) 0.1 (0-0.2) 10^3/ul Absolute Nucleated RBC 0.0 10^3/ul Nucleated RBC % 0.0 Sodium 140 (135-145) mmol/L Potassium 3.6 (3.5-5.0) mmol/L Chloride 101 (101-111) mmol/L Carbon Dioxide 29 (22-32) mmol/L Anion Gap 10 (2-11) mmol/L BUN 45 H (6-24) mg/dL Creatinine 1.12 (0.67-1.17) mg/dL Est GFR ( Amer) 74.7 (>60) Est GFR (Non-Af Amer) 61.7 (>60) BUN/Creatinine Ratio 40.2 H (8-20) Glucose 132 H (70-100) mg/dL Lactic Acid 2.1 H* (0.5-2.0) mmol/L Calcium 9.3 (8.6-10.3) mg/dL Magnesium 2.0 (1.9-2.7) mg/dL Total Bilirubin 0.50 (0.2-1.0) mg/dL AST 12 L (13-39) U/L ALT 7 (7-52) U/L Alkaline Phosphatase 59 (34-104) U/L Troponin I 0.02 (<0.04) ng/mL Total Protein 6.7 (6.4-8.9) g/dL Albumin 3.8 (3.2-5.2) g/dL Globulin 2.9 (2-4) g/dL Albumin/Globulin Ratio 1.3 (1-3) TSH 2.60 (0.34-5.60) mcIU/mL Result Diagrams: 06/03/19 13:44 06/03/19 13:44 Lab Statement: Any lab studies that have been ordered have been reviewed, and results considered in the medical decision making process. - EKG 1349 Cardiac Rate: NL EKG Rhythm: - 70 BPM EKG Comparison: No Significant Change - 05/17/19 Summary of EKG Findings: An EKG at 1349 reveals ventricular paced rhythm at 70 BPM, nml axis, nml intervals. No STEMI. No acute changes from 05/17/19. Interpreted by Dr. Jain at 1440 06/03/19 Re-Evaluation - Re-Evaluation First Eval Re-Evaluation Time: 15:22 Change: Unchanged Comment: Pt' s INR is 5.0. Will hold off on vit K given that he has mechanical valve. VS Stable Dizzy Course/Dx - Course Course Of Treatment: 89-year-old male history of mitral valve insufficiency, aortic stenosis s/p TAVR, recent PCI at [place], on brillinita and Coumadin who presents with lightheadedness. Physical exam with a well-appearing elderly male , pale conjunctiva. Patient has a history of AVMs with a GI bleed in 2016. Labs notable for hemoglobin of 8 from 05/11, guaiac positive stool. Will send INR/type and screen, second IV placed, admit - Diagnoses Provider Diagnoses: Lower GI bleed, Elevated INR - Provider Notifications Discussed Care Of Patient With: Michelle Rebolledo Time Discussed With Above Provider: 15:47 Instructed by Provider To: Admit As Inpatient Admit/Transition Orders Completed By ED Provider: Yes - Critical Care Time Critical Care Time: 30-74 min - Upon my evaluation, this patient had a high probability of imminent or life-threatening deterioration due to GI bleed, which required my direct attention, intervention, and personal management. I have personally provided 30 minutes of critical care time exclusive of time spent on separately billable procedures. Time includes review of laboratory data , radiology results, discussion with consultants, and monitoring for potential decompensation. Interventions were performed as documented above. Discharge ED - Sign-Out/Discharge Documenting (check all that apply): Patient Departure - admitted - Discharge Plan Condition: Stable Disposition: ADMITTED TO [facility] - Billing Disposition and Condition Condition: STABLE Disposition: Admitted to [facility] - Attestation Statements Document Initiated by Moraima: Yes Documenting Scribe: Onesimo Rivera Provider For Whom Moraima is Documenting (Include Credential): Tonya Jain MD Scribe Attestation: I, Onesimo Rivera, scribed for Tonya Jain MD on 06/03/19 at 2122. Scribe Documentation Reviewed: Yes Provider Attestation: The documentation as recorded by the Onesimo tran accurately reflects the service I personally performed and the decisions made by me, Tonya Jain MD Status of Scribe Document: Viewed
[2019-06-03 15:20] LABS: INR 5.16 (0.82-1.09)
[2019-06-03] MEDS ORDERED: Pantoprazole* 80 mg IN NS 80 MG/250 ML BAG IV ONE (15:47)
[2019-06-03] MEDS ORDERED: Dextrose 50% VIAL 50 ml IV PUSH PRN (16:28)
[2019-06-03] MEDS ORDERED: fentaNYL* 50 MCG/ML 2 ML VIAL (100 MCG VIAL) ONE (16:47)
[2019-06-03] MEDS ORDERED: Midazolam* 1 MG/ML 10 ML VIAL (10 MG) ONE (16:47)
--- NOTE | 2019-06-03 17:50 | PN ---
Progress Note - Progress Note Date of Service: 06/03/19 Note: GI Brief EGD Note E: Dieulofoy at GE, brisk bleeding when scope passed. Endoclip x1. No further bleed after G: Nml D: Nml Rec: Likely culprit lesion given elevated BUN and melena. PPI drip if ongoing bleeding would discuss with cardiology if ok to fully reverse the INR , continue brilinta given recent stent H/H q6 keep 2 units of PRBC on hold. expect some drop with hydration. Monitor in ICU High risk for rebleed given INR and Brilinta use. Mendel Duke DO 06/03/19 8402
[2019-06-03] MEDS ORDERED: NS 0.9% 1000 ML** 1,000 ML IV SCH (18:15)
[2019-06-03] MEDS: Insulin LISPRO* 1 UNITS UNIT SUBCUT SCH ×2 (18:33→21:15)
[2019-06-03] MEDS ORDERED: Phytonadione Oral Solution* 5 MG/25 ML UDC PO ONE (18:48)
--- NOTE | 2019-06-03 18:55 | PN ---
Hospitalist Progress Note Date of Service: 06/03/19 Discussed case post EGD with Dr. Duke and also with Dr. Cerrato. Patient is high risk for stroke with mitral mechanical valve if INR overcorrected. Will decrease amiodarone to 200mg daily to start tomorrow and stop evening dose tonight, will give 2.5mg vitamin K now and one unit PRBCs is infusing. Follow INRs daily and monitor for melena, continue to follow Q6h H&H. Patient is currently comfortable and hemodynamically stable. Daughter at bedside. POC coordinated with primary RN.
--- NOTE | 2019-06-03 19:40 | HP ---
CC: Dr. Alonso Marquez; Dr. Anna Cerrato; Dr. Bc Jo * ADMISSION HISTORY AND PHYSICAL: DATE OF ADMISSION: 06/03/19 PRIMARY CARE PROVIDER: Dr. Alonso Marquez. CARDIOLOGY: Dr. Anna Cerrato. ONCOLOGY: Dr. Bc Jo. ATTENDING FOR THIS ADMISSION: Dr. Michelle Arce.* (DICTATED BY BERNARDO TOBAR NP) HISTORY OF PRESENT ILLNESS: Mr. Brantley is a very pleasant 89-year-old male patient with a very complex medical history who presented to the emergency department today with complaints of malaise, dark stools, fatigue, and weakness. The patient's daughter states that he was discharged from [facility] [address] on 05/22/19. He initially had been [place] [facility] when he was noted to have his AICD discharge 3 times when he was at home. Initially, when he was at [facility], because of the complexity of his cardiac history and advanced age and other comorbid conditions, it was felt that he needed cardiothoracic backup in order for him to receive his cardiac catheterization. There was a strong feeling that the patient would need intervention and potentially surgical backup. The patient was transferred to [facility] on and discharged on 05/22/19. During that stay, he received 2 stents and was discharged to home. He and his daughter state that he was convalescing at home for the past week and then, the day before yesterday, started experiencing this increasing fatigue and malaise. He noted that he was also feeling lightheaded and then had some dark diarrhea and headaches. These were all new symptoms for him, although he does note that he did have history of a GI bleed in the past. He became concerned because he is on blood thinners after receiving 2 new stents and he is also on Coumadin for valve replacements. He came to the emergency department with his daughter for urgent evaluation. In the ED, he is guaiac positive on his stool. His hemoglobin is noted to have dropped. When he was here last, hemoglobin was 11; it is now 8.2, again with a positive guaiac. He is not experiencing tachycardia, but his pressure is slightly on the soft side. Given the fact that he is on Coumadin and Brilinta, the concern is that he is obviously having a GI bleed again. ER physician has reached out to the hospitalist for admission. PAST MEDICAL HISTORY: Significant for nonsustained V-tach; 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 PAST SURGICAL HISTORY: Significant for cardiac catheterization, valve replacement, TAVR, CABG, and pacemaker/AICD insertion. ALLERGIES: The patient has allergy to PENICILLIN. FAMILY HISTORY: Father at advanced age of coronary artery disease and [place]. Mother had stomach cancer, also at advanced age. SOCIAL HISTORY: The patient is a former smoker, smoked for 30 years and quit in 1986. Drinks alcohol rarely. He does live with his who has Alzheimer' s and a daughter. His healthcare proxy is his daughter, Afua Mar, phone number is ; she is his healthcare proxy and power of assistant district attorney. Code status: He is a full code. REVIEW OF SYSTEMS: The patient endorses fatigue, headache, vomiting while at home, and some diarrhea. Denies any chest pain. No shortness of breath. No fevers or chills. No urinary complaints. No arthralgias or myalgias and no further constitutional complaints. PHYSICAL EXAMINATION GENERAL: The patient is awake, alert, and in general ill appearing. VITAL SIGNS: Blood pressure 107/50, heart rate 72, respiratory rate 18, O2 saturation 93% to 95% on room air with a temperature of 97.7. HEENT: The patient is atraumatic, normocephalic. PERRLA. Nonicteric sclerae. Oral mucosa is moist. Tongue is midline. NECK: Supple, nontender. No JVD noted. No carotid bruits auscultated. LUNGS: Clear bilaterally to auscultation with no wheezing, rhonchi, or rales. CARDIOVASCULAR: S1, S2 present. No gallops or rubs noted. He does have a grade 2 systolic murmur. Rate and rhythm are otherwise regular. ABDOMEN: Soft, nontender, nondistended. Positive bowel sounds in all 4 quadrants, slightly hyperactive. GENITOURINARY: Deferred. MUSCULOSKELETAL: There is no clubbing, no cyanosis, no pedal edema. Full range of motion. Gross motor and sensation are intact. NEUROLOGIC: He is grossly intact. Alert and oriented x3. No focal deficits noted. PSYCHIATRIC: Cooperative and appropriate. SKIN: Warm and dry. Moderately pale. Otherwise intact. DIAGNOSTIC STUDIES/LAB DATA: Laboratories: WBCs 12.0, RBCs 2.80, hemoglobin 8.1, hematocrit 25, MCV 89, MCH 29, platelets 210. Sodium 140, potassium 3.6, chloride 101, CO2 of 29, BUN 45, creatinine 1.12, GFR 61.7, BUN/creatinine ratio of 40, glucose 132, lactic acid 2.1, calcium 9.3, magnesium 2.0. Total bilirubin 0.50, AST 12, ALT 7, alk phos 59. Troponin 0.02. Protein 6.7, albumin 3.8, globulin 2.9. TSH 2.60. INR is 5.16. Imaging: No imaging available today. EKG: EKG shows ventricular paced rhythm with a rate of 70. IMPRESSION: Mr. Brantley is an 89-year-old male patient with very complex medical history and complex cardiac history who presents in the emergency department today with a gastrointestinal bleed. PLAN: The patient will be admitted to the ICU. 1. Symptomatic anemia secondary to GI bleeding and systemic anticoagulation. The patient will be admitted to ICU. He has been started on Protonix drip. I have contacted Dr. Mendel Duke of GI. He will be gathering the team and coming in to evaluate the patient and to do an exploratory endoscopy. I have ordered 1 unit of blood to be transfused immediately. We will recheck an H and H in 6 hours. Depending on the results of the next H and H, we will determine the next transfusion need. For now, we will not reverse the INR, which is supratherapeutic. The patient has 2 mechanical valves and he has already had stroke in the past and is very high risk. At this point, we will just hold the Coumadin and wait for the INR to drift down and recheck INRs daily. If his hemoglobin continues to drop, we will transfuse as needed and again continue to monitor the INR and restart Coumadin when it is safe. We will keep in close contact with GI and with cardiology regarding this plan. 2. Coronary artery disease with recent stenting. The patient received 2 stents at [facility] on 05/17/19. He is on Brilinta 90 mg 2 times daily. Because these are fresh stents, even though the patient is bleeding, it would not be advisable to stop the Brilinta. This will be continued. He is on telemetry. He is currently pacing. We will continue to monitor tele and he is currently not having any chest pain, but we will do an EKG if he does have any complaints of chest pain or if we have noticed any changes on telemetry. Currently, he does appear to be stable. We will continue his amiodarone at the current dosing of 200 mg 2 times a day and also his carvedilol at 25 mg 2 times a day. We will hold his Lasix for now as his blood pressure I think will not respond well to that. He does not appear to be fluid overloaded. 3. History of lung cancer and Waldenstrom's. These are both in remission. He did response to high-dose radiation in 2017. His lung cancer was treated then. He can follow up with Dr. Jo as an outpatient after discharge. 4. History of paroxysmal atrial fibrillation. Again, the patient is currently pacing. He is on amiodarone for rate control. This will be continued and he is on telemetry. 5. History of nonischemic cardiomyopathy. Again, the patient is paced and on telemetry. He did have an echocardiogram at his last admission. At this time, he is not exhibiting any cardiac stress and no chest pain. If this changes, we can defer to cardiology if they want to do any additional diagnostics. 6. Hypertension. The patient's Lasix will be held, but we will continue his carvedilol. At this time, his blood pressure is borderline. Because of his bleeding, hoping to maintain his blood pressure with blood transfusions. Again , the patient is going to ICU, this will be monitored very closely. 7. DVT prophylaxis. SCDs only. He is obviously supratherapeutic on his INR. 8. Diet. N.p.o. The rest of the patient's course will be determined by further diagnostics, laboratories, and any other input from other providers as warranted during this admission. The patient's status is fair to guarded. This plan of care has been discussed with Dr. Michelle Arce, the attending on this case, and she is in agreement with the plan of care. TIME SPENT: Critical care time: 75 minutes on admission, 50% of which has been spent [id number] with the patient and also interfacing with staff and Dr. Duke on admission plan of care. BERNARDO TOBAR NP [id number]/CPS #: [id number] PENG
--- NOTE | 2019-06-03 19:40 | CONS ---
CC: Anna Cerrato MD; Alonso Marquez MD * CONSULTATION REPORT: DATE OF CONSULT: 06/03/19 REQUESTING PHYSICIAN: Dr. Lazo. REASON FOR CONSULT: Melena with acute blood loss anemia. HISTORY OF PRESENT ILLNESS: This is an 89-year-old male with a past medical history of mitral valve insufficiency, status post [facility]; AVR; aortic valve stenosis, status post TAVR; recent PCI at [facility] last week, on Brilinta and Coumadin, who presented with melena. The history of present illness is supplemented by the daughter. He admits that he has been having increasing fatigue and weakness since his discharge from [facility]. The stool has been dark for the last 3 to 4 days, admits to loose stool and diarrhea, no constipation, denies abdominal pain, denies any dysphagia or odynophagia, denies any weight loss or weight gain. Remainder of the 14-point review of systems is grossly negative. PAST MEDICAL HISTORY: 1. Aortic valve replacement, [facility] Manoj in 2000. 2. Aortic valve stenosis, status post TAVR. 3. Lung cancer in 2017, status post radiation. 4. Nonischemic cardiomyopathy. 5. Paroxysmal atrial fibrillation, recent PCI intervention at [facility], now on Brilinta. 6. Waldenstrom's. 7. 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 HOME MEDICATIONS: 1. Amiodarone. 2. Carvedilol 3. Latanoprost. 4. Brilinta. 5. Coumadin. ALLERGIES: PENICILLIN. FAMILY HISTORY: No family history of GI cancer or IBD. 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 REVIEW OF SYSTEMS: Remainder of the 14-point review of systems is grossly negative except for as described in HPI. PHYSICAL EXAM: Vital signs: Blood pressure is 116/52, pulse is 73, respiratory rate is 19. He is 94% on room air. General: Lethargic, alert, no acute distress. HEENT: Atraumatic, normocephalic. Pupils equal, round, reactive to light. Extraocular movements intact. Conjunctivae are pale. Sclerae anicteric. Cardiovascular: Regular rate and rhythm. S1, S2. Respiratory: Diminished at the base. Abdomen: Soft, nontender, nondistended. Bowel sounds positive. Extremities: No clubbing, no cyanosis, no edema. Rectal: Melena. Appropriate tone. Psych: Appropriate mood and affect. DIAGNOSTIC STUDIES/LAB DATA: Hemoglobin 8.1. Platelet count 210. INR 5.16. BUN is 45, creatinine 1.12. Lactic acid 2.1. AST is 12, ALT is 11, alkaline phosphatase is 59. Baseline hemoglobin is 11.1, which was on 05/17/19. ASSESSMENT AND PLAN: This is an 89-year-old male with recent percutaneous coronary intervention at [facility], on both Coumadin and Brilinta, presenting with acute blood loss anemia. 1. Acute blood loss anemia. Suspect upper gastrointestinal bleed given elevated BUN and melena. We will plan for urgent upper endoscopy. Difficult case given the INR. Recent percutaneous coronary intervention, high risk for any scenario. I discussed with the daughter at bedside. Written and informed consent was obtained from both the patient and the daughter for an upper endoscopy. The risks, benefits, and alternatives were described to the patient and the daughter and they wished to proceed. Given his elevated INR, we will plan on using Endo clips and potentially Hemospray, other modalities are not going to be effective given the elevated INR. If ongoing bleeding, we will need to reverse the INR even though the risk may be high. I agree with continuing Brilinta given the recent percutaneous coronary intervention. Keep the H and H every 6 hours. Keep 2 units of PRBCs on hold, monitor in the ICU. Hemodynamically seems stable at this point. 2. Melena. As above. He has a history of arteriovenous malformations causing bleeding, the last was done in [address] 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 3. Coronary artery disease, status post percutaneous coronary intervention at [facility]. High risk, needs to continue Brilinta. 4. Aortic valve replacement, on Coumadin. If ongoing bleeding, we will touch base with Cardiology given this is aortic valve, maybe reasonable to hold the Coumadin temporarily. [id number]/CPS #: [id number] [facility]
[2019-06-03] MEDS: Ticagrelor* 90 MG TAB PO SCH (20:52)
[2019-06-03] MEDS ORDERED: Amiodarone TAB* 200 MG PO SCH (21:00)
--- NOTE | 2019-06-03 21:43 | CONS ---
CC: Dr. Alonso Marquez; Hospitalist Service; Dr. Duke * CONSULTATION REPORT: DATE OF CONSULT: 06/03/19 REASON FOR CONSULT: GI bleeding with recent stents and initiation of Brilinta. HISTORY OF PRESENT ILLNESS: Mr. Brantley is an 89-year-old gentleman whom I have followed for approximately 20 years with complex cardiac history: The patient underwent mechanical mitral valve replacement in 2000, TAVR 2018. He has chronic AFib and in mid May had ventricular fibrillation and stents to tight circumflex lesion and Brilinta was started in addition to amiodarone. The patient was seen in our office on 05/31/19 and he reported feeling well. According to the patient and his daughter, the next day he had some diarrhea. On 06/02/19, he had some nausea and vomiting and this afternoon, he presented to the emergency room with increased fatigue, lightheadedness, dark stools, and headaches. He was found to be GI bleeding, underwent endoscopy at [address] Duke and the source of the bleed was in the gastroesophageal junction and this was endoclipped. The patient currently is tired, denies shortness of breath, palpitations, or chest pain. The patient's INR was supratherapeutic and he had recently been started on amiodarone in addition to the initiation of his Brilinta with the stents. PAST MEDICAL HISTORY: 1. Mitral valve prolapse and insufficiency, status post [facility] Manoj mitral valve replacement (#33), 2000, [facility]ne Araiza. 2. Aortic stenosis, status post TAVR #29 WALLACE 3, January 2018. 3. Cardiomyopathy due to RV pacing, status post biventricular pacer defibrillator. 4. Chronic AFib, status post AV alisa ablation. 5. GI bleed 2016, AVM. 6. Lung cancer, 2017, adeno, status post radiation therapy. 7. Coronary artery disease, 2017. 8. Cardiac catheterization, 05/18/19. Nicholas Matt showed LAD with mild diffuse disease, left circumflex dominant with a 70% to 80% occlusion in the proximal circumflex and an 80% occlusion in the proximal OM branch, status post stenting to the proximal circ lesion and a second stent deployed, I believe, to the OM branch. The right coronary artery was nondominant with no significant disease. 9. Hypertension. 10. Dyslipidemia. 11. Ventricular tachycardia, with ICD. MEDICATIONS: Outpatient medications included: 1. Oxygen with concentrator. 2. Coreg 12.5 mg b.i.d. 3. Lasix 40 mg a day (on hold). 4. Spironolactone recently discontinued. 5. Coumadin. 6. Omeprazole 20 mg b.i.d. 7. PreserVision AREDS 2 one cap b.i.d. 8. Latanoprost drops. 9. Iron 325 mg a day. 10. Amiodarone, was on 600 mg a day, starting taper. 11. Brilinta 90 mg b.i.d. 12. Spironolactone 12.5 mg a day but on hold. ALLERGIES: Include PENICILLIN. FAMILY HISTORY: Positive for coronary disease. His father of a myocardial infarction at age 73 and also had emphysema. His mother at age 93. He has a sister with heart problems of some sort. 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 Stopped smoking in 1986. REVIEW OF SYSTEMS: See history of present illness for recent fatigue, diarrhea , nausea, vomiting, dark stool, and negative for orthopnea, shortness of breath , chest pain, pressure, heaviness, racing or palpitations of the heart. PHYSICAL EXAM: The patient is 5 feet 10 inches, weighs 186 pounds with a BMI of 26. Vitals on arrival to the emergency room - blood pressure 96/37, pulse was 77, respiratory rate 16, oxygen saturation 97%. Currently postprocedure, he remains afebrile. Pulse was 76, respiratory rate 23, oxygen saturation 93% on room air, and blood pressure 113/51. General Appearance: Pale, white- appearing elderly gentleman lying at 20 degrees, appearing worn and anemic. Psychologically, pleasant and cooperative. Neurologically, awake, alert, and oriented to person, place. I did not check time. He is hard of hearing. Cranial nerves otherwise intact. Speech is articulate. Comprehension is good. He follows commands well. No gross motor or sensory deficits. HEENT: Conjunctivae yellow. Oral mucosa is moist. Neck without appreciable increased JVP. Breath sounds clear on that exam. Coronary S1, S2 regular. Soft systolic murmur in the upper sternal border. Abdomen: Nondistended, active bowel sounds and soft. Lower extremities showed trace to 1+ edema. DIAGNOSTIC STUDIES/LAB DATA: White count 12, hematocrit 25, hemoglobin 8.1, platelets 210. INR 5.16. Sodium 140, potassium 3.6, chloride 101, bicarb 29, BUN 45 (increased from baseline of 18 on 05/18/19), glucose 132, lactic acid 2.1 , magnesium 2.0. AST 12, ALT 7. Troponin 0.02. Total protein 6.7. Albumin 3.8. TSH 2.6. ECG from today shows atrial fibrillation with a biventricularly paced beat at a rate of [address] is unremarkable. EGD report reviewed documenting brisk bleeding at the GE junction with scope pass and endoclipped. He had an echocardiogram from 05/16/19. It showed an ejection fraction of 50% to 55% with evidence of elevated left ventricular end-diastolic pressure, mild right ventricular hypokinesis, severe biatrial enlargement, mechanical mitral valve prosthesis with mild mitral insufficiency, mean gradient of 6 mmHg. Valve area estimated at 3.3 sq. cm. Bioprosthetic aortic valve replacement with mean gradient of 9 mmHg and normal cusp separation. He has moderate tricuspid insufficiency, severe pulmonary hypertension estimated at 60 mmHg. IMPRESSION AND PLAN: In summary, Mr. Brantley is an 89-year-old gentleman admitted with his gastrointestinal bleed as above, who requires chronic anticoagulation for his mechanical mitral valve replacement as well as his chronic atrial fibrillation. He is just a couple of weeks out from getting drug- eluting stents and newly on Brilinta and his INR is supratherapeutic with the addition of amiodarone, which potentiates Coumadin. For the patient's amiodarone, we will cut lower to 200 mg a day, keep him on a monitor in case of ventricular ectopy. GI would like his INR level lower, although I would rather not reverse him if possible. If it is felt to be essential, then give a very low amount of vitamin K such as 2.5 mg orally. FFP tonight would be okay in addition to his packed red blood cells. The biggest risk for Mr. Brantley would be thrombosis of the prosthetic mitral valve, prosthetic valves in the mitral position, at higher risk for thrombosis even years after implantation of the aortic valve. The patient is also at high risk of stent thrombosis if antiplatelets are held this close to his PCI. Cardiology can follow along try to assist with stabilization of his GI bleed without risking stent thrombosis by stopping Brilinta or his mechanical valve thrombosing related to too low in INR, but bleeding stabilization acutely has to come first. [id number]/[facility] #: [id number] PENG
[2019-06-03] MEDS: Carvedilol TAB* 25 MG PO SCH (22:52)
[2019-06-03] MEDS: Latanoprost 0.005%* 2.5 ml BTL BOTH EYES SCH (22:53)
[2019-06-03 23:13] LABS: Hematocrit 24 % (42-52); Hemoglobin 7.8 g/dL (14.0-18.0)
[2019-06-04 00:06] LABS: INR 5.29 (0.82-1.09)
--- NOTE | 2019-06-04 03:03 | PRO ---
CC: Anna Cerrato MD; Alonso Marquez MD * EGD REPORT: DATE OF PROCEDURE: 06/03/19 - ROOM #ICU-01 PROCEDURE PERFORMED: Complete esophagogastroduodenoscopy with Endoclip placement. INDICATION FOR PROCEDURE: Acute blood loss anemia, melena. MEDICATIONS GIVEN: Include 2 mg IV midazolam. DESCRIPTION OF PROCEDURE: After the EGD procedure including the risks, benefits , and alternatives with the risks not limited to perforation, surgery, missed lesions, and/or were explained to the patient, written informed consent was obtained, IV medication was given, and a bite-block was placed between the teeth. The adult Olympus gastroscope was then inserted into the patient's oropharynx into the tubular esophagus. Upon passing through the EG junction barely touching the junction, a brisk bleed was noted, Dieulafoy lesion in nature at the GE junction, given the INR of 5.16, an Endoclip was placed over this area with good effect. No further bleeding was noted afterwards. I then passed the adult gastroscope through the lower esophageal sphincter into the stomach. The views in both antegrade and retrograde fashion were normal. A little bit of scattered gastritis within the antrum. No significant ulceration was visualized. The scope was advanced through the widely patent pylorus into the duodenal bulb, C-loop, and distal duodenum. I then pushed deep into the distal jejunum and did not see any further ulcerations or AVMs. The scope was then removed from the patient. He tolerated the procedure well. He returned to the recovery room in stable condition. IMPRESSION: 1. Complete esophagogastroduodenoscopy with biopsies. 2. 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 3. Otherwise unremarkable EGD. e would recommend reversal of the Coumadin given his aortic valve likely lower risk to clot with the valve in place, but we will discuss with cardiology team. Continue to monitor the H and H every 6 hours, keep in the ICU. [id number]/[facility] #: [id number] PENG
[2019-06-04 05:04] LABS: ABS Eosinophils 0.1 10^3/ul (0-0.6); ABS Lymphocytes 0.7 10^3/ul (1.0-4.8); ABS Monocytes 0.5 10^3/ul (0-0.8); ABS Neutrophils 4.3 10^3/ul (1.5-7.7); Eosinophil % 1.4 %; Hematocrit 23 % (42-52); Hemoglobin 7.6 g/dL (14.0-18.0); Lymphocyte % 11.7 %; Mean Corpuscular HGB Conc 33 g/dL (31-36); Mean Corpuscular Hemoglobin 29 pg (27-31); Mean Corpuscular Volume 87 fL (80-94); Mean Platelet Volume 6.9 fL (7.4-10.4); Platelet Count 146 10^3/uL (150-450); Red Blood Count 2.62 10^6 /uL (4.18-5.48); Red Cell Distribution Width 17 % (10-15); White Blood Count 5.6 10^3/uL (3.5-10.8)
[2019-06-04 05:07] LABS: Albumin 3.2 g/dL (3.2-5.2); Albumin/Globulin Ratio 1.5 (1-3); BUN/Creatinine Ratio 36.5 (8-20); Calcium 8.5 mg/dL (8.6-10.3); EGFR African American 81.4 (>60); EGFR Non-African American 67.2 (>60); Globulin 2.2 g/dL (2-4); Potassium 3.5 mmol/L (3.5-5.0); Total Bilirubin 0.4 mg/dL (0.2-1.0); Total Protein 5.4 g/dL (6.4-8.9)
[2019-06-04 07:08] LABS: INR 5.07 (0.82-1.09)
[2019-06-04] MEDS: Insulin LISPRO* 1 UNITS UNIT SUBCUT SCH ×4 (08:04→21:04)
[2019-06-04] MEDS: Ticagrelor* 90 MG TAB PO SCH ×2 (08:10→20:45)
[2019-06-04] MEDS: Pantoprazole IV* 40 MG IV SCH ×2 (08:10→20:45)
[2019-06-04] MEDS ORDERED: NS 0.9% 1000 ML** 1,000 ML IV SCH (10:34)
--- NOTE | 2019-06-04 10:37 | PN ---
Subjective Date of Service: 06/04/19 Interval History: Pt has non new complaints. Has had morning cough for "years", even after he stopped smoking in . Last melena yesterday Objective Active Medications: Amiodarone HCl (Cordarone Tab*) 200 mg PO DAILY [facility] Carvedilol (Coreg Tab*) 25 mg PO BID [facility] Last Admin: 06/03/19 22:52 Dose: 25 mg Dextrose (Dextrose 50% Vial 50 Ml*) 25 ml IV PUSH .FOR FS < 60 - SS PRN PRN Reason: FS < 60 Insulin Human Lispro (Humalog*) 0 units SUBCUT ACHS [facility]; Protocol Last Admin: 06/04/19 08:04 Dose: Not Given Latanoprost (Xalatan 0.005%*) 1 drop BOTH EYES QPM [facility] Last Admin: 06/03/19 22:53 Dose: 1 drop Pantoprazole Sodium (Protonix Iv*) 40 mg IV Q12H [facility] Last Admin: 06/04/19 08:10 Dose: 40 mg Ticagrelor (Brilinta*) 90 mg PO BID [facility] Last Admin: 06/04/19 08:10 Dose: 90 mg Vital Signs - 8 hr 06/04/19 06/04/19 06/04/19 03:00 03:14 03:30 Temperature 98.2 F Pulse Rate 70 70 Respiratory 17 20 Rate Blood Pressure 107/50 103/47 (mmHg) O2 Sat by Pulse 97 98 Oximetry 06/04/19 06/04/19 06/04/19 04:00 04:31 05:00 Temperature Pulse Rate 70 72 74 Respiratory 17 18 12 Rate Blood Pressure 105/48 94/49 97/46 (mmHg) O2 Sat by Pulse 98 86 93 Oximetry 06/04/19 06/04/19 06/04/19 05:30 05:59 06:00 Temperature Pulse Rate 74 73 Respiratory 23 19 19 Rate Blood Pressure 114/51 109/50 (mmHg) O2 Sat by Pulse 95 93 Oximetry 06/04/19 06/04/19 06/04/19 06:30 06:39 07:00 Temperature Pulse Rate 72 71 Respiratory 18 20 21 Rate Blood Pressure 119/51 119/48 (mmHg) O2 Sat by Pulse 95 96 Oximetry 06/04/19 06/04/19 07:30 08:00 Temperature 97.9 F Pulse Rate 73 75 Respiratory 18 25 Rate Blood Pressure 129/52 101/48 (mmHg) O2 Sat by Pulse 96 94 Oximetry Oxygen Devices in Use Now: None Appearance: 89 yo M in nAD, AAOx3 Eyes: No Scleral Icterus, PERRLA Ears/Nose/Mouth/Throat: NL Teeth, Lips, Gums, Mucous Membranes Moist Neck: NL Appearance and Movements; NL JVP, Trachea Midline Respiratory: Symmetrical Chest Expansion and Respiratory Effort, - - rhonchi at RUL-clear with cough Cardiovascular: RRR, - - metallic mitral valve click heard at apex ascultation Abdominal: NL Sounds; No Tenderness; No Distention, No Hepatosplenomegaly Lymphatic: No Cervical Adenopathy Extremities: No Edema Skin: No Rash or Ulcers, No Nodules or Sclerosis Neurological: Alert and Oriented x 3, NL Muscle Strength and Tone Result Diagrams: 06/04/19 04:30 06/04/19 04:30 Additional Lab and Data: Lab Results 06/03/19 06/03/19 06/03/19 Range/Units 13:44 13:44 13:44 WBC 12.0 H (3.5-10.8) 10^3/uL RBC 2.80 L (4.18-5.48) 10^6 /uL Hgb 8.1 L (14.0-18.0) g/dL Hct 25 L (42-52) % MCV 89 (80-94) fL MCH 29 (27-31) pg MCHC 33 (31-36) g/dL RDW 15 (10-15) % Plt Count 210 (150-450) 10^3/uL MPV 7.0 L (7.4-10.4) fL Neut % (Auto) 85.2 % Lymph % (Auto) 6.9 % [place] % (Auto) 6.7 % Eos % (Auto) 0.5 % Baso % (Auto) 0.7 % Absolute Neuts (auto) 10.2 H (1.5-7.7) 10^3/ul Absolute Lymphs (auto) 0.8 L (1.0-4.8) 10^3/ul Absolute Monos (auto) 0.8 (0-0.8) 10^3/ul Absolute Eos (auto) 0.1 (0-0.6) 10^3/ul Absolute Basos (auto) 0.1 (0-0.2) 10^3/ul Absolute Nucleated RBC 0.0 10^3/ul Nucleated RBC % 0.0 Sodium 140 (135-145) mmol/L Potassium 3.6 (3.5-5.0) mmol/L Chloride 101 (101-111) mmol/L Carbon Dioxide 29 (22-32) mmol/L Anion Gap 10 (2-11) mmol/L BUN 45 H (6-24) mg/dL Creatinine 1.12 (0.67-1.17) mg/dL Est GFR ( Amer) 74.7 (>60) Est GFR (Non-Af Amer) 61.7 (>60) BUN/Creatinine Ratio 40.2 H (8-20) Glucose 132 H (70-100) mg/dL Lactic Acid 2.1 H* (0.5-2.0) mmol/L Calcium 9.3 (8.6-10.3) mg/dL Magnesium 2.0 (1.9-2.7) mg/dL Total Bilirubin 0.50 (0.2-1.0) mg/dL AST 12 L (13-39) U/L ALT 7 (7-52) U/L Alkaline Phosphatase 59 (34-104) U/L Troponin I 0.02 (<0.04) ng/mL Total Protein 6.7 (6.4-8.9) g/dL Albumin 3.8 (3.2-5.2) g/dL Globulin 2.9 (2-4) g/dL Albumin/Globulin Ratio 1.3 (1-3) TSH 2.60 (0.34-5.60) mcIU/mL Microbiology and Other Data: Microbiology 06/03/19 18:15 Nasal Screen MRSA (PCR) - Final Nasal Mrsa Not Detected 06/03/19 14:43 Stool Occult Blood (LUIS) - Final Stool Assess/Plan/Problems-Billing Assessment: 89 yo M s/p TAVR, mechanical mitral valve, AICD, A. fib, GI bleed, who had 2x stents placed in 05/2019 when noted to be in V. tach, placed on DAPT presents with melena and UGIB - Patient Problems (1) Upper GI hemorrhage Comment: s/p EGD with Dr. Duke 06/03/19: bleeding Dieulafoy lesion with Endoclip placement No acute bleeding post EGD noted. Cont Protonix IV Start clear liquids repeat CBC in AM hold coumadin tonight (2) Acute blood loss anemia Comment: secondary to see above S/p 1 U PRBC transfusion at admission, Hb 7.6 today. due to significant cardiac disease and 2 stents in the past month will transfuse another U PRBC today. (3) Atrial fibrillation Comment: -currently paced -On carvedilol and amiodarone(dose lowered by cardiology at admission) (4) Diabetes Comment: -Metformin on hold -On fingersticks (5) Heart failure Comment: -No evidence of acute exacerbation -Echo on 05/16 showed EF of 50-55% with elevated ventricular end diastolic pressur, RV mildly dilated, severe bilateral atrial enlargement with elevated PA pressure of 60 mm Hg. -holding aldactone and lasix (6) Mechanical heart valve present Comment: -Holding warfarin -Vit K given for reversal 06/03/19 -INR still >5, but no signs of bleeeding -as per DR. Lancaster recommendations-hold coumadin and let INR drift down slowly rather than acutely reverse due to possibility of thrombosis at mechanical mitral valve (7) DVT prophylaxis Comment: INR>% hold warfarin Status and Disposition: Inpatient
[2019-06-04] MEDS: Carvedilol TAB* 25 MG PO SCH ×2 (10:58→20:46)
[2019-06-04] MEDS: Amiodarone TAB* 200 MG PO SCH (10:59)
[2019-06-04 15:52] LABS: Hematocrit 24 % (42-52)
[2019-06-04] MEDS: Latanoprost 0.005%* 2.5 ml BTL BOTH EYES SCH (18:02)
[2019-06-04 21:30] LABS: Hematocrit 25 % (42-52); Hemoglobin 8.1 g/dL (14.0-18.0)
[2019-06-04] MEDS: NS 0.9% 1000 ML** 1,000 ML IV SCH ×2 (22:23→23:49)
[2019-06-05 05:33] LABS: INR 4.57 (0.82-1.09)
[2019-06-05 05:43] LABS: BUN/Creatinine Ratio 29.7 (8-20); Calcium 8.2 mg/dL (8.6-10.3); EGFR African American 94.9 (>60); EGFR Non-African American 78.4 (>60); Potassium 3.3 mmol/L (3.5-5.0)
[2019-06-05 05:45] LABS: ABS Eosinophils 0.1 10^3/ul (0-0.6); ABS Lymphocytes 0.5 10^3/ul (1.0-4.8); ABS Monocytes 0.4 10^3/ul (0-0.8); Eosinophil % 1.8 %; Hematocrit 24 % (42-52); Hemoglobin 7.8 g/dL (14.0-18.0); Lymphocyte % 13.3 %; Mean Corpuscular HGB Conc 33 g/dL (31-36); Mean Corpuscular Hemoglobin 29 pg (27-31); Mean Corpuscular Volume 87 fL (80-94); Mean Platelet Volume 6.8 fL (7.4-10.4); Nucleated Red Blood Cells % 0.1; Platelet Count 136 10^3/uL (150-450); Red Blood Count 2.74 10^6 /uL (4.18-5.48); Red Cell Distribution Width 18 % (10-15); White Blood Count 3.9 10^3/uL (3.5-10.8)
[2019-06-05] MEDS: Insulin LISPRO* 1 UNITS UNIT SUBCUT SCH ×4 (07:46→20:25)
[2019-06-05] MEDS ORDERED: Potassium Chlor TAB* 20 MEQ TAB.ER PO ONE (08:11)
[2019-06-05] MEDS: Pantoprazole IV* 40 MG IV SCH ×2 (08:12→20:07)
[2019-06-05] MEDS: Ticagrelor* 90 MG TAB PO SCH ×2 (08:20→20:07)
[2019-06-05] MEDS: Amiodarone TAB* 200 MG PO SCH (08:20)
[2019-06-05] MEDS: Carvedilol TAB* 25 MG PO SCH ×2 (08:20→20:07)
[2019-06-05] MEDS ORDERED: NS 0.9% 1000 ML** 1,000 ML IV SCH (08:21)
--- NOTE | 2019-06-05 14:56 | PN ---
Subjective Date of Service: 06/05/19 Interval History: Pt is doing well, denies CP, SOB or abd pain. Objective Active Medications: Amiodarone HCl (Cordarone Tab*) 200 mg PO DAILY [facility] Last Admin: 06/05/19 08:20 Dose: 200 mg Carvedilol (Coreg Tab*) 25 mg PO BID [facility] Last Admin: 06/05/19 08:20 Dose: 25 mg Dextrose (Dextrose 50% Vial 50 Ml*) 25 ml IV PUSH .FOR FS < 60 - SS PRN PRN Reason: FS < 60 Sodium Chloride (Ns 0.9% 1000 Ml) 1,000 mls @ 50 mls/hr IV PER RATE [facility] Last Admin: 06/05/19 10:34 Dose: 50 mls/hr Insulin Human Lispro (Humalog*) 0 units SUBCUT ACHS [facility]; Protocol Last Admin: 06/05/19 13:17 Dose: 1 units Latanoprost (Xalatan 0.005%*) 1 drop BOTH EYES QPM [facility] Last Admin: 06/04/19 18:02 Dose: 1 drop Pantoprazole Sodium (Protonix Iv*) 40 mg IV Q12H [facility] Last Admin: 06/05/19 08:12 Dose: 40 mg Ticagrelor (Brilinta*) 90 mg PO BID [facility] Last Admin: 06/05/19 08:20 Dose: 90 mg Vital Signs - 8 hr 06/05/19 06/05/19 06/05/19 07:00 07:15 07:24 Temperature 97.6 F Pulse Rate 75 75 Respiratory 18 18 Rate Blood Pressure 131/55 129/57 (mmHg) O2 Sat by Pulse 96 96 Oximetry 06/05/19 06/05/19 06/05/19 07:30 07:45 07:50 Temperature Pulse Rate 70 74 Respiratory 17 20 15 Rate Blood Pressure 127/57 126/55 (mmHg) O2 Sat by Pulse 97 99 Oximetry 06/05/19 06/05/19 06/05/19 07:55 08:00 08:15 Temperature 97.4 F Pulse Rate 75 75 Respiratory 17 21 Rate Blood Pressure 127/57 127/63 (mmHg) O2 Sat by Pulse 99 96 Oximetry 06/05/19 06/05/19 06/05/19 08:30 08:45 09:00 Temperature Pulse Rate 73 76 76 Respiratory 24 18 23 Rate Blood Pressure 130/60 129/58 124/50 (mmHg) O2 Sat by Pulse 99 99 95 Oximetry 06/05/19 06/05/19 06/05/19 09:15 09:30 09:45 Temperature Pulse Rate 71 76 71 Respiratory 21 23 19 Rate Blood Pressure 108/43 104/45 100/40 (mmHg) O2 Sat by Pulse 92 97 94 Oximetry 06/05/19 06/05/19 06/05/19 10:00 10:15 10:30 Temperature Pulse Rate 76 72 73 Respiratory 18 19 19 Rate Blood Pressure 104/46 100/42 102/50 (mmHg) O2 Sat by Pulse 97 96 96 Oximetry 06/05/19 11:15 Temperature 97.9 F Pulse Rate Respiratory Rate Blood Pressure (mmHg) O2 Sat by Pulse Oximetry Oxygen Devices in Use Now: None Appearance: 89 yo M in nAD, aAOx3 Eyes: No Scleral Icterus, PERRLA Ears/Nose/Mouth/Throat: NL Teeth, Lips, Gums, Mucous Membranes Moist Neck: NL Appearance and Movements; NL JVP, Trachea Midline Respiratory: Symmetrical Chest Expansion and Respiratory Effort, - - crackles at b/l bases Cardiovascular: - - prosthetic mitral valve click heard at apex Abdominal: NL Sounds; No Tenderness; No Distention, No Hepatosplenomegaly Lymphatic: No Cervical Adenopathy Extremities: No Edema, No Clubbing, Cyanosis Skin: No Rash or Ulcers, No Nodules or Sclerosis Neurological: Alert and Oriented x 3, NL Muscle Strength and Tone Result Diagrams: 06/05/19 05:15 06/05/19 05:15 Additional Lab and Data: Lab Results 06/03/19 06/03/19 06/03/19 Range/Units 13:44 13:44 13:44 WBC 12.0 H (3.5-10.8) 10^3/uL RBC 2.80 L (4.18-5.48) 10^6 /uL Hgb 8.1 L (14.0-18.0) g/dL Hct 25 L (42-52) % MCV 89 (80-94) fL MCH 29 (27-31) pg MCHC 33 (31-36) g/dL RDW 15 (10-15) % Plt Count 210 (150-450) 10^3/uL MPV 7.0 L (7.4-10.4) fL Neut % (Auto) 85.2 % Lymph % (Auto) 6.9 % [place] % (Auto) 6.7 % Eos % (Auto) 0.5 % Baso % (Auto) 0.7 % Absolute Neuts (auto) 10.2 H (1.5-7.7) 10^3/ul Absolute Lymphs (auto) 0.8 L (1.0-4.8) 10^3/ul Absolute Monos (auto) 0.8 (0-0.8) 10^3/ul Absolute Eos (auto) 0.1 (0-0.6) 10^3/ul Absolute Basos (auto) 0.1 (0-0.2) 10^3/ul Absolute Nucleated RBC 0.0 10^3/ul Nucleated RBC % 0.0 Sodium 140 (135-145) mmol/L Potassium 3.6 (3.5-5.0) mmol/L Chloride 101 (101-111) mmol/L Carbon Dioxide 29 (22-32) mmol/L Anion Gap 10 (2-11) mmol/L BUN 45 H (6-24) mg/dL Creatinine 1.12 (0.67-1.17) mg/dL Est GFR ( Amer) 74.7 (>60) Est GFR (Non-Af Amer) 61.7 (>60) BUN/Creatinine Ratio 40.2 H (8-20) Glucose 132 H (70-100) mg/dL Lactic Acid 2.1 H* (0.5-2.0) mmol/L Calcium 9.3 (8.6-10.3) mg/dL Magnesium 2.0 (1.9-2.7) mg/dL Total Bilirubin 0.50 (0.2-1.0) mg/dL AST 12 L (13-39) U/L ALT 7 (7-52) U/L Alkaline Phosphatase 59 (34-104) U/L Troponin I 0.02 (<0.04) ng/mL Total Protein 6.7 (6.4-8.9) g/dL Albumin 3.8 (3.2-5.2) g/dL Globulin 2.9 (2-4) g/dL Albumin/Globulin Ratio 1.3 (1-3) TSH 2.60 (0.34-5.60) mcIU/mL Microbiology and Other Data: Microbiology 06/03/19 18:15 Nasal Screen MRSA (PCR) - Final Nasal Mrsa Not Detected 06/03/19 14:43 Stool Occult Blood (LUIS) - Final Stool Assess/Plan/Problems-Billing Assessment: 89 yo M s/p TAVR, mechanical mitral valve, AICD, A. fib, GI bleed, who had 2x stents placed in 05/2019 when noted to be in V. tach, placed on DAPT presents with melena and UGIB - Patient Problems (1) Upper GI hemorrhage Comment: s/p EGD with Dr. Duke 06/03/19: bleeding Dieulafoy lesion with Endoclip placement No acute bleeding post EGD noted. Cont Protonix IV Advancing to fo full liquids repeat CBC in AM hold coumadin tonight (2) Acute blood loss anemia Comment: secondary to see above S/p 2 U PRBC transfusion total. today Hb slighly lower c/w yesterday likley due to dilution. No signs of acute bleeding, no BM since admission. (3) Atrial fibrillation Comment: -currently paced -On carvedilol and amiodarone(dose lowered by cardiology at admission) (4) Diabetes Comment: -Metformin on hold -On fingersticks (5) Heart failure Comment: -No evidence of acute exacerbation. Aldactone and Lasix held at admission.Will d /c IVF, but due to low normal SBP will not restart diuretics yet -Echo on 05/16 showed EF of 50-55% with elevated ventricular end diastolic pressur, RV mildly dilated, severe bilateral atrial enlargement with elevated PA pressure of 60 mm Hg. -holding aldactone and lasix (6) Mechanical heart valve present Comment: -Holding warfarin -Vit K given for reversal 06/03/19 -INR still >4, may need to restart Coumadin tomorrow if it continues to fall -as per DR. Cerrato recommendations-hold coumadin and let INR drift down slowly rather than acutely reverse due to possibility of thrombosis at mechanical mitral valve (7) CAD (coronary artery disease) Comment: s/p 2 stents 05/19, cont Brilinta (8) DVT prophylaxis Comment: INR>4 hold warfarin Status and Disposition: Inpatient
[2019-06-05] MEDS: Latanoprost 0.005%* 2.5 ml BTL BOTH EYES SCH (18:17)
[2019-06-06 01:19] LABS: Urine Appearance Clear; Urine Bilirubin Negative (Negative); Urine Blood Negative (Negative); Urine Color Yellow; Urine Glucose Negative (Negative); Urine Ketones Negative (Negative); Urine Nitrite Negative (Negative); Urine Protein Negative (Negative); Urine Urobilinogen Negative (Negative)
[2019-06-06 06:40] LABS: ABS Eosinophils 0.1 10^3/ul (0-0.6); ABS Lymphocytes 0.6 10^3/ul (1.0-4.8); ABS Monocytes 0.5 10^3/ul (0-0.8); ABS Neutrophils 3.7 10^3/ul (1.5-7.7); Eosinophil % 2.3 %; Hematocrit 25 % (42-52); Hemoglobin 8.4 g/dL (14.0-18.0); Lymphocyte % 11.7 %; Mean Corpuscular HGB Conc 34 g/dL (31-36); Mean Corpuscular Hemoglobin 29 pg (27-31); Mean Corpuscular Volume 87 fL (80-94); Platelet Count 152 10^3/uL (150-450); Red Blood Count 2.89 10^6 /uL (4.18-5.48); Red Cell Distribution Width 18 % (10-15); White Blood Count 4.9 10^3/uL (3.5-10.8)
[2019-06-06 06:45] LABS: INR 3.89 (0.82-1.09)
[2019-06-06 07:02] LABS: BUN/Creatinine Ratio 25.9 (8-20); Calcium 8.4 mg/dL (8.6-10.3); EGFR African American 108.6 (>60); EGFR Non-African American 89.7 (>60); Potassium 3.8 mmol/L (3.5-5.0)
--- NOTE | 2019-06-06 07:41 | PN ---
Subjective Date of Service: 06/06/19 Interval History: HOSPITALIST PROGRESS NOTE Patient seen and examined at bedside. Care reviewed and d/w Lazara Hill RN. He feels well today, just a little tired. Denies chest or abdominal pain, N/V. Ambulated around unit with no significant dyspnea. Family History: Unchanged from Admission Social History: Unchanged from Admission Past Medical History: Unchanged from Admission Objective Active Medications: Amiodarone HCl (Cordarone Tab*) [address] [facility] Last Admin: 06/05/19 08:20 Dose: 200 mg Carvedilol (Coreg Tab*) [address] [facility] Last Admin: 06/05/19 20:07 Dose: 25 mg Dextrose (Dextrose 50% Vial 50 Ml*) 25 ml IV PUSH .FOR FS < 60 - SS PRN PRN Reason: FS < 60 Insulin Human Lispro (Humalog*) [address] [facility]; Protocol Last Admin: 06/05/19 20:25 Dose: 2 units Latanoprost (Xalatan 0.005%*) [address] [facility] Last Admin: 06/05/19 18:17 Dose: 1 drop Pantoprazole Sodium (Protonix Iv*) [address] [facility] Last Admin: 06/05/19 20:07 Dose: 40 mg Ticagrelor (Brilinta*) [address] [facility] Last Admin: 06/05/19 20:07 Dose: 90 mg Vital Signs - 8 hr 06/06/19 06/06/19 00:04 03:18 Temperature 97.7 F 97.8 F Pulse Rate 70 73 Respiratory 18 22 Rate Blood Pressure 102/58 118/50 (mmHg) O2 Sat by Pulse 96 97 Oximetry Oxygen Devices in Use Now: None Appearance: Pleasant elderly gentleman sitting up in a chair in NAD Eyes: No Scleral Icterus Ears/Nose/Mouth/Throat: Mucous Membranes Moist Neck: Trachea Midline Respiratory: Symmetrical Chest Expansion and Respiratory Effort, Clear to Auscultation Cardiovascular: RRR - Normal S1 and S2, MV click Abdominal: NL Sounds; No Tenderness; No Distention Extremities: No Edema Neurological: Alert and Oriented x 3, NL Muscle Strength and Tone Result Diagrams: 06/06/19 05:28 06/06/19 05:28 Assess/Plan/Problems-Billing Assessment: Mr Brantley is an 89 yo M s/p MR s/p mechanical mitral valve replacement, aortic stenosis s/p TAVR, 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 - Patient Problems (1) Upper GI hemorrhage Comment: - s/p EGD with Dr. Duke 06/03/19: bleeding Dieulafoy lesion with Endoclip placement - No acute bleeding post EGD noted. - Continue Protonix IV BID. - D/w GI - will advance to soft diet. (2) Acute blood loss anemia Comment: - Secondary to the above. - S/p 2 PRBCs - H/H stable. - Continue to monitor. (3) Mechanical heart valve present Comment: - Received Vit K 06/03/19 - INR 3.8 today - d/w GI - will wait one more day before resuming Warfarin. (4) CAD (coronary artery disease) Comment: - s/p 2 stents 05/19 - continue Brilinta, Coreg, Amiodarone. (5) Atrial fibrillation Comment: - Currently rhythm is V-paced - On carvedilol and amiodarone(dose lowered by cardiology at admission) (6) Diabetes Comment: - Metformin on hold for now. - Controlled with Lispro SS only. (7) Heart failure Comment: - Diastolic CHF - No evidence of acute exacerbation. Aldactone and Lasix held on admission.Will d/c IVF, but due to low normal SBP will not restart diuretics yet - Echo on 05/16 showed EF of 50-55% with elevated ventricular end diastolic pressur, RV mildly dilated, severe bilateral atrial enlargement with elevated PA pressure of 60 mm Hg. - BP is soft, but trending up - may resume Furosemide in AM. (8) DVT prophylaxis Comment: - Warfarin on hold, INR still >3 (9) Full code status Status and Disposition: Inpatient. Daughter updated at bedside.
[2019-06-06] MEDS: Insulin LISPRO* 1 UNITS UNIT SUBCUT SCH ×4 (07:44→19:54)
[2019-06-06] MEDS: Pantoprazole IV* 40 MG IV SCH ×2 (07:48→19:25)
[2019-06-06] MEDS: Amiodarone TAB* 200 MG PO SCH (08:55)
[2019-06-06] MEDS: Carvedilol TAB* 25 MG PO SCH ×2 (08:55→19:54)
[2019-06-06] MEDS: Ticagrelor* 90 MG TAB PO SCH ×2 (08:55→19:54)
[2019-06-06] MEDS: Latanoprost 0.005%* 2.5 ml BTL BOTH EYES SCH (19:53)
[2019-06-07 05:34] LABS: INR 3.3 (0.82-1.09)
[2019-06-07 05:35] LABS: Hematocrit 24 % (42-52)
[2019-06-07] MEDS: Insulin LISPRO* 1 UNITS UNIT SUBCUT SCH ×4 (08:05→20:12)
[2019-06-07] MEDS: Pantoprazole IV* 40 MG IV SCH ×2 (08:10→20:12)
[2019-06-07] MEDS: Amiodarone TAB* 200 MG PO SCH (09:14)
[2019-06-07] MEDS: Ticagrelor* 90 MG TAB PO SCH ×2 (09:14→20:13)
[2019-06-07] MEDS: Carvedilol TAB* 25 MG PO SCH ×2 (09:15→22:54)
--- NOTE | 2019-06-07 14:19 | PN ---
Subjective Date of Service: 06/07/19 Interval History: HOSPITALIST PROGRESS NOTE Patient seen and examined at bedside. Care reviewed and d/w Micaela Roldan RN. He feels well today. Tolerating diet, denies abdominal pain, N/V. Had a formed, dark BM today, denies any bleeding. Family History: Unchanged from Admission Social History: Unchanged from Admission Past Medical History: Unchanged from Admission Objective Active Medications: Amiodarone HCl (Cordarone Tab*) 200 mg PO DAILY [facility] Last Admin: 06/07/19 09:14 Dose: 200 mg Carvedilol (Coreg Tab*) 25 mg PO BID [facility] Last Admin: 06/07/19 09:15 Dose: 25 mg Dextrose (Dextrose 50% Vial 50 Ml*) 25 ml IV PUSH .FOR FS < 60 - SS PRN PRN Reason: FS < 60 Insulin Human Lispro (Humalog*) 0 units SUBCUT ACHS [facility]; Protocol Last Admin: 06/07/19 12:39 Dose: 2 units Latanoprost (Xalatan 0.005%*) 1 drop BOTH EYES DAILY@1999 [facility] Last Admin: 06/06/19 19:53 Dose: 1 drop Pantoprazole Sodium (Protonix Iv*) 40 mg IV Q12H [facility] Last Admin: 06/07/19 08:10 Dose: 40 mg Ticagrelor (Brilinta*) 90 mg PO BID [facility] Last Admin: 06/07/19 09:14 Dose: 90 mg Warfarin Sodium (Coumadin Tab(*)) 5 mg PO DAILY@1700 [facility]; Protocol Vital Signs - 8 hr 06/07/19 06/07/19 06/07/19 07:30 08:00 11:15 Temperature 97.8 F 97.4 F Pulse Rate 70 70 Respiratory 20 15 20 Rate Blood Pressure 127/49 100/45 (mmHg) O2 Sat by Pulse 97 98 Oximetry 06/07/19 13:39 Temperature 98 F Pulse Rate 75 Respiratory 20 Rate Blood Pressure 98/43 (mmHg) O2 Sat by Pulse 99 Oximetry Oxygen Devices in Use Now: None Appearance: Pleasant elderly gentleman sitting up in bed in NAD. 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 - Patient Problems (1) Upper GI hemorrhage Comment: - s/p EGD with Dr. Duke 06/03/19: bleeding Dieulafoy lesion with Endoclip placement - No acute bleeding post EGD noted. - Continue Protonix IV BID. - D/w GI - continue soft diet. (2) Acute blood loss anemia Comment: - Secondary to the above. - S/p 2 PRBCs - H/H stable around 03/24. - Continue to monitor. (3) Mechanical heart valve present Comment: - Received Vit K 06/03/19 - INR 3.3 today - resume Warfarin today, monitor INR and for signs of re-bleed. (4) CAD (coronary artery disease) Comment: - s/p 2 stents 05/19 - continue Brilinta, Coreg, Amiodarone. (5) Atrial fibrillation Comment: - Currently rhythm is V-paced - On carvedilol and amiodarone (dose lowered by cardiology at admission) - monitor for interaction with Warfarin. (6) Diabetes Comment: - Metformin on hold for now. - Controlled with Lispro SS only. (7) Heart failure Comment: - Diastolic CHF - No evidence of acute exacerbation. Aldactone and Lasix held on admission.Will d/c IVF, but due to low normal SBP will not restart diuretics yet - Echo on 05/16 showed EF of 50-55% with elevated ventricular end diastolic pressur, RV mildly dilated, severe bilateral atrial enlargement with elevated PA pressure of 60 mm Hg. - BP is soft, but trending up - may resume Furosemide in AM. (8) DVT prophylaxis Comment: - Resume Warfarin and monitor INR. (9) Full code status Status and Disposition: Inpatient. Daughter updated at bedside.
[2019-06-07] MEDS ORDERED: Warfarin TAB(*) 5 MG PO SCH (17:00)
[2019-06-07] MEDS: Latanoprost 0.005%* 2.5 ml BTL BOTH EYES SCH (20:13)
[2019-06-08 06:06] LABS: Hematocrit 24 % (42-52)
[2019-06-08 06:13] LABS: INR 2.77 (0.82-1.09)
[2019-06-08] MEDS: Insulin LISPRO* 1 UNITS UNIT SUBCUT SCH ×2 (07:58→12:58)
[2019-06-08] MEDS: Amiodarone TAB* 200 MG PO SCH (08:08)
[2019-06-08] MEDS: Pantoprazole IV* 40 MG IV SCH (08:08)
[2019-06-08] MEDS: Carvedilol TAB* 25 MG PO SCH (08:08)
[2019-06-08] MEDS: Ticagrelor* 90 MG TAB PO SCH (08:08)
[2019-06-08 10:16] VITALS: BP 129/56
--- NOTE | 2019-06-08 12:25 | PN ---
Progress Note - Progress Note Date of Service: 06/08/19 Note: Time spent on discharge including exam of patient, discussion with patient, daughter, nurse, CM, review of EHR and preparation of discharge documents is 50 minutes.
--- NOTE | 2019-06-08 12:58 | DS ---
CC: Dr. Marquez DISCHARGE SUMMARY: DATE OF ADMISSION: DATE OF DISCHARGE: 06/08/19 HISTORY OF PRESENT ILLNESS/HOSPITAL COURSE: This 89-year-old man was admitted for upper GI bleeding. The sequence of events leading to this admission started in early May. His ICD discharged 3 times. He was transferred to [facility] for further evaluation. He received 2 stents. He was started on amiodarone there for atrial fibrillation. He was started on ticagrelor. He was continued on his warfarin, which he needs for his mechanical heart valve. He developed black stools, increasing fatigue, lightheadedness, and diarrhea. He had a significant drop of his hemoglobin. It went below 8 here. He received 2 units of packed cells. He had endoscopy on 06/03/19. He had a bleeding Dieulafoy lesion at the GE junction. He had an Endoclip placement with good effect. Otherwise, the EGD was unremarkable. He was stable after that. His hemoglobin and hematocrit did not change in the 24 hours before discharge. His hemoglobin was 8.0 on the day of discharge, his hematocrit was 24. I note that on admission his INR was 5.16 and carolin to 5.29. He received 2.5 mg of vitamin K. On 06/07/19, his INR was 3.30. He received 5 mg of warfarin. On 06/08/19, the day of discharge, his INR was 2.77. I have given him a prescription for warfarin 2 mg to take daily at [address] Cerrato saw him in consultation. His carvedilol was doubled. His digoxin was stopped. He will resume his omeprazole, which he had been taking at home as he has had bleeding ulcers in the past. FINAL DIAGNOSES: 1. Gastrointestinal bleeding. 2. Mechanical heart valve. 3. Coronary artery disease. 4. Atrial fibrillation. 5. Diabetes. DISCHARGE MEDICATIONS: 1. Amiodarone 200 mg once daily. 2. Carvedilol 25 mg b.i.d. 3. Ticagrelor 90 mg b.i.d. 4. Coumadin (Brand-name) 2 mg daily at 5 p.m. 5. Metformin 500 mg daily. 6. Omeprazole 20 mg b.i.d. 7. Latanoprost 0.005% one drop both eyes h.s. 8. Ferrous sulfate 325 mg daily. 9. Spironolactone 12.5 mg daily. 10. Furosemide 40 mg daily. 11. PreserVision 1 capsule twice daily. FOLLOWUP LABS: The patient will have an INR on 06/11/19. DISPOSITION ON DISCHARGE: Discharged home. CONDITION ON DISCHARGE: Stable. [id number]/[facility] #: [id number] MTDD
[2019-06-08] MEDS ORDERED: Warfarin TAB(*) 2 MG PO SCH (17:00)
[2019-06-10] MEDS ORDERED: Warfarin TAB(*) 5 MG PO SCH (09:00)
== END 2019-06-08 14:55 | disposition home health service (06) | DRG 378 ==
LOC: ED 12:38 → ICU 16:20 → MED 06-05 14:55
PROVIDERS: ADMIT Internal Medicine; ATTEND Internal Medicine
PROC: 0W3P8ZZ Control Bleeding in Gastrointestinal Tract, Via Natural or Artificial Opening Endoscopic (ICD-10-PCS; principal; 2019-06-03)
PROC: 30233N1 Transfusion of Nonautologous Red Blood Cells into Peripheral Vein, Percutaneous Approach (ICD-10-PCS; 2019-06-03)
DX: K92.1 Melena (principal); I42.8 Other cardiomyopathies; I47.2 Ventricular tachycardia; D62 Acute posthemorrhagic anemia; I50.30 Unspecified diastolic (congestive) heart failure; K22.8 Other specified diseases of esophagus; C88.0 Waldenstrom macroglobulinemia; I11.0 Hypertensive heart disease with heart failure; I25.10 Atherosclerotic heart disease of native coronary artery without angina pectoris; I48.0 Paroxysmal atrial fibrillation; E78.5 Hyperlipidemia, unspecified; E11.9 Type 2 diabetes mellitus without complications; Z95.2 Presence of prosthetic heart valve; Z95.810 Presence of automatic (implantable) cardiac defibrillator; Z95.5 Presence of coronary angioplasty implant and graft; Z85.118 Personal history of other malignant neoplasm of bronchus and lung; Z86.73 Personal history of transient ischemic attack (TIA), and cerebral infarction without residual deficits; Z95.1 Presence of aortocoronary bypass graft; Z88.0 Allergy status to penicillin; Z82.49 Family history of ischemic heart disease and other diseases of the circulatory system; Z80.0 Family history of malignant neoplasm of digestive organs; Z87.891 Personal history of nicotine dependence; Z79.01 Long term (current) use of anticoagulants; Z79.84 Long term (current) use of oral hypoglycemic drugs; Z79.899 Other long term (current) drug therapy
CPT/HCPCS: 36415; 80048; 80053; 81003; 82270; 83605; 83735; 84443; 84484; 85014; 85018; 85025; 85610; 86850; 86900; 86901; 86922; 87641; 93005; 96374; 99156; 99285; A9270-GY; J2250; J3010; P9040

== ENCOUNTER 2019-07-10 20:35 | Emergency (ER) | payer MEDICARE, BC ==
--- OUTSIDE RECORDS SUMMARY | 2019-07-10 20:55 | XMS REPORT ---
:1930 Author Organization [facility] Care Team Providers Name Role Phone Unavailable Unavailable Unavailable Problems Condition Condition Condition Status Onset Resolution Last Treating Comments Name Details Category Date Date Treatment Clinician Date Pain frequent Pain Mgmt Active 2018-08 Dayanna pain 08-09 (Edwige) 09:50: Myles 00 [id number] Cardio edema Cardiovasc Active 2018-08 Dayanna ular 08-09 (Ed[place]ige) 09:50: Myles 00 [id number] Respiratory dyspnea Respirator Active 2018-08 Dayanna present y 08-09 (Ed[place]ige) 09:50: Myles 00 [id number] Sensory impaired Sensory Active 2018-08 Dayanna hearing 08-09 ([place]ige) 09:50: Myles 00 [id number] Integument skin Integument Active 2018-08 Dayanna integrity 08-09 (Ed[place]ige) risk 09:50: Myles 00 [id number] Nutrition nutritional Nutrition Active 2018-08 Dayanna restriction 08-09 ([place]ige) s 09:50: Myles 00 [id number] Elimination urinary Eliminatio Active 2018-08 Dayanna incontinenc n 08-09 ([place]) e 09:50: Myles 00 [id number] Elimination bowel Eliminatio Active 2018-08 Dayanna incontinenc n 08-09 ([place]) e 09:50: Myles 00 [id number] Neuro confusion Neuro/Emot Active 2018-08 Dayanna present ion 08-09 ([place]ige) 09:50: Myles 00 [id number] Neuro impaired Neuro/Emot Active 2018-08 Dayanna decision-ma ion 08-09 ([place]) anselmo 09:50: Myles 00 [id number] Neuro memory Neuro/Emot Active 2018-08 Dayanna deficit ion 08-09 ([place]) needing 09:50: Shar supervision 00 [id number] Activity ADL Activity Active 2018-08 Dayanna assistance 08-09 ([place]) required 09:50: Myles 00 [id number] Activity self-care Activity Active 2018-08 Dayanna deficit 08-09 ([place]) 09:50: Myles [id number] Safety cannot be Safety Active 2018-08 Dayanna left alone 08-09 ([place]ige) 09:50: Myles 00 [id number] Safety fall risk Safety Active 2018-08 Dayanna factor 08-09 ([place]) present 09:50: Myles [id number] Safety risk for Safety Active 2018-08 Dayanna hospitaliza 08-09 ([place]) tion 09:50: Myles 00 [id number] Medication oral med Meds Active 2018-08 Dayanna assistance 08-09 ([place]) required 09:50: Myles [id number] Medication potential Meds Active 2018-08 Dayanna clinically 08-09 ([place]) significant 09:50: Shar medication 00 [id number] issue Musculoskel transfer Musculoske Active 2018-08 Dayanna etal assistance letal 08-09 ([place]) required 09:50: Myles 00 [id number] Musculoskel requires Musculoske Active 2018-08 Dayanna etal human letal 08-09 ([place]) assist to 09:50: Shar leave home 00 [id number] Safety can be left Safety Active 2018-08 Douglas alone for 08-11 Gi loza short 12:58: [id number] periods 00 OT: Self self-care OT: Active 2018-08 Douglas Jackson deficit Self-Care 08-11 iG 12:58: [id number] 00 Allergies, Adverse Reactions, Alerts Allergy Name Allergy Status Severity Reaction(s) Onset Inactive Treating Comments Type Date Date Clinician Penicillin V Unknown Active Unknown Reaction 2015-09 Mirtha Potassium Unknown -14 Keon MASSEY Medications Ordered Filled Start Stop Current Ordering Indication Dosage Frequency Signature Comments Components Medication Medication Date Date Medication? Clinician (SIG) Name Name omeprazole omeprazole 2018-08 Yes Darlow Unknown Unknown 20 mg 20 mg 08-09 Alonso DREW capsule,del capsule,del ayed ayed release release metFORMIN metFORMIN 2018-08 Yes Darlow Unknown Unknown 500 mg 500 mg 08-09 Alonso DREW tablet tablet vit C 1,000 vit C 1,000 2018-08 Yes Darlow Unknown Unknown mg-rutin 50 mg-rutin 50 08-09 Alonso DREW mg-hesper mg-hesper 50 50 mg-bioflv-r mg-bioflv-r ose ose tablet,ext. tablet,ext. release release carvedilol carvedilol 2018-08 Yes Darlow Unknown Unknown 25 mg 25 mg 08-09 MD,Alonso tablet tablet Ferrex 150 Ferrex 150 2018-08 Yes Darlow Unknown Unknown mg iron mg iron 08-09 MD,Alonso capsule capsule Lasix 40 mg Lasix 40 mg 2018-08 Yes Darlow Unknown Unknown tablet tablet 08-09 MD,Alonso Oxygen Oxygen No Bakristine concent Unknown ,Bc rator amiodarone amiodarone 2018-08 Yes Darlow Unknown Unknown 200 mg 200 mg 08-09 MD,Alonso tablet tablet ticagrelor ticagrelor 2018-08 Yes Darlow Unknown Unknown 90 mg 90 mg 08-09 MD,Alonso tablet tablet warfarin 2 warfarin 2 2018-08 Yes Darlow Unknown Unknown mg tablet mg tablet 08-09 MD,Alonso Xalatan Xalatan 2018-08 Yes Darlow Unknown Unknown 0.005 % eye 0.005 % eye 08-09 MD,Alonso drops drops Vital Signs Vital Name Observation Time Observation Value Comments SYSTOLIC mm[Hg] 2019-06-20 18:08:57 98 mm[Hg] mm[Hg] Method: Sit SYSTOLIC mm[Hg] 2019-06-10 18:08:47 100 mm[Hg] mm[Hg] Method: Stand DIASTOLIC mm[Hg] 2019-06-20 18:08:57 60 mm[Hg] mm[Hg] Method: Sit DIASTOLIC mm[Hg] 2019-06-10 18:08:47 60 mm[Hg] mm[Hg] Method: Stand PULSE 2019-06-20 18:08:57 76 /min /min RESP RATE 2019-06-20 18:08:57 18 /min /min TEMP 2019-06-20 18:08:57 98.3 [degF] Procedures This patient has no known procedures. Results This patient has no known results.
--- OUTSIDE RECORDS SUMMARY | 2019-07-10 20:55 | XMS REPORT ---
:1930 Author Organization [facility] Care Team Providers Name Role Phone Unavailable Unavailable Unavailable Problems Condition Condition Condition Status Onset Resolution Last Treating Comments Name Details Category Date Date Treatment Clinician Date Pain frequent Pain Mgmt Resolve 2018-082019-06-13 Dayanna pain d 08-09 13:55:00 ([place]) 09:50: Myles 00 [id number] Cardio edema Cardiovasc Active 2018-08 Dayanna ular 08-09 ([place]) 09:50: Myles 00 [id number] Respiratory dyspnea Respirator Resolve 2018-082019-06-26 Dayanna present y d 08-09 10:00:00 ([place]) 09:50: Myles 00 [id number] Sensory impaired Sensory Active 2018-08 Dayanna hearing 08-09 ([place]) 09:50: Myles 00 [id number] Integument skin Integument Resolve 2018-082019-06-26 Dayanna integrity d 08-09 10:00:00 (Ed[place]) risk 09:50: Myles 00 [id number] Nutrition nutritional Nutrition Resolve 2018-082019-06-13 Dayanna restriction d 08-09 13:55:00 ([place]) s 09:50: Myles 00 [id number] Elimination urinary Eliminatio Active 2018-08 Dayanna incontinenc n 08-09 ([place]) e 09:50: Myles 00 [id number] Elimination bowel Eliminatio Active 2018-08 Dayanna incontinenc n 08-09 ([place]) e 09:50: Myles 00 [id number] Neuro confusion Neuro/Emot Active 2018-08 Dayanna present ion 08-09 ([place]) 09:50: Myles 00 [id number] Neuro impaired Neuro/Emot Active 2018-08 Dayanna decision-ma ion 08-09 ([place]) anselmo 09:50: Myles 00 [id number] Neuro memory Neuro/Emot Active 2018-08 Dayanna deficit ion 08-09 ([place]) needing 09:50: Myles supervision 00 [id number] Activity ADL Activity Active 2018-08 Dayanna assistance 08-09 ([place]) required 09:50: Myles 00 [id number] Activity self-care Activity Resolve 2018-082019-06-26 Dayanna deficit d 08-09 10:00:00 ([place]) 09:50: Myles 00 [id number] Safety cannot be Safety Active 2018-08 Dayanna left alone 08-09 (Ed[place]) 09:50: Myles 00 [id number] Safety fall risk Safety Active 2018-08 Dayanna factor 08-09 ([place]) present 09:50: Myles 00 [id number] Safety risk for Safety Active 2018-08 Dayanna hospitaliza 08-09 ([place]ige) tion 09:50: Myles 00 [id number] Medication oral med Meds Resolve 2018-082019-06-13 Dayanna assistance d 08-09 13:55:00 ([place]) required 09:50: Myles 00 [id number] Medication potential Meds Resolve 2018-082019-06-13 Dayanna clinically d 08-09 13:55:00 ([place]) significant 09:50: Myles medication 00 [id number] issue Musculoskel transfer Musculoske Resolve 2018-082019-06-15 Dayanna etal assistance letal d 08-09 10:25:00 ([place]) required 09:50: Myles 00 [id number] Musculoskel requires Musculoske Resolve 2018-082019-06-15 Dayanna etal human letal d 08-09 10:25:00 ([place]ige) assist to 09:50: Myles leave home 00 [id number] Safety can be left Safety Active 2018-08 [place] alone for 08-11 Gi only short 12:58: [id number] periods 00 OT: Self self-care OT: Active 2018-08 Douglas Care deficit Self-Care 08-11 Gi 12:58: [id number] 00 Nutrition nutritional Nutrition Resolve 2018-082019-06-26 Qing restriction d 08-15 10:00:00 Powell s 10:25: [id number] 00 Allergies, Adverse Reactions, Alerts Allergy Name [...] Unknown Unknown 20 mg 20 mg 08-09 ,Alonso capsule,del capsule,del ayed ayed release release metFORMIN metFORMIN 2018-08 Yes Darlow Unknown Unknown 500 mg 500 mg 08-09 ,Alonso tablet tablet vit C 1,000 vit C 1,000 2018-08 Yes Darlow Unknown Unknown mg-rutin 50 mg-rutin 50 08-09 Alonso DREW mg-hesper mg-hesper 50 50 mg-bioflv-r mg-bioflv-r ose ose tablet,ext. tablet,ext. release release carvedilol carvedilol 2018-08 Yes Darlow Unknown Unknown 25 mg 25 mg 08-09 Alonso DREW tablet tablet Ferrex 150 Ferrex 150 2018-08 Yes Darlow Unknown Unknown mg iron mg iron 08-09 Alonso DREW capsule capsule Lasix 40 mg Lasix 40 mg 2018-08- Yes Darlow Unknown Unknown tablet tablet 08-09 Alonso DREW Oxygen Oxygen No Bael concent Unknown ,Bc ratmelissa amiodarone amiodarone 2018-08 Yes Darlow Unknown Unknown 200 mg 200 mg 08-09 Alonso DREW tablet tablet ticagrelor ticagrelor 2018-08 Yes Darlow Unknown Unknown 90 mg 90 mg 08-09 Alonso DREW tablet tablet warfarin 2 warfarin 2 2018-08 Yes Darlow Unknown Unknown mg tablet mg tablet 08-09 Alonso DREW Xalatan Xalatan 2018-08 Yes Darlow Unknown Unknown 0.005 % eye 0.005 % eye 08-09 Alonso DREW drops drops Lasix 40 mg Lasix 40 mg 2018-08 Yes Darlow Unknown Unknown tablet tablet 08-15 Alonso DREW Vital Signs Vital Name Observation Time Observation Value Comments SYSTOLIC mm[Hg] 2019-06-26 18:09:03 116 mm[Hg] mm[Hg] Method: Sit SYSTOLIC mm[Hg] 2019-06-10 18:08:47 100 mm[Hg] mm[Hg] Method: Stand DIASTOLIC mm[Hg] 2019-06-26 18:09:03 52 mm[Hg] mm[Hg] Method: Sit DIASTOLIC mm[Hg] 2019-06-10 18:08:47 60 mm[Hg] mm[Hg] Method: Stand PULSE 2019-06-26 18:09:03 72 /min /min RESP RATE 2019-06-26 18:09:03 20 /min /min TEMP 2019-06-26 18:09:03 97.3 [degF] Procedures This patient has no known procedures. Results This patient has no known results.
--- OUTSIDE RECORDS SUMMARY | 2019-07-10 20:55 | XMS REPORT ---
:1930 Author Organization [facility] Care Team Providers Name Role Phone Unavailable Unavailable Unavailable Problems Condition Condition Condition Status Onset Resolution Last Treating Comments Name Details Category Date Date Treatment Clinician Date Pain frequent Pain Mgmt Resolve 2018-082019-06-13 Dayanna pain d 08-09 13:55:00 (Ed[place]ige) 09:50: Myles 00 [id number] Cardio edema Cardiovasc Active 2018-08 Dayanna ular 08-09 (Edwige) 09:50: Myles 00 [id number] Respiratory dyspnea Respirator Resolve 2018-082019-06-26 Dayanna present y d 08-09 10:00:00 (Ed[place]ige) 09:50: Myles 00 [id number] Sensory impaired Sensory Active 2018-08 Dayanna hearing 08-09 (Edwige) 09:50: Myles 00 [id number] Integument skin Integument Resolve 2018-082019-06-26 Dayanna integrity d 08-09 10:00:00 (Ed[place]ige) risk 09:50: Myles 00 [id number] Nutrition nutritional Nutrition Resolve 2018-082019-06-13 Dayanna restriction d 08-09 13:55:00 (Edwige) s 09:50: Myles 00 [id number] Elimination urinary Eliminatio Resolve 2018-082019-07-03 Dayanna incontinenc n d 08-09 10:54:00 (Ed[place]ige) e 09:50: Myles 00 [id number] Elimination bowel Eliminatio Resolve 2018-082019-07-03 Dayanna incontinenc n d 08-09 10:54:00 (Ed[place]ige) e 09:50: Myles 00 [id number] Neuro confusion Neuro/Emot Active 2018-08 Dayanna present ion 08-09 (Ed[place]ige) 09:50: Myles 00 [id number] Neuro impaired Neuro/Emot Active 2018-08 Dayanna decision-ma ion 08-09 (Edwige) anselmo 09:50: Myles 00 [id number] Neuro memory Neuro/Emot Active 2018-08 Dayanna deficit ion 08-09 (Ed[place]ige) needing 09:50: Myles supervision 00 [id number] Activity ADL Activity Active 2018-08 Dayanna assistance 08-09 (Edwige) required 09:50: Myles 00 [id number] Activity self-care Activity Resolve 2018-082019-06-26 Dayanna deficit d 08-09 10:00:00 (Ed[place]ige) 09:50: Myles 00 [id number] Safety cannot be Safety Active 2018-08 Dayanna left alone 08-09 (Edwige) 09:50: Myles 00 [id number] Safety fall risk Safety Active 2018-08 Dayanna factor 08-09 (Edwige) present 09:50: Myles 00 [id number] Safety risk for Safety Active 2018-08 Dayanna hospitaliza 08-09 (Edwige) tion 09:50: Myles 00 [id number] Medication oral med Meds Resolve 2018-082019-06-13 Dayanna assistance d 08-09 13:55:00 ([place]ige) required 09:50: Myles 00 [id number] Medication potential Meds Resolve 2018-082019-06-13 Dayanna clinically d 08-09 13:55:00 (Ed[place]ige) significant 09:50: Myles medication 00 [id number] issue Musculoskel transfer Musculoske Resolve 2018-082019-06-15 Dayanna etal assistance letal d 08-09 10:25:00 (Ed[place]ige) required 09:50: Myles 00 [id number] Musculoskel requires Musculoske Resolve 2018-082019-06-15 Dayanna etal human letal d 08-09 10:25:00 (Ed[place]ige) assist to 09:50: Myles leave home 00 [id number] Safety can be left Safety Active 2018-08 Douglas alone for 08-11 Gi only short 12:58: [id number] periods 00 OT: Self self-care OT: Active 2018-08 [place] Care deficit Self-Care 08-11 Gi 12:58: [id number] Nutrition nutritional Nutrition Resolve 2018-082019-06-26 Qing restriction d 08-15 10:00:00 Andre briceno 10:25: [id number] 00 Nutrition nutritional Nutrition Active 2018-08 Qing restriction 09-03 Andre briceno 10:54: [id number] 00 Allergies, Adverse Reactions, Alerts Allergy Name Allergy Status Severity Reaction(s) Onset Inactive Treating Comments Type Date Date Clinician Penicillin V Unknown Active Unknown Reaction 2015-09 Mirtha Potassium Keon MASSEY Medications Ordered Filled Start Stop [...] Unknown Unknown mg-rutin 50 mg-rutin 50 08-09 ,Alonso mg-hesper mg-hesper 50 50 mg-bioflv-r mg-bioflv-r ose ose tablet,ext. tablet,ext. release release carvedilol carvedilol 2018-08 Yes Darlow Unknown Unknown 25 mg 25 mg 08-09 ,Alonso tablet tablet Ferrex 150 Ferrex 150 2018-08 Yes Darlow Unknown Unknown mg iron mg iron 08-09 ,Alonso capsule capsule Lasix 40 mg Lasix 40 mg 2018-08 Yes Darlow Unknown Unknown tablet tablet 08-09 Alonso DREW Oxygen Oxygen No Bakristine concent Unknown ,Bc tay amiodarone amiodarone 2018-08 Yes Darlow Unknown Unknown 200 mg 200 mg 08-09 ,Alonso tablet tablet ticagrelor ticagrelor 2018-08 Yes Darlow [...] Observation Time Observation Value Comments SYSTOLIC mm[Hg] 2019-07-03 18:09:10 108 mm[Hg] mm[Hg] Method: Sit SYSTOLIC mm[Hg] 2019-06-10 18:08:47 100 mm[Hg] mm[Hg] Method: Stand DIASTOLIC mm[Hg] 2019-07-03 18:09:10 62 mm[Hg] mm[Hg] Method: Sit DIASTOLIC mm[Hg] 2019-06-10 18:08:47 60 mm[Hg] mm[Hg] Method: Stand PULSE 2019-07-03 18:09:10 74 /min /min RESP RATE 2019-07-03 18:09:10 18 /min /min TEMP 2019-07-03 18:09:10 97.2 [degF] Procedures This patient has no known procedures. Results This patient has no known results.
--- OUTSIDE RECORDS SUMMARY | 2019-07-10 20:55 | XMS REPORT ---
:1930 Author Organization [facility] Care Team Providers Name Role Phone Unavailable Unavailable Unavailable Problems Condition Condition Condition Status Onset Resolution Last Treating Comments Name Details Category Date Date Treatment Clinician Date Pain frequent Pain Mgmt Active 2018-08 Dayanna pain 08-09 (Edwige) 09:50: Myles 00 [id number] Cardio edema Cardiovasc Active 2018-08 Dayanna ular 08-09 (Edwige) 09:50: Myles 00 [id number] Respiratory dyspnea Respirator Active 2018-08 Dayanna present y 08-09 (Ed[place]ige) 09:50: Myles 00 [id number] Sensory impaired Sensory Active 2018-08 Dayanna hearing 08-09 (Edwige) 09:50: Myles 00 [id number] Integument skin Integument Active 2018-08 Dayanna integrity 08-09 (Edwige) risk 09:50: Myles 00 [id number] Nutrition nutritional Nutrition Active 2018-08 Dayanna restriction 08-09 (Edwige) s 09:50: Myles 00 [id number] Elimination urinary Eliminatio Active 2018-08 Dayanna incontinenc n 08-09 (Edwige) e 09:50: Myles 00 [id number] Elimination bowel Eliminatio Active 2018-08 Dayanna incontinenc n 08-09 (Edwige) e 09:50: Myles 00 [id number] Neuro confusion Neuro/Emot Active 2018-08 Dayanna present ion 08-09 (Edwige) 09:50: Myles 00 [id number] Neuro impaired Neuro/Emot Active 2018-08 Dayanna decision-ma ion 08-09 (Edwige) anselmo 09:50: Myles 00 [id number] Neuro memory Neuro/Emot Active 2018-08 Dayanna deficit ion 08-09 (Edwige) needing 09:50: Shar supervision 00 [id number] Activity ADL Activity Active 2018-08 Dayanna assistance 08-09 (Edwige) required 09:50: Myles 00 [id number] Activity self-care Activity Active 2018-08 Dayanna deficit 08-09 (Edwige) 09:50: Myles [id number] Safety cannot be Safety Active 2018-08 Dayanna left alone 08-09 (Edwige) 09:50: Myles 00 [id number] Safety fall risk Safety Active 2018-08 Dayanna factor 08-09 (Edwige) present 09:50: Myles [id number] Safety risk for Safety Active 2018-08 Dayanna hospitaliza 08-09 (Edwige) tion 09:50: Myles 00 [id number] Medication oral med Meds Active 2018-08 Dayanna assistance 08-09 (Ed[place]ige) required 09:50: Myles [id number] Medication potential Meds Active 2018-08 Dayanna clinically 08-09 (Edwige) significant 09:50: Shar medication 00 [id number] issue Musculoskel transfer Musculoske Active 2018-08 Dayanna etal assistance letal 08-09 (Edwige) required 09:50: Myles 00 [id number] Musculoskel requires Musculoske Active 2018-08 Dayanna etal human letal 08-09 (Edwige) assist to 09:50: Shar leave home 00 [id number] Safety can be left Safety Active 2018-08 Douglas alone for 08-11 Gi loza short 12:58: [id number] periods 00 OT: Self self-care OT: Active 2018-08 Douglas Jackson deficit Self-Care 08-11 Gi 12:58: [id number] 00 Allergies, Adverse Reactions, Alerts Allergy Name [...]
--- OUTSIDE RECORDS SUMMARY | 2019-07-10 20:55 | XMS REPORT ---
:1930 Author Organization [facility] Care Team Providers Name Role Phone Unavailable Unavailable Unavailable Problems Condition Condition Condition Status Onset Resolution Last Treating Comments Name Details Category Date Date Treatment Clinician Date Pain frequent Pain Mgmt Active 2018-08 Dayanna pain 08-09 (Edwige) 09:50: Myles 00 [id number] Cardio edema Cardiovasc Active 2018-08 Dayanna ular 08-09 (Edwige) 09:50: Myles 00 [id number] Respiratory dyspnea Respirator Active 2018-08 Dayanna present y 08-09 (Edwige) 09:50: Myles 00 [id number] Sensory impaired Sensory Active 2018-08 Dayanna hearing 08-09 (Edwige) 09:50: Myles 00 [id number] Integument skin Integument Active 2018-08 Dayanna integrity 08-09 (Edwige) risk 09:50: Myles 00 [id number] Nutrition nutritional Nutrition Active 2018-08 Dayanna restriction 08-09 (Edwige) s 09:50: Myles 00 [id number] Elimination urinary Eliminatio Active 2018-08 Dayanna incontinenc n 08-09 (Ed[place]ige) e 09:50: Myles 00 [id number] Elimination bowel Eliminatio Active 2018-08 Dayanna incontinenc n 08-09 (Edwige) e 09:50: Myles 00 [id number] Neuro confusion Neuro/Emot Active 2018-08 Dayanna present ion 08-09 (Edwige) 09:50: Myles 00 [id number] Neuro impaired Neuro/Emot Active 2018-08 Dayanna decision-ma ion 08-09 (Edwige) anselmo 09:50: Myles 00 [id number] Neuro memory Neuro/Emot Active 2018-08 Dayanna deficit ion 08-09 (Edwige) needing 09:50: Shar supervision 00 [id number] Activity ADL Activity Active 2018-08 Dayanna assistance 08-09 (Ed[place]ige) required 09:50: Myles 00 [id number] Activity self-care Activity Active 2018-08 Dayanna deficit 08-09 (Edwige) 09:50: Myles [id number] Safety cannot be Safety Active 2018-08 Dayanna left alone 08-09 (Edwige) 09:50: Myles 00 [id number] Safety fall risk Safety Active 2018-08 Dayanna factor 08-09 (Edwige) present 09:50: Myles [id number] Safety risk for Safety Active 2018-08 Dayanna hospitaliza 08-09 (Edwige) tion 09:50: Myles 00 [id number] Medication oral med Meds Active 2018-08 Dayanna assistance 08-09 (Edwige) required 09:50: Myles [id number] Medication potential Meds Active 2018-08 Dayanna clinically 08-09 (Edwige) significant 09:50: Shra medication 00 [id number] issue Musculoskel transfer Musculoske Active 2018-08 Dayanna etal assistance letal 08-09 (Edwige) required 09:50: Myles 00 [id number] Musculoskel requires Musculoske Active 2018-08 Dayanna etal human letal 08-09 (Edwige) assist to 09:50: Shar leave home 00 [id number] Safety can be left Safety Active 2018-08 [place] alone for 08-11 Gi loza short 12:58: [id number] periods 00 OT: Self self-care OT: Active 2018-08 Douglas Jackson deficit Self-Care 08-11 Gi 12:58: [id number] 00 Allergies, Adverse Reactions, Alerts Allergy Name [...]
--- OUTSIDE RECORDS SUMMARY | 2019-07-10 20:55 | XMS REPORT ---
:1930 Author Organization [facility] Care Team Providers Name Role Phone Unavailable Unavailable Unavailable Problems Condition Condition Condition Status Onset Resolution Last Treating Comments Name Details Category Date Date Treatment Clinician Date Pain frequent Pain Mgmt Resolve 2018-082019-06-13 Dayanna pain d 08-09 13:55:00 (Edwige) 09:50: Myles 00 [id number] Cardio edema Cardiovasc Resolve 2018-082019-07-03 Dayanna ular d 08-09 10:54:00 (Edwige) 09:50: Myles 00 [id number] Respiratory dyspnea Respirator Resolve 2018-082019-06-26 Dyaanna present y d 08-09 10:00:00 (Edwige) 09:50: Myles 00 [id number] Sensory impaired Sensory Resolve 2018-082019-07-03 Dayanna hearing d 08-09 10:54:00 (Edwige) 09:50: Myles 00 [id number] Integument skin Integument Resolve 2018-082019-06-26 Dayanna integrity d 08-09 10:00:00 (Edwige) risk 09:50: Myles 00 [id number] Nutrition nutritional Nutrition Resolve 2018-082019-06-13 Dayanna restriction d 08-09 13:55:00 (Edwige) s 09:50: Myles 00 [id number] Elimination urinary Eliminatio Resolve 2018-082019-07-03 Dayanna incontinenc n d 08-09 10:54:00 (Edwige) e 09:50: Myles 00 [id number] Elimination bowel Eliminatio Resolve 2018-082019-07-03 Dayanna incontinenc n d 08-09 10:54:00 (Edwige) e 09:50: Myles 00 [id number] Neuro confusion Neuro/Emot Resolve 2018-082019-07-03 Dayanna present ion d 08-09 10:54:00 (Edwige) 09:50: Myles 00 [id number] Neuro impaired Neuro/Emot Resolve 2018-082019-07-03 Dayanna decision-ma ion d 08-09 10:54:00 (Edwige) anselmo 09:50: Myles 00 [id number] Neuro memory Neuro/Emot Resolve 2018-082019-07-03 Dayanna deficit ion d 08-09 10:54:00 (Edwige) needing 09:50: Myles supervision 00 [id number] Activity ADL Activity Resolve 2018-082019-07-03 Dayanna assistance d 08-09 10:54:00 (Edwige) required 09:50: Myles 00 [id number] Activity self-care Activity Resolve 2018-082019-06-26 Dayanna deficit d 08-09 10:00:00 (Edwige) 09:50: Myles 00 [id number] Safety cannot be Safety Resolve 2018-082019-07-03 Dayanna left alone d 08-09 10:54:00 (Edwige) 09:50: Myles 00 [id number] Safety fall risk Safety Resolve 2018-082019-07-03 Dayanna factor d 08-09 10:54:00 (Edwige) present 09:50: Myles 00 [id number] Safety risk for Safety Resolve 2018-082019-07-03 Dayanna hospitaliza d 08-09 10:54:00 (Edwige) tion 09:50: Myles 00 [id number] Medication oral med Meds Resolve 2018-082019-06-13 Dayanna assistance d 08-09 13:55:00 (Edwige) required 09:50: Myles 00 [id number] Medication potential Meds Resolve 2018-082019-06-13 Dayanna clinically d 08-09 13:55:00 (Edwige) significant 09:50: Myles medication 00 [id number] issue Musculoskel transfer Musculoske Resolve 2018-082019-06-15 Dayanna etal assistance letal d 08-09 10:25:00 (Edwige) required 09:50: Myles 00 [id number] Musculoskel requires Musculoske Resolve 2018-082019-06-15 Dayanna etal human letal d 08-09 10:25:00 (Edwige) assist to 09:50: Myles leave home 00 [id number] Safety can be left Safety Resolve 2018-082019-07-03 Douglas alone for d 08-11 10:54:00 Gi loza short 12:58: [id number] periods 00 OT: Self self-care OT: Resolve 2018-082019-07-03 Douglas Care deficit Self-Care d 08-11 10:54:00 Gi 12:58: [id number] 00 Nutrition nutritional Nutrition Resolve 2018-082019-06-26 Qing restriction d 08-15 10:00:00 Andre s 10:25: [id number] 00 Nutrition nutritional Nutrition Resolve 2018-082019-07-03 Qing restriction d 09-03 10:54:00 Andre s 10:54: [id number] 00 Allergies, Adverse Reactions, Alerts Allergy Name Allergy Status Severity Reaction(s) Onset Inactive Treating Comments Type Date Date Clinician Penicillin V Unknown Active Unknown Reaction 2015-09 Mirtha Potassium Unknown -14 Keon MASSEY Medications Ordered Filled Start Stop Current Ordering Indication Dosage Frequency Signature Comments Components Medication Medication Date Date Medication? Clinician (SIG) Name Name omeprazole omeprazole 2018-08- Yes Darlow Unknown Unknown 20 mg 20 mg 08-09 ,Alonso capsule,del capsule,del ayed ayed release release metFORMIN metFORMIN 2018-08- Yes Darlow Unknown Unknown 500 mg 500 mg 08-09 ,Alonso tablet tablet vit C 1,000 vit C 1,000 2018-08- Yes Darlow Unknown Unknown mg-rutin 50 mg-rutin 50 08-09 Alonso DREW mg-hesper mg-hesper 50 50 mg-bioflv-r mg-bioflv-r ose ose tablet,ext. tablet,ext. release release carvedilol carvedilol 2018-08- Yes Darlow Unknown Unknown 25 mg 25 mg 08-09 Alonso DREW tablet tablet Ferrex 150 Ferrex 150 2018-08- Yes Darlow Unknown Unknown mg iron mg iron 08-09 ,Alonso capsule capsule Lasix 40 mg Lasix 40 mg 2018-08- Yes Darlow Unknown Unknown tablet tablet 08-09 Alonso DREW Oxygen Oxygen 2018- No Bael concent Unknown 07-03 ,Bc tay amiodarone amiodarone 2018-08- Yes Darlow Unknown Unknown 200 mg 200 mg 08-09 Alonso DREW tablet tablet ticagrelor ticagrelor 2018-08- Yes Darlow Unknown Unknown 90 mg 90 mg 08-09 ,Alonso tablet tablet warfarin 2 warfarin 2 2018-08- Yes Darlow Unknown Unknown mg tablet mg tablet 08-09 Alonso DREW Xalatan Xalatan 2018-08- Yes Darlow Unknown Unknown 0.005 % eye 0.005 % eye 08-09 Alonso DREW drops drops Lasix 40 mg Lasix 40 mg 2018-08- Yes Darlow Unknown Unknown tablet tablet 08-15 [...]
--- OUTSIDE RECORDS SUMMARY | 2019-07-10 20:55 | XMS REPORT ---
:1930 Author Organization [facility] Care Team Providers Name Role Phone Unavailable Unavailable Unavailable Problems Condition Condition Condition Status Onset Resolution Last Treating Comments Name Details Category Date Date Treatment Clinician Date Pain frequent Pain Mgmt Resolve 2018-082019-06-13 Dayanna pain d 08-09 13:55:00 (Edwige) 09:50: Myles 00 [id number] Cardio edema Cardiovasc Active 2018-08 Dayanna ular 08-09 (Edwige) 09:50: Myles 00 [id number] Respiratory dyspnea Respirator Resolve 2018-082019-06-26 Dayanna present y d 08-09 10:00:00 (Edwige) 09:50: Myles 00 [id number] Sensory impaired Sensory Active 2018-08 Dayanna hearing 08-09 (Edwige) 09:50: Myles 00 [id number] Integument skin Integument Active 2018-08 Dayanna integrity 08-09 (Edwige) risk 09:50: Myles 00 [id number] Nutrition nutritional Nutrition Resolve 2018-082019-06-13 Dayanna restriction d 08-09 13:55:00 (Edwige) s 09:50: Myles 00 [id number] Elimination urinary Eliminatio Active 2018-08 Dayanna incontinenc n 08-09 (Edwige) e 09:50: Myles 00 [id number] Elimination bowel Eliminatio Active 2018-08 Dayanna incontinenc n 08-09 (Edwige) e 09:50: Myles 00 [id number] Neuro confusion Neuro/Emot Active 2018-08 Dayanna present ion 08-09 (Edwige) 09:50: Myles 00 [id number] Neuro impaired Neuro/Emot Active 2018-08 Dayanna decision-ma ion 08-09 (Edwige) anselmo 09:50: Myles 00 [id number] Neuro memory Neuro/Emot Active 2018-08 Dayanna deficit ion 08-09 (Edwige) needing 09:50: Myles supervision 00 [id number] Activity ADL Activity Active 2018-08 Dayanna assistance 08-09 (Edwige) required 09:50: Myles 00 [id number] Activity self-care Activity Active 2018-08 Dayanna deficit 08-09 (Edwige) 09:50: Myles 00 [id number] Safety cannot be Safety Active 2018-08 Dayanna left alone 08-09 (Edwige) 09:50: Myles 00 [id number] Safety fall risk Safety Active 2018-08 Dayanna factor 08-09 (Edwige) present 09:50: Myles 00 [id number] Safety risk for Safety Active 2018-08 Dayanna hospitaliza 08-09 (Edwige) tion 09:50: Myles 00 [id number] Medication oral med Meds Resolve 2018-082019-06-13 Dayanna assistance d 08-09 13:55:00 (Edwige) required 09:50: Myles 00 [id number] Medication potential Meds Resolve 2018-082019-06-13 Dayanna clinically d 08-09 13:55:00 (Edwige) significant 09:50: Myles medication 00 [id number] issue Musculoskel transfer Musculoske Resolve 2018-082019-06-15 Dayanna etal assistance letal d 08-09 10:25:00 (Edwige) required 09:50: Myles 00 [id number] Musculoskel requires Musculoske Resolve 2018-082019-06-15 Dayanna etal human letal d 08-09 10:25:00 (Edwige) assist to 09:50: Myles leave home 00 [id number] Safety can be left Safety Active 2018-08 Douglas alone for 08-11 Gi loza short 12:58: [id number] periods 00 OT: Self self-care OT: Active 2018-08 Douglas Care deficit Self-Care 08-11 Gi 12:58: [id number] 00 Nutrition nutritional Nutrition Active 2018-08 Qing restriction 08-15 Powell s 10:25: [id number] 00 Allergies, Adverse Reactions, Alerts Allergy Name [...] Oxygen Oxygen No Bael concent Unknown ,Bc tay amiodarone amiodarone 2018-08 Yes Darlow Unknown Unknown 200 mg 200 mg 08-09 ,Alonso tablet tablet ticagrelor ticagrelor 2018-08 Yes Darlow Unknown Unknown 90 mg 90 mg 08-09 ,Alonso tablet tablet warfarin 2 warfarin 2 2018-08 [...]
--- OUTSIDE RECORDS SUMMARY | 2019-07-10 20:55 | XMS REPORT ---
:1930 Author Organization [facility] Care Team Providers Name Role Phone Unavailable Unavailable Unavailable Problems Condition Condition Condition Status Onset Resolution Last Treating Comments Name Details Category Date Date Treatment Clinician Date Pain frequent Pain Mgmt Resolve 2018-082019-06-13 Dayanna pain d 08-09 13:55:00 (Edwige) 09:50: Myles 00 [id number] Cardio edema Cardiovasc Active 2018-08 Dayanna ular 08-09 (Edwige) 09:50: Myles 00 [id number] Respiratory dyspnea Respirator Resolve 2018-082019-06-26 Dayanna present y d 08-09 10:00:00 (Edwige) 09:50: Myles 00 [id number] Sensory impaired Sensory Active 2018-08 Dayanna hearing 08-09 (Edwige) 09:50: Myles 00 [id number] Integument skin Integument Resolve 2018-082019-06-26 Dayanna integrity d 08-09 10:00:00 (Edwige) risk 09:50: Myles 00 [id number] Nutrition nutritional Nutrition Resolve 2018-082019-06-13 Dayanna restriction d 08-09 13:55:00 (Edwige) s 09:50: Myles 00 [id number] Elimination urinary Eliminatio Active 2018-08 Dayanna incontinenc n 08-09 (Edwige) e 09:50: Myles 00 [id number] Elimination bowel Eliminatio Active 2018-08 Dayanna incontinenc n 08-09 (Edwige) e 09:50: Myles 00 [id number] Neuro confusion Neuro/Emot Active 2018-08 Dayanna present ion 08-09 (Edwige) 09:50: Myles 00 [id number] Neuro impaired Neuro/Emot Active 2018-08 Dayanna decision-ma ion 08-09 (Edwige) anselmo 09:50: Myles 00 [id number] Neuro memory Neuro/Emot Active 2018-08 Dayanna deficit ion 08-09 (Edwige) needing 09:50: Myles supervision 00 [id number] Activity ADL Activity Active 2018-08 Dayanna assistance 08-09 (Edwige) required 09:50: Myles 00 [id number] Activity self-care Activity Resolve 2018-082019-06-26 Dayanna deficit d 08-09 10:00:00 (Edwige) 09:50: Myles 00 [id number] Safety cannot be Safety Active 2018-08 Dayanna left alone 08-09 (Edwige) 09:50: Myles 00 [id number] Safety fall risk Safety Active 2018-08 Dayanna factor 08-09 (Edwige) present 09:50: Myles 00 [id number] Safety risk for Safety Active 2018-08 Dayanna hospitaliza 08-09 (Edwige) tion 09:50: Myles 00 [id number] Medication oral med Meds Resolve 2018-082019-06-13 Dayanna assistance d 08-09 13:55:00 (Edwige) required 09:50: Myles 00 [id number] Medication potential Meds Resolve 2018-082019-06-13 Dayanna clinically d 08-09 13:55:00 (Edwige) significant 09:50: Myles medication 00 [id number] issue Musculoskel transfer Musculoske Resolve 2018-082019-06-15 Dayanna etal assistance letal d 08-09 10:25:00 (Edwige) required 09:50: Myles 00 [id number] Musculoskel requires Musculoske Resolve 2018-082019-06-15 Dayanna etal human letal d 08-09 10:25:00 (Edwige) assist to 09:50: Myles leave home 00 [id number] Safety can be left Safety Active 2018-08 Douglas alone for 08-11 Gi only short 12:58: [id number] periods 00 OT: Self self-care OT: Active 2018-08 Douglas Care deficit Self-Care 08-11 Gi 12:58: [id number] 00 Nutrition nutritional Nutrition Resolve 2018-082019-06-26 Qing restriction d 08-15 10:00:00 Powell s 10:25: [id number] 00 Allergies, Adverse Reactions, Alerts Allergy Name [...]
--- OUTSIDE RECORDS SUMMARY | 2019-07-10 20:55 | XMS REPORT ---
:1930 Author Organization [facility] Care Team Providers Name Role Phone Unavailable Unavailable Unavailable Problems Condition Condition Condition Status Onset Resolution Last Treating Comments Name Details Category Date Date Treatment Clinician Date Pain frequent Pain Mgmt Active 2018-08 Dayanna pain 08-09 (Edwige) 09:50: Myles 00 [id number] Cardio edema Cardiovasc Active 2018-08 Dayanna ular 08-09 (Edwige) 09:50: Myles 00 [id number] Respiratory dyspnea Respirator Active 2018-08 Dayanna present y 08-09 (Edwige) 09:50: Myles 00 [id number] Sensory impaired Sensory Active 2018-08 Dayanna hearing 08-09 (Edwige) 09:50: Myles 00 [id number] Integument skin Integument Active 2018-08 Dayanna integrity 08-09 (Edwige) risk 09:50: Myles 00 [id number] Nutrition nutritional Nutrition Active 2018-08 Dayanna restriction 08-09 (Edwige) s 09:50: Myles 00 [id number] Elimination urinary Eliminatio Active 2018-08 Dayanna incontinenc n 08-09 (Edwige) e 09:50: Myles 00 [id number] Elimination bowel Eliminatio Active 2018-08 Dayanna incontinenc n 08-09 (Edwige) e 09:50: Myles 00 [id number] Neuro confusion Neuro/Emot Active 2018-08 Dayanna present ion 08-09 (Edwige) 09:50: Myles 00 [id number] Neuro impaired Neuro/Emot Active 2018-08 Dayanna decision-ma ion 08-09 (Edwige) anselmo 09:50: Myles 00 [id number] Neuro memory Neuro/Emot Active 2018-08 Dayanna deficit ion 08-09 (Edwige) needing 09:50: Shar supervision 00 [id number] Activity ADL Activity Active 2018-08 Dayanna assistance 08-09 (Edwige) required 09:50: Myles 00 [id number] Activity self-care Activity Active 2018-08 Dayanna deficit 08-09 (Edwige) 09:50: Myles [id number] Safety cannot be Safety Active 2018-08 Dayanna left alone 08-09 (Edwige) 09:50: Myles 00 [id number] Safety fall risk Safety Active 2018-08 Dayanna factor 08-09 (Edwige) present 09:50: Myles [id number] Safety risk for Safety Active 2018-08 Dayanna hospitaliza 08-09 (Edwige) tion 09:50: Myles 00 [id number] Medication oral med Meds Active 2018-08 Dayanna assistance 08-09 (Edwige) required 09:50: Myles [id number] Medication potential Meds Active 2018-08 Dayanna clinically 08-09 (Edwige) significant 09:50: Shar medication 00 [id number] issue Musculoskel transfer Musculoske Active 2018-08 Dayanna etal assistance letal 08-09 (Edwige) required 09:50: Myles 00 [id number] Musculoskel requires Musculoske Active 2018-08 Dayanna etal human letal 08-09 (Edwige) assist to 09:50: Shar leave home 00 [id number] Safety can be left Safety Active 2018-08 Douglas alone for 08-11 Gi loza short 12:58: [id number] periods 00 OT: Self self-care OT: Active 2018-08 Douglas Jackson deficit Self-Care 08-11 Gi 12:58: [id number] 00 Allergies, Adverse Reactions, Alerts Allergy Name [...]
--- OUTSIDE RECORDS SUMMARY | 2019-07-10 20:55 | XMS REPORT ---
:1930 Author Organization [facility] Care Team Providers Name Role Phone Unavailable Unavailable Unavailable Problems Condition Condition Condition Status Onset Resolution Last Treating Comments Name Details Category Date Date Treatment Clinician Date Pain frequent Pain Mgmt Resolve 2018-082019-06-13 Dayanna pain d 08-09 13:55:00 (Edwige) 09:50: Myles 00 [id number] Cardio edema Cardiovasc Active 2018-08 Dayanna ular 08-09 (Edwige) 09:50: Myles 00 [id number] Respiratory dyspnea Respirator Resolve 2018-082019-06-26 Dayanna present y d 08-09 10:00:00 (Edwige) 09:50: Myles 00 [id number] Sensory impaired Sensory Active 2018-08 Dayanna hearing 08-09 (Edwige) 09:50: Myles 00 [id number] Integument skin Integument Resolve 2018-082019-06-26 Dayanna integrity d 08-09 10:00:00 (Edwige) risk 09:50: Myles 00 [id number] Nutrition nutritional Nutrition Resolve 2018-082019-06-13 Dayanna restriction d 08-09 13:55:00 (Edwige) s 09:50: Myles 00 [id number] Elimination urinary Eliminatio Resolve 2018-082019-07-03 Dayanna incontinenc n d 08-09 10:54:00 (Edwieg) e 09:50: Myles 00 [id number] Elimination bowel Eliminatio Resolve 2018-082019-07-03 Dayanna incontinenc n d 08-09 10:54:00 (Edwige) e 09:50: Myles 00 [id number] Neuro confusion Neuro/Emot Active 2018-08 Dayanna present ion 08-09 (Edwige) 09:50: Myles 00 [id number] Neuro impaired Neuro/Emot Active 2018-08 Dayanna decision-ma ion 08-09 (Edwige) anselmo 09:50: Myles 00 [id number] Neuro memory Neuro/Emot Active 2018-08 Dayanna deficit ion 08-09 (Edwige) needing 09:50: Myles supervision 00 [id number] Activity ADL Activity Active 2018-08 Dayanna assistance 08-09 (Edwige) required 09:50: Myles 00 [id number] Activity self-care Activity Resolve 2018-082019-06-26 Dayanna deficit d 08-09 10:00:00 (Edwige) 09:50: Myles 00 [id number] Safety cannot be Safety Active 2018-08 Dayanna left alone 08-09 (Edwige) 09:50: Myles 00 [id number] Safety fall risk Safety Active 2018-08 Dayanna factor 08-09 (Edwige) present 09:50: Myles 00 [id number] Safety risk for Safety Active 2018-08 Dayanna hospitaliza 08-09 (Edwige) tion 09:50: Myles 00 [id number] Medication oral med Meds Resolve 2018-082019-06-13 Dayanna assistance d 08-09 13:55:00 (Edwige) required 09:50: Myles 00 [id number] Medication potential Meds Resolve 2018-082019-06-13 Dayanna clinically d 08-09 13:55:00 (Edwige) significant 09:50: Myles medication 00 [id number] issue Musculoskel transfer Musculoske Resolve 2018-082019-06-15 Dayanna etal assistance letal d 08-09 10:25:00 (Edwige) required 09:50: Myles 00 [id number] Musculoskel requires Musculoske Resolve 2018-082019-06-15 Dayanna etal human letal d 08-09 10:25:00 (Edwige) assist to 09:50: Myles leave home 00 [id number] Safety can be left Safety Active 2018-08 Douglas alone for 08-11 Gi only short 12:58: [id number] periods 00 OT: Self self-care OT: Active 2018-08 Douglas Care deficit Self-Care 08-11 Gi 12:58: [id number] 00 Nutrition nutritional Nutrition Resolve 2018-082019-06-26 Qing restriction d 08-15 10:00:00 Andre briceno 10:25: [id number] 00 Nutrition nutritional Nutrition Active 2018-08 Qing restriction 09-03 Andre briceno 10:54: [id number] 00 Allergies, Adverse Reactions, Alerts Allergy Name [...]
--- OUTSIDE RECORDS SUMMARY | 2019-07-10 20:56 | XMS REPORT ---
:1930 Author Organization [facility] Care Team Providers Name Role Phone Unavailable Unavailable Unavailable Problems Condition Condition Condition Status Onset Resolution Last Treating Comments Name Details Category Date Date Treatment Clinician Date Pain frequent Pain Mgmt Active 2018-08 Dayanna pain 08-09 (Edwige) 09:50: Myles 00 [id number] Cardio edema Cardiovasc Active 2018-08 Dayanna ular 08-09 (Edwige) 09:50: Myles 00 [id number] Respiratory dyspnea Respirator Active 2018-08 Dayanna present y 08-09 (Edwige) 09:50: Myles 00 [id number] Sensory impaired Sensory Active 2018-08 Dayanna hearing 08-09 (Edwige) 09:50: Myles 00 [id number] Integument skin Integument Active 2018-08 Dayanna integrity 08-09 (Edwige) risk 09:50: Myles 00 [id number] Nutrition nutritional Nutrition Active 2018-08 Dayanna restriction 08-09 (Edwige) s 09:50: Myles 00 [id number] Elimination urinary Eliminatio Active 2018-08 Dayanna incontinenc n 08-09 (Edwige) e 09:50: Myles 00 [id number] Elimination bowel Eliminatio Active 2018-08 Dayanna incontinenc n 08-09 (Edwige) e 09:50: Myles 00 [id number] Neuro confusion Neuro/Emot Active 2018-08 Dayanna present ion 08-09 (Edwige) 09:50: Myles 00 [id number] Neuro impaired Neuro/Emot Active 2018-08 Dayanna decision-ma ion 08-09 (Edwige) anselmo 09:50: Myles 00 [id number] Neuro memory Neuro/Emot Active 2018-08 Dayanna deficit ion 08-09 (Edwige) needing 09:50: Sahr supervision 00 [id number] Activity ADL Activity Active 2018-08 Dayanna assistance 08-09 (Edwige) required 09:50: Myles 00 [id number] Activity self-care Activity Active 2018-08 Dayanna deficit 08-09 (Edwige) 09:50: Myles [id number] Safety cannot be Safety Active 2018-08 Dayanna left alone 08-09 (Edwige) 09:50: Myles 00 [id number] Safety fall risk Safety Active 2018-08 Dayanna factor 08-09 (Edwige) present 09:50: Myles [id number] Safety risk for Safety Active 2018-08 Dayanna hospitaliza 08-09 (Edwige) tion 09:50: Myles 00 [id number] Medication oral med Meds Active 2018-08 Dayanna assistance 08-09 (Edwige) required 09:50: Myles [id number] Medication potential Meds Active 2018-08 Dayanna clinically 08-09 (Edwige) significant 09:50: Shar medication 00 [id number] issue Musculoskel transfer Musculoske Active 2018-08 Dayanna etal assistance letal 08-09 (Edwige) required 09:50: Myles 00 [id number] Musculoskel requires Musculoske Active 2018-08 Dayanna etal human letal 08-09 (Edwige) assist to 09:50: Shar leave home 00 [id number] Safety can be left Safety Active 2018-08 Douglas alone for 08-11 Gi loza short 12:58: [id number] periods 00 OT: Self self-care OT: Active 2018-08 Douglas Jackson deficit Self-Care 08-11 Gi 12:58: [id number] 00 Allergies, Adverse Reactions, Alerts Allergy Name [...] Observation Time Observation Value Comments SYSTOLIC mm[Hg] 2019-06-11 18:08:48 102 mm[Hg] mm[Hg] Method: Sit SYSTOLIC mm[Hg] 2019-06-10 18:08:47 100 mm[Hg] mm[Hg] Method: Stand DIASTOLIC mm[Hg] 2019-06-11 18:08:48 78 mm[Hg] mm[Hg] Method: Sit DIASTOLIC mm[Hg] 2019-06-10 18:08:47 60 mm[Hg] mm[Hg] Method: Stand PULSE 2019-06-11 18:08:48 72 /min /min RESP RATE 2019-06-10 18:08:47 17 /min /min TEMP 2019-06-10 18:08:47 98.9 [degF] Procedures This patient has no known procedures. Results This patient has no known results.
--- OUTSIDE RECORDS SUMMARY | 2019-07-10 20:56 | XMS REPORT | Summary of Care ---
:1930 Author Organization [facility] Address [address] [address] Care Team Providers Name Role Phone Alonso Marquez MD Primary Care Provider Reason for Referral Durable Medical Equipment (Routine) Status Reason Specialty Diagnoses / Procedures Referred By Referred To Contact Contact Pending Review Diagnoses Nonischemic cardiomyopathy (HCC) Chronic diastolic congestive heart failure, NYHA class 2 (HCC) Andrzej Adkins NP [address] [place] [address] Scheduling Instructions Length of need: 2 years Product required: compression stockings Directions of use: wear when up for the Reason for Visit Reason Comments Follow Up from DC [place]? Encounter Details Date Type Department Care Team Description 06/14/2019 Office Visit [facility] Jose Sherwood, ICD (implantable cardioverter-defibrillator) discharge ( Primary Dx); 1 Jose G Silva MD [place] (ventricular tachycardia) ([facility]); [place] [place] [id number] 1 JOSE G SILVA Nonischemic cardiomyopathy (HCC); [phone] [address] [place] [id number] Chronic diastolic congestive heart failure, NYHA class 2 (HCC); [phone] Sinoatrial node dysfunction (HCC); [phone] S/P TAVR (transcatheter aortic valve replacement); (Fax) Mitral valve insufficiency, unspecified etiology; Type 2 diabetes mellitus with diabetic neuropathy, without long-term current use of insulin (HCC) Allergies Active Allergy Reactions Severity Noted Date Comments Penicillins Unknown Reaction 07/01/2014 Statins Musculoskeletal 01/31/2018 documented as of this encounter (statuses as of 06/14/2019) Medications Medication Sig Dispensed Refills Start Date End Date Status metFORMIN HCL 500 Take 1 Tab by 0 Active MG (MOD) Oral mouth DAILY. TABLET SR 24 HR Omeprazole 20 MG Take 1 Tab by [...] the week. amiodarone Take 1 Tab by 30 Tab 2 05/22/2019 Active (PACERONE, mouth DAILY. CORDARONE) 200 MG Starting Oral Tab 06/18/19 carvedilol (COREG) Take 1 Tab by 60 Tab 11 05/22/2019 Active 25 MG Oral Tab mouth TWICE DAILY. Dose has been increased from 12.5 mg twice a day to 25 mg twice a day. Digoxin is discontinued. spironolactone take 1/2 45 Tab 0 12/31/2013 06/14/20 Discontinued (ALDACTONE) 25 MG tablet once 19 (Provider Oral Tab daily Discontinued) amiodarone Take 1 Tab by 70 Tab 0 05/21/2019 06/14/20 Discontinued (PACERONE, mouth THREE 19 (Duplicate CORDARONE) 200 MG TIMES DAILY Order) Oral Tab WITH MEALS for 14 days, THEN 1 Tab TWICE DAILY for 14 days. Then decrease to 200 mg daily documented as of this encounter (statuses as of 06/14/2019) Active Problems Problem Noted Date S/P TAVR [...] Manoj Mobitz (type) II atrioventricular block 10/04/2007 care home current use of anticoagulant therapy 08/30/2007 Overview: Managed by [facility] Referring Provider: Piper Indication: MVR, Afib Target Range: 2.5-3.5 CHADS2 score of 6 for Age, HTN, CHF, DM, CVA [place] 3 fatty Acid (fish oil) may result in increased bleeding. Spironolactone (Aldactone) may result in increased decreased anticoagulant effectiveness Updated Referral: 09/2013, 11/04/14 Updated ACS Orders: 10/2013, 10/[address] Marquez Atrial fibrillation 06/27/2007 Edema of male genital organs 08/13/2004 Sinoatrial node dysfunction 01/10/2004 documented as of this encounter (statuses as of 06/14/2019) Resolved Problems Problem Noted Date Resolved Date ICD (implantable cardioverter-defibrillator) malfunction 07/01/20142015 documented as of this encounter (statuses as of 06/14/2019) Immunizations Name Administration Dates Next Due Influenza [...] Sign Reading Time Taken Comments Blood Pressure 90/40 06/14/2019 10:56 AM EST Pulse 70 06/14/2019 10:54 AM EST Temperature - - Respiratory Rate - - Oxygen Saturation - - Inhaled Oxygen - - Concentration Weight 88.3 kg (194 lb 9.6 06/14/2019 10:54 daughter reported am oz) AM EST weight Height 177.8 cm (5' 10") 06/14/2019 10:54 AM EST Body Mass Index 27.92 06/14/2019 10:54 AM EST documented in this encounter Patient Instructions Patient InstructionsAndrzej Adkins NP - 06/14/2019 11:00 AM EST Provider's Instructions Reason for Visit to Cardiology: 1. Nonischemic cardiomyopathy (HCC) 2. Chronic diastolic congestive heart failure, NYHA class 2 (HCC) General Instructions: Please use compression stockings when you are not laying down. Medications: Lasix only if greater than 3 lb weight gain. Activity/Restrictions: Activity as tolerated. Discharge Diet: Heart Healthy Follow Up Care: Please call with any concerns [phone] Please return to the office for follow up in three months. Time: 11:14 If you feel that your condition, or the condition of the person you are responsible for, is getting worse or if you develop new symptoms, please call. If you feel your condition is an emergency pleasego to the closest Emergency Department for evaluation. *Please Return Patient Satisfaction Survey* Thank you for letting me take part in your care. Sincerely, SANG Browne documented in this encounter Plan of Treatment Date Type Specialty Care Team Description 09/14/2019 Office Visit Cardiology Andrzej Adkins NP [address] [address] [phone] 09/24/2019 [facility] 12/25/2019 [facility] 03/14/2020 Appointment Cardiology 03/14/2020 Office Visit Cardiology Hitesh Carvalho Jr., PA-C [address] [place] [address] 03/14/2020 [facility] Name Type Priority Associated Diagnoses Order Schedule REFER TO MEDICAL Referral Routine Nonischemic cardiomyopathy Ordered: 06/14 DURABLE SUPPLY(NON (HCC) CINDY)ED USE ONLY Chronic diastolic congestive heart failure, NYHA class 2 (HCC) Health Maintenance Due Date Last Done Comments [...] of this encounter Implants Implanted Type Area Dump Worker Device Shelf Model / Identifier Expiration Serial / Date Lot Current Plus [id number] - [id number] Chest [facility] MANOJ 08/31/2010 [id number] / Implanted: Qty: 1 on 07/16/[address] [facility]. [id number] / 7121/65 Durata Lead - [id number] Chest ST[facility] MANOJ 11/29/2011 [id number] / Implanted: Qty: 1 on 07/16/[address] [facility] [id number] / 1158t Quickflex Lead - [id number] Chest ST[facility] MANOJ 05/31/2012 [id number] / Implanted: Qty: 1 on 07/16/[address] [facility], [facility]. [id number] / Fortify [facility] Cd-[id number] - [id number] N/A: Chest ST. MANOJ 09/28/2016 [id number] / Implanted: Qty: 1 on 05/29/2015 by Jose Sherwood MD at [facility] [id number] / 29mm Jalloh Damien 3 Heart Valve/Commander Del - [id number] N/A: Aortic EDWRDS 03/22/2019 [id number] / Implanted: Qty: 1 on 01/31/2018 by Regis Hernandez MD at [facility] [employer] [id number] / Synergy (Mr) 3.50 Mm X 28 Mm - [id number] N/A: Marginal BOSTON [id number] / Implanted: Qty: 1 on 05/18/2019 by Cuauhtemoc Hopson MD at [facility] SCIENTIFIC / [id number] 5.0/20 Synergy Stent - [id number] N/A: BOSTON [id number] / Implanted: Qty: 1 on 05/18/2019 by Cuauhtemoc Hopson MD at [facility] Circumflex [employer]ENT[employer] / Proximal [id number] documented as of this encounter Results Not on filedocumented in this encounter Visit Diagnoses Diagnosis ICD (implantable cardioverter-defibrillator) discharge - Primary Observation for other specified suspected conditions VT (ventricular tachycardia) (HCC) Paroxysmal ventricular tachycardia Nonischemic cardiomyopathy (HCC) Other primary cardiomyopathies Chronic diastolic congestive heart failure, NYHA class 2 (HCC) Chronic diastolic heart failure Sinoatrial node dysfunction (HCC) Sinoatrial node dysfunction S/P TAVR (transcatheter aortic valve replacement) Mitral valve insufficiency, unspecified etiology Type 2 diabetes mellitus with diabetic neuropathy, without long-term current use of insulin (HCC) documented in this encounter Guarantor Name Account Type Relation to Date of Phone Billing Patient Address Wayne Brantley Personal/Family 1930 [address] [phone] [place], [place] (Work) [address] documented as of this encounter Advance Directives Type Date Recorded Patient Head Bucker Explanation POL-DESTINI 05/23/2019 7:41 AM Code Status [...]
--- OUTSIDE RECORDS SUMMARY | 2019-07-10 20:56 | XMS REPORT ---
:1930 Author Organization [facility] Care Team Providers Name Role Phone Unavailable Unavailable Unavailable Problems Condition Condition Condition Status Onset Resolution Last Treating Comments Name Details Category Date Date Treatment Clinician Date Pain frequent Pain Mgmt Active 2018-08 Dayanna pain 08-09 (Edwige) 09:50: Myles 00 [id number] Cardio edema Cardiovasc Active 2018-08 Dayanna ular 08-09 (Edwige) 09:50: Myles 00 [id number] Respiratory dyspnea Respirator Active 2018-08 Dayanna present y 08-09 (Edwige) 09:50: Myles 00 [id number] Sensory impaired Sensory Active 2018-08 Dayanna hearing 08-09 (Edwige) 09:50: Myles 00 [id number] Integument skin Integument Active 2018-08 Dayanna integrity 08-09 (Edwige) risk 09:50: Myles 00 [id number] Nutrition nutritional Nutrition Active 2018-08 Dayanna restriction 08-09 (Edwige) s 09:50: Myles 00 [id number] Elimination urinary Eliminatio Active 2018-08 Dayanna incontinenc n 08-09 (Edwige) e 09:50: Myles 00 [id number] Elimination bowel Eliminatio Active 2018-08 Dayanna incontinenc n 08-09 (Edwige) e 09:50: Myles 00 [id number] Neuro confusion Neuro/Emot Active 2018-08 Dayanna present ion 08-09 (Edwige) 09:50: Myles 00 [id number] Neuro impaired Neuro/Emot Active 2018-08 Dayanna decision-ma ion 08-09 (Edwige) anselmo 09:50: Myles 00 [id number] Neuro memory Neuro/Emot Active 2018-08 Dayanna deficit ion 08-09 (Edwige) needing 09:50: Shar supervision 00 [id number] Activity ADL Activity Active 2018-08 Dayanna assistance 08-09 (Edwige) required 09:50: Myles 00 [id number] Activity self-care Activity Active 2018-08 Dayanna deficit 08-09 (Edwige) 09:50: Myles [id number] Safety cannot be Safety Active 2018-08 Dayanna left alone 08-09 (Edwige) 09:50: Myles 00 [id number] Safety fall risk Safety Active 2018-08 Dayanna factor 08-09 (Edwige) present 09:50: Myles [id number] Safety risk for Safety Active 2018-08 Dayanna hospitaliza 08-09 (Edwige) tion 09:50: Myles 00 [id number] Medication oral med Meds Active 2018-08 Dayanna assistance 08-09 (Edwige) required 09:50: Myles [id number] Medication potential Meds Active 2018-08 Dayanna clinically 08-09 (Edwige) significant 09:50: Shar medication 00 [id number] issue Musculoskel transfer Musculoske Active 2018-08 Dayanna etal assistance letal 08-09 (Edwige) required 09:50: Myles 00 [id number] Musculoskel requires Musculoske Active 2018-08 Dayanna etal human letal 08-09 (Edwige) assist to 09:50: Shar leave home 00 [id number] Safety can be left Safety Active 2018-08 Douglas alone for 08-11 Gi loza short 12:58: [id number] periods 00 OT: Self self-care OT: Active 2018-08 Douglas Jackson deficit Self-Care 08-11 Gi 12:58: [id number] 00 Allergies, Adverse Reactions, Alerts Allergy Name [...]
--- OUTSIDE RECORDS SUMMARY | 2019-07-10 20:56 | XMS REPORT ---
:1930 Author Organization [facility] Care Team Providers Name Role Phone Unavailable Unavailable Unavailable Problems Condition Condition Condition Status Onset Resolution Last Treating Comments Name Details Category Date Date Treatment Clinician Date Pain frequent Pain Mgmt Active 2018-08 Dayanna pain 08-09 (Edwige) 09:50: Myles 00 [id number] Cardio edema Cardiovasc Active 2018-08 Dayanna ular 08-09 (Edwige) 09:50: Myles 00 [id number] Respiratory dyspnea Respirator Active 2018-08 Dayanna present y 08-09 (Edwige) 09:50: Myles 00 [id number] Sensory impaired Sensory Active 2018-08 Dayanna hearing 08-09 (Edwige) 09:50: Myles 00 [id number] Integument skin Integument Active 2018-08 Dayanna integrity 08-09 (Edwige) risk 09:50: Myles 00 [id number] Nutrition nutritional Nutrition Active 2018-08 Dayanna restriction 08-09 (Edwige) s 09:50: Myles 00 [id number] Elimination urinary Eliminatio Active 2018-08 Dayanna incontinenc n 08-09 (Edwige) e 09:50: Myles 00 [id number] Elimination bowel Eliminatio Active 2018-08 Dayanna incontinenc n 08-09 (Edwige) e 09:50: Myles 00 [id number] Neuro confusion Neuro/Emot Active 2018-08 Dayanna present ion 08-09 (Edwige) 09:50: Myles 00 [id number] Neuro impaired Neuro/Emot Active 2018-08 Dayanna decision-ma ion 08-09 (Edwige) anselmo 09:50: Myles 00 [id number] Neuro memory Neuro/Emot Active 2018-08 Dayanna deficit ion 08-09 (Edwige) needing 09:50: Shar supervision 00 [id number] Activity ADL Activity Active 2018-08 Dayanna assistance 08-09 (Edwige) required 09:50: Myles 00 [id number] Activity self-care Activity Active 2018-08 Dayanna deficit 08-09 (Edwige) 09:50: Myles [id number] Safety cannot be Safety Active 2018-08 Dayanna left alone 08-09 (Edwige) 09:50: Myles 00 [id number] Safety fall risk Safety Active 2018-08 Dayanna factor 08-09 (Edwige) present 09:50: Myles [id number] Safety risk for Safety Active 2018-08 Dayanna hospitaliza 08-09 (Edwige) tion 09:50: Myles 00 [id number] Medication oral med Meds Active 2018-08 Dayanna assistance 08-09 (Edwige) required 09:50: Myles [id number] Medication potential Meds Active 2018-08 Dayanna clinically 08-09 (Edwige) significant 09:50: Shar medication 00 [id number] issue Musculoskel transfer Musculoske Active 2018-08 Dayanna etal assistance letal 08-09 (Edwige) required 09:50: Myles 00 [id number] Musculoskel requires Musculoske Active 2018-08 Dayanna etal human letal 08-09 (Edwige) assist to 09:50: Shar leave home 00 [id number] Safety can be left Safety Active 2018-08 Douglas alone for 08-11 Gi loza short 12:58: [id number] periods 00 OT: Self self-care OT: Active 2018-08 Douglas Jackson deficit Self-Care 08-11 Gi 12:58: [id number] 00 Allergies, Adverse Reactions, Alerts Allergy Name [...]
--- OUTSIDE RECORDS SUMMARY | 2019-07-10 20:56 | XMS REPORT ---
:1930 Author Organization [facility] Care Team Providers Name Role Phone Unavailable Unavailable Unavailable Problems Condition Condition Condition Status Onset Resolution Last Treating Comments Name Details Category Date Date Treatment Clinician Date Pain frequent Pain Mgmt Active 2018-08 Dayanna pain 08-09 (Edwige) 09:50: Myles 00 [id number] Cardio edema Cardiovasc Active 2018-08 Dayanna ular 08-09 (Edwige) 09:50: Myles 00 [id number] Respiratory dyspnea Respirator Active 2018-08 Dayanna present y 08-09 (Edwige) 09:50: Myles 00 [id number] Sensory impaired Sensory Active 2018-08 Dayanna hearing 08-09 (Edwige) 09:50: Myles 00 [id number] Integument skin Integument Active 2018-08 Dayanna integrity 08-09 (Edwige) risk 09:50: Myles 00 [id number] Nutrition nutritional Nutrition Active 2018-08 Dayanna restriction 08-09 (Edwige) s 09:50: Myles 00 [id number] Elimination urinary Eliminatio Active 2018-08 Dayanna incontinenc n 08-09 (Edwige) e 09:50: Myles 00 [id number] Elimination bowel Eliminatio Active 2018-08 Dayanna incontinenc n 08-09 (Edwige) e 09:50: Myles 00 [id number] Neuro confusion Neuro/Emot Active 2018-08 Dayanna present ion 08-09 (Edwige) 09:50: Myles 00 [id number] Neuro impaired Neuro/Emot Active 2018-08 Dayanna decision-ma ion 08-09 (Edwige) anselmo 09:50: Myles 00 [id number] Neuro memory Neuro/Emot Active 2018-08 Dayanna deficit ion 08-09 (Edwige) needing 09:50: Shar supervision 00 [id number] Activity ADL Activity Active 2018-08 Dayanna assistance 08-09 (Edwige) required 09:50: Myles 00 [id number] Activity self-care Activity Active 2018-08 Dayanna deficit 08-09 (Edwige) 09:50: Myles [id number] Safety cannot be Safety Active 2018-08 Dayanna left alone 08-09 (Edwige) 09:50: Myles 00 [id number] Safety fall risk Safety Active 2018-08 Dayanna factor 08-09 (Edwige) present 09:50: Myles [id number] Safety risk for Safety Active 2018-08 Dayanna hospitaliza 08-09 (Edwige) tion 09:50: Myles 00 [id number] Medication oral med Meds Active 2018-08 Dayanna assistance 08-09 (Edwige) required 09:50: Myles [id number] Medication potential Meds Active 2018-08 Dayanna clinically 08-09 (Edwige) significant 09:50: Shar medication 00 [id number] issue Musculoskel transfer Musculoske Active 2018-08 Dayanna etal assistance letal 08-09 (Edwige) required 09:50: Myles 00 [id number] Musculoskel requires Musculoske Active 2018-08 Dayanna etal human letal 08-09 (Edwige) assist to 09:50: Shar leave home 00 [id number] Safety can be left Safety Active 2018-08 Douglas alone for 08-11 Gi loza short 12:58: [id number] periods 00 OT: Self self-care OT: Active 2018-08 Douglas Jackson deficit Self-Care 08-11 Gi 12:58: [id number] 00 Allergies, Adverse Reactions, Alerts Allergy Name [...]
--- OUTSIDE RECORDS SUMMARY | 2019-07-10 20:56 | XMS REPORT ---
:1930 Author Organization [facility] Care Team Providers Name Role Phone Unavailable Unavailable Unavailable Problems Condition Condition Condition Status Onset Resolution Last Treating Comments Name Details Category Date Date Treatment Clinician Date Pain frequent Pain Mgmt Active 2018-08 Dayanna pain 08-09 (Edwige) 09:50: Myles 00 [id number] Cardio edema Cardiovasc Active 2018-08 Dayanna ular 08-09 (Edwige) 09:50: Myles 00 [id number] Respiratory dyspnea Respirator Active 2018-08 Dayanna present y 08-09 (Edwige) 09:50: Myles 00 [id number] Sensory impaired Sensory Active 2018-08 Dayanna hearing 08-09 (Edwige) 09:50: Myles 00 [id number] Integument skin Integument Active 2018-08 Dayanna integrity 08-09 (Edwige) risk 09:50: Myles 00 [id number] Nutrition nutritional Nutrition Active 2018-08 Dayanna restriction 08-09 (Edwige) s 09:50: Myles 00 [id number] Elimination urinary Eliminatio Active 2018-08 Dayanna incontinenc n 08-09 (Edwige) e 09:50: Myles 00 [id number] Elimination bowel Eliminatio Active 2018-08 Dayanna incontinenc n 08-09 (Edwige) e 09:50: Myles 00 [id number] Neuro confusion Neuro/Emot Active 2018-08 Dayanna present ion 08-09 (Edwige) 09:50: Myles 00 [id number] Neuro impaired Neuro/Emot Active 2018-08 Dayanna decision-ma ion 08-09 (Edwige) anselmo 09:50: Myles 00 [id number] Neuro memory Neuro/Emot Active 2018-08 Dayanna deficit ion 08-09 (Edwige) needing 09:50: Shar supervision 00 [id number] Activity ADL Activity Active 2018-08 Dayanna assistance 08-09 (Edwige) required 09:50: Myles 00 [id number] Activity self-care Activity Active 2018-08 Dayanna deficit 08-09 (Edwige) 09:50: Myles [id number] Safety cannot be Safety Active 2018-08 Dayanna left alone 08-09 (Edwige) 09:50: Myles 00 [id number] Safety fall risk Safety Active 2018-08 Dayanna factor 08-09 (Edwige) present 09:50: Myles [id number] Safety risk for Safety Active 2018-08 Dayanna hospitaliza 08-09 (Edwige) tion 09:50: Myles 00 [id number] Medication oral med Meds Active 2018-08 Dayanna assistance 08-09 (Edwige) required 09:50: Myles [id number] Medication potential Meds Active 2018-08 Dayanna clinically 08-09 (Edwige) significant 09:50: Shar medication 00 [id number] issue Musculoskel transfer Musculoske Active 2018-08 Dayanna etal assistance letal 08-09 (Edwige) required 09:50: Myles 00 [id number] Musculoskel requires Musculoske Active 2018-08 Dayanna etal human letal 08-09 (Edwige) assist to 09:50: Shar leave home 00 [id number] Safety can be left Safety Active 2018-08 Douglas alone for 08-11 Gi loza short 12:58: [id number] periods 00 OT: Self self-care OT: Active 2018-08 Douglas Jackson deficit Self-Care 08-11 Gi 12:58: [id number] 00 Allergies, Adverse Reactions, Alerts Allergy Name [...]
[2019-07-10 23:18] LABS: ABS Basophils 0.1 10^3/ul (0-0.2); ABS Eosinophils 0.1 10^3/ul (0-0.6); ABS Lymphocytes 0.6 10^3/ul (1.0-4.8); ABS Monocytes 0.5 10^3/ul (0-0.8); ABS Neutrophils 3.5 10^3/ul (1.5-7.7); Eosinophil % 1.9 %; Hematocrit 25 % (42-52); Hemoglobin 8.1 g/dL (14.0-18.0); Lymphocyte % 12.1 %; Mean Corpuscular HGB Conc 32 g/dL (31-36); Mean Corpuscular Hemoglobin 28 pg (27-31); Mean Corpuscular Volume 85 fL (80-94); Mean Platelet Volume 6.7 fL (7.4-10.4); Platelet Count 189 10^3/uL (150-450); Red Blood Count 2.92 10^6 /uL (4.18-5.48); Red Cell Distribution Width 17 % (10-15); White Blood Count 4.8 10^3/uL (3.5-10.8)
[2019-07-10 23:35] LABS: Albumin 3.6 g/dL (3.2-5.2); Albumin/Globulin Ratio 1.2 (1-3); BUN/Creatinine Ratio 16.3 (8-20); C Reactive Protein 5.92 mg/L (<8.01); Calcium 8.7 mg/dL (8.6-10.3); EGFR African American 93.7 (>60); EGFR Non-African American 77.5 (>60); Globulin 3.1 g/dL (2-4); Potassium 4.2 mmol/L (3.5-5.0); Total Bilirubin 0.3 mg/dL (0.2-1.0); Total Protein 6.7 g/dL (6.4-8.9)
--- NOTE | 2019-07-11 00:57 | ED ---
Dizziness - HPI Summary HPI Summary: Patient is an 89 y/o M presenting to the ED for a chief complaint of dizziness after a fall on 07/10/19. Patient is present with his daughter. Patient's daughter states the patient complained of lightheadedness and dizziness before having a fall, and has recently had worsening shortness of breath. Patient reports he was asymptomatic over the last weekend. He notes shortness of breath performing every day tasks such as tying his shoes. He also admits decreased appetite, intermittent bilateral LE edema, and occasional cough. Patient denies fever, chills, abdominal pain, vomiting, or diarrhea. PMHx is significant for lung cancer, in remission, and CVA. PSHx is significant for pacemaker placement and cardiac stent placement in May 2019. Patient was recently seen at [facility] in June 2019 for a GI bleed. He is a former smoker. Patient lives with his and is retired. - History Of Current Complaint Chief Complaint: EDGeneral Stated Complaint: SOB PER PT Time Seen by Provider: 07/11/19 00:39 Hx Obtained From: Patient, Family/Energy Economist - Daughter Onset/Duration: Still Present Timing: Constant Severity Initially: Moderate Severity Currently: Moderate Character: Dizzy Aggravating Factor(s): Nothing Alleviating Factor(s): Nothing Associated Signs And Symptoms: Positive: SOB. Negative: Vomiting, Diarrhea, Fever, Chills - Allergies/Home Medications Allergies/Adverse Reactions: Allergies Allergy/AdvReac Type Severity Reaction Status Date / Time Penicillins Allergy Unknown Verified 07/10/19 20:45 Reaction Details Home Medications: Home Medications Oxymetazoline 0.05% NASAL SPR* [Afrin 0.05% NASAL SPRAY*] 1 spray NASAL QPM 06/19 [History Confirmed 07/11/19] PMH/Surg Hx/FS Hx/Imm Hx Previously Healthy: Yes Endocrine/Hematology History: Reports: Hx Anticoagulant Therapy - Coumadin, Hx Blood Transfusions, Hx Diabetes - "PRE DM", Hx Anemia, Hx Unexplained Bleeding Cardiovascular History: Reports: Hx Auto Implanted Cardiovert Defib, Hx Hypercholesterolemia, Hx Hypertension, Hx Pacemaker/ICD, Hx Valvular Heart Disease - artificial valve Denies: Hx Congestive Heart Failure GI History: Reports: Hx Gastrointestinal Bleed History: Denies: Hx Dialysis, Hx Renal Disease Musculoskeletal History: Sensory History: Denies: Hx Contacts or Glasses, Hx Eye Prosthesis, Hx Legally Blind, Hx Deafness, Hx Hearing Aid Opthamlomology History: Denies: Hx Contacts or Glasses, Hx Eye Prosthesis, Hx Legally Blind EENT History: Denies: Hx Deafness Neurological History: Reports: Hx Transient Ischemic Attacks (TIA) Denies: Hx Developmental Delay - Cancer History Cancer Type, 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; LUNG CA Hx Chemotherapy: No - Surgical History Surgical History: Yes Surgery Procedure, Year, and Place: PACEMAKER, artificial heart valve, CABG - Immunization History Date of Tetanus Vaccine: utd Date of Influenza Vaccine: unk Infectious Disease History: No Infectious Disease History: Denies: Traveled Outside the [place] in Last 30 Days - Family History Known Family History: Positive: Cardiac Disease - Father - CAD and NH, Other - Mother -- stomach CA - Social History Occupation: Retired Lives: With Family Alcohol Use: None Hx Substance Use: No Substance Use Type: Reports: None Hx Tobacco Use: Yes Smoking Status (MU): Former Smoker Have You Smoked in the Last Year: No Review of Systems Positive: Other - Positive decreased appetite. Negative: Fever, Chills Positive: Cough Negative: Abdominal Pain, Vomiting, Diarrhea Positive: Edema - Bilateral LE Neurological: Other - Positive lightheadedness and dizziness All Other Systems Reviewed And Are Negative: Yes Physical Exam - Summary Physical Exam Summary: Appearance: Elderly generally well-appearing male, Well-nourished, lying in bed comfortably in no respiratory distress. Skin: Warm, dry, no obvious rash Eyes: sclera anicteric, no conjunctival pallor HEENT: mucous membranes moist, pharynx appears normal. There are no external signs of head trauma. Neck: Supple, nontender Respiratory: No signs of respiratory distress. Dullness to percussion in the left base, no focal signs of consolidation, no wheezing. Cardiovascular: Normal S1, S2. No murmurs. Normal distal pulses in tibial and radial bilaterally. Regular rhythm with mechanical heart sounds consistent with valve replacement. Abdomen: Soft, nontender, normal active bowel sounds present Musculoskeletal: Normal, Strength/ROM Intact. 2+ pitting edema which is fairly symmetric. Neurological: A&Ox3, awake and alert, mentation is normal, speech is fluent and appropriate Psychiatric: affect is normal, does not appear anxious or depressed Triage Information Reviewed: Yes Vital Signs On Initial Exam: Initial Vitals Temp Pulse Resp BP Pulse Ox 98.3 F 74 28 151/69 95 07/10/19 20:41 07/10/19 20:41 07/10/19 20:41 07/10/19 20:41 07/10/19 20:41 Vital Signs Reviewed: Yes Procedures - Sedation Patient Received Moderate/Deep Sedation with Procedure: No Diagnostics - Vital Signs Vital Signs Temp Pulse Resp BP Pulse Ox 07/10/19 22:45 98.7 F 69 20 146/54 95 07/10/19 20:41 98.3 F 74 28 151/69 95 - Laboratory Lab Results: Lab Results 07/10/19 07/10/19 07/10/19 Range/Units 23:09 23:09 23:09 WBC 4.8 (3.5-10.8) 10^3/uL RBC 2.92 L (4.18-5.48) 10^6 /uL Hgb 8.1 L (14.0-18.0) g/dL Hct 25 L (42-52) % MCV 85 (80-94) fL MCH 28 (27-31) pg MCHC 32 (31-36) g/dL RDW 17 H (10-15) % Plt Count 189 (150-450) 10^3/uL MPV 6.7 L (7.4-10.4) fL Neut % (Auto) 74.4 % Lymph % (Auto) 12.1 % [place] % (Auto) 10.5 % Eos % (Auto) 1.9 % Baso % (Auto) 1.1 % Absolute Neuts (auto) 3.5 (1.5-7.7) 10^3/ul Absolute Lymphs (auto) 0.6 L (1.0-4.8) 10^3/ul Absolute Monos (auto) 0.5 (0-0.8) 10^3/ul Absolute Eos (auto) 0.1 (0-0.6) 10^3/ul Absolute Basos (auto) 0.1 (0-0.2) 10^3/ul Absolute Nucleated RBC 0.0 10^3/ul Nucleated RBC % 0.0 Sodium 139 (135-145) mmol/L Potassium 4.2 (3.5-5.0) mmol/L Chloride 103 (101-111) mmol/L Carbon Dioxide 33 H (22-32) mmol/L Anion Gap 3 (2-11) mmol/L BUN 15 (6-24) mg/dL Creatinine 0.92 (0.67-1.17) mg/dL Est GFR ( Amer) 93.7 (>60) Est GFR (Non-Af Amer) 77.5 (>60) BUN/Creatinine Ratio 16.3 (8-20) Glucose 105 H (70-100) mg/dL Lactic Acid 0.8 (0.5-2.0) mmol/L Calcium 8.7 (8.6-10.3) mg/dL Total Bilirubin 0.30 (0.2-1.0) mg/dL AST 11 L (13-39) U/L ALT 7 (7-52) U/L Alkaline Phosphatase 74 (34-104) U/L C-Reactive Protein 5.92 (<8.01) mg/L Total Protein 6.7 (6.4-8.9) g/dL Albumin 3.6 (3.2-5.2) g/dL Globulin 3.1 (2-4) g/dL Albumin/Globulin Ratio 1.2 (1-3) Lipase 23 (11.0-82.0) U/L Result Diagrams: 07/10/19 23:09 07/10/19 23:09 Lab Statement: Any lab studies that have been ordered have been reviewed, and results considered in the medical decision making process. - Radiology Chest X-ray Radiology Interpretation Completed By: ED Physician Summary of Radiographic Findings: Chest X-ray IMPRESSION: left-sided pleural effusion, no change from chest x-ray performed 2 months prior. Otherwise, no acute process. Reviewed and interpreted by Dr. Shepherd, pending official radiology report. Dizzy Course/Dx - Course Course Of Treatment: Patient is an 89 y/o M presenting to the ED for a chief complaint of dizziness after a fall on 07/10/19. Patient is present with his daughter. Patient's daughter states the patient complained of lightheadedness and dizziness before having a fall, and has recently had worsening shortness of breath. Patient reports he was asymptomatic over the last weekend. He notes shortness of breath performing every day tasks such as tying his shoes. He also admits decreased appetite, intermittent bilateral LE edema, and occasional cough. Patient denies fever, chills, abdominal pain, vomiting, or diarrhea. PMHx is significant for lung cancer, in remission, and CVA. PSHx is significant for pacemaker placement and cardiac stent placement in May 2019. Patient was recently seen at [facility] in June 2019 for a GI bleed. He is a former smoker. On exam, elderly, generally well-appearing male in no respiratory distress, dullness to percussion in the left base, no focal signs of consolidation, no wheezing. Regular rhythm with mechanical heart sounds consistent with valve replacement. 2+ pitting edema which is fairly symmetric. Laboratory abnormal findings: RBC 2.92, Hgb 8.1, Hct 25, RDW 17, MPV 6.7, absolute lymphs 0.6, carbon dioxide 33, glucose 105, AST 11. Chest X-ray IMPRESSION: left-sided pleural effusion, no change from chest x-ray performed 2 months prior. Otherwise, no acute process. Patient will be discharged with a diagnosis of dyspnea. Follow up with PCP in 2-3 days. - Diagnoses Provider Diagnoses: Dyspnea, Nausea alone Discharge ED - Sign-Out/Discharge Documenting (check all that apply): Patient Departure - Discharge - Discharge Plan Condition: Good Disposition: HOME Prescriptions: Ondansetron ODT TAB* [Zofran 4 MG Odt TAB*] 8 mg PO Q6H PRN #10 tab.odt PRN Reason: Nausea Patient Education Materials: Dyspnea (ED) Referrals: Alonso Marquez MD [Primary Care Provider] - Additional Instructions: Your blood work and chest xray look stable. Pulse oximetry at rest and with walking do not show any problem with oxygenation, and your lungs sound good when I listen with the stethoscope. I am not sure why you are feeling somewhat more short of breath, but we haven't turned up any sign of anything dangerous. Sometimes it takes time for an illness to develop to a point where a diagnosis can be made, so pay attention to your body and if your symptoms seem to be worsening, or you develop new symptoms like chest pain, a productive cough, or fever, we should see you back. - Billing Disposition and Condition Condition: GOOD Disposition: Home - Attestation Statements Document Initiated by Scribe: Yes Documenting Scribe: Delmis Manriquez Provider For Whom Scribe is Documenting (Include Credential): Sanket Shepherd MD Scribe Attestation: I, Delmis Manriquez, scribed for Sanket Shepherd MD on 07/11/19 at 0646. Scribe Documentation Reviewed: Yes Provider Attestation: The documentation as recorded by the marjorieibeDelmis accurately reflects the service I personally performed and the decisions made by me, Sanket Shepherd MD Status of Scribe Document: Viewed
[2019-07-11 03:06] LABS: Urine Appearance Clear; Urine Bilirubin Negative (Negative); Urine Blood Negative (Negative); Urine Color Yellow; Urine Glucose Negative (Negative); Urine Ketones Negative (Negative); Urine Nitrite Negative (Negative); Urine Protein Negative (Negative); Urine Specific Gravity 1.023 (1.010-1.030); Urine Urobilinogen Negative (Negative)
[2019-07-11] MEDS ORDERED: Ondansetron ODT TAB* 4 MG SL ONE (04:15)
[2019-07-11 04:53] VITALS: BP 155/67
[2019-07-11 05:08] LABS: INR 1.96 (0.82-1.09)
== END 2019-07-11 04:50 | disposition home or self-care (01) ==
LOC: ED 20:35
DX: R06.00 Dyspnea, unspecified (principal); R11.0 Nausea; R42 Dizziness and giddiness; Z79.01 Long term (current) use of anticoagulants; Z95.810 Presence of automatic (implantable) cardiac defibrillator; E78.00 Pure hypercholesterolemia, unspecified; I10 Essential (primary) hypertension; Z95.4 Presence of other heart-valve replacement; Z87.891 Personal history of nicotine dependence
CPT/HCPCS: 36415; 71046; 80053; 81003; 83605; 83690; 85025; 85610; 86140; 99283; A9270-GY

== ENCOUNTER 2019-09-18 16:00 | Inpatient (IN) | payer MEDICARE, BC ==
--- OUTSIDE RECORDS SUMMARY | 2019-09-18 16:25 | XMS REPORT | Continuity of Care Document ---
:1930 External Reference #:[id number] Author Name Lily Eubanks N.P. (transmitted by agent of provider Marci Hernandez) Address [address] [place] [address] Care Team Providers Name Role Phone Alonso Marquez MD - Family Care Team Information [employer] Operator [phone] Medicine Bc Jo MD - Hematology Care Team Information [employer] Operator Remy Mendez MD - Radiation Care Team Information [employer] Machine Operator [phone] Oncology Problems Active Problems Provider Date Atrial [...] M.D. 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 Onset: 06/04/2019 Paroxysmal ventricular tachycardia Anna Cerrato M.D. Onset: 08/28/2019 Longstanding persistent atrial fibrillation Anna Cerrato M.D. Onset: 2019 Social History Type Date Description Comments Sex Unknown Tobacco Use Start: Unknown quit smoking 1986 ETOH Use Rarely consumes beer Tobacco Use Start: Unknown End: Patient is a former Unknown smoker Recreational Drug Use Denies Drug Use Tobacco Use Start: Unknown Heavy tobacco smoker (more than 10 cigarettes/day) Smoking Status Reviewed: 09/06/19 Heavy tobacco smoker (more than 10 cigarettes/day) Exercise Type/Frequency Exercises rarely waking 500 to 800 steps a day Allergies, Adverse Reactions, Alerts Active Allergies Reaction Severity Comments Date Penicillin 10/03/2015 Inactive Allergies NKDA 02/25/2014 Medications Active Medications SIG Qnty Indications Ordering Date Provider Torsemide 1 by mouth 4 days/ 60tabs R60.0 Anna Cerrato, 08/28/2019 20mg Tablets week M.D. Spironolactone 1 by mouth 3 times 36tabs Anna Cerrato, 08/21/2019 25mg per week. M.D. Tablets Oxygen d/c all oxygen , 1units Anna Cerrato, 09/05/2017 [facility] [place] concentrator Arely portable oxygen and all tanks Amoxicillin take 4 tabs by 4tabs Anna Cerrato, 02/25/2014 500mg mouth 1 hour prior M.D. Tablets to dental procedures Carvedilol 1 tab by mouth 90tabs Anna Cerrato, 25mg Tablets twice a day M.D. Metformin HCL 1 tablet daily Unknown 500mg Tablets Coumadin as directed Unknown Omeprazole 1 by mouth twice a Unknown 20mg day Capsules DR Diego Rojas 2 take one cap in the Unknown moring and one cap [facility]red[facility] 2 Capsules in the evening Latanoprost as directed Unknown 0.005% Solution Iron 1 by mouth every Unknown 325(65Fe) mg day Tablets Amiodarone HCL 1 tab by mouth 90tabs Lily Eubanks, 200mg daily N.P. Tablets Brilinta 1 tab by mouth 180tabs Anna Cerrato, 90mg Tablets twice a day M.D. Immunizations Description No Information Available Vital Signs Date Vital Result Comment 09/06/2019 10:23am Weight 199.00 lb Heart Rate 73 /min BP Systolic Sitting 100 mmHg BP Diastolic Sitting 50 mmHg Respiratory Rate 20 /min 08/28/2019 11:22am Height 70 inches 5'10" Weight 206.00 lb with shoes Heart Rate 80 /min radial BP Systolic 98 mmHg Lue, reg cuff BP Diastolic 48 mmHg Lue, reg cuff BP Systolic Sitting 104 mmHg Lue, reg cuff after standing BP Diastolic Sitting 58 mmHg Lue, reg cuff after standing BP Systolic Standing 120 mmHg Lue reg cuff BP Diastolic Standing 52 mmHg Lue reg cuff Respiratory Rate 20 /min BMI (Body Mass Index) 29.6 kg/m2 Ejection Fraction 50-55% echo 05/16/19 Results Test Acquired Date Facility Test Result H/L Range Note Type & Screen 06/03/2019 [facility] Patient Blood O Positive [address] [place] [address] [phone] Antibody Screen NEGATIVE Type & Screen 06/03/2019 [facility] Patient Blood Type O Positive [address] [place] [address] [phone] Antibody Screen NEGATIVE Laboratory test 06/03/2019 [facility] Packed SEE RESULTS [address] Cells BELO <[place] [address] NOTE> [phone] Inr/Protime 06/03/2019 [facility] Inr 5.16 Critical 0.[address] high -1.0 [place] [address] [phone] Stool Occult 06/03/2019 [facility] Stool SEE RESULT 4 Blood, Screen [address] [place] [address] Blood, [phone] Screen CBC Auto Diff 06/03/2019 [facility] White Blood 12.0 High 3.5 - [address] Count 10^3/uL 10.8 [place] [address] [phone] Red Blood Count 2.80 10^6/uL Low 4.18-5.48 Hemoglobin 8.1 g/dL Low 14.0-18.0 Hematocrit 25 % Low 42-52 Mean Corpuscular Volume 89 fL Normal 80-94 Mean Corpuscular Hemoglobin 29 pg Normal 27-31 Mean Corpuscular HGB Conc 33 g/dL Normal 31-36 Red Cell Distribution Width 15 % Normal 10-15 Platelet Count 210 10^3/uL Normal 150-450 Mean Platelet Volume 7.0 fL Low 7.4-10.4 Abs Neutrophils 10.2 10^3/uL High 1.5-7.7 Abs Lymphocytes 0.8 10^3/uL Low 1.0-4.8 Abs Monocytes 0.8 10^3/uL Normal 0-0.8 Abs Eosinophils 0.1 10^3/uL Normal 0-0.6 Abs Basophils 0.1 10^3/uL Normal 0-0.2 Abs Nucleated RBC 0.0 10^3/uL Granulocyte % 85.2 % Lymphocyte % 6.9 % Monocyte % 6.7 % Eosinophil % 0.5 % Basophil % 0.7 % Nucleated Red Blood Cells % 0.0 Laboratory 06/03/2019 [facility] Lactic 2.1 mmol/L Critical 0.5-2.0 5 test finding [address] [place] [address] [phone] Comp Metabolic 06/03/2019 [facility] Sodium 140 mmol/L Normal 135-[address] [place] [address] [phone] Potassium 3.6 mmol/L Normal 3.5-5.0 Chloride 101 mmol/L Normal 101-111 Co2 Carbon Dioxide 29 mmol/L Normal 22-32 Anion Gap 10 mmol/L Normal 2-11 Glucose 132 mg/dL High 70-100 Blood Urea Nitrogen 45 mg/dL High 6-24 Creatinine 1.12 mg/dL Normal 0.67-1.17 BUN/Creatinine Ratio 40.2 High 8-20 Calcium 9.3 mg/dL Normal 8.6-10.3 Total Protein 6.7 g/dL Normal 6.4-8.9 Albumin 3.8 g/dL Normal 3.2-5.2 Globulin 2.9 g/dL Normal 2-4 Albumin/Globulin Ratio 1.3 Normal 1-3 Total Bilirubin 0.50 mg/dL Normal 0.2-1.0 Alt 7 U/L Normal 7-52 Ast 12 U/L Low 13-39 Egfr Non- 61.7 >60 Egfr 74.7 >60 6 Alkaline Phosphatase 59 U/L Normal 34-104 Laboratory test 06/03/2019 [facility] Magnesium 2.0 mg/dL Normal 1.9-2.7 [address] [place] [address] [phone] Troponin-I (TnI) 0.02 ng/mL <0.04 7 TSH (Thyroid Stim Horm) 2.60 mcIU/mL Normal 0.34-5.60 Comp Metabolic 05/16/2019 [facility] Sodium 138 mmol/L Normal 135-145 Panel [address] [place] [address] [phone] Potassium 3.9 mmol/L Normal 3.5-5.0 Chloride 97 [...] Egfr Non- 76.5 >60 Egfr 92.6 >60 8 Laboratory test 05/16/2019 [facility] Magnesium 1.9 mg/dL Normal 1.9-2.7 [address] [place] [address] [phone] Troponin-I (TnI) 0.05 ng/mL Critical high <0.04 9 TSH (Thyroid Stim Horm) 2.59 mcIU/mL Normal 0.34-5.60 Free T4 (Free Thyroxine) 1.02 ng/dL Normal 0.61-1.12 Inr/Protime 05/16/2019 [facility] Inr 3.32 High 0.82-1.[address] [place] [address] [phone] CBC Auto Diff 05/16/2019 [facility] White Blood 6.8 Normal 3.5 -10.[address] Count 10^3/uL [place], [place] [address] [phone] Red Blood Count 3.76 10^6/uL Low 4.18-5.48 [...] Nucleated Red Blood Cells % 0.0 1 WEAKNESS,DIZZINESS PER PT 2 SEE RESULTS BELOW [id number] OP PC TRANSFUSED 06/04/19 1204 [id number] OP PC TRANSFUSED 06/03/19 1825 3 Verbal to [id number] by [id number] at 1519 on 06/03/19. Results read back accurately. Standard intensity warfarin therapeutic range: 2.0-3.0 High intensity warfarin therapeutic range: 2.5-3.5 4 SEE RESULT BELOW Name: WAYNE LI : [address]: Tonya Jain MD Acct: [id number] Unit: [id number] AGE: 89 Location: ED Re06/03/19 SEX: M Status: REG ER SPEC: [id number] LOURDES: 06/03/19-[address]: Tonya Jain MD REQ: [id number] RECD: 06/03/19-1508 STATUS: ALDO FERRERA DR: Alonso Cerrato MD _ SOURCE: STOOL SPDESC: ORDERED: Occult Bl, Scn Procedure Result Reported Site Stool Occult Blood (1) Final 06/03/19- 1515 ML Stool Occult Blood Positive Collection Date (1) 06/03/19 * ML - Main Lab . END OF REPORT DEPARTMENT OF PATHOLOGY, [address] [place] [address] Stalin Ramírez M.D. Director [facility] # [id number] 5 Critical Result LACT:2.1 Called to [id number] at: 14:05:47 by:[email or web address] Read back by:[email or web address] [facility] Severe Sepsis and Septic Shock Management Bundle Measure requires all lactic acids initially measuring >2.0 mmol/L be repeated. 6 Because ethnic data is not always readily [...] 15-29 5 Kidney failure <15 (or dialysis) 7 Troponin-I testing on Plasma Separator Tubes (PST) has a known false positive rate of 0.20-0.40%. All positive troponins reflex immediately to secondary confirmatory testing. Using the Team My Mobile DxI 800 Access Immunoassay systems, the 99th percentile upper reference limit was demonstrated to be < 0.03 ng/mL. 8 Because ethnic data is not always readily [...] 15-29 5 Kidney failure <15 (or dialysis) 9 Result TnIDx:0.05 Called to [id number] at: 12:58:05 by:[id number] Read back by: [id number] Troponin-I testing on Plasma Separator Tubes (PST) has a known false positive rate of 0.20-0.40%. All positive troponins reflex immediately to secondary confirmatory testing. Using the Team My Mobile DxI 800 Access Immunoassay systems, the 99th percentile upper reference limit was demonstrated to be < 0.03 ng/mL. 10 Standard intensity warfarin therapeutic range: 2.0-3.0 High intensity warfarin therapeutic range: 2.5-3.5 Procedures Date Code Description Status 09/06/2019 23581 EKG Tracing & Interpretation Completed 08/17/2019 28252 Dest Lesion Each Addl Lesion 2 Through 14 Each Completed 08/17/2019 16189 Destruction ALL Benign Or Premalignant Lesion (Other Than Completed [place] 05/31/2019 30989 EKG Tracing & Interpretation Completed 05/17/2019 51919 Treadmill Interp/Report Only Completed 05/17/2019 53957 Stress Test Supervsn W/Out I/R Completed 05/17/2019 09952 EKG, Interpretation Only Completed 05/16/2019 37529 ECHO Transthorasic Realtime 2D W Doppler & Color Flow Hosp Completed 05/16/2019 22510 EKG, Interpretation Only Completed 05/16/2019 50808 Dest Lesion Each Addl Lesion 2 Through 14 Each Completed 05/16/2019 84943 Destruction ALL Benign Or Premalignant Lesion (Other Than Completed [place] 05/16/2019 54113 Each Separate/Additional Lesion Completed 05/16/2019 82059 Tangential Biopsy Of Skin, Single Lesion Completed Medical Devices Description No Information Available Encounters Type Date Location Provider Dx Diagnosis Office Visit 08/28/2019 [facility] Anna Cerrato, I25.10 Athscl heart 11:15a Of Suzette PatelStevie disease of [place] coronary artery w/o ang pctrs Z95.2 Presence of prosthetic heart valve I48.11 Longstanding persistent atrial fibrillation I47.2 Ventricular tachycardia D50.0 Iron deficiency anemia secondary to blood loss (chronic) R60.0 Localized edema I50.30 Unspecified diastolic (congestive) heart failure Office Visit 08/17/2019 9:30a [facility] Liz Quezada, Z08 Encntr for MD follow-up exam after trtmt for malignant neoplasm Z85.828 Personal history of other malignant neoplasm of skin L57.0 Actinic keratosis Office Visit 06/08/2019 [facility] K92.2 Gastrointestinal 10:27a Assgaurang perez M.D. hemorrhage, Hospitalists unspecified I25.10 Athscl heart disease of [place] coronary artery w/o ang pctrs I48.91 Unspecified atrial fibrillation E11.9 Type 2 diabetes mellitus without complications Z95.2 Presence of prosthetic heart valve Office Visit 06/07/2019 [facility] K92.2 Gastrointestinal 10:27a Assgaurang perez M.D. hemorrhage, Hospitalists unspecified D50.0 Iron deficiency anemia secondary to blood loss (chronic) I25.10 Athscl heart disease of [place] coronary artery w/o ang pctrs I48.91 Unspecified atrial fibrillation E11.9 Type 2 diabetes mellitus without complications I50.9 Heart failure, unspecified Z95.2 Presence of prosthetic heart valve Office Visit 06/06/2019 [facility] K92.2 Gastrointestinal 10:26a Assgaurang perez M.D. hemorrhage, Hospitalists unspecified D50.0 Iron deficiency anemia secondary to blood loss (chronic) I25.10 Athscl heart disease of [place] coronary artery w/o ang pctrs I48.91 Unspecified atrial fibrillation E11.9 Type 2 diabetes mellitus without complications I50.9 Heart failure, unspecified Z95.2 Presence of prosthetic heart valve Office Visit 06/05/2019 [facility] Viviana K92.2 Gastrointestinal 10:26a Assgaurang perez M.D. hemorrhage, Hospitalists unspecified D50.0 Iron deficiency anemia secondary to blood loss (chronic) I48.91 Unspecified atrial fibrillation E11.9 Type 2 diabetes mellitus without complications I50.9 Heart failure, unspecified I25.10 Athscl heart disease of [place] coronary artery w/o ang pctrs Z95.2 Presence of prosthetic heart valve Office Visit 06/04/2019 [facility] Viviana K92.2 Gastrointestinal 10:25a Assocgaurang M.D. hemorrhage, Hospitalists unspecified D50.0 Iron deficiency anemia secondary to blood loss (chronic) I48.91 Unspecified atrial fibrillation E11.9 Type 2 diabetes mellitus without complications Z95.2 Presence of prosthetic heart valve I50.9 Heart failure, unspecified Office Visit 06/03/2019 [facility] Anna Auguster, I48.20 Chronic atrial 5:22p Cardiology Of .DStevie fibrillation, Chief Supply Chain Officer unspecified Z95.2 Presence of prosthetic heart valve Z79.01 alf (current) use of anticoagulants K92.2 Gastrointestinal hemorrhage, unspecified Z98.61 Coronary angioplasty status Office Visit 06/03/2019 [facility] Sharmila K92.2 Gastrointestinal 10:24a Assgaurang perez [facility] hemorrhage, Hospitalists HERB Mccall unspecified D64.9 Anemia, unspecified I25.10 Athscl heart disease of [place] coronary artery w/o ang pctrs I10 Essential (primary) hypertension Z95.2 Presence of prosthetic heart valve Z79.01 alf (current) use of anticoagulants Office Visit 05/31/2019 2:00p [facility] Lily Marcelino I47.2 Ventricular Of Chief Supply Chain Officer Foster, N.P. 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 Office Visit 05/17/2019 12:15p [facility] Govind Hilton R79.89 Other specified Arely Packer abnormal findings of blood chemistry R94.31 Abnormal electrocardiogram [ECG] [EKG] I25.10 Athscl heart disease of [place] coronary artery w/o ang pctrs I47.2 Ventricular tachycardia I49.01 Ventricular fibrillation Office Visit 05/17/2019 [facility] Hiram Ragland I47.2 Ventricular 1:02p Assoc,pc Mimbres, M.D.,FACP tachycardia Hospitalists Z95.810 Presence of automatic (implantable) cardiac defibrillator Office Visit 05/16/2019 11:07a [facility] Anna Cerrato, I47.2 Ventricular Of Chief Supply Chain Officer M.D. tachycardia 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 Office Visit 05/16/2019 [facility] I47.2 Ventricular 1:01p Assoc,pc Vero, NATIONAL SECRETARY tachycardia Hospitalists 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 Office Visit 05/16/2019 8:00a [facility] Liz Boschhens, L82.1 Other seborrheic MD keratosis D22.5 Melanocytic nevi of trunk D22.61 Melanocytic nevi of right upper limb, including shoulder D22.4 Melanocytic nevi of scalp and neck Z08 Encntr for follow-up exam after trtmt for malignant neoplasm Z85.828 Personal history of other malignant neoplasm of skin D48.5 Neoplasm of uncertain behavior of skin L57.0 Actinic keratosis Assessments Date Code Description Provider 09/06/2019 I25.10 Atherosclerotic heart disease of Lily S. Raimundo, N.P. [place] coronary artery without angina pectoris 09/06/2019 I48.11 Longstanding persistent atrial Lily S. Foster, N.P. fibrillation 09/06/2019 I47.2 Ventricular tachycardia Lily S. Foster, N.P. 09/06/2019 R60.0 Localized edema Lily S. Foster, N.P. 09/06/2019 I50.30 Unspecified diastolic (congestive) Lily S. Foster, N.P. heart failure 09/06/2019 Z95.2 Presence of prosthetic heart valve Lily S. Foster, N.P. 08/28/2019 I25.10 Atherosclerotic heart disease of Anna Cerrato M.D. [place] coronary artery without angina pectoris 08/28/2019 Z95.2 Presence of prosthetic heart valve Anna Cerrato M.D. 08/28/2019 I48.11 Longstanding persistent atrial Anna Cerrato M.D. fibrillation 08/28/2019 I47.2 Ventricular tachycardia Anna Cerrato M.D. 08/28/2019 D50.0 Iron deficiency anemia secondary to Anna Cerrato M.D. blood loss (chronic) 08/28/2019 R60.0 Localized edema Anna Cerrato M.D. 08/28/2019 I50.30 Unspecified diastolic (congestive) Anna Cerrato M.D. heart failure 08/17/2019 Z08 Encounter for follow-up examination Liz Quezada MD after completed treatment for malignant neoplasm 08/17/2019 Z85.828 Personal history of other malignant Liz Quezada MD neoplasm of skin 08/17/2019 L57.0 Actinic keratosis Liz Quezada MD 06/08/2019 K92.2 Gastrointestinal hemorrhage, Wu Gómez M.D. unspecified 06/08/2019 I25.10 Atherosclerotic heart disease of Wu Gómez M.D. [place] coronary artery without angina pectoris 06/08/2019 I48.91 Unspecified atrial fibrillation Wu Gómez M.D. 06/08/2019 E11.9 Type 2 diabetes mellitus without Wu Gómez M.D. complications 06/08/2019 Z95.2 Presence of prosthetic heart valve Wu Gómez M.D. 06/07/2019 K92.2 Gastrointestinal hemorrhage, Michelle Rebolledo M.D. unspecified 06/07/2019 D50.0 Iron deficiency anemia secondary to Michelle Rebolledo M.D. blood loss (chronic) 06/07/2019 I25.10 Atherosclerotic heart disease of Michelle Rebolledo M.D. [place] coronary artery without angina pectoris 06/07/2019 I48.91 Unspecified atrial fibrillation Michelle Rebolledo M.D. 06/07/2019 E11.9 Type 2 diabetes mellitus without Michelle Rebolledo M.D. complications 06/07/2019 I50.9 Heart failure, unspecified Michelle Rebolledo M.D. 06/07/2019 Z95.2 Presence of prosthetic heart valve Michelle Rebolledo M.D. 06/06/2019 K92.2 Gastrointestinal hemorrhage, Michelle Rebolledo M.D. unspecified 06/06/2019 D50.0 Iron deficiency anemia secondary to Michelle Rebolledo M.D. blood loss (chronic) 06/06/2019 I25.10 Atherosclerotic heart disease of Michelle Rebolledo M.D. [place] coronary artery without angina pectoris 06/06/2019 I48.91 Unspecified atrial fibrillation Michelle Rebolledo M.D. 06/06/2019 E11.9 Type 2 diabetes mellitus without Michelle Rebolledo M.D. complications 06/06/2019 I50.9 Heart failure, unspecified Michelle Rebolledo M.D. 06/06/2019 Z95.2 Presence of prosthetic heart valve Michelle Rebolledo M.D. 06/05/2019 K92.2 Gastrointestinal hemorrhage, Viviana Foote M.D. unspecified 06/05/2019 D50.0 Iron deficiency anemia secondary to Viviana Foote M.D. blood loss (chronic) 06/05/2019 I48.91 Unspecified atrial fibrillation Viviana Foote M.D. 06/05/2019 E11.9 Type 2 diabetes mellitus without Viviana Foote M.D. complications 06/05/2019 I50.9 Heart failure, unspecified Viviana Foote M.D. 06/05/2019 I25.10 Atherosclerotic heart disease of Viviana Foote M.D. [place] coronary artery without angina pectoris 06/05/2019 Z95.2 Presence of prosthetic heart valve Viviana Foote M.D. 06/04/2019 K92.2 Gastrointestinal hemorrhage, Viviana Foote M.D. unspecified 06/04/2019 D50.0 Iron deficiency anemia secondary to Viviana Foote M.D. blood loss (chronic) 06/04/2019 I48.91 Unspecified atrial fibrillation Viviana Foote M.D. 06/04/2019 E11.9 Type 2 diabetes mellitus without Viviana Foote M.D. complications 06/04/2019 Z95.2 Presence of prosthetic heart valve Viviana Foote M.D. 06/04/2019 I50.9 Heart failure, unspecified Viviana Foote M.D. 06/03/2019 I48.20 Chronic atrial fibrillation, Anna Cerrato M.D. unspecified 06/03/2019 Z95.2 Presence of prosthetic heart valve Anna Cerrato M.D. 06/03/2019 Z79.01 alf (current) use of Anna Cerrato M.D. anticoagulants 06/03/2019 K92.2 Gastrointestinal hemorrhage, Anna Cerrato M.D. unspecified 06/03/2019 Z98.61 Coronary angioplasty status Anna Cerrato M.D. 06/03/2019 K92.2 Gastrointestinal hemorrhage, Sharmila Mccall, NATIONAL SECRETARY unspecified 06/03/2019 D64.9 Anemia, unspecified Sharmila Mccall, NATIONAL SECRETARY 06/03/2019 I25.10 Atherosclerotic heart disease of Sharmila Mccall, NATIONAL SECRETARY [place] coronary artery without angina pectoris 06/03/2019 I10 Essential (primary) hypertension Sharmila Mccall, NATIONAL SECRETARY 06/03/2019 Z95.2 Presence of prosthetic heart valve Sharmila Mccall, NATIONAL SECRETARY 06/03/2019 Z79.01 alf (current) use of Sharmila Mccall, NATIONAL SECRETARY anticoagulants 05/31/2019 I48.20 Chronic atrial fibrillation, Anna Cerrato M.D. unspecified 05/31/2019 I47.2 Ventricular tachycardia Lily S. Raimundo, N.P. 05/31/2019 I25.10 Atherosclerotic heart disease of Lily S. Raimundo, N.P. [place] coronary artery without angina pectoris 05/31/2019 I48.20 Chronic atrial fibrillation, Lily S. Foster, N.P. unspecified 05/31/2019 I35.0 Nonrheumatic aortic (valve) stenosis Lily S. Foster, N.P. 05/31/2019 I44.2 Atrioventricular block, complete Lily S. Foster, N.P. 05/31/2019 Z95.2 Presence of prosthetic heart valve Lily S. Foster, N.P. 05/17/2019 R94.31 Abnormal electrocardiogram [ECG] Lesley Segundo MD, FACC, [EKG] FSCAI 05/17/2019 R79.89 Other specified abnormal findings of Govind Packer M.D. blood chemistry 05/17/2019 I47.2 Ventricular tachycardia Hiram Burdick M.D.,FACP 05/17/2019 Z95.810 Presence of automatic (implantable) Hiram Burdick M.D.,FACP cardiac defibrillator 05/17/2019 R94.31 Abnormal electrocardiogram [ECG] Govind Packer M.D. [EKG] 05/17/2019 I25.10 Atherosclerotic heart disease of Govind Packer M.D. [place] coronary artery without angina pectoris 05/17/2019 I47.2 Ventricular tachycardia Govind Packer M.D. 05/17/2019 I49.01 Ventricular fibrillation Govind Packer M.D. 05/16/2019 R94.31 Abnormal electrocardiogram [ECG] Leoncio Jang M.D., FACC, [EKG] FASNC 05/16/2019 I47.2 Ventricular tachycardia Rhianna Pham, NATIONAL SECRETARY 05/16/2019 I47.2 Ventricular tachycardia Anna Cerrato M.D. [...] Liz Quezada MD Plan of Treatment Future Appointment(s):11/16/2019 4:00 pm - Anna Cerrato M.D. at [facility]09/14/2019 2:30 pm - Lily Eubanks N.P. at [facility]02/15/2020 10:00 am - Liz Quezada MD at [facility]12/2019 - Lily Eubanks N.P.I25.10 Atherosclerotic heart disease of [place] coronary artery without angina pectorisRecommendations:Continue MyqisnsuG59.11 Longstanding persistent atrial icmthmokrfhgL61.2 Ventricular viyxkyjtenfE46.0 Localized edemaRecommendations:swelling has improved, but ideally we would like 5-6 more pounds to come off.I50.30 Unspecified diastolic (congestive) heart failureFollow up:OV w./ me 09/13 or 09/14 OV LS 2-3 months.Recommendations: Continue Torsemide 20mg QD Call if any dizziness lightheadedness. Continue to check weights.Z95.2 Presence of prosthetic heart valve Functional Status Description No Information Available Mental Status Description No Information Available Referrals Description No Information Available
--- OUTSIDE RECORDS SUMMARY | 2019-09-18 16:25 | XMS REPORT | Continuity of Care Document ---
:1930 External Reference #:[id number] Author Name Lily Eubanks N.P. (transmitted by agent of provider Marci Hernandez) Address [address] [place] [address] Care Team Providers Name Role Phone Alonso Marquez MD - Family Care Team Information Specialty Therapist [phone] Medicine Bc Jo MD - Hematology Care Team Information Specialty Therapist Remy Mendez MD - Radiation Care Team Information Specialty Therapist [phone] Oncology Problems Active Problems Provider Date Atrial [...] M.D. 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 Spironolactone 1 by mouth 3 times 36tabs Anna Cerrato, 08/21/2019 25mg per week. M.D. Tablets Oxygen d/c all oxygen , 1units Anna Cerrato, 09[place]2017 [facility] [place] Arely [place] oxygen and all tanks [...] Available Vital Signs Date Vital Result Comment 09/14/2019 2:08pm Weight 200.00 lb with shoes Heart Rate 70 /min BP Systolic Sitting 110 mmHg Lue reg cuff BP Diastolic Sitting 64 mmHg Lue reg cuff BP Systolic Standing 114 mmHg Lue reg cuff BP Diastolic Standing 60 mmHg Lue reg cuff Respiratory Rate 16 /min Ejection Fraction 50-55% date 05/16/19 ECHO 09/06/2019 10:23am Weight 199.00 lb Heart Rate 73 /min BP Systolic Sitting 100 mmHg BP Diastolic Sitting 50 mmHg Respiratory Rate 20 /min Results Test Acquired Date Facility Test Result H/L Range Note Laboratory test 09/14/2019 [facility] B-Type <pending> finding [address] [place] [address] Peptide BNP [phone] TSH (Thyroid Stim Horm) <pending> Laboratory test 06/03/2019 [facility] Magnesium 2.0 mg/dL Normal 1.9-2.7 finding [address] [place] [address] [phone] Troponin-I (TnI) 0.02 ng/mL <0.04 1 TSH (Thyroid Stim Horm) 2.60 mcIU/mL Normal 0.34-5.60 Comp Metabolic 06/03/2019 [facility] Sodium 140 mmol/L Normal 135-[address] [place] [address] [phone] Potassium 3.6 mmol/L Normal 3.5-5.0 Chloride 101 [...] Egfr Non- 61.7 >60 Egfr 74.7 >60 2 Alkaline Phosphatase 59 U/L Normal 34-104 Laboratory 06/03/2019 [facility] Lactic 2.1 mmol/L Critical 0.5-2.0 3 test finding [address] [place] [address] [phone] CBC Auto Diff 06/03/2019 [facility] White 12.0 High 3.5-10.[address] Blood 10^3/[place] [address] Count [phone] Red Blood Count 2.80 10^6/uL Low 4.18-5.48 [...] % Nucleated Red Blood Cells % 0.0 Stool Occult 06/03/2019 [facility] Stool SEE RESULT 4 Blood, Screen [address] [place] [address] Blood, [phone] Screen Inr/Protime 06/03/2019 [facility] Inr 5.16 Critical 0.[address] high 2-1 [place] [address] .09 [phone] Laboratory 06/03/2019 [facility] Packed SEE RESULTS 6, 7 test finding [address] Cells BELO <[place] [address] NOTE> [phone] Type & Screen 06/03/2019 [facility] Patient O Positive [address] [place] [address] [phone] Antibody Screen NEGATIVE Type & Screen 06/03/2019 [facility] Patient Blood Type O Positive [address] [place], [place] [address] [phone] Antibody Screen NEGATIVE Comp Metabolic 05/16/2019 [facility] Sodium 138 mmol/L Normal 135-[address] [place] [address] [phone] Potassium 3.9 mmol/L Normal 3.5-5.0 Chloride 97 [...] Egfr 92.6 >60 8 Laboratory test 05/16/2019 [facility] Magnesium 1.9 mg/dL Normal 1.9-2.[address] [place] [address] [phone] Troponin-I (TnI) 0.05 ng/mL Critical high <0.04 9 TSH (Thyroid Stim Horm) 2.59 mcIU/mL Normal 0.34-5.60 Free T4 (Free Thyroxine) 1.02 ng/dL Normal 0.61-1.12 Inr/Protime 05/16/2019 [facility] Inr 3.32 High 0.82-1.[address] [place] [address] [phone] CBC Auto Diff 05/16/2019 [facility] White Blood 6.8 Normal 3.5 -10.[address] Count 10^3/uL [place], [place] [id number] [phone] Red Blood Count 3.76 10^6/uL Low 4.18-5.48 [...] Nucleated Red Blood Cells % 0.0 1 Troponin-I testing on Plasma Separator Tubes (PST) has a known false positive rate of 0.20-0.40%. All positive troponins reflex immediately to secondary confirmatory testing. Using the Flared3D DxI 800 Access Immunoassay systems, the 99th percentile upper reference limit was demonstrated to be < 0.03 ng/mL. 2 Because ethnic data is not always readily [...] 15-29 5 Kidney failure <15 (or dialysis) 3 Critical Result LACT:2.1 Called to [id number] at: 14:05:47 by:[id number] Read back by:[id number] [facility] Severe Sepsis and Septic Shock Management Bundle Measure requires all lactic acids initially measuring >2.0 mmol/L be repeated. 4 SEE RESULT BELOW Name: WAYNE LI : [address]: Tonya Jain MD Acct: [id number] Unit: [id number] AGE: 89 Location: ED Re06/03/19 SEX: M Status: REG ER SPEC: [id number] [place]: 06/03/19-[address] [facility] [address]: Tonya Jain MD REQ: [id number] RECD: 06/03/19 STATUS: ALDO FERRERA DR: Alonso Cerrato MD _ SOURCE: STOOL SPDESC: ORDERED: Occult Bl, Scn Procedure Result Reported Site Stool Occult Blood (1) Final 06/03/19- 1515 ML Stool Occult Blood Positive Collection Date (1) 06/03/19 * ML - Main Lab . END OF REPORT DEPARTMENT OF PATHOLOGY, [address] [place] [address] Stalin Ramírez M.D. Director [facility] # [id number] 5 Verbal to [id number] by [id number] at 1519 on 06/03/19. Results read back accurately. Standard intensity warfarin therapeutic range: 2.0-3.0 High intensity warfarin therapeutic range: 2.5-3.5 6 WEAKNESS,DIZZINESS PER PT 7 SEE RESULTS BELOW [id number] OP PC TRANSFUSED 06/04/19 1204 [id number] OP PC TRANSFUSED 06/03/19 1825 8 Because ethnic data is not always [...] (or dialysis) 9 Result TnIDx:0.05 Called to [id number] at: 12:58:05 by:[id number] Read back by: [id number] Troponin-I testing on Plasma Separator Tubes (PST) has a known false positive rate of 0.20-0.40%. All positive troponins reflex immediately to secondary confirmatory testing. Using the Flared3D DxI 800 Access Immunoassay systems, the 99th percentile upper reference limit was demonstrated to be < 0.03 ng/mL. 10 Standard intensity warfarin therapeutic range: 2.0-3.0 High intensity warfarin therapeutic range: 2.5-3.5 Procedures Date Code Description Status 09/06/2019 48745 EKG Tracing & Interpretation Completed 08/17/2019 28738 Dest Lesion Each Addl Lesion 2 Through 14 Each Completed 08/17/2019 86537 Destruction ALL Benign Or Premalignant Lesion (Other Than Completed [place] 05/31/2019 58832 EKG Tracing & Interpretation Completed 05/17/2019 18288 Treadmill Interp/Report Only Completed 05/17/2019 67980 Stress Test Supervsn W/Out I/R Completed 05/17/2019 50687 EKG, Interpretation Only Completed 05/16/2019 69205 ECHO Transthorasic Realtime 2D W Doppler & Color Flow Hosp Completed 05/16/2019 76917 EKG, Interpretation Only Completed 05/16/2019 28347 Dest Lesion Each Addl Lesion 2 Through 14 Each Completed 05/16/2019 07023 Destruction ALL Benign Or Premalignant Lesion (Other Than Completed [place] 05/16/2019 14485 Each Separate/Additional Lesion Completed 05/16/2019 01120 Tangential Biopsy Of Skin, Single Lesion Completed Medical Devices Description No Information Available Encounters Type Date Location Provider Dx Diagnosis Office Visit 09/06/2019 [facility] Lily Eubanks, 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 disease of hughes coronary artery w/o ang pctrs Z95.2 Presence of prosthetic heart valve I48.11 Longstanding persistent atrial fibrillation I47.2 Ventricular tachycardia D50.0 Iron deficiency anemia secondary to blood loss (chronic) R60.0 Localized edema I50.30 Unspecified diastolic (congestive) heart failure Office Visit 08/17/2019 9:30a [facility] Liz Quezada, Z08 Encntr for MD follow-up exam after trtmt for malignant neoplasm Z85.828 Personal history of other malignant neoplasm of skin L57.0 Actinic keratosis Office Visit 06/08/2019 [facility] K92.2 Gastrointestinal 10:27a Assocgaurang M.D. 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 hemorrhage, Hospitalists unspecified D50.0 Iron deficiency anemia secondary to blood loss (chronic) I48.91 Unspecified atrial fibrillation E11.9 Type 2 diabetes mellitus without complications Z95.2 Presence of prosthetic heart valve I50.9 Heart failure, unspecified Office Visit 06/03/2019 [facility] Anna Cerrato, I48.20 Chronic atrial 5:22p Cardiology Of M.DStevie fibrillation, Club Steward unspecified Z95.2 Presence of prosthetic heart valve Z79.01 penitentiary (current) use of anticoagulants K92.2 Gastrointestinal hemorrhage, unspecified Z98.61 Coronary angioplasty status Office Visit 06/03/2019 [facility] Sharmila K92.2 Gastrointestinal 10:24a Assgaurang perez [facility] hemorrhage, Hospitalists Cal, HERB unspecified D64.9 Anemia, unspecified 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 I47.2 Ventricular tachycardia I49.01 Ventricular fibrillation Office Visit 05/17/2019 [facility] Hiram Ragland I47.2 Ventricular 1:02p Assoc,pc Arely Burdick,FACP tachycardia Hospitalists 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 Office Visit 05/16/2019 11:07a [facility] Anna Cerrato, I47.2 Ventricular Of Suzette Mcgee tachycardia 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 Office Visit 05/16/2019 [facility] Rhianna I47.2 Ventricular 1:01p Assoc,pc Vero, HERB tachycardia Hospitalists 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 09/14/2019 R60.0 Localized edema Lily Eubanks, N.P. 09/14/2019 I50.30 Unspecified diastolic (congestive) Lily Eubanks, N.P. heart failure 09/14/2019 I25.10 Atherosclerotic heart disease of Lily Eubanks, N.P. hughes coronary artery without angina pectoris 09/14/2019 R94.31 Abnormal electrocardiogram [ECG] Lily Eubanks, N.P. [EKG] 09/14/2019 Z95.2 Presence of prosthetic heart valve Lily Eubanks, N.P. 09/06/2019 R94.31 Abnormal electrocardiogram [ECG] Smiley Post M.D. [EKG] 09/06/2019 I25.10 Atherosclerotic heart disease of Lily S. Foster, N.P. hughes coronary artery without angina pectoris 09/06/2019 I48.11 Longstanding persistent atrial Lily S. Foster, N.P. fibrillation 09/06/2019 I47.2 Ventricular tachycardia Lily S. Foster, N.P. 09/06/2019 R60.0 Localized edema Lily S. Foster, N.P. 09/06/2019 I50.30 Unspecified diastolic (congestive) Lily S. Foster, N.P. heart failure 09/06/2019 Z95.2 Presence of prosthetic heart valve Lily S. Foster, N.P. 08/28/2019 I25.10 Atherosclerotic heart disease of Anna Cerrato M.D. hughes coronary artery without angina pectoris 08/28/2019 Z95.2 [...] Atherosclerotic heart disease of Wu Gómez M.D. hughes coronary artery without angina pectoris 06/08/2019 I48.91 [...] Atherosclerotic heart disease of Michelle Rebolledo M.D. hughes coronary artery without angina pectoris 06/07/2019 I48.91 [...] Atherosclerotic heart disease of Michelle Rebolledo M.D. hughes coronary artery without angina pectoris 06/06/2019 I48.91 [...] Atherosclerotic heart disease of Viviana Foote M.D. hughes coronary artery without angina pectoris 06/05/2019 Z95.2 [...] heart valve Anna Cerrato M.D. 06/03/2019 Z79.01 penitentiary (current) use of Anna Cerrato M.D. anticoagulants 06/03/2019 K92.2 Gastrointestinal hemorrhage, Anna Cerrato M.D. unspecified 06/03/2019 Z98.61 Coronary angioplasty status Anna Cerrato M.D. 06/03/2019 K92.2 Gastrointestinal hemorrhage, Sharmila Mccall, PAPER BAG MACHINE OPERATOR unspecified 06/03/2019 D64.9 Anemia, unspecified Sharmilalinda Mccall, PAPER BAG MACHINE OPERATOR 06/03/2019 I25.10 Atherosclerotic heart disease of Sharmila Mccall NP hughes coronary artery without angina pectoris 06/03/2019 I10 Essential (primary) hypertension Sharmila Mccall, PAPER BAG MACHINE OPERATOR 06/03/2019 Z95.2 Presence of prosthetic heart valve Sharmila Mccall, PAPER BAG MACHINE OPERATOR 06/03/2019 Z79.01 penitentiary (current) use of Sharmila Mccall NP anticoagulants 05/31/2019 I48.20 Chronic atrial fibrillation, Anna Cerrato M.D. unspecified 05/31/2019 I47.2 Ventricular tachycardia Lily Eubanks, N.P. 05/31/2019 I25.10 Atherosclerotic heart disease of Lily Eubanks, N.P. hughes coronary artery without angina pectoris 05/31/2019 I48.20 Chronic atrial fibrillation, Lily Eubanks, N.P. unspecified 05/31/2019 I35.0 Nonrheumatic aortic (valve) stenosis Lily S. Raimundo, N.P. 05/31/2019 I44.2 Atrioventricular block, complete Lily Eubanks, N.P. 05/31/2019 Z95.2 Presence of prosthetic heart valve Lily S. Raimundo, N.P. 05/17/2019 R94.31 Abnormal electrocardiogram [ECG] Lesley Segundo MD, FACC, [EKG] [facility] 05/17/2019 R79.89 Other specified abnormal findings of Govind Packer M.D. blood chemistry 05/17/2019 I47.2 Ventricular tachycardia Hiram Burdick M.D.,FACP 05/17/2019 Z95.810 Presence of automatic (implantable) Hiram Burdick M.D.,[facility] cardiac defibrillator 05/17/2019 R94.31 Abnormal electrocardiogram [ECG] Govind Packer M.D. [EKG] 05/17/2019 I25.10 Atherosclerotic heart disease of Govind Packer M.D. hughes coronary artery without angina pectoris 05/17/2019 I47.2 Ventricular tachycardia Govind Packer M.D. 05/17/2019 I49.01 Ventricular fibrillation Govind Packer M.D. 05/16/2019 R94.31 Abnormal electrocardiogram [ECG] Leoncio Jang M.D., FACTyree, [EKG] [facility] 05/16/2019 I47.2 Ventricular tachycardia Rhianna Pham NP [...] Z85.828 Personal history of other malignant Liz Queazda MD neoplasm of skin 05/16/2019 D48.5 Neoplasm of uncertain behavior of Liz Quezada MD skin 05/16/2019 L57.0 Actinic keratosis Liz Quezada MD Plan of Treatment Future Appointment(s):10/16/2019 3:30 pm - Lily Eubanks, N.P. at [facility]11/16/2019 4:00 pm - Anna Cerrato M.D. at [facility]02/15/2020 10:00 am - Liz Quezada MD at [facility] Wzunjibilqs64/14/2020 - Lily Eubanks N.P.I47.2 Ventricular tjnrisimoseW36.0 Localized edemaRecommendations:Weight is the same Ideally lets try to get off 3-5 more lbs.I50.30 Unspecified diastolic (congestive) heart failureFollow up:OV Lily 1mo OV LS 10/2019Recommendations:It still sounds like you have some fluid on board. 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
--- OUTSIDE RECORDS SUMMARY | 2019-09-18 16:25 | XMS REPORT | Continuity of Care Document ---
:1930 External Reference #:[id number] Author Name Anna Cerrato M.D. (transmitted by agent of provider Areli Whatley) Address [address] [place] [address] Care Team Providers Name Role Phone Alonso Marquez MD - Family Care Team Information Television Cabinet Finisher [phone] Medicine Bc Jo MD - Hematology Care Team Information Television Cabinet Finisher Remy Mendez MD - Radiation Care Team Information Television Cabinet Finisher Oncology Problems Active Problems Provider Date Atrial [...] M.D. 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 Onset: 06/04/2019 Social History Type Date Description Comments Sex [...] Medications SIG Qnty Indications Ordering Date Provider Spironolactone 1 by mouth 3 times 36tabs Anna Cerrato, 08/21/2019 25mg per week. M.D. Tablets Oxygen d/c all oxygen , 1units Anna Cerrato, 09/05/2017 [facility] [place] concentrator Arely portable oxygen and all tanks Amoxicillin take 4 tabs by 4tabs Anna Cerrato, 02/25/2014 500mg mouth 1 hour prior M.D. Tablets to dental procedures Carvedilol 1 tab by mouth 90tabs Anna Cerrato, 25mg Tablets twice a day M.D. Furosemide 1 by mouth 4 times Unknown 40mg Tablets per week Metformin HCL 1 tablet daily Unknown 500mg Tablets Coumadin as directed Unknown Omeprazole 1 by mouth twice a Unknown 20mg day Capsules DR Preservdavid [facility] 2 take one cap in the Unknown moring and one cap [facility] 2 Capsules in the evening Latanoprost as directed Unknown 0.005% Solution Iron 1 by mouth every Unknown 325(65Fe) mg day Tablets Amiodarone HCL 1 tab by mouth 90tabs Lily Eubanks, 200mg daily N.P. Tablets Brilinta 1 tab by mouth 180tabs Anna Carrollsher, 90mg Tablets twice a day M.D. Immunizations [...] H/L Range Note Type & Screen 06/03/2019 [facility] Patient Blood O Positive [address] [place] [address] [phone] Antibody Screen NEGATIVE Type & Screen 06/03/2019 [facility] Patient Blood Type O Positive [address] [place] [address] [phone] Antibody Screen NEGATIVE Laboratory test 06/03/2019 [facility] Packed SEE RESULTS [address] Cells BELO <[place] [address] NOTE> [phone] Inr/Protime 06/03/2019 [facility] Inr 5.16 Critical 0.[address] high -1.0 [place] [address] [phone] Stool Occult 06/03/2019 [facility] Stool SEE RESULT 4 Blood, Screen [address] [place] [address] Blood, [phone] Screen CBC Auto Diff 06/03/2019 [facility] White Blood 12.0 High 3.5 - [address] Count 10^3/uL 10.8 [place] [address] [phone] Red Blood Count 2.80 10^6/uL Low 4.18-5.48 [...] Red Blood Cells % 0.0 Laboratory 06/03/2019 [facility] Lactic 2.1 mmol/L Critical 0.5-2.0 5 test finding [address] [place] [address] [phone] Comp Metabolic 06/03/2019 [facility] Sodium 140 mmol/L Normal 135-145 Panel [address] [place] [address] [phone] Potassium 3.6 mmol/L Normal 3.5-5.0 Chloride 101 [...] 59 U/L Normal 34-104 Laboratory test 06/03/2019 [facility] Magnesium 2.0 mg/dL Normal 1.9-2.7 finding [address] [place] [address] [phone] Troponin-I (TnI) 0.02 ng/mL <0.04 7 TSH (Thyroid Stim Horm) 2.60 mcIU/mL Normal 0.34-5.60 Comp Metabolic 05/16/2019 [facility] Sodium 138 mmol/L Normal 135-145 Panel [address] [place] [address] [phone] Potassium 3.9 mmol/L Normal 3.5-5.0 Chloride 97 [...] Egfr 92.6 >60 8 Laboratory test 05/16/2019 [facility] Magnesium 1.9 mg/dL Normal 1.9-2.7 finding [address] [place] [address] [phone] Troponin-I (TnI) 0.05 ng/mL Critical high <0.04 9 TSH (Thyroid Stim Horm) 2.59 mcIU/mL Normal 0.34-5.60 Free T4 (Free Thyroxine) 1.02 ng/dL Normal 0.61-1.12 Inr/Protime 05/16/2019 [facility] Inr 3.32 High 0.82-1.[address] [place] [address] [phone] CBC Auto Diff 05/16/2019 [facility] White Blood 6.8 Normal 3.5 -10.[address] Count 10^3/[place] [address] [phone] Red Blood Count 3.76 10^6/uL Low 4.18-5.48 [...] WEAKNESS,DIZZINESS PER PT 2 SEE RESULTS BELOW [id number] OP PC TRANSFUSED 06/04/19 1204 [id number] OP PC TRANSFUSED 06/03/19 1825 3 Verbal to [id number] by [id number] at 1519 on 06/03/19. Results read back accurately. Standard intensity warfarin therapeutic range: 2.0-3.0 High intensity warfarin therapeutic range: 2.5-3.5 4 SEE RESULT BELOW Name: WAYNE LI : [address]: Tonya Jain MD Acct: [id number] Unit: [id number] AGE: 89 Location: ED Re06/03/19 SEX: M Status: REG ER SPEC: [id number] [place]: 06/03/19-[address] [facility] [address]: Tonya Jain MD REQ: [id number] RECD: 06/03/19 STATUS: ALDO FERRERA DR: Alonso Cerrato MD _ SOURCE: STOOL SPDESC: ORDERED: Occult Bl, Scn Procedure Result Reported Site Stool Occult Blood (1) Final 06/03/19- 1515 ML Stool Occult Blood Positive Collection Date (1) 06/03/19 * ML - Main Lab . END OF REPORT DEPARTMENT OF PATHOLOGY, [address] [place] [id number] Stalin Ramírez M.D. Director [facility] # [id number] Critical Result LACT:2.1 Called to [id number] at: 14:05:47 by:[id number] Read back by:[facility] Severe Sepsis and Septic Shock Management Bundle [...] immediately to secondary confirmatory testing. Using the ICVRx DxI 800 Access Immunoassay systems, the 99th [...] (or dialysis) 9 Result TnIDx:0.05 Called to [id number] at: 12:58:05 by:[id number] Read back by: [id number] Troponin-I testing on Plasma Separator Tubes (PST) has a known false positive rate of 0.20-0.40%. All positive troponins reflex immediately to secondary confirmatory testing. Using the ICVRx DxI 800 Access Immunoassay systems, the 99th percentile upper reference limit was demonstrated to be < 0.03 ng/mL. 10 Standard intensity warfarin therapeutic range: 2.0-3.0 High intensity warfarin therapeutic range: 2.5-3.5 Procedures Date Code Description Status 08/17/2019 36735 Dest Lesion Each Addl Lesion 2 Through 14 Each Completed 08/17/2019 58187 Destruction ALL Benign Or Premalignant Lesion (Other Than Completed [place] 05/31/2019 29213 EKG Tracing & Interpretation Completed 05/17/2019 00188 Treadmill Interp/Report Only Completed 05/17/2019 78232 Stress Test Supervsn W/Out I/R Completed 05/17/2019 23172 EKG, Interpretation Only Completed 05/16/2019 92186 ECHO Transthorasic Realtime 2D W Doppler & Color Flow Hosp Completed 05/16/2019 54779 EKG, Interpretation Only Completed 05/16/2019 93724 Dest Lesion Each Addl Lesion 2 Through 14 Each Completed 05/16/2019 81364 Destruction ALL Benign Or Premalignant Lesion (Other Than Completed [place] 05/16/2019 87779 Each Separate/Additional Lesion Completed 05/16/2019 58853 Tangential Biopsy Of Skin, Single Lesion Completed Medical Devices Description No Information Available Encounters Type Date Location Provider Dx Diagnosis Office Visit 08/17/2019 [facility] Dermatology Liz Quezada MD Z08 Encntr for 9:30a follow-up exam after trtmt for malignant neoplasm Z85.828 Personal history of other malignant neoplasm of skin L57.0 Actinic keratosis Office Visit 06/08/2019 [facility] K92.2 Gastrointestinal 10:27a Assoc,gaurang Gómez M.D. hemorrhage, Hospitalists unspecified I25.10 Athscl heart disease of [place] coronary artery w/o ang pctrs I48.91 Unspecified atrial fibrillation E11.9 Type 2 diabetes mellitus without complications Z95.2 Presence of prosthetic heart valve [facility] K92.2 Gastrointestinal 10:27a Assgaurang perez M.D. hemorrhage, Hospitalists unspecified D50.0 Iron deficiency anemia secondary to blood loss (chronic) I25.10 Athscl heart disease of [place] coronary artery w/o ang pctrs I48.91 Unspecified atrial fibrillation E11.9 Type 2 diabetes mellitus without complications I50.9 Heart failure, unspecified Z95.2 Presence of prosthetic heart valve Office Visit 06/06/2019 [facility] K92.2 Gastrointestinal 10:26a Assgaurang perez M.D. hemorrhage, Hospitalists unspecified D50.0 Iron deficiency anemia secondary to blood loss (chronic) I25.10 Athscl heart disease of [place] coronary artery w/o ang pctrs I48.91 Unspecified atrial fibrillation E11.9 Type 2 diabetes mellitus without complications I50.9 Heart failure, unspecified Z95.2 Presence of prosthetic heart valve Office Visit 06/05/2019 [facility] K92.2 Gastrointestinal 10:26a Assgaurang perez M.D. hemorrhage, Hospitalists unspecified D50.0 Iron deficiency anemia secondary to blood loss (chronic) I48.91 Unspecified atrial fibrillation E11.9 Type 2 diabetes mellitus without complications I50.9 Heart failure, unspecified I25.10 Athscl heart disease of [place] coronary artery w/o ang pctrs Z95.2 Presence of prosthetic heart valve Office [facility]2019 [facility] K92.2 Gastrointestinal 10:25a Assgaurang perez M.D. hemorrhage, Hospitalists unspecified D50.0 Iron deficiency anemia secondary to blood loss (chronic) I48.91 Unspecified atrial fibrillation E11.9 Type 2 diabetes mellitus without complications Z95.2 Presence of prosthetic heart valve I50.9 Heart failure, unspecified Office Visit 06/03/2019 Ke Cerrato, I48.20 Chronic atrial 5:22p Cardiology Of M.D. 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 I47.2 Ventricular Of [facility] Raimundo, N.P. 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 Office Visit 05/17/2019 12:15p [facility] Govind Hilton R79.89 Other specified Arely Packer abnormal findings of blood chemistry R94.31 Abnormal electrocardiogram [ECG] [EKG] I25.10 Athscl heart disease of [place] coronary artery w/o ang pctrs I47.2 Ventricular tachycardia I49.01 Ventricular fibrillation Office Visit 05/17/2019 [facility] Hiram Ragland I47.2 Ventricular 1:02p Assoc,gaurang Burdick M.D.,FACP tachycardia Hospitalists 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 Office Visit 05/16/2019 11:07a [facility] Anna Cerrato I47.2 Ventricular Of Suzette Mcgee tachycardia 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 Office Visit 05/16/2019 [facility] Rhianna I47.2 Ventricular 1:01p Assocgaurang NP tachycardia Hospitalists 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 unspecified 06/08/2019 I25.10 Atherosclerotic heart disease of Wu Gómez M.D. [place] coronary artery without angina pectoris 06/08/2019 I48.91 [...] Atherosclerotic heart disease of Michelle Rebolledo M.D. [place] coronary artery without angina pectoris 06/07/2019 I48.91 [...] Atherosclerotic heart disease of Michelle Rebolledo M.D. [place] coronary artery without angina pectoris 06/06/2019 I48.91 [...] Atherosclerotic heart disease of Viviana Foote M.D. [place] coronary artery without angina pectoris 06/05/2019 Z95.2 [...] heart valve Anna Cerrato M.D. 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 anticoagulants 06/03/2019 K92.2 Gastrointestinal hemorrhage, Anna Cerrato M.D. unspecified 06/03/2019 Z98.61 Coronary angioplasty status Anna Cerrato M.D. 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 unspecified 05/31/2019 I47.2 Ventricular tachycardia Lily S. Foster, N.P. 05/31/2019 I25.10 Atherosclerotic heart disease of Lily S. Raimundo, N.P. [place] coronary artery without angina pectoris 05/31/2019 I48.20 [...] Atherosclerotic heart disease of Govind Packer M.D. [place] coronary artery without angina pectoris 05/17/2019 I47.2 Ventricular tachycardia Govind Packer M.D. 05/17/2019 I49.01 Ventricular fibrillation Govind Packer M.D. 05/16/2019 R94.31 Abnormal electrocardiogram [ECG] Leoncio Jang M.D., FACC, [EKG] FASNC 05/16/2019 I47.2 Ventricular tachycardia Rhianna Pham, COMMUNITY MENTAL HEALTH SOCIAL WORKER 05/16/2019 I47.2 Ventricular tachycardia Anna Cerrato M.D. [...] Liz Quezada MD Plan of Treatment Future Appointment(s):02/15/2020 10:00 am - Liz Quezada MD at [facility] Zienjcdhzru27/31/2019 - Lily Eubanks, N.P.I47.2 Ventricular uneqqwmivqpC24.10 Atherosclerotic heart disease of [place] coronary artery without angina pectorisNew Therapy:Cardiac RehabFollow up:OV 07/2019 or 08/2019 please obtain pacer interrogation from [place]. please [facility]STOP Spironolactone. Hold Lasix for 2 days then restart. Let us know if you have any weight gain orleg swelling. Have labs checked in 7-10 days to check KCl level. WE want to make sure potassium doesnt drop too low.I48.20 Chronic atrial fibrillation, lorffhiockvJ34.0 Nonrheumatic aortic ( valve) knvnuitqL89.2 Atrioventricular block, hjswacmaU67.2 Presence of prosthetic heart valve Functional Status Description No Information Available Mental Status Description No Information Available Referrals Description No Information Available
--- OUTSIDE RECORDS SUMMARY | 2019-09-18 16:25 | XMS REPORT | Continuity of Care Document ---
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 Onset: 08/09/1997 Essential hypertension Stalin Plunkett M.D. Onset: 08/09/1997 Pure hypercholesterolemia Alonso Marquez M.D. Onset: 07/21/2005 Anticoagulant agent Alonso Marquez M.D. Onset: 07/21/2005 Benign essential hypertension Alonso Marquez M.D. Onset: 07/21/2005 Heart valve replacement Alonso Marquez M.D. Onset: 07/21/2005 Myalgia & Myositis Unspecified lAonso Marquez M.D. Onset: 07/21/2005 Migraine Alonso Marquez M.D. Onset: 07/21/2005 Congestive heart failure Alonso Marquez M.D. Onset: 07/21/2005 Coronary arteriosclerosis Alonso Marquez M.D. Onset: 07/21/2005 Osteoarthritis Alonso Marquez M.D. Onset: 07/21/2005 Type II diabetes mellitus uncontrolled Alonso Mraquez M.D. Onset: 2007 Chronic atrial fibrillation Alonso Marquez M.D. Onset: 07/28/2015 Acute posthemorrhagic anemia Alonso Marquez M.D. Onset: 07/28/2015 Macroglobulinemia Alonso Marquez M.D. Onset: 01/28/2016 Anemia due to chronic blood loss Alonso Marquez M.D. 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 Onset: 01/24/2018 Malignant neoplasm of lower lobe, bronchus Alonso Marquez M.D. Onset: 01/24 or lung Social History Type Date Description Comments Sex Unknown Tobacco Use Start: Unknown End: Unknown Former Cigarette Smoker 2 Packs quit 1986 Daily ETOH Use Rarely consumes alcohol Tobacco Use Start: Unknown End: Unknown Patient is a former smoker Smoking Status Reviewed: 09/18/19 Patient is a former smoker Allergies, Adverse Reactions, Alerts Active Allergies Reaction Severity Comments Date Atenolol 09/02/2000 Lipitor Muscle Pain 02/19/2009 Penicillin 02/08/2018 Medications Active Medications SIG Qnty Indications Ordering Date Provider Coumadin 4mg every day 60tabs Nicholas Lr 07/04/2019 2mg Tablets except tuesday 2 Arely White mg. Digoxin Take 1 Tablet By 90tabs I25.10 Alonso Marquez, 06/08/2019 125mcg Tablets Mouth Once Daily M.D. Metformin HCL take 1 tablet by 90tabs E11.65 Alonso Marquez, 06/13/2010 500mg Tablets mouth once daily M.D. Areds 1 po bid Unknown Ferrous Sulfate 1 po qd Unknown 325(65Fe) mg Tablets Omeprazole Take 1 Capsule 60caps Alonso Marquez, 20mg Capsules DR By Mouth Twice A M.D. Day Carvedilol take 1 tablet by Unknown 25mg Tablets mouth two times daily Latanoprost one drop each Unknown 0.005% Solution eye every day Amiodarone HCL 1 po qd. Unknown 200mg Tablets Preservision Areds 1 by mouth every Unknown day Capsules Brilinta 1 by mouth twice Unknown 90mg Tablets a day - started at [facility] after stenting 05/2019 Torsemide one tablet by I25.10 Unknown 20mg Tablets mouth every morning Spironolactone 1 by mouth three Unknown 25mg Tablets times a week Medications Administered in Office Medication SIG Qnty Indications Ordering Provider Date Injection Subcutaneous Or Alonso Marquez M.D. 01/26/2018 Intramuscular Injection Injection Subcutaneous Or Alonso Marquez M.D. 04/17/2008 Intramuscular Injection Immunizations CPT Code Status Date Vaccine Lot # [id number] Given 10/16/2016 Tdap Tetanus, W Pertussis [id number] 37883 Given 07/28/2015 Pneumococcal Conjugate Vacc-13 [id number] 65102 Given 07/12/2012 High-Dose, Influenza Virus Vacccine-fluzone 65 and [id number] older 43437 Given 04/17/2008 Tetanus And Diptheria Adult Preservative Free [id number] >7Yrs 37390 Given 06/05/2007 DO Not Use Split Influenza Virus Vaccine [id number] 57955 Given 07/20/2005 DO Not Use Split Influenza Virus Vaccine [id number] 76232 Given 06/10/2004 DO Not Use Split Influenza Virus Vaccine 48461 Given 05/25/2002 Influenza Immunization 12028 Given 05/25/2002 DO Not Use Split Influenza Virus Vaccine 62831 Given 05/08/2001 DO Not Use Split Influenza Virus Vaccine 28144 Given 07/22/2000 Pneumococcal Immunization 76824 Given 07/22/2000 DO Not Use Split Influenza Virus Vaccine 49543 Given 03/18/2000 Pneumococcal Immunization 66740 Given 03/18/2000 DO Not Use Split Influenza Virus Vaccine 07232 Given 05/29/1999 DO Not Use Split Influenza Virus Vaccine 35295 Given 05/12/1998 Influenza Immunization Vital Signs Date Vital Result Comment 09/18/2019 9:03am BP Systolic 100 mmHg BP Diastolic 40 mmHg Heart Rate 72 /min Body Temperature 96.4 F Respiratory Rate 16 /min Height 69 inches 5'9" Weight 197.38 lb shoes on BMI (Body Mass Index) 29.1 kg/m2 07/30/2019 9:06am BP Systolic 102 mmHg BP Diastolic 52 mmHg Heart Rate 68 /min Body Temperature 98.1 F Respiratory Rate 16 /min Height 69 inches 5'9" Weight 204.00 lb BMI (Body Mass Index) 30.1 kg/m2 Results Test Acquired Date Facility Test Result H/L Range Note Comprehensive 08/31/2019 [facility]) Sodium 140 mEq/L 134-149 Metabolic Prof Potassium 4.3 mEq/L 3.6-5.5 Chloride 94 mEq/L 94-112 Carbon Dioxide 29 mEq/L 21-32 Glucose 173 mg/dL High 70-105 BUN 22 mg/dL 6-26 Creatinine 1.0 mg/dL 0.6-1.4 BUN/Creat Ratio 22.0 CALC 8.0-36.0 Calcium 9.3 mg/dL 8.9-10.6 Total Protein 6.7 g/dL 6.4-8.3 Albumin 3.8 g/dL 3.8-5.5 Globulin 2.9 g/dL 2.0-4.8 A/G Ratio 1.3 CALC 0.6-2.3 Alk. Phosphatase 85 U/L 22-95 Alt (SGPT) 6 U/L Low 7-35 1 Ast (Sgot) 10 U/L 5-34 Total Bilirubin 0.3 mg/dL 0.2-1.3 GFR Non- >60 ml/min/1.73m^ >=60 GFR >60 ml/min/1.73m^ >=60 Laboratory test 08/31/2019 [facility] (a) 2.0 2.0-3.0 finding (607)- - Laboratory test 08/22/2019 [facility] In[facility] (a) 1.8 Low 2.0-3.0 finding (607)- - Laboratory test 08/16/2019 [facility] Inr (Fma) 1.9 Low 2-3 finding (607)- - Laboratory test 08/09/2019 [facility] Inr (a) 1.8 Low 2.0-3.0 finding (607)- - CBC Electronic a 07/30/2019 [facility](a) WBC 3.9 x10^3/UL Low 4.0-10.0 2 RBC 3.07 x10^6/UL Low 3.93-6.00 HGB 8.1 g/dL Low 12.0-17.0 HCT 27 % Low 35-50 MCV 88.3 fL 80.0-95.0 MCH 26.4 pg 25.6-32.2 MCHC 29.9 g/dL Low 32.2-36.0 RDW-CV 15.2 % High 11.6-14.4 PLT 176 x10^3/UL 163-400 MPV 9.6 fL 9.4-12.4 [place]em# 2.66 x10^3/UL 1.56-6.13 Lymph# 0.59 x10^3/UL Low 1.18-3.74 [place]# 0.49 x10^3/UL 0.24-0.82 Eos # 0.1 x10^3/UL 0.0-0.5 Baso # 0.03 x10^3/UL 0.01-0.08 [place]% 68.3 % 34.0-70.0 Lymph % 15.2 % Low 20.0-52.0 [place]% 12.6 % High 5.0-12.0 Eos% 2.8 % 0.7-7.0 Baso% 0.8 % 0.1-1.2 Laboratory test 07/30/2019 [facility] Brain Natural 152 pg/mL High < 100 finding (607)- - Peptide Laboratory test 07/30/2019 [facility] Inr (Fma) 1.7 Low 2.0-3.0 finding (607)- - Laboratory test 07/16/2019 [facility] In[facility] (a) 2.1 2-3 finding (607)- - CBC Electronic 07/16/2019 [facility](a) WBC 3.8 x10^3/UL Low 4.0- 10.0 3 a RBC 2.92 x10^6/UL Low 3.93-6.00 4 HGB 7.8 g/dL Low 12.0-17.0 5 HCT 26 % Low 35-50 6 MCV 89.7 fL 80.0-95.0 MCH 26.7 pg 25.6-32.2 MCHC 29.8 g/dL Low 32.2-36.0 7 RDW-CV 15.6 % High 11.6-14.4 8 PLT 171 x10^3/UL 163-400 MPV 9.6 fL 9.4-12.4 [place]# 2.65 x10^3/UL 1.56-6.13 Lymph# 0.48 x10^3/UL Low 1.18-3.74 9 [place]# 0.49 x10^3/UL 0.24-0.82 Eos # 0.1 x10^3/UL 0.0-0.5 Baso # 0.04 x10^3/UL 0.01-0.08 [place]% 70.2 % High 34.0-70.0 10 Lymph % 12.7 % Low 20.0-52.0 11 [place]% 13.0 % High 5.0-12.0 12 Eos% 2.7 % 0.7-7.0 Baso% 1.1 % 0.1-1.2 Inr/Protime 07/11/2019 [facility] Inr 1.96 High 0.82-1.09 13 Laboratory test finding 07/10/2019 [facility] Lactic Acid 0.8 mmol/L Normal 0.5- 2.0 14 Comp Metabolic Panel 07/10/2019 [facility] Sodium 139 mmol/L Normal 135-145 Potassium 4.2 mmol/L Normal 3.5-5.0 Chloride 103 mmol/L Normal 101-111 Co2 Carbon Dioxide 33 mmol/L High 22-32 Anion Gap 3 mmol/L Normal 2-11 Glucose 105 mg/dL High 70-100 Blood Urea Nitrogen 15 mg/dL Normal 6-24 Creatinine 0.92 mg/dL Normal 0.67-1.17 BUN/Creatinine Ratio 16.3 Normal 8-20 Calcium 8.7 mg/dL Normal 8.6-10.3 Total Protein 6.7 g/dL Normal 6.4-8.9 Albumin 3.6 g/dL Normal 3.2-5.2 Globulin 3.1 g/dL Normal 2-4 Albumin/Globulin Ratio 1.2 Normal 1-3 Total Bilirubin 0.30 mg/dL Normal 0.2-1.0 Alkaline Phosphatase 74 U/L Normal 34-104 Alt 7 U/L Normal 7-52 Ast 11 U/L Low 13-39 Egfr Non- 77.5 >60 Egfr 93.7 >60 15 Laboratory test finding 07/10/2019 [facility] Lipase 23 U/L Normal 11.0-82.0 C Reactive Protein 5.92 mg/L Normal <8.01 Urinalysis Profile 07/10/2019 [facility] Urine Color Yellow Urine Appearance Clear Urine Specific Coram 1.023 Normal 1.010-1.030 Urine pH 5.0 Normal 5-9 Urine Urobilinogen Negative Negative Urine Ketones Negative Negative Urine Protein Negative Negative Urine Leukocytes Negative Negative Urine Blood Negative Negative * * Abnormal Negative 16 Urine Nitrite Negative Negative Urine Bilirubin Negative Negative Urine Glucose Negative Negative CBC Electronic (a New) 06/25/2019 [facility] WBC 4.05 4.0-10.0 (607)- - RBC 2.77 Low 3.93-6.0 Hemoglobin (Fma/CMC/CTX) 7.6 g/dL Low 12.0-17.0 Hematocrit (Fma/CMC/CTX) 25.2 % Low 35.0-50.0 Mean Corpuscular Vol 91.0 fL 80-95 Mean Corpuscular Hemoglobin 27.4 pg 25.6-32.2 Mean Corpuscular Hemo Concen 30.2 g/dL Low 32.2-36.0 Platelets 171 10^3/ul 163-400 RDW-CV 15.1 High 11.6-14.4 Mean Platelet Volume 9.1 fL 8.0-12.4 Absolute Neutrophils BLD 2.81 1.56-6.13 Absolute Lymphocytes 0.54 Low 1.18-3.74 Absolute Monocytes BLD Auto 0.57 0.24-0.82 Absolute Eos Blood 0.10 0.04-0.54 Absolute Basophils 0.02 0.01-0.08 Neutrophil % 69.4 % 34.0-70.0 Lymph% 13.3 % Low 20.0-52.0 Monocytes % 14.1 % High 5.0-12.0 Eos % 2.5 % 0.7-7.0 Basophil% 0.5 % 0-1.2 Laboratory test 06/25/2019 [facility] ([facility]) 1.8 Low 2.0-3.0 finding (607)- - CBC Electronic a 06/18/2019 [facility]) WBC 4.6 x10^3/UL 4.0- 10.0 RBC 2.73 x10^6/UL Low 3.93-6.00 HGB 7.6 g/dL Low 12.0-17.0 17 HCT 26 % Low 35-50 MCV 93.4 fL 80.0-95.0 MCH 27.8 pg 25.6-32.2 MCHC 29.8 g/dL Low 32.2-36.0 RDW-CV 15.5 % High 11.6-14.4 PLT 157 x10^3/UL Low 163-400 MPV 9.7 fL 9.4-12.4 [place]# 3.49 x10^3/UL 1.56-6.13 Lymph# 0.57 x10^3/UL Low 1.18-3.74 [place]# 0.34 x10^3/UL 0.24-0.82 Eos # 0.1 x10^3/UL 0.0-0.5 Baso # 0.05 x10^3/UL 0.01-0.08 [place]% 76.4 % High 34.0-70.0 Lymph % 12.5 % Low 20.0-52.0 [place]% 7.4 % 5.0-12.0 Eos% 2.4 % 0.7-7.0 Baso% 1.1 % 0.1-1.2 Laboratory test 06/18/2019 [facility] Inr (Fma) 1.7 Low 2.0-3.0 finding (607)- - Laboratory test 06/11/2019 [facility] Inr (Fma) 2.5 2-3 finding (607)- - Inr/Protime 06/11/2019 [facility] Inr 2.38 High 0.82-1.09 18, 19 Laboratory test 06/03/2019 [facility] Magnesium 2.0 mg/dL Normal 1.9-2.7 finding Troponin-I (TnI) 0.02 ng/mL <0.04 20 TSH (Thyroid Stim Horm) 2.60 mcIU/mL Normal 0.34-5.60 Comp Metabolic Panel 06/03/2019 [facility] Sodium 140 mmol/L Normal 135-145 Potassium 3.6 mmol/L Normal 3.5-5.0 Chloride 101 [...] Egfr Non- 61.7 >60 Egfr 74.7 >60 21 Alkaline Phosphatase 59 U/L Normal 34-104 Laboratory test 06/03/2019 [facility] Lactic Acid 2.1 mmol/L Critical high 0.5- 2.0 22 finding CBC Auto Diff 06/03/2019 [facility] White Blood 12.0 10^3/uL High 3.5-10.8 Count Red Blood Count 2.80 10^6/uL Low 4.18-5.48 [...] % Nucleated Red Blood Cells % 0.0 Type & Screen 06/03/2019 [facility] Patient Blood Type O Positive 23 Antibody Screen NEGATIVE Type & Screen 06/03/2019 [facility] Patient Blood Type O Positive Antibody Screen NEGATIVE Stool Occult 06/03/2019 [facility] Stool SEE RESULT 24 Blood, Screen Occult BELOW Blood, Screen Laboratory test 06/03/2019 [facility] Packed SEE RESULTS 25 finding Cells BELO <SEE NOTE> Inr/Protime 06/03/2019 [facility] Inr 5.16 Critical high 0.82- 26 1.09 Laboratory test 05/25/2019 [facility] ([facility]) 2.8 2.0-3 finding (607)- - .0 CBC Auto Diff 05/16/2019 [facility] White Blood 6.8 10^3/uL Normal 3.5-1 Count 0.8 Red Blood Count 3.76 10^6/uL Low 4.18-5.48 [...] % Nucleated Red Blood Cells % 0.0 Comp Metabolic Panel 05/16/2019 [facility] Sodium 138 mmol/L Normal 135-145 Potassium 3.9 mmol/L Normal 3.5-5.0 Chloride 97 [...] Egfr Non- 76.5 >60 Egfr 92.6 >60 27 Inr/Protime 05/16/2019 [facility] Inr 3.32 High 0.82-1.09 28 Laboratory test finding 05/16/2019 [facility] Magnesium 1.9 mg/dL Normal 1.9- 2.7 Troponin-I (TnI) 0.05 ng/mL Critical high <0.04 29 TSH (Thyroid Stim Horm) 2.59 mcIU/mL Normal 0.34-5.60 Free T4 (Free Thyroxine) 1.02 ng/dL Normal 0.61-1.12 Protein Electrophoresis 05/11/2019 [facility] Total Protein(Pep) 7.4 g/dL 6.3 - 7.9 Albumin 3.6 g/dL 3.4-4.7 Alpha-1 Globulin 0.4 g/dL Abnormal 0.1-0.3 Alpha-2 Globulin 0.9 g/dL 0.6-1.0 Beta Globulin 1.0 g/dL 0.7-1.2 Gamma Globulin 1.5 g/dL 0.6-1.6 Albumin/Globulin Ratio 0.97 M Cesario 0.8 g/dL Impression See Comment 30 Laboratory test 05/09/2019 [facility] Inr (Fma) 3.1 High 2.0-3.0 finding (607)- - Iron & Iron Binding 05/04/2019 [facility] Iron 104 g/dL Normal 50-212 Capacity Unsaturated Iron Binding < 313 g/dL Total Iron Binding Capacity 328 g/dL Normal 250-450 Transferrin 234 mg/dL Normal 203-362 % Iron Saturation 32 % Normal 15-55 CBC Auto Diff 05/04/2019 [facility] White Blood Count 5.8 10^3/uL Normal 3.5- 10.8 Red Blood Count 3.85 10^6/uL Low 4.18-5.48 Hemoglobin 12.1 g/dL Low 14.0-18.0 Hematocrit 34 % Low 42-52 Mean Corpuscular Volume 89 fL Normal 80-94 Mean Corpuscular Hemoglobin 31 pg Normal 27-31 Mean Corpuscular HGB Conc 35 g/dL Normal 31-36 Red Cell Distribution Width 15 % Normal 10-15 Platelet Count 153 10^3/uL Normal 150-450 Mean Platelet Volume 7.0 fL Low 7.4-10.4 Abs Neutrophils 4.1 10^3/uL Normal 1.5-7.7 Abs Lymphocytes 0.9 10^3/uL Low 1.0-4.8 Abs Monocytes 0.6 10^3/uL Normal 0-0.8 Abs Eosinophils 0.2 10^3/uL Normal 0-0.6 Abs Basophils 0.1 10^3/uL Normal 0-0.2 Abs Nucleated RBC 0.0 10^3/uL Granulocyte % 70.7 % Lymphocyte % 14.8 % Monocyte % 10.3 % Eosinophil % 3.2 % Basophil % 1.0 % Nucleated Red Blood Cells % 0.1 Laboratory test finding 05/04/2019 [facility] Ferritin 24.0 ng/mL Normal 24-336 Comp Metabolic Panel 05/04/2019 [facility] Sodium 138 mmol/L Normal 135-145 Potassium 3.9 mmol/L Normal 3.5-5.0 Chloride 97 mmol/L Low 101-111 Co2 Carbon Dioxide 34 mmol/L High 22-32 Anion Gap 7 mmol/L Normal 2-11 Glucose 181 mg/dL High 70-100 Blood Urea Nitrogen 20 mg/dL Normal 6-24 Creatinine 1.02 mg/dL Normal 0.67-1.17 BUN/Creatinine Ratio 19.6 Normal 8-20 Calcium 9.1 mg/dL Normal 8.6-10.3 Total Protein 6.9 g/dL Normal 6.4-8.9 Albumin 3.9 g/dL Normal 3.2-5.2 Globulin 3.0 g/dL Normal 2-4 Albumin/Globulin Ratio 1.3 Normal 1-3 Total Bilirubin 0.50 mg/dL Normal 0.2-1.0 Alkaline Phosphatase 72 U/L Normal 34-104 Alt 9 U/L Normal 7-52 Ast 14 U/L Normal 13-39 Egfr Non- 68.8 >60 Egfr 83.2 >60 31 CBC Auto Diff 04/18/2019 [facility] White Blood Count 6.3 10^3/uL Normal 3.5- 10.8 Red Blood Count 3.95 10^6/uL Low 4.18-5.48 Hemoglobin 12.0 g/dL Low 14.0-18.0 Hematocrit 35 % Low 42-52 Mean Corpuscular Volume 89 fL Normal 80-94 Mean Corpuscular Hemoglobin 30 pg Normal 27-31 Mean Corpuscular HGB Conc 34 g/dL Normal 31-36 Red Cell Distribution Width 15 % Normal 10-15 Platelet Count 181 10^3/uL Normal 150-450 Mean Platelet Volume 6.6 fL Low 7.4-10.4 Abs Neutrophils 4.8 10^3/uL Normal 1.5-7.7 Abs Lymphocytes 0.6 10^3/uL Low 1.0-4.8 Abs Monocytes 0.7 10^3/uL Normal 0-0.8 Abs Eosinophils 0.2 10^3/uL Normal 0-0.6 Abs Basophils 0.0 10^3/uL Normal 0-0.2 Abs Nucleated RBC 0.0 10^3/uL Granulocyte % 76.5 % Lymphocyte % 9.6 % Monocyte % 10.8 % Eosinophil % 2.5 % Basophil % 0.6 % Nucleated Red Blood Cells % 0.1 Laboratory test 04/18/2019 [facility] Partial 44.9 seconds High 26.0-38.0 finding Thrombo Time PTT Inr/Protime 04/18/2019 [facility] Inr 2.83 High 0.82-1.09 32 Laboratory test 04/09/2019 [facility] Inr (Fma) 1.9 Low 2.0-3.0 finding (607)- - CKMB 03/20/2019 [facility] CKMB ng/mL 1.7 ng/mL Normal 0.6-6.3 Laboratory test 03/20/2019 [facility] TSH (Thyroid 3.34 mcIU/mL Normal 0.34- 5.60 finding Stim Horm) Laboratory test 03/20/2019 [facility] Magnesium 1.9 mg/dL Normal 1.9-2.7 finding Creatine Kinase(CK) 79 U/L Normal 10-223 Troponin I 0.01 ng/mL <0.04 33 Laboratory test 03/20/2019 [facility] Troponin I 0.01 ng/mL <0.04 34 finding CBC Auto Diff 03/20/2019 [facility] White Blood Count 6.1 10^3/uL Normal 3.5- 10.8 Red Blood Count 4.07 10^6/uL Low 4.18-5.48 Hemoglobin 12.5 g/dL Low 14.0-18.0 Hematocrit 36 % Low 42-52 Mean Corpuscular Volume 89 fL Normal 80-94 Mean Corpuscular Hemoglobin 31 pg Normal 27-31 Mean Corpuscular HGB Conc 34 g/dL Normal 31-36 Red Cell Distribution Width 15 % Normal 10-15 Platelet Count 147 10^3/uL Low 150-450 Mean Platelet Volume 7.2 fL Low 7.4-10.4 Abs Neutrophils 4.3 10^3/uL Normal 1.5-7.7 Abs Lymphocytes 0.9 10^3/uL Low 1.0-4.8 Abs Monocytes 0.7 10^3/uL Normal 0-0.8 Abs Eosinophils 0.2 10^3/uL Normal 0-0.6 Abs Basophils 0.1 10^3/uL Normal 0-0.2 Abs Nucleated RBC 0.0 10^3/uL Granulocyte % 70.5 % Lymphocyte % 14.8 % Monocyte % 11.3 % Eosinophil % 2.5 % Basophil % 0.9 % Nucleated Red Blood Cells % 0.0 Laboratory test 03/20/2019 [facility] B-Type Natriuretic 79 pg/mL <=100 finding Peptide BNP Inr/Protime 03/20/2019 [facility] Inr 1.72 High 0.82-1.09 35 Laboratory test 03/20/2019 [facility] Partial Thrombo 36.4 seconds Normal 26.0- 38.0 finding Time PTT Comp Metabolic 03/20/2019 [facility] Sodium 135 mmol/L Normal 135-145 Panel Potassium 4.1 mmol/L Normal 3.5-5.0 Chloride 96 mmol/L Low 101-111 Co2 Carbon Dioxide 34 mmol/L High 22-32 Anion Gap 5 mmol/L Normal 2-11 Glucose 144 mg/dL High 70-100 Blood Urea Nitrogen 16 mg/dL Normal 6-24 Creatinine 0.97 mg/dL Normal 0.67-1.17 BUN/Creatinine Ratio 16.5 Normal 8-20 Calcium 9.7 mg/dL Normal 8.6-10.3 Total Protein 7.2 g/dL Normal 6.4-8.9 Albumin 4.1 g/dL Normal 3.2-5.2 Globulin 3.1 g/dL Normal 2-4 Albumin/Globulin Ratio 1.3 Normal 1-3 Total Bilirubin 0.60 mg/dL Normal 0.2-1.0 Alkaline Phosphatase 62 U/L Normal 34-104 Alt 10 U/L Normal 7-52 Ast 15 U/L Normal 13-39 Egfr Non- 72.9 >60 Egfr 88.2 >60 36 1 RESULTS VERIFIED BY REPEAT ANALYSIS 2 consistent w/ previous results 3 RESULTS VERIFIED BY REPEAT ANALYSIS 4 RESULTS VERIFIED BY REPEAT ANALYSIS 5 RESULTS VERIFIED BY REPEAT ANALYSIS 6 RESULTS VERIFIED BY REPEAT ANALYSIS 7 RESULTS VERIFIED BY REPEAT ANALYSIS 8 RESULTS VERIFIED BY REPEAT ANALYSIS 9 RESULTS VERIFIED BY REPEAT ANALYSIS 10 RESULTS VERIFIED BY REPEAT ANALYSIS 11 RESULTS VERIFIED BY REPEAT ANALYSIS 12 RESULTS VERIFIED BY REPEAT ANALYSIS 13 Standard intensity warfarin therapeutic range: 2.0-3.0 High intensity warfarin therapeutic range: 2.5-3.5 14 [facility] Severe Sepsis and Septic Shock Management Bundle Measure requires all lactic acids initially measuring >2.0 mmol/L be repeated. 15 Because ethnic data is not always readily [...] 15-29 5 Kidney failure <15 (or dialysis) 16 *Ascorbic acid is present which may interfere with detection of blood. 17 RESULTS VERIFIED BY REPEAT ANALYSIS 18 [id number] 1 light blue filled to the lines 19 Standard intensity warfarin therapeutic range: 2.0-3.0 High intensity warfarin therapeutic range: 2.5-3.5 20 Troponin-I testing on Plasma Separator Tubes (PST) has a known false positive rate of 0.20-0.40%. All positive troponins reflex immediately to secondary confirmatory testing. Using the Cerecor DxI 800 Access Immunoassay systems, the 99th percentile upper reference limit was demonstrated to be < 0.03 ng/mL. 21 Because ethnic data is not always readily [...] 15-29 5 Kidney failure <15 (or dialysis) 22 Critical Result LACT:2.1 Called to [id number] at: 14:05:47 by:[id number] Read back by:WARREN [facility] Severe Sepsis and Septic Shock Management Bundle Measure requires all lactic acids initially measuring >2.0 mmol/L be repeated. 23 WEAKNESS,DIZZINESS PER PT 24 SEE RESULT BELOW Name: WAYNE LI : [address]: Tonya Jain MD Acct: [id number] Unit: [id number] AGE: 89 Location: ED Re06/03/19 SEX: M Status: REG ER SPEC: [id number] [place]: 06/03/19-1443 [facility] DR: Tonya Jain MD REQ: [id number] RECD: 06/03/19 STATUS: ALDO FERRERA DR: Alonso Cerrato MD _ SOURCE: STOOL SPDESC: ORDERED: Occult Bl, Scn Procedure Result Reported Site Stool Occult Blood (1) Final 06/03/19- 1515 ML Stool Occult Blood Positive Collection Date (1) 06/03/19 * ML - Main Lab . END OF REPORT DEPARTMENT OF PATHOLOGY, [address] [place] [address] Stalin Ramírez M.D. Director [facility] # [id number] 25 SEE RESULTS BELOW [id number] OP PC TRANSFUSED 06/04/19 1204 [id number] OP PC TRANSFUSED 06/03/19 1825 26 Verbal to [id number] by [id number] at 1519 on 06/03/19. Results read back accurately. Standard intensity warfarin therapeutic range: 2.0-3.0 High intensity warfarin therapeutic range: 2.5-3.5 27 Because ethnic data is not always readily [...] 15-29 5 Kidney failure <15 (or dialysis) 28 Standard intensity warfarin therapeutic range: 2.0-3.0 High intensity warfarin therapeutic range: 2.5-3.5 29 Result TnIDx:0.05 Called to [id number] at: 12:58:05 by:[id number] Read back by: [id number] Troponin-I testing on Plasma Separator Tubes (PST) has a known false positive rate of 0.20-0.40%. All positive troponins reflex immediately to secondary confirmatory testing. Using the Cerecor DxI 800 Access Immunoassay systems, the 99th percentile upper reference limit was demonstrated to be < 0.03 ng/mL. 30 RESULT: M-spike in gamma fraction. Test Performed by: [facility] [address] [place] [address] Gardener: Al Acosta M.D. Ph.D.; CLIA# [id number] 31 Because ethnic data is not always readily [...] 15-29 5 Kidney failure <15 (or dialysis) 32 Standard intensity warfarin therapeutic range: 2.0-3.0 High intensity warfarin therapeutic range: 2.5-3.5 33 Troponin-I testing on Plasma Separator Tubes (PST) has a known false positive rate of 0.20-0.40%. All positive troponins reflex immediately to secondary confirmatory testing. Using the [employer] or [employer] DxI 800 Access Immunoassay systems, the 99th percentile upper reference limit was demonstrated to be < 0.03 ng/mL. 34 Troponin-I testing on Plasma Separator Tubes (PST) has a known false positive rate of 0.20-0.40%. All positive troponins reflex immediately to secondary confirmatory testing. Using the [employer] DxI 800 Access Immunoassay systems, the 99th percentile upper reference limit was demonstrated to be < 0.03 ng/mL. 35 Standard intensity warfarin therapeutic range: 2.0-3.0 High intensity warfarin therapeutic range: 2.5-3.5 36 Because ethnic data is not always readily [...] 15-29 5 Kidney failure <15 (or dialysis) Procedures Date Code Description Status 08/22/2019 82297 Finger Or Heel Stick Completed 08/16/2019 07200 Finger Or Heel Stick Completed 08/09/2019 28792 Finger Or Heel Stick Completed 05/25/2019 29765 Finger Or Heel Stick Completed 05/09/2019 42555 Finger Or Heel Stick Completed 04/09/2019 06348 Finger Or Heel Stick Completed 03/28/2018 [id number] Diabetic Retinal Eye Exam Completed Medical Devices Description No Information Available Encounters Type Date Location Provider Dx Diagnosis Office Visit 07/30/2019 Main Office Silvana Dinero, 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) Z79.01 FPC (current) use of anticoagulants I48.11 Longstanding persistent atrial fibrillation I48.20 Chronic atrial fibrillation, unspecified I35.0 Nonrheumatic aortic (valve) stenosis 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 I50.22 Chronic systolic (congestive) heart failure Office Visit 06/18/2019 9:00a Main Office Silvana Cantu 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) HERB Dinero use of anticoagulants I48.11 Longstanding persistent atrial fibrillation I48.20 Chronic atrial fibrillation, unspecified I35.0 Nonrheumatic aortic (valve) stenosis 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 J30.2 Other seasonal allergic rhinitis K92.1 Melena D50.0 Iron deficiency anemia secondary to blood loss (chronic) Assessments Date Code Description Provider 09/18/2019 Z79.01 FPC (current) use of anticoagulants Silvana Dinero NP 09/18/2019 I48.11 Longstanding persistent atrial fibrillation Silvana Dinero NP 09/18/2019 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) 09/18/2019 Z95.2 Presence of prosthetic heart valve Silvana Dinero NP 09/18/2019 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 08/31/2019 I48.11 Longstanding persistent atrial fibrillation Alonso Marquez M.D. 08/22/2019 Z79.01 FPC (current) use of anticoagulants Alonso Marquez M.D. 08/22/2019 I48.11 Longstanding persistent atrial fibrillation Alonso Marquez M.D. 08/16/2019 Z79.01 FPC (current) use of anticoagulants Alonso Marquez M.D. 08/16/2019 I48.11 Longstanding persistent atrial fibrillation Alonso Marquez M.D. 08/09/2019 Z79.01 FPC (current) use of anticoagulants Alonso Marquez M.D. 08/09/2019 I48.11 Longstanding persistent atrial fibrillation Alonso Marquez M.D. 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 07/30/2019 I50.22 Chronic systolic (congestive) heart failure Silvana Dinero NP 07/16/2019 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) 07/16/2019 Z79.01 filenet p8 developer (current) use of anticoagulants Silvana Dinero NP 07/16/2019 I48.11 Longstanding persistent atrial fibrillation Silvana Dinero NP 06/25/2019 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) 06/25/2019 Z79.01 filenet p8 developer (current) use of anticoagulants Silvana Dinero NP 06/25/2019 I48.11 Longstanding persistent atrial fibrillation Silvana Dinero NP 06/18/2019 Z79.01 FPC (current) use of anticoagulants Silvana Dinero NP 06/18/2019 I48.11 Longstanding persistent atrial fibrillation Silvana Dinero NP 06/18/2019 I48.20 Chronic atrial fibrillation, unspecified Silvana Dinero, HERB 06/18/2019 I35.0 Nonrheumatic aortic (valve) stenosis Silvana Dinero NP 06/18/2019 Z95.2 Presence of prosthetic heart valve Silvana Dinero NP 06/18/2019 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 06/11/2019 I48.11 Longstanding persistent atrial fibrillation Alonso Marquez M.D. 05/25/2019 Z79.01 filenet p8 developer (current) use of anticoagulants Alonso Marquez M.D. 05/25/2019 I48.11 Longstanding persistent atrial fibrillation Alonso Marquez M.D. 05/09/2019 Z79.01 FPC (current) use of anticoagulants Alonso Marquez M.D. 05/09/2019 I48.11 Longstanding persistent atrial fibrillation Alonso Marquez M.D. 04/09/2019 Z79.01 FPC (current) use of anticoagulants Alonso Marquez M.D. 04/09/2019 I48.2 Chronic atrial fibrillation Aolnso Marquez M.D. Plan of Treatment 09/18/2019 - Silvana Dinero, NPZ79.01 filenet p8 developer (current) use of anticoagulantsNew Labs:CBC Electronic-ALL Lab [facility], Ordered: 09/18/19Inr (Fma ), Ordered: 09/18/19Comments:see tracking sheet for planI48.11 Longstanding persistent atrial fibrillationNew Labs:CBC Electronic-ALL Lab [facility], Ordered: 09/18/19Comments:followed by UMESH Cerrato50.0 Iron deficiency anemia secondary to blood loss (chronic)New Labs:Occult Blood Stool Test, Ordered: Comments:recheck labs now to ensure recovery from GI bleed no s/sx of GI bleed per patient report stool cards provided to patient at visitFollow up:2-4 months based on labsZ95.2 Presence of prosthetic heart valveComments:on warfarinfollowed by [email or web address] Atherosclerotic heart disease of [place] coronary artery withNew Labs:CBC Electronic-ALL Lab [facility], Ordered: Comments:continue present medication,will call if there is any increase in the frequency or severity of angina continue present medication,will call if there is any increase in the frequency or severity of angina continue present medication,will call if there is any increase in the frequency or severity of angina continue diuretic on brilinta patient instructed to call back if condition fails to improve or worsens.I50.22 Chronic systolic ( congestive) heart failureComments:Patient was advised to call or return if there was a significant increase in peripheral edema, shortness of breath, or weightAllComments:Medication Management Patient Understands medications he 's taking? Yes No Are there Barriers to Adherence? Yes No Has the patient been asked about herbal supplements and therapies, [facility]? Yes No Care Plan1. Patient has been queried about patient's goals/ preferences and functional/lifestyle goals at relevant visits. If relevant, describe: na2. Treatment goals as explained to the patient: above3. Are there barriers to meeting treatment goals? Yes No If Yes, please describe: comorbid conditions, polypharmacy, disease process, drug interactions 4. Self- Management goals as described to the patient: Yes NoAs always, we strongly encourage a healthydiet and making physical activity a part of your every day life. If you have questions about how or where to start, please contact the office.Follow up:Please contact front office staff to set up the online patient portal Functional Status Description No Information Available Mental Status Description No Information Available Referrals Description No Information Available
--- OUTSIDE RECORDS SUMMARY | 2019-09-18 16:25 | XMS REPORT | Continuity of Care Document ---
:1930 External Reference #:[id number] Author Name Anna Cerrato M.D. (transmitted by agent of provider Marci Hernandez) Address [address] [place] [address] Care Team Providers Name Role Phone Alonso Marquez MD - Family Care Team Information Power Plant Operations Manager [phone] Medicine Bc Jo MD - Hematology Care Team Information Power Plant Operations Manager Remy Mendez MD - Radiation Care Team Information Power Plant Operations Manager Oncology Problems Active Problems Provider Date Atrial [...] M.D. Onset: 09/29/2018 Atherosclerotic heart disease of [place] Anna Cerrato M.D. Onset: 09/29/2018 coronary artery [...] (more than 10 cigarettes/day) Smoking Status Reviewed: 08/28/19 Heavy tobacco smoker (more than 10 cigarettes/day) Exercise Type/Frequency Exercises rarely waking 500 to 800 steps a day Allergies, Adverse Reactions, Alerts Active Allergies Reaction Severity Comments Date Penicillin 10/03/2015 Inactive Allergies NKDA 02/25/2014 Medications Active Medications SIG Qnty Indications Ordering Date Provider Torsemide 1 by mouth every 60tabs R60.0 Anna Cerrato, 08/28/2019 20mg Tablets day M.D. Spironolactone 1 by mouth 3 times 36tabs Anna Cerrato, 08/21/2019 25mg per week. M.D. Tablets Oxygen d/c all oxygen , 1units Anna Cerrato, 09/05/2017 [facility] concentrator Arely portable oxygen and all tanks [...] Available Vital Signs Date Vital Result Comment 08/28/2019 11:22am Height 70 inches 5'10" Weight [...] 29.6 kg/m2 Ejection Fraction 50-55% echo 05/16/19 05/31/2019 1:42pm Height 70 inches 5'10" Weight 188.50 lb with shoes Heart Rate 70 /min BP Systolic Sitting 116 mmHg Ra BP Diastolic Sitting 82 mmHg Ra BP Systolic Standing 110 mmHg Ra BP Diastolic Standing 80 mmHg Ra BMI (Body Mass Index) 27.0 kg/m2 Ejection Fraction 50-55% Echo 05/16/19 Results Test Acquired Date Facility Test Result H/L Range Note Type & Screen 06/03/2019 [facility] Patient Blood O Positive [address] [place] [address] [phone] Antibody Screen NEGATIVE Type & Screen 06/03/2019 [facility] Patient Blood Type O Positive [address] [place] [address] [phone] Antibody Screen NEGATIVE Laboratory test 06/03/2019 [facility] Packed SEE RESULTS [address] Cells BELO <[place] [address] NOTE> [phone] Inr/Protime 06/03/2019 [facility] Inr 5.16 Critical 0.[address] high -1.0 [place] [address] [phone] Stool Occult 06/03/2019 [facility] Stool SEE RESULT 4 Blood, Screen [address] [place] [address] Blood, [phone] Screen CBC Auto Diff 06/03/2019 [facility] White Blood 12.0 High 3.5 - [address] Count 10^3/uL 10.8 [place] [address] [phone] Red Blood Count 2.80 10^6/uL Low 4.18-5.48 [...] Red Blood Cells % 0.0 Laboratory 06/03/2019 [facility] Lactic 2.1 mmol/L Critical 0.5-2.0 5 test finding [address] Acid high [place], [place] [address] [phone] Comp Metabolic 06/03/2019 [facility] Sodium 140 mmol/L Normal 135-[address] [place] [address] [phone] Potassium 3.6 mmol/L Normal 3.5-5.0 Chloride 101 [...] 59 U/L Normal 34-104 Laboratory test 06/03/2019 [facility] Magnesium 2.0 mg/dL Normal 1.9-2.[address] [place] [address] [phone] Troponin-I (TnI) 0.02 ng/mL <0.04 7 TSH (Thyroid Stim Horm) 2.60 mcIU/mL Normal 0.34-5.60 Comp Metabolic 05/16/2019 [facility] Sodium 138 mmol/L Normal 135-[address] [place] [address] [phone] Potassium 3.9 mmol/L Normal 3.5-5.0 Chloride 97 [...] Egfr 92.6 >60 8 Laboratory test 05/16/2019 [facility] Magnesium 1.9 mg/dL Normal 1.9-2.[address] [place] [address] [phone] Troponin-I (TnI) 0.05 ng/mL Critical high <0.04 9 TSH (Thyroid Stim Horm) 2.59 mcIU/mL Normal 0.34-5.60 Free T4 (Free Thyroxine) 1.02 ng/dL Normal 0.61-1.12 Inr/Protime 05/16/2019 [facility] Inr 3.32 High 0.82-1.[address] [place] [address] [phone] CBC Auto Diff 05/16/2019 [facility] White Blood 6.8 Normal 3.5 -10.[address] Count 10^3/[place] [address] [phone] Red Blood Count 3.76 10^6/uL Low 4.18-5.48 [...] WEAKNESS,DIZZINESS PER PT 2 SEE RESULTS BELOW [id number] OP PC TRANSFUSED 06/04/19 1204 [id number] OP PC TRANSFUSED 06/03/19 1825 3 Verbal to [id number] by [id number] at 1519 on 06/03/19. Results read back accurately. Standard intensity warfarin therapeutic range: 2.0-3.0 High intensity warfarin therapeutic range: 2.5-3.5 4 SEE RESULT BELOW Name: WAYNE LI : [address]: Tonya Jain MD Acct: [id number] Unit: [id number] AGE: 89 Location: ED Re06/03/19 SEX: M Status: REG ER SPEC: [id number] [place]: 06/03/19-1443 [facility] DR: Tonya Jain MD REQ: [id number] RECD: 06/03/19 STATUS: ALDO FERRERA DR: Alonso Cerrato MD _ SOURCE: STOOL SPDESC: ORDERED: Occult Bl, Scn Procedure Result Reported Site Stool Occult Blood (1) Final 06/03/19- 1515 ML Stool Occult Blood Positive Collection Date (1) 06/03/19 * ML - Main Lab . END OF REPORT DEPARTMENT OF PATHOLOGY, [address] [place] [address] Stalin Ramírze M.D. Director [facility] # [id number] 5 Critical Result LACT:2.1 Called to WARREN at: 14:05:47 by:[id number] Read back by:WARREN WEAVER Severe Sepsis and Septic Shock Management Bundle [...] immediately to secondary confirmatory testing. Using the [employer] DxI 800 Access Immunoassay systems, the 99th [...] (or dialysis) 9 Result TnIDx:0.05 Called to [id number] at: 12:58:05 by:[id number] Read back by: THOMAS Troponin-I testing on Plasma Separator Tubes (PST) has a known false positive rate of 0.20-0.40%. All positive troponins reflex immediately to secondary confirmatory testing. Using the [employer] 800 Access Immunoassay systems, the 99th percentile upper reference limit was demonstrated to be < 0.03 ng/mL. 10 Standard intensity warfarin therapeutic range: 2.0-3.0 High intensity warfarin therapeutic range: 2.5-3.5 Procedures Date Code Description Status 08/17/2019 74056 Dest Lesion Each Addl Lesion 2 Through 14 Each Completed 08/17/2019 90466 Destruction ALL Benign Or Premalignant Lesion (Other Than Completed [place] 05/31/2019 27703 EKG Tracing & Interpretation Completed 05/17/2019 41715 Treadmill Interp/Report Only Completed 05/17/2019 42189 Stress Test Supervsn W/Out I/R Completed 05/17/2019 53802 EKG, Interpretation Only Completed 05/16/2019 42487 ECHO Transthorasic Realtime 2D W Doppler & Color Flow Hosp Completed 05/16/2019 52502 EKG, Interpretation Only Completed 05/16/2019 22969 Dest Lesion Each Addl Lesion 2 Through 14 Each Completed 05/16/2019 25494 Destruction ALL Benign Or Premalignant Lesion (Other Than Completed [place] 05/16/2019 63277 Each Separate/Additional Lesion Completed 05/16/2019 03613 Tangential Biopsy Of Skin, Single Lesion Completed Medical Devices Description No Information Available Encounters Type Date Location Provider Dx Diagnosis Office Visit 08/17/2019 [facility] Dermatology Liz Quezada MD Z08 Encntr for 9:30a follow-up exam after trtmt for malignant neoplasm Z85.828 Personal history of other malignant neoplasm of skin L57.0 Actinic keratosis Office Visit 06/08/2019 [facility] Wu K92.2 Gastrointestinal 10:27a gaurang Murillo M.D. hemorrhage, Hospitalists unspecified I25.10 Athscl heart disease of [place] coronary artery w/o ang pctrs I48.91 Unspecified atrial fibrillation E11.9 Type 2 diabetes mellitus without complications Z95.2 Presence of prosthetic heart valve [facility] K92.2 Gastrointestinal 10:27a gaurang Murillo M.D. hemorrhage, Hospitalists unspecified D50.0 Iron deficiency anemia secondary to blood loss (chronic) I25.10 Athscl heart disease of [place] coronary artery w/o ang pctrs I48.91 Unspecified atrial fibrillation E11.9 Type 2 diabetes mellitus without complications I50.9 Heart failure, unspecified Z95.2 Presence of prosthetic heart valve Office Visit 06/06/2019 [facility] K92.2 Gastrointestinal 10:26a gaurang Murillo M.D. hemorrhage, Hospitalists unspecified D50.0 Iron deficiency anemia secondary to blood loss (chronic) I25.10 Athscl heart disease of [place] coronary artery w/o ang pctrs I48.91 Unspecified atrial fibrillation E11.9 Type 2 diabetes mellitus without complications I50.9 Heart failure, unspecified Z95.2 Presence of prosthetic heart valve Office Visit 06/05/2019 [facility] Viviana K92.2 Gastrointestinal 10:26a gaurang Murillo M.D. hemorrhage, Hospitalists unspecified D50.0 Iron deficiency anemia secondary to blood loss (chronic) I48.91 Unspecified atrial fibrillation E11.9 Type 2 diabetes mellitus without complications I50.9 Heart failure, unspecified I25.10 Athscl heart disease of [place] coronary artery w/o ang pctrs Z95.2 Presence of prosthetic heart valve Office Visit 06/04/2019 [facility] K92.2 Gastrointestinal 10:25a Assoc,pc Qamar, M.D. hemorrhage, Hospitalists unspecified D50.0 Iron deficiency anemia secondary to blood loss (chronic) I48.91 Unspecified atrial fibrillation E11.9 Type 2 diabetes mellitus without complications Z95.2 Presence of prosthetic heart valve I50.9 Heart failure, unspecified Office Visit 06/03/2019 [facility] Anna Cerrato, I48.20 Chronic atrial 5:22p Cardiology Of M.D. fibrillation, Skate Boarder unspecified Z95.2 Presence of prosthetic heart valve Z79.01 intermediate (current) use of anticoagulants K92.2 Gastrointestinal hemorrhage, unspecified Z98.61 Coronary angioplasty status Office Visit 06/03/2019 [facility] Sharmila K92.2 Gastrointestinal 10:24a Assoc,gaurang [facility] hemorrhage, Hospitalists HERB Mccall unspecified D64.9 Anemia, unspecified I25.10 Athscl heart disease of [place] coronary artery w/o ang pctrs I10 Essential (primary) hypertension Z95.2 Presence of prosthetic heart valve Z79.01 continuous churn buttermaker (current) use of anticoagulants Office Visit 05/31/2019 2:00p [facility] Lily Marcelino I47.2 Ventricular Of Skate Boarder Foster, N.P. 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 Office Visit 05/17/2019 12:15p [facility] Govind Hilton R79.89 Other specified Arely Packer abnormal findings of blood chemistry R94.31 Abnormal electrocardiogram [ECG] [EKG] I25.10 Athscl heart disease of [place] coronary artery w/o ang pctrs I47.2 Ventricular tachycardia I49.01 Ventricular fibrillation Office Visit 05/17/2019 [facility] Hiram Ragland I47.2 Ventricular 1:02p Assoc,gaurang Burdick M.D.,FACP tachycardia Hospitalists Z95.810 Presence of automatic (implantable) cardiac defibrillator Office Visit 05/16/2019 11:07a [facility] Anna Cerrato I47.2 Ventricular Of Skate Boarder M.DStevie tachycardia 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 Office Visit 05/16/2019 [facility] I47.2 Ventricular 1:01p Assoc,pc HERB Pham tachycardia Hospitalists 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 Office Visit 05/16/2019 8:00a [facility] Dermatology Liz Quezada, L82.1 Other seborrheic MD keratosis D22.5 Melanocytic nevi of trunk D22.61 Melanocytic nevi of right upper limb, including shoulder D22.4 Melanocytic nevi of scalp and neck Z08 Encntr for follow-up exam after trtmt for malignant neoplasm Z85.828 Personal history of other malignant neoplasm of skin D48.5 Neoplasm of uncertain behavior of skin L57.0 Actinic keratosis Assessments Date Code Description Provider 08/28/2019 I25.10 Atherosclerotic heart disease of Anna Cerrato M.D. [place] coronary artery without angina pectoris 08/28/2019 Z95.2 Presence of prosthetic heart valve Anna Cerrato M.D. 08/28/2019 I48.11 Longstanding persistent atrial Anna Cerrato M.D. fibrillation 08/28/2019 I47.2 Ventricular tachycardia Anna Cerrato M.D. 08/28/2019 D50.0 Iron deficiency anemia secondary to Anna Cerrato M.D. blood loss (chronic) 08/28/2019 R60.0 Localized edema Anna Cerrato M.D. 08/17/2019 Z08 Encounter for follow-up examination Liz Quezada MD after completed treatment for malignant neoplasm 08/17/2019 Z85.828 Personal history of other malignant Liz Quezada MD neoplasm of skin 08/17/2019 L57.0 Actinic keratosis Liz Quezada MD 06/08/2019 K92.2 Gastrointestinal hemorrhage, Wu Gómez M.D. unspecified 06/08/2019 I25.10 Atherosclerotic heart disease of Wu Gómez M.D. [place] coronary artery without angina pectoris 06/08/2019 I48.91 [...] Atherosclerotic heart disease of Michelle Rebolledo M.D. [place] coronary artery without angina pectoris 06/07/2019 I48.91 [...] Atherosclerotic heart disease of Michelle Rebolledo M.D. [place] coronary artery without angina pectoris 06/06/2019 I48.91 [...] Atherosclerotic heart disease of Viviana Foote M.D. [place] coronary artery without angina pectoris 06/05/2019 Z95.2 [...] heart valve Anna Cerrato M.D. 06/03/2019 Z79.01 intermediate (current) use of Anna Cerrato M.D. anticoagulants 06/03/2019 K92.2 Gastrointestinal hemorrhage, Anna Cerrato M.D. unspecified 06/03/2019 Z98.61 Coronary angioplasty status Anna Cerrato M.D. 06/03/2019 K92.2 Gastrointestinal hemorrhage, Sharmila Bartolofield Mccall CONTACT CENTER ASSISTANT unspecified 06/03/2019 D64.9 Anemia, unspecified Sharmila Bartolofield Mccall, CONTACT CENTER ASSISTANT 06/03/2019 I25.10 Atherosclerotic heart disease of Sharmila Bartolofield Cal NP [place] coronary artery without angina pectoris 06/03/2019 I10 Essential (primary) hypertension Sharmila Bartolo Mccall CONTACT CENTER ASSISTANT 06/03/2019 Z95.2 Presence of prosthetic heart valve Sharmila Mccall, CONTACT CENTER ASSISTANT 06/03/2019 Z79.01 continuous churn buttermaker (current) use of Sharmila Mccall NP anticoagulants 05/31/2019 I48.20 Chronic atrial fibrillation, Anna Cerrato M.D. unspecified 05/31/2019 I47.2 Ventricular tachycardia Lily Eubanks, N.P. 05/31/2019 I25.10 Atherosclerotic heart disease of Lily Eubanks, N.P. [place] coronary artery without angina pectoris 05/31/2019 I48.20 Chronic atrial fibrillation, Lily Eubanks, N.P. unspecified 05/31/2019 I35.0 Nonrheumatic aortic (valve) stenosis Lily Eubanks, N.P. 05/31/2019 I44.2 Atrioventricular block, complete Lily Eubanks, N.P. 05/31/2019 Z95.2 Presence of prosthetic heart valve Lilyedita Eubanks, N.P. 05/17/2019 R94.31 Abnormal electrocardiogram [ECG] Lesley Segundo MD, FACC, [EKG] [facility] 05/17/2019 R79.89 Other specified abnormal findings of Govind Packer M.D. blood chemistry 05/17/2019 I47.2 Ventricular tachycardia Hiram Burdick M.D.,FACP 05/17/2019 Z95.810 Presence of automatic (implantable) Hiram Burdick M.D.,[facility] cardiac defibrillator 05/17/2019 R94.31 Abnormal electrocardiogram [ECG] Govind Packer M.D. [EKG] 05/17/2019 I25.10 Atherosclerotic heart disease of Govind Packer M.D. [place] coronary artery without angina pectoris 05/17/2019 I47.2 Ventricular tachycardia Govind Packer M.D. 05/17/2019 I49.01 Ventricular fibrillation Govind Packer M.D. 05/16/2019 R94.31 Abnormal electrocardiogram [ECG] Leoncio Jang M.D., FACC, [EKG] [facility] 05/16/2019 I47.2 Ventricular tachycardia Rhianna [...] Liz Quezada MD Plan of Treatment Future Appointment(s):09/06/2019 10:00 am - Lily Eubanks N.P. at [facility]02/15/2020 10:00 am - Liz Quezada MD at [facility] Lvpifevigcu19/ 28/2020 - Anna Cerrato M.D.I25.10 Atherosclerotic heart disease of [place] coronary artery without angina qwirsvjdP61.2 Presence of prosthetic heart valveComments:Mechanical MVRTissue AVRI48.11 Longstanding persistent atrial zirynurzjrsdQ57.2 Ventricular tachycardiaComments:On amiodarone.Follow up: Release Araiza most recent ICD interogation.Recommendations:Needs thyroid and liver check.D50.0 Iron deficiency anemia secondary to blood loss (chronic) Follow up:Release: August [facility].R60.0 Localized edemaNew Medication:Torsemide 20 mg - 1 by mouth every dayComments:Unable to get stockings on.4+ edema.Follow up:1 week CONTACT CENTER ASSISTANT with ECG.Recommendations:STOP FURSEMIDE NEW: DEMEDEX 20 mg/day (stronger) to replace. BP too low for daily demedex/lasi. Future options: IV diuretics 3 x week infusion area or admit get fluid off. Functional Status Description No Information Available Mental Status Description No Information Available Referrals Description No Information Available
--- NOTE | 2019-09-18 16:49 | ED ---
Shortness of Breath - HPI Summary HPI Summary: Patient is an 89 y/o M presenting to the ED for a chief complaint of shortness of breath. Patient is present with his daughter. Patient states that the shortness of breath worsens with exertion. Patient also reports constipation, intermittent black stools, most recently one week ago, and lightheadedness with exertion. His daughter states he has a chronic cough, which he has had for several years. He denies chest pain, abdominal pain, nausea, vomiting, diarrhea , or loose stools. Patient was seen at his PCPs office, Family Medicine, on and had blood work drawn that showed anemia, so patient was sent to [facility] for further evaluation. Last Coumadin level was 2.4, assessed on 09/18/19. He takes a blood thinner, Prolanta, for a previous stent placement. He has a history of using oxygen at home for a history of COPD. An allergy to penicillin is noted. 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 He lives with his and one of his daughters. Patients medication reviewed this visit. - History of Current Complaint Chief Complaint: EDGeneral Time Seen by Provider: 09/18/19 16:32 Hx Obtained From: Patient, Family/Bronze Chaser - Daughter Onset/Duration: Sudden Onset, Still Present Current Severity: Moderate Aggravating Factors: Other - Exertion Alleviating Factors: Nothing - Allergy/Home Medications Allergies/Adverse Reactions: Allergies Allergy/AdvReac Type Severity Reaction Status Date / Time Penicillins Allergy Unknown Verified 07/10/19 20:45 Reaction Details Home Medications: Home Medications Spironolactone TAB* [Aldactone TAB*] 25 mg PO .THREE TIMES A WEEK 09/18/19 [ History Confirmed 09/18/19] Torsemide TAB* [Demadex*] 20 mg PO QAM 09/18/19 [History Confirmed 09/18/19] Warfarin TAB(*) [Coumadin TAB(*)] 2 mg PO FR 09/18/19 [History Confirmed ] Warfarin TAB(*) [Coumadin TAB(*)] 4 mg PO SUMOTUWETHSA 09/18/19 [History Confirmed 09/18/19] PMH/Surg Hx/FS Hx/Imm Hx Previously Healthy: Yes Endocrine/Hematology History: Reports: Hx Anticoagulant Therapy - Coumadin, Hx Blood Transfusions, Hx Diabetes - "PRE DM", Hx Anemia, Hx Unexplained Bleeding Cardiovascular History: Reports: Hx Auto Implanted Cardiovert Defib, Hx Hypercholesterolemia, Hx Hypertension, Hx Pacemaker/ICD, Hx Valvular Heart Disease - artificial valve Denies: Hx Congestive Heart Failure GI History: Reports: Hx Gastrointestinal Bleed History: Denies: Hx Dialysis, Hx Renal Disease Musculoskeletal History: Sensory History: Denies: Hx Contacts or Glasses, Hx Eye Prosthesis, Hx Legally Blind, Hx Deafness, Hx Hearing Aid Opthamlomology History: Denies: Hx Contacts or Glasses, Hx Eye Prosthesis, Hx Legally Blind EENT History: Denies: Hx Deafness Neurological History: Reports: Hx Transient Ischemic Attacks (TIA) Denies: Hx Developmental Delay - Cancer History Cancer Type, 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; LUNG CA Hx Chemotherapy: No - Surgical History Surgical History: Yes Surgery Procedure, Year, and Place: PACEMAKER, artificial heart valve, CABG - Immunization History Date of Tetanus Vaccine: utd Date of Influenza Vaccine: unk Infectious Disease History: No Infectious Disease History: Denies: Traveled Outside the [place] in Last 30 Days - Family History Known Family History: Positive: Cardiac Disease - Father - CAD and [place], Other - Mother -- stomach CA - Social History Occupation: Retired Lives: With Family Alcohol Use: None Hx Substance Use: No Substance Use Type: Reports: None Hx Tobacco Use: Yes Smoking Status (MU): Former Smoker Have You Smoked in the Last Year: No Review of Systems Negative: Chest Pain Positive: Shortness Of Breath Positive: Other - Positive black stools and constipation; negative loose stools. Negative: Abdominal Pain, Vomiting, Diarrhea, Nausea Neurological/Mental Status: Other - Positive lightheadedness with exertion, none at the present time All Other Systems Reviewed And Are Negative: Yes Physical Exam Triage Information Reviewed: Yes Vital Signs On Initial Exam: Initial Vitals Temp Pulse Resp BP Pulse Ox 97.5 F 72 18 109/48 98 09/18/19 16:05 09/18/19 16:05 09/18/19 16:05 09/18/19 16:05 09/18/19 16:05 Vital Signs Reviewed: Yes Procedures - Sedation Patient Received Moderate/Deep Sedation with Procedure: No Diagnostics - Vital Signs Vital Signs Temp Pulse Resp BP Pulse Ox 09/18/19 16:05 97.5 F 72 18 109/48 98 - Laboratory Result Diagrams: 09/18/19 18:22 09/18/19 16:51 Lab Statement: Any lab studies that have been ordered have been reviewed, and results considered in the medical decision making process. - Radiology Chest X-ray Radiology Interpretation Completed By: Radiologist Summary of Radiographic Findings: Chest X-ray IMPRESSION: 1. Pulmonary edema with a small left pleural effusion. 2. Unchanged cardiomegaly with postoperative changes. A left chest wall AICD is in place. 3. Obscured left hemidiaphragm (atelectasis versus infiltrate). Reviewed by Dr. Molina. - EKG 17:00 Cardiac Rate: Other Rate - 70 BPM EKG Rhythm: Sinus Rhythm - Paced ST Segment: Normal Ectopy: None Summary of EKG Findings: EKG at 17:00 shows paced rhythm with 70 BPM, no discordant concerns. Reviewed and interpreted by Dr. Molina. Re-Evaluation - Re-Evaluation First Eval Re-Evaluation Time: 17:34 Change: Unchanged Comment: At 17:34, a rectal exam showed dark colored stool. Second Eval Re-Evaluation Time: 18:30 Change: Unchanged Comment: At 18:30, patient has a bruise to the right posterior shoulder. When questioned about the bruise, he states he fell a couple days ago because he was dizzy. Course/Dx - Physician Notifications Discussed Care of Patient With: Sarah Mckeon - At 19:51, Dr. Mckeon reviewed the patients case and agrees to admit the patient to [facility]. Time Discussed With Above Provider: 19:51 Instructed by Provider To: Admit As Inpatient Discharge ED - Sign-Out/Discharge Documenting (check all that apply): Patient Departure - Admit - Discharge Plan Referrals: Alonso Marquez MD [Primary Care Provider] - - Attestation Statements Document Initiated by Scribe: Yes Documenting Scribe: Delmis Manriquez Provider For Whom Scribe is Documenting (Include Credential): Sandra Molina MD Scribe Attestation: Delmis Lauren, scribed for Sandra Molina MD on 09/18/19 at 0655. Status of Scribe Document: Ready
[2019-09-18 17:06] LABS: Activated Partial Thrombo Time 39.9 seconds (26.0-38.0); INR 2.58 (0.82-1.09)
[2019-09-18 18:12] LABS: Albumin 3.8 g/dL (3.2-5.2); Anion Gap 6 mmol/L (2-11); CO2 Carbon Dioxide 34 mmol/L (22-32); Calcium 8.7 mg/dL (8.6-10.3); Chloride 98 mmol/L (101-111); Magnesium 1.9 mg/dL (1.9-2.7); Potassium 3.9 mmol/L (3.5-5.0); Sodium 138 mmol/L (135-145)
[2019-09-18 18:17] LABS: ALT 7 U/L (7-52); AST 12 U/L (13-39); Albumin/Globulin Ratio 1.4 (1-3); Alkaline Phosphatase 80 U/L (34-104); BUN/Creatinine Ratio 24.8 (8-20); Blood Urea Nitrogen 28 mg/dL (6-24); EGFR African American 73.9 (>60); EGFR Non-African American 61.1 (>60); Globulin 2.7 g/dL (2-4); Glucose 107 mg/dL (70-100); Total Protein 6.5 g/dL (6.4-8.9)
[2019-09-18 18:32] LABS: Hematocrit 20 % (42-52); Hemoglobin 6.2 g/dL (14.0-18.0); Mean Corpuscular HGB Conc 32 g/dL (31-36); Mean Corpuscular Hemoglobin 26 pg (27-31); Mean Corpuscular Volume 82 fL (80-94); Mean Platelet Volume 6.3 fL (7.4-10.4); Platelet Count 194 10^3/uL (150-450); Red Blood Count 2.39 10^6 /uL (4.18-5.48); Red Cell Distribution Width 20 % (10-15); White Blood Count 4.3 10^3/uL (3.5-10.8)
[2019-09-18 18:33] LABS: ABS Basophils 0.1 10^3/ul (0-0.2); ABS Eosinophils 0.1 10^3/ul (0-0.6); ABS Lymphocytes 0.7 10^3/ul (1.0-4.8); ABS Monocytes 0.6 10^3/ul (0-0.8); ABS Neutrophils 2.8 10^3/ul (1.5-7.7); Eosinophil % 1.7 %; Lymphocyte % 15.7 %; Nucleated Red Blood Cells % 0.1
[2019-09-18 18:48] LABS: Polychromasia 1+
[2019-09-18] MEDS ORDERED: Acetaminophen TAB* 325 MG PO PRN (20:11)
[2019-09-18] MEDS ORDERED: Ondansetron INJ* 2 MG/ML VIAL IV PRN (20:11)
[2019-09-18] MEDS ORDERED: Phytonadione IV (Adult)* 10 MG in NS 0.9% 50 ML* 50 ML IV ONE (20:21)
[2019-09-18] MEDS ORDERED: Spironolactone TAB* 25 MG PO SCH (20:30)
[2019-09-18] MEDS ORDERED: Albuterol 2.5 MG/3 ML NEB.SOL* (0.083%) INH PRN (20:34)
[2019-09-18 20:53] LABS: Total Iron Binding Capacity 405 mcg/dL (250-450); Transferrin 289 mg/dL (203-362)
[2019-09-18 20:57] LABS: % Iron Saturation 5 % (15-55); Iron < 20 ug/dL (50-212)
[2019-09-18] MEDS ORDERED: Omeprazole CAP (NF) 20 MG CAP.DR PO SCH (21:00)
[2019-09-18 21:14] LABS: Ferritin 15.6 ng/mL (24-336)
[2019-09-18] MEDS: Multivitamins/Minera Areds(NF) 1 CAP CAP PO SCH (23:18)
[2019-09-18] MEDS: Pantoprazole IV* 40 MG IV SCH (23:19)
[2019-09-18] MEDS: Carvedilol TAB* 25 MG PO SCH (23:20)
[2019-09-18] MEDS: Ticagrelor* 90 MG TAB PO SCH (23:20)
[2019-09-18] MEDS: Warfarin TAB(*) 4 MG PO SCH (23:21)
[2019-09-18] MEDS: Latanoprost 0.005%* 2.5 ml BTL BOTH EYES SCH (23:51)
--- NOTE | 2019-09-19 00:53 | HP ---
CC: Dr. Alonso Marquez * ADMISSION HISTORY AND PSYCHICAL: DATE OF ADMISSION: 09/18/19 PRIMARY CARE PROVIDER: Dr. Alonso Marquez. MY ATTENDING WHILE IN THE HOSPITAL: Dr. Fitz Dejesus.* (DICTATED BY GHANSHYAM MURDOCK) CHIEF COMPLAINT: Weakness, abnormal blood work. HISTORY OF PRESENT ILLNESS: Mr. 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 The patient today was feeling in his normal state of health except for some weakness, some increased shortness of breath, and some dizziness with standing but he is reluctant to admit to these. When he went to his primary care provider, had lab work and was found to have hemoglobin of 6.2 and was referred to the emergency department. The patient denies chest pain. The patient has not passed out. The patient has not had increase in swelling in his legs. He recently had torsemide level increased due to lower extremity swelling and this has improved his lower extremity edema, though he still has some. The patient has had dark stools in the past. He cannot say how long though this was, but he has not looked at his bowel movements recently. The patient denies fevers or chills. No recent changes to medication. No recent supratherapeutic INRs. No abdominal pain or diarrhea. The patient states he is actually more tends towards constipation. The patient denies abdominal pain, nausea, vomiting, fever, or chills. Due to concern for GI bleeding and acute anemia, we were asked to evaluate the patient for admission to the hospital. 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 PAST SURGICAL HISTORY: Mitral valve replacement with a mechanical valve, multiple catheterizations, CABG, biventricular pacemaker implantation, AICD. MEDICATIONS: 1. Amiodarone 200 mg p.o. daily. 2. Torsemide 20 mg p.o. daily. 3. Spironolactone 25 mg p.o. daily. 3. Carvedilol 25 mg p.o. b.i.d. 4. Brilinta 90 mg p.o. b.i.d. 5. Metformin 500 mg p.o. daily. 6. Omeprazole 20 mg p.o. b.i.d. 7. Iron 325 mg p.o. daily. 8. Latanoprost 1 drop both eyes daily. 9. PreserVision AREDS 1 tab p.o. daily. 10. Coumadin 2 mg Tuesday, 4 mg Tuesday, Tuesday, Tuesday, Tuesday, , and Tuesday. ALLERGIES: PENICILLIN. FAMILY HISTORY: The patient's father of CAD. The patient's mother of stomach cancer. The patient has a sister who of a stroke and another sister of COPD and has had multiple strokes. SOCIAL HISTORY: The patient quit smoking in 1986. The patient drinks rare alcohol. Denies any illicit drug use. 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 The patient is . The patient's surrogate decision maker will be his caregiver Afua Mar. REVIEW OF SYSTEMS: A 10-point review of systems reviewed and negative otherwise except as stated above in the HPI. PHYSICAL EXAMINATION GENERAL: The patient is an 89-year-old male who appears stated age, sitting in the bed, in no acute distress. The patient is remarkably pale. VITAL SIGNS: At time of evaluation, temperature 97.5, respiratory rate 14, oxygen saturation 99% on room air, blood pressure 124/69. HEENT: Head: Normocephalic, atraumatic. Sclerae anicteric, no conjunctival injection. Nasal mucosa moist. Oral mucosa moist. No pharyngeal erythema, discharge or exudate. NECK: Supple, nontender. No lymphadenopathy. No carotid bruit auscultated. No JVD. RESPIRATORY: Slight expiratory wheezing heard throughout. Good air exchange bilaterally. No adventitious lung sounds. CARDIAC: Regular rate and rhythm. No clicks, murmurs, gallops, or rubs. Pulses 2+ in the dorsalis pedis, posterior tibialis, and radial areas. ABDOMEN: Soft, nontender, nondistended. Bowel sounds present and normoactive in all 4 quadrants. No hepatosplenomegaly. No abdominal bruits auscultated. No hepatojugular reflux. GENITOURINARY: No suprapubic or CVA tenderness. NEURO: Cranial nerves II through XII intact. No focal deficits. Alert and oriented x3. PSYCHIATRIC: Pleasant and cooperative. SKIN: Clean, intact. No rash. DIAGNOSTIC STUDIES/LAB DATA: White blood cell count 4.3, hemoglobin 6.2, platelet count 194. INR 2.58, APTT of 39.9. Sodium 138, potassium 3.9, chloride 99, carbon dioxide 34, anion gap 6, BUN 28, creatinine 1.13, glucose 107, calcium 8.7, magnesium 1.9. Bilirubin 0.3, AST 12, ALT 7, alkaline phosphatase 80. BNP 119. Protein 6.5, albumin 3.8, globulin 2.7. Studies: Chest x-ray read as pulmonary edema as well as left pleural effusion, unchanged; cardiomegaly and postoperative changes; obscured left hemidiaphragm. EKG shows ventricular paced rhythm consistent with previous exams. ASSESSMENT AND PLAN: Impression: Mr. Brantely is an 89-year-old male with a complex past cardiac history for nonischemic cardiomyopathy with normalized ejection fraction, nonsustained ventricular tachycardia, as well as multiple gastrointestinal bleeds related to arteriovenous malformations of the gastrointestinal tract. The patient's hemoglobin is found to be 6.2 from which he is moderately symptomatic. The patient will be admitted to the hospital for transfusion, close hemodynamic monitoring, gastroenterology consult, and possible endoscopy. 1. Anemia likely related to gastrointestinal bleeding. The patient has known atrioventricular malformations of the stomach. The patient has an elevated RDW , low MCV, low MCH. It is likely he is losing blood chronically from his arteriovenous malformations, though an increased recent flow from his arteriovenous malformations is not ruled out. The patient will be transfused 1 unit now, hemoglobin rechecked in the morning and need for additional transfusion at that point will be assessed. The patient will have an iron panel added on to his labs before his hemoglobin. The patient's case has been discussed with Dr. Mendel Duke of Gastroenterology, and Gastroenterology will see him in the morning for consideration of arteriovenous malformation, but he had a difficult endoscopy last time he was here in June and the risks of a repeat endoscopy with no arteriovenous malformations may outweigh benefits given he does not have life- threatening risk of bleeding at this time, but it is unclear. The patient is unable to state whether or not he had recent melena. The patient will be started on PPI b.i.d. IV. Given his mechanical valve and recent stents, we will continue the patient's Brilinta and continue the patient's warfarin at this time. Hold the patient's oral iron. The patient may benefit from IV iron depending on the results of his iron studies. 2. Nonischemic cardiomyopathy, heart failure with preserved ejection fraction. The patient appears slightly hypervolemic at this time. With transfusion, the patient will be monitored for transfusion associated cardiac overload. The patient will be continued on his torsemide at this time. The patient is saturating well on room air and does not need to have increased diuresis at this time as the transfusions may actually help to improve his cardiac status. Continue the patient's carvedilol at decreased dose. Continue the patient's spironolactone. 3. History of nonsustained ventricular tachycardia. The patient has an ACID in place. Continue the patient's amiodarone. 4. Diabetes mellitus type 2. Continue the patient's metformin. Check the patient's blood sugar q.6 hours, as well as n.p.o. for possible procedure. 5. Hypertension. The patient is currently normotensive. Decrease carvedilol as above. Continue spironolactone, amiodarone, and torsemide. 6. Hyperlipidemia. The patient is not on lipid-lowering therapy for unclear reasons. The patient should follow up with outpatient occupational therapist home based about this. 7. History of cerebrovascular accident. Continue the patient's Brilinta. 8. Coronary artery disease. The patient had a stent in late last year. Continue the patient's Brilinta. 9. History of Waldenstrom macroglobulinemia. This is unlikely the cause of the patient's anemia. This has been in remission. Follow up outpatient with Oncology. 10. History of lung cancer. This was treated with radiation, also in remission. 11. Disposition: The patient is admitted inpatient in the hospital. Estimated length of stay is 2 midnights. 12. FEN: The patient will have a heart healthy diet, caffeine okay until tomorrow and then be n.p.o. after midnight for possible procedure. No fluids at this time due to the heart disease. TIME SPENT: Approximately 60 minutes was spent on the admission of this patient , 30 of which was spent [id number], obtaining history and physical, and discussing treatment plan. GHANSHYAM MURDOCK [id number]/[facility] #: [id number] PENG
[2019-09-19 05:58] LABS: ABS Basophils 0.1 10^3/ul (0-0.2); ABS Eosinophils 0.1 10^3/ul (0-0.6); ABS Lymphocytes 0.5 10^3/ul (1.0-4.8); ABS Monocytes 0.6 10^3/ul (0-0.8); ABS Neutrophils 2.9 10^3/ul (1.5-7.7); Eosinophil % 2.2 %; Hematocrit 22 % (42-52); Hemoglobin 7.1 g/dL (14.0-18.0); Lymphocyte % 12.3 %; Mean Corpuscular HGB Conc 32 g/dL (31-36); Mean Corpuscular Hemoglobin 27 pg (27-31); Mean Corpuscular Volume 83 fL (80-94); Mean Platelet Volume 6.8 fL (7.4-10.4); Platelet Count 186 10^3/uL (150-450); Red Blood Count 2.64 10^6 /uL (4.18-5.48); Red Cell Distribution Width 20 % (10-15); White Blood Count 4.2 10^3/uL (3.5-10.8)
[2019-09-19 06:04] LABS: INR 2.57 (0.82-1.09)
[2019-09-19 06:12] LABS: BUN/Creatinine Ratio 23.9 (8-20); Calcium 8.5 mg/dL (8.6-10.3); EGFR African American 73.9 (>60); EGFR Non-African American 61.1 (>60); Magnesium 2.1 mg/dL (1.9-2.7); Potassium 3.8 mmol/L (3.5-5.0)
[2019-09-19] MEDS ORDERED: Dextrose 50% Syringe 50 ML* 25 GM/50 ML SYRINGE IV PUSH PRN (07:48)
[2019-09-19] MEDS: Insulin LISPRO* 1 UNITS UNIT SUBCUT SCH ×2 (08:04→13:13)
[2019-09-19] MEDS: Multivitamins/Minera Areds(NF) 1 CAP CAP PO SCH ×2 (08:47→19:38)
[2019-09-19] MEDS ORDERED: metFORMIN* 500 MG TAB PO SCH (09:00)
[2019-09-19] MEDS: Torsemide TAB* 20 MG PO SCH (09:24)
[2019-09-19] MEDS: Amiodarone TAB* 200 MG PO SCH (09:24)
[2019-09-19] MEDS: Pantoprazole IV* 40 MG IV SCH ×2 (09:24→20:35)
[2019-09-19] MEDS: Ticagrelor* 90 MG TAB PO SCH ×2 (09:25→20:33)
[2019-09-19] MEDS: Carvedilol TAB* 25 MG PO SCH ×2 (09:25→20:34)
[2019-09-19] MEDS ORDERED: Iron Sucrose* 200 MG in NS 0.9% 100 ML* 100 ML IVPB ONE (10:28)
[2019-09-19] MEDS ORDERED: Insulin LISPRO* 1 UNITS UNIT SUBCUT SCH (11:30)
[2019-09-19 14:18] LABS: Hematocrit 28 % (42-52); Hemoglobin 8.8 g/dL (14.0-18.0)
[2019-09-19] MEDS ORDERED: fentaNYL* 50 MCG/ML 2 ML VIAL (100 MCG VIAL) ONE (15:19)
[2019-09-19] MEDS ORDERED: Midazolam* 1 MG/ML 5 ML VIAL (5 MG) ONE (15:20)
--- NOTE | 2019-09-19 17:04 | PRO ---
CC: Sangita Amanda NP * DATE OF PROCEDURE: 09/19/2019 - ROOM #[id number] PROCEDURE PERFORMED: EGD. REFERRING PROVIDER: Sangita Amanda NP. INDICATION: Hyedl-ai-okbbsiy anemia. MEDICATIONS GIVEN: Midazolam 2 mg IV and Fentanyl 12.5 mcg IV. DESCRIPTION OF PROCEDURE: Full disclosure of risks were reviewed with the patient as detailed on the consent form. The patient was placed in the left lateral decubitus position and monitored with continuous pulse oximetry, capnography, interval blood pressure monitoring, and direct observation. A bite block was placed between the patient's teeth. An adult gastroscope was then advanced into the patient's mouth, down the esophagus, into the stomach and into the distal duodenum. Findings and interventions are described below. FINDINGS: Esophagus was a normal tubular structure without rings or strictures. The GE junction was regular and occurred at 38 cm. The scope was then advanced into the stomach. The stomach was examined in the forward and retroflexed views. There was no fresh oral blood in the stomach. No erosions or ulcers. There was a small, mildly raised red spot in the gastric body. The appearance is not consistent with an AVM. Water jet used to lavage this area. No bleeding was provoked. The scope was then advanced into the duodenum to at least the third portion. There was no fresh oral blood. No AVM's, no ulcers or erosions. There was weiner bilious fluid. The scope was then withdrawn from the patient. The patient tolerated the procedure well and was recovered in the GI recovery area. IMPRESSION: 1. Complete upper endoscopy to the distal duodenum. No evidence of recent or active bleeding. Small, slightly raised red spot in the gastric body; benign appearing. Unable to provoke bleeding from this site. Decision was made to not perform any endoscopic therapy on this lesion as it appeared low risk. Additionally, the patient is on anticoagulation with Coumadin and Brilinta at the time of the procedure, so I was hesitant to provoke bleeding unnecessarily. 2. Continue to monitor CBC. 3. Can slowly advance diet. Thank you very much for this consult. Please contact GI if any acute clinical change [id number]/[facility] #: [id number] PENG
[2019-09-19] MEDS: Latanoprost 0.005%* 2.5 ml BTL BOTH EYES SCH (17:17)
--- NOTE | 2019-09-19 19:16 | CONS ---
GASTROENTEROLOGY CONSULTATION REPORT: DATE OF CONSULT: 09/19/19 REASON FOR CONSULT: Edlza-bs-yhbfzwy anemia. HISTORY OF PRESENT ILLNESS: Mr. Brantley is an 89-year-old gentleman with multiple medical conditions including nonischemic cardiomyopathy; aortic stenosis, status post TAVR; mitral valve prolapse and insufficiency, status post mitral valve replacement; atrial fib; coronary artery disease, status post PCI; ventricular tachycardia with ICD; Waldenstrom macroglobulinemia and GI bleeds related to AVMs, who is admitted with acute on chronic anemia. History is largely obtained from the chart. Mr. Brantley began to have some weakness, shortness of breath and dizziness recently. He was noted on lab work to have a hemoglobin of 6.2. This is down from 8.1 in July. He was directed to the ED. On interview, Mr. Brantley denies many complaints. He says that he is feeling a bit better since receiving 2 units of blood. Reports bowel movement once a day. He has not seen any recent melena or bright red blood per rectum. Reports that the stool has looked normal. Denies any GI symptoms including abdominal pain, nausea, vomiting, reflux, dysphagia. Regarding GI history, Mr. Brantley has history of GI bleeds related to AVMs. He had a bleed in 2016. He also was hospitalized with melena and acute blood loss anemia in June 2019. At that time, he did report seeing dark stools. 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 One Endoclip was used. No other bleeding source was noted. Blood count stabilized and remained in 7 to 8 range until this admission. The patient is on Brilinta following the PCI for coronary artery disease in May 2019. He is also on Coumadin for his mechanical mitral valve. PAST MEDICAL HISTORY: 1. Aortic valve replacement, [facility] in 2000. 2. Aortic valve stenosis, status post TAVR. 3. Lung cancer in 2017, status post radiation. 4. Nonischemic cardiomyopathy. 5. Paroxysmal atrial fibrillation. 6. Coronary artery disease with a recent PCI intervention in May 2019, now on Brilinta. 7. Waldenstrom's. 8. History of GI bleed secondary to AVMs. PAST SURGICAL HISTORY: 1. Mitral valve replacement with a mechanical valve. 2. CABG. 3. Biventricular pacemaker implantation and ICD placement. HOME MEDICATIONS: 1. Amiodarone 200 mg daily. 2. Torsemide 20 mg daily. 3. Spironolactone 25 mg daily. 3. Carvedilol 25 mg twice daily. 4. Brilinta 90 mg twice daily. 5. Metformin 500 mg daily. 6. Omeprazole 20 mg twice daily. 7. Iron 325 mg daily. 8. Xalatan daily. 9. PreserVision AREDS daily. 10. Coumadin as directed. ALLERGIES: To PENICILLIN. FAMILY HISTORY: Father with CAD. Mother with gastric cancer. Sister with stroke. Sister with COPD. SOCIAL HISTORY: Former smoker, quit many years ago. Rare alcohol use. No drug use. 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 . REVIEW OF SYSTEMS: A 10-point review of systems is negative except as mentioned above. PHYSICAL EXAM: Vital Signs: Afebrile, heart rate in the 70s, blood pressure 120s/50s, 96% on room air. General: Elderly gentleman. No acute distress. Comfortable appearing. HEENT: Mucous membranes moist. Cardiovascular: Regular rate and rhythm. Abdomen: Soft, nontender, nondistended. Extremities : No significant edema. Neuro: A and O x3. Answers are short, but appropriate. DIAGNOSTIC STUDIES/LAB DATA: Labs reviewed. White count 4.3; hemoglobin 6.2 on admission with hematocrit of 20, up to 8.8 after 2 units of blood; platelet count 194. INR 2.57, chloride 99, BUN 27, creatinine 1.13. Percent saturation of iron is 5, iron less than 20, ferritin 16.6. BNP 122. LFTs unremarkable. Imaging: Chest x-ray on the day of admission is read as mild left pleural effusion and unchanged cardiomegaly. Endoscopy: EGD from June 2019 reviewed and summarized in HPI. IMPRESSION AND RECOMMENDATIONS: Mr. Brantley is an 89-year-old gentleman with multiple medical comorbidities, particularly cardiac disease, who is admitted with acute on chronic anemia. Vital signs are stable. Labs notable for a hemoglobin that is 6.2, down from his baseline around 8. Iron studies are consistent with iron deficiency. The patient is anticoagulated on Coumadin and appears to be within goal range without any supratherapeutic levels recently. The patient has an appropriate bump in his hemoglobin with 2 units of blood which is reassuring. Additionally , he was noted to have a brown stool earlier today. I am inclined to think that the patient probably has more subacute blood loss or slow oozing in the setting of Coumadin and Brilinta. Discussed with the patient that we could repeat an upper endoscopy to evaluate for any bleeding source given his history of gastric AVMs. The patient is in agreement with this plan. We will proceed with a diagnostic upper endoscopy on the Brilinta and Coumadin. This is considered a low-risk procedure for bleeding. Thank you very much for this consult. [id number]/[facility] #: [id number] PENG
--- NOTE | 2019-09-19 19:29 | PN ---
Subjective Date of Service: 09/19/19 Interval History: Patient was in good spirits this afternoon. Denied dizziness, lightheadedness, chest pain, palpitations, abdominal pain, nausea, vomiting or issues moving his bowel or bladder. Family History: Unchanged from Admission Social History: Unchanged from Admission Past Medical History: Unchanged from Admission Objective Active Medications: Acetaminophen (Tylenol Tab*) 650 mg PO Q6H PRN PRN Reason: MILD PAIN or TEMP > 100.4 Albuterol (Ventolin 2.5 Mg/3 Ml Neb.Linnette*) 2.5 mg INH Q2H PRN PRN Reason: SOB/WHEEZING Amiodarone HCl (Cordarone Tab*) 200 mg PO DAILY [facility] Last Admin: 09/19/19 09:24 Dose: 200 mg Carvedilol (Coreg Tab*) 12.5 mg PO BID [facility] Last Admin: 09/19/19 09:25 Dose: 12.5 mg Dextrose (D50w Syringe 50 Ml*) 12.5 gm IV PUSH .FOR FS < 60 - SS PRN PRN Reason: FS < 60 Insulin Human Lispro (Humalog*) 0 units SUBCUT Q6H [facility]; Protocol Last Admin: 09/19/19 13:13 Dose: Not Given Latanoprost (Xalatan 0.005%*) 1 drop BOTH EYES QPM [facility] Last Admin: 09/19/19 17:17 Dose: 1 drop Multivitamins/Minerals (Preservision Areds(Multivitamins/Mineral)(Nf)) 1 cap PO BID [facility] Last Admin: 09/19/19 08:47 Dose: Not Given Ondansetron HCl (Zofran Inj*) 4 mg IV Q6H PRN PRN Reason: NAUSEA Pantoprazole Sodium (Protonix Iv*) 40 mg IV Q12H [facility] Last Admin: 09/19/19 09:24 Dose: 40 mg Spironolactone (Aldactone Tab*) 25 mg PO .THREE TIMES A WEEK [facility] Ticagrelor (Brilinta*) 90 mg PO BID [facility] Last Admin: 09/19/19 09:25 Dose: 90 mg Torsemide (Demadex*) 20 mg PO QAM [facility] Last Admin: 09/19/19 09:24 Dose: 20 mg Warfarin Sodium (Coumadin Tab(*)) 2 mg PO FR [facility]; Protocol Warfarin Sodium (Coumadin Tab(*)) 4 mg PO SUMOTUWETHSA [facility]; Protocol Last Admin: 09/18/19 23:21 Dose: 4 mg Vital Signs - 8 hr 09/19/19 17:12 Temperature 97.4 F Pulse Rate 74 Respiratory 20 Rate Blood Pressure 122/54 (mmHg) O2 Sat by Pulse 96 Oximetry Oxygen Devices in Use Now: None Appearance: This is a well developed, pale, older gentleman seen sitting up in a chair with no acute distress noted. Eyes: No Scleral Icterus, PERRLA Ears/Nose/Mouth/Throat: NL Teeth, Lips, Gums, Clear Oropharnyx, Mucous Membranes Moist Neck: NL Appearance and Movements; NL JVP, Trachea Midline Respiratory: Symmetrical Chest Expansion and Respiratory Effort, Clear to Auscultation Cardiovascular: NL Sounds; No Murmurs; No JVD, RRR, - - +1 non-pitting bilat LE edema. Abdominal: NL Sounds; No Tenderness; No Distention Lymphatic: No Cervical Adenopathy Extremities: No Clubbing, Cyanosis Skin: No Rash or Ulcers, No Nodules or Sclerosis Neurological: Alert and Oriented x 3 Lines/Tubes/Other Access: Clean, Dry and Intact Peripheral IV Result Diagrams: 09/19/19 14:10 09/19/19 05:37 Microbiology and Other Data: Microbiology 09/18/19 17:35 Stool Occult Blood (LUIS) - Final Stool Assess/Plan/Problems-Billing Assessment: This is an 89 year old male with a past medical history significant for non- ischemic cardiomyopathy, vtach, waldenstrom macroglobinemia and lung CA who was admitted 09/18/19 for anemia. - Patient Problems (1) Acute blood loss anemia Current Visit: No Status: Acute Code(s): D62 - ACUTE POSTHEMORRHAGIC ANEMIA SNOMED Code(s): 118650695 Comment: - Stool occult was positive. Has received a total of two units PRBC. Goal Hgb is 8, which he is above at this point. Continue to monitor HH. - EGD found no active bleeding. Continue BID PPI, is allowed to eat per GI. - Brilinta and warfarin to be continued despite bleed because of higher risk of cardiac complications should they be stopped. (2) Diabetes type 2, controlled Current Visit: Yes Status: Acute Code(s): E11.9 - TYPE 2 DIABETES MELLITUS WITHOUT COMPLICATIONS SNOMED Code(s): 65509978 Comment: -Fingersticks AC with SS lispro. Hold metformin. (3) Nonischemic cardiomyopathy Current Visit: Yes Status: Acute Code(s): I42.8 - OTHER CARDIOMYOPATHIES SNOMED Code(s): 44377455 Comment: -Has AICD placement. (4) HTN (hypertension) Current Visit: Yes Status: Acute Code(s): I10 - ESSENTIAL (PRIMARY) HYPERTENSION SNOMED Code(s): 90452166 Comment: -Continue carvedilol. Has been normotensive. (5) HLD (hyperlipidemia) Current Visit: Yes Status: Acute Code(s): E78.5 - HYPERLIPIDEMIA, UNSPECIFIED SNOMED Code(s): 67676837 Comment: -Not currently on treatment, follow up with cardiology. (6) Atrial fibrillation Current Visit: No Status: Acute Code(s): I48.91 - UNSPECIFIED ATRIAL FIBRILLATION SNOMED Code(s): 86491419 Comment: - Has implanted AICD. - Continue carvedilol, amiodarone and warfarin. (7) CAD (coronary artery disease) Current Visit: No Status: Acute Code(s): I25.10 - ATHSCL HEART DISEASE OF [place] CORONARY ARTERY W/O ANG PCTRS SNOMED Code(s): 16977465 Comment: - s/p 2 stents 05/19 - continue Brilinta, Coreg, Amiodarone. Has AICD. (8) Mechanical heart valve present Current Visit: No Status: Acute Code(s): Z95.2 - PRESENCE OF PROSTHETIC HEART VALVE SNOMED Code(s): 45710217116928 Comment: - Continue coumadin despite GI bleed. INR at target. (9) DVT prophylaxis Current Visit: No Status: Acute Code(s): ZAD1186 - SNOMED Code(s): 807558326 Comment: - Continue warfarin despite GI bleed as he is a high cardiac risk. (10) DNR (do not resuscitate) Current Visit: No Status: Acute Attending: Chelsea Isaac
[2019-09-19] MEDS: Warfarin TAB(*) 4 MG PO SCH (20:34)
[2019-09-20 04:49] LABS: ABS Eosinophils 0.1 10^3/ul (0-0.6); ABS Lymphocytes 0.5 10^3/ul (1.0-4.8); ABS Monocytes 0.6 10^3/ul (0-0.8); ABS Neutrophils 3.2 10^3/ul (1.5-7.7); Eosinophil % 1.7 %; Hematocrit 24 % (42-52); Hemoglobin 7.7 g/dL (14.0-18.0); Lymphocyte % 10.2 %; Mean Corpuscular HGB Conc 32 g/dL (31-36); Mean Corpuscular Hemoglobin 27 pg (27-31); Mean Corpuscular Volume 84 fL (80-94); Mean Platelet Volume 6.6 fL (7.4-10.4); Nucleated Red Blood Cells % 0.1; Platelet Count 190 10^3/uL (150-450); Red Blood Count 2.88 10^6 /uL (4.18-5.48); Red Cell Distribution Width 20 % (10-15); White Blood Count 4.4 10^3/uL (3.5-10.8)
[2019-09-20 05:05] LABS: BUN/Creatinine Ratio 25.2 (8-20); Calcium 8.8 mg/dL (8.6-10.3); EGFR African American 72.5 (>60); EGFR Non-African American 59.9 (>60); Potassium 3.7 mmol/L (3.5-5.0)
[2019-09-20] MEDS ORDERED: Insulin LISPRO* 1 UNITS UNIT SUBCUT SCH (07:30)
[2019-09-20] MEDS: Pantoprazole IV* 40 MG IV SCH (07:54)
[2019-09-20] MEDS: Ticagrelor* 90 MG TAB PO SCH (07:54)
[2019-09-20] MEDS: Amiodarone TAB* 200 MG PO SCH (07:54)
[2019-09-20] MEDS: Torsemide TAB* 20 MG PO SCH (07:54)
[2019-09-20] MEDS: Carvedilol TAB* 25 MG PO SCH (07:54)
[2019-09-20] MEDS: Multivitamins/Minera Areds(NF) 1 CAP CAP PO SCH (07:55)
[2019-09-20 08:06] LABS: INR 2.85 (0.82-1.09)
[2019-09-20 08:39] VITALS: BP 106/43
--- NOTE | 2019-09-20 21:24 | DS ---
CC: Dr. Alonso Marquez.* DISCHARGE SUMMARY: DATE OF ADMISSION: 09/18/19 DATE OF DISCHARGE: 09/20/19 PRIMARY CARE PROVIDER: Dr. Alonso Marquez MD ATTENDING PHYSICIAN: Dr. Chelsea Isaac.* (DICTATED BY EDOUARD VIDALES NP) PRIMARY DIAGNOSIS: 1. Acute blood loss anemia. SECONDARY DIAGNOSES: 1. Diabetes mellitus type 2. 2. Nonischemic cardiomyopathy. 3. Hypertension. 4. Hyperlipidemia. 5. Atrial fibrillation. 6. Coronary artery disease. 7. History of mitral valve replacement with mechanical valve. STUDIES WHILE IN THE HOSPITAL: 1. Chest x-ray on 09/18/19 reads as pulmonary edema with a small left pleural effusion. Unchanged cardiomegaly with postoperative changes. A left chest wall AICD is in place. Obscured left hemidiaphragm (atelectasis versus infiltrate). 2. EKG on 09/18/19 shows a 100% ventricular paced rhythm with a rate of 70 appears consistent with previous EKG. CONSULTATION WHILE IN THE HOSPITAL: 1. Dr. Mena from Gastroenterology. PROCEDURE WHILE IN THE HOSPITAL: 1. EGD on 09/19/19. HISTORY OF PRESENT ILLNESS AND HOSPITAL COURSE: Mr. Brantley is an 89-year-old male with past medical history of v-tach and nonischemic cardiomyopathy status post AICD, atrial fibrillation, diabetes mellitus type 2, hypertension, hyperlipidemia, Waldenstrom macroglobulinemia in remission, gastric AVMs with multiple GI bleed, CVA, coronary artery disease, and lung cancer in remission who presented to the emergency room on 09/18/19, after he was sent by his PCP for abnormal blood work. Please see the history and physical by GHANSHYAM Bonilla for complete summary of the events leading up to the hospitalization. In short, the patient did admit to some mild shortness of breath and dizziness when standing and had some routine lab work drawn at his PCP's office. At that time, he was found to have a hemoglobin of 6.2, so was sent to the emergency room. In the emergency room, the patient was noted to have an H and H of 6.2 and 20, INR was noted to be therapeutic, and lab work was otherwise essentially at baseline. Due to this anemia, he was admitted by the hospitalist service. The patient did have a stool occult on 09/18/19 that was positive and he did ultimately receive 2 units of blood on 09/18/19 and 09/19/19. Anticoagulation and antiplatelet therapy were continued due to this high risk of cardiac event. He was seen in consultation by Dr. Mena from Gastroenterology on . At that time, she suspected subacute blood loss or slow oozing in the setting of Coumadin and Brilinta therapy though after speaking with the patient they agreed that the patient would undergo an EGD. The patient did undergo an EGD on 09/19/19 and at that point there was no evidence of active bleeding. There was a small red spot in the gastric body that was benign-appearing and no bleeding was able to be provoked at that site. She recommended monitoring the patient's CBC and advancing diet as tolerated. As of this morning, the patient' s H and H is 7.7 and 24, I will note that his baseline. Hemoglobin appears to be between 7.5 and 8.5. He did have an appropriate increase in H and H after transfusion. There has been no obvious GI bleeding. The patient is asymptomatic. He denies any dizziness, lightheadedness, shortness of breath, palpitations or chest pain. He was able to tolerate a regular dinner last night and breakfast this morning and is anxious to return home. PHYSICAL EXAMINATION: On exam, he is alert and oriented x4 with no focal neurological deficits. Heart has regular rate and rhythm without murmurs, rubs , or gallops. Lungs are clear to auscultation without rhonchi, wheezes, or rubs. There is +2 bilateral lower extremity pitting edema, which the patient reports is his baseline. Abdomen is soft, nontender to palpation. Physical exam is otherwise benign. Mr. Brantley is stable for discharge. Most recent vitals are as follows; temp 97.9, heart rate 72, respiratory rate 16, oxygen saturation 93% on room air, blood pressure 106/43. DISCHARGE MEDICATIONS: Changed: 1. Carvedilol 12.5 mg p.o. b.i.d. (previously 25 mg b.i.d.)., Continued: 1. Amiodarone 200 mg p.o. daily. 2. Ferrous sulfate 325 mg p.o. daily. 3. Latanoprost 0.05% 1 drop both eyes at bedtime. 4. Metformin 500 mg p.o. daily. 5. Omeprazole 20 mg p.o. b.i.d. 6. Spironolactone 25 mg p.o. 3 times weekly. 7. Brilinta 90 mg p.o. b.i.d. 8. Torsemide 20 mg p.o. daily. 9. PreserVision 1 tab p.o. b.i.d. 10. Coumadin 4 mg every Tuesday, Tuesday, Tuesday, Tuesday, , Tuesday and 2 mg on Tuesday. DISCHARGE PLAN: Mr. Brantley will be discharged to home. Activity will be as tolerated. Diet will be heart healthy. Medications are noted above. The patient's carvedilol has been decreased lately as he has been on a decreased dose while here in the hospital and has been normotensive while on that dose, as I am hesitant to put him back on his home dosing as I think that may cause him to be hypotensive. He can continue his other usual medications as noted above. He has already been taking daily iron, which he should continue and he has already been taking a twice daily PPI, which he should also continue. INR is therapeutic at this point. The patient will need to have a repeat CBC in 1 week or less, to recheck H and H, results of that CBC will go to the PCP. He is aware that he will need to follow with his PCP very closely as he will likely require frequent H and H monitoring and could potentially require further transfusions in the future if he continues to have this low blood loss. He does understand that he needs to report to the emergency room immediately if he notices any david blood in his stool or any david blood and emesis or coffee-ground emesis. He should return to the emergency room or nearest hospital for any worsening of symptoms, shortness of breath, lightheadedness, dizziness, chest discomfort, high fevers, chills, night sweats, loss of consciousness or any other worrisome signs or symptoms. DISCHARGE CONDITION: Stable. DISCHARGE DISPOSITION: Home. This is a summarized report of a complex medical history and hospital stay. For further details, please see the entire medical record. TIME SPENT: Approximately 45 minutes was spent on this discharge. EDOUARD VIDALES, HYDROELECTRIC STATION CHIEF [id number]/[facility] #: [id number] PENG
[2019-09-21] MEDS ORDERED: Warfarin TAB(*) 2 MG PO SCH (20:38)
== END 2019-09-20 10:35 | disposition home or self-care (01) | DRG 812 ==
LOC: ED 16:00 → MEDTELE 20:11
PROVIDERS: ADMIT Internal Medicine; ATTEND Internal Medicine
PROC: 30233N1 Transfusion of Nonautologous Red Blood Cells into Peripheral Vein, Percutaneous Approach (ICD-10-PCS; principal; 2019-09-19)
DX: D62 Acute posthemorrhagic anemia (principal); I42.8 Other cardiomyopathies; I47.2 Ventricular tachycardia; K92.1 Melena; I48.0 Paroxysmal atrial fibrillation; E11.9 Type 2 diabetes mellitus without complications; I10 Essential (primary) hypertension; E78.5 Hyperlipidemia, unspecified; I25.10 Atherosclerotic heart disease of native coronary artery without angina pectoris; Z66 Do not resuscitate; Z95.2 Presence of prosthetic heart valve; Z95.810 Presence of automatic (implantable) cardiac defibrillator; Z85.118 Personal history of other malignant neoplasm of bronchus and lung; Z86.73 Personal history of transient ischemic attack (TIA), and cerebral infarction without residual deficits; Z95.1 Presence of aortocoronary bypass graft; Z79.01 Long term (current) use of anticoagulants; Z79.84 Long term (current) use of oral hypoglycemic drugs; Z79.899 Other long term (current) drug therapy; Z88.0 Allergy status to penicillin; Z82.49 Family history of ischemic heart disease and other diseases of the circulatory system; Z82.3 Family history of stroke; Z82.5 Family history of asthma and other chronic lower respiratory diseases; Z80.0 Family history of malignant neoplasm of digestive organs; Z87.891 Personal history of nicotine dependence
CPT/HCPCS: 36415; 71045; 80048; 80053; 82272; 82728; 83540; 83550; 83735; 83880; 85014; 85018; 85025; 85610; 85730; 86850; 86900; 86901; 86922; 93005; 99156; 99157; 99284; A9270-GY; J1756; J2250; J3010; P9040

== ENCOUNTER 2019-09-26 15:18 | Emergency (ER) | payer MEDICARE, BC ==
--- NOTE | 2019-09-26 15:46 | ED ---
Complex/Multi-Sys Presentation - HPI Summary HPI Summary: This patient is an 89 y/o male presenting to [facility] via EMS for low SPO2 reading today. Daughter reports patient was recently discharged from the hospital on and had a follow up appointment today. Today PCP heard crackles in the lungs and noticed patient had a low O2 saturation reading and was referred to the ED. Patient denies any fever, chest pain, shortness of breath, nausea, vomiting. Daughter reports patient has been complaining of abd pain with constipation and has not had a bowel movement in 3 days. Patient notes he feels "pretty normal." - History Of Current Complaint Chief Complaint: EDConstipation Time Seen by Provider: 09/26/19 15:38 Hx Obtained From: Patient, Family/Glass Tube Bender - Daughter Onset/Duration: Lasting Days, Still Present Timing: Days Severity Currently: Moderate Aggravating Factor(s): nothing Alleviating Factor(s): nothing Associated Signs And Symptoms: Positive: Abdominal Pain, Other - POSITIVE: constipation. Negative: SOB, Chest Pain, Nausea, Vomiting, Fever - Allergies/Home Medications Allergies/Adverse Reactions: Allergies Allergy/AdvReac Type Severity Reaction Status Date / Time Penicillins Allergy Unknown Verified 09/26/19 15:48 Reaction Details Fhagvhm-Fmq-Xce Reductase Allergy Swelling Verified 09/26/19 15:48 Inhibitor Home Medications: Home Medications metFORMIN* [Glucophage 500 MG TAB *] 500 mg PO QAM 08/07/15 [History Confirmed 09/26/19] Omeprazole CAP (NF) [Prilosec CAP* 20 MG] 20 mg PO BID #60 cap. 07/08/16 [Rx Confirmed 09/26/19] Ferrous Sulfate TAB* 325 mg PO DAILY 02/06/18 [History Confirmed 09/26/19] Latanoprost 0.005%* [Xalatan 0.005%*] 1 drop BOTH EYES QPM 02/06/18 [History Confirmed 09/26/19] Vit A/Vit C/Vit E/Zinc/Copper [Preservision Areds Softgel] 1 each PO BID [History Confirmed 09/26/19] Amiodarone TAB* [Cordarone Tab*] 200 mg PO DAILY tab 06/08/19 [Rx Confirmed ] Ticagrelor* [Brilinta 90 MG*] 90 mg PO BID tab 06/08/19 [Rx Confirmed 09/26/19] Spironolactone TAB* [Aldactone TAB 25 MG*] 25 mg PO .THREE TIMES A WEEK [History Confirmed 09/26/19] Torsemide TAB* [Demadex 20 MG*] 20 mg PO QAM 09/18/19 [History Confirmed ] Warfarin TAB(*) [Coumadin TAB(*)] 2 mg PO FR 09/18/19 [History Confirmed ] Warfarin TAB(*) [Coumadin TAB(*)] 4 mg PO SUMOTUWETHSA 09/18/19 [History Confirmed 09/26/19] Carvedilol TAB* [Coreg TAB*] 12.5 mg PO BID tab 09/20/19 [Rx Confirmed 09/26/19 ] Azithromyxin ROGELIO (NF) [Z-Rogelio (Zithromax) 250 mg tabs #6] 2 tab PO .TODAY, THEN 1 DAILY #6 tab 09/26/19 [Rx] ceFUROXime 250 MG TAB [Ceftin TAB 250 MG(*)] 500 mg PO BID #14 tab 09/26/19 [Rx] PMH/Surg Hx/FS Hx/Imm Hx Endocrine/Hematology History: Reports: Hx Anticoagulant Therapy - Coumadin, Hx Blood Transfusions, Hx Diabetes - "PRE DM", Hx Anemia, Hx Unexplained Bleeding Cardiovascular History: Reports: Hx Auto Implanted Cardiovert Defib, Hx Hypercholesterolemia, Hx Hypertension, Hx Pacemaker/ICD, Hx Valvular Heart Disease - artificial valve x2 Denies: Hx Congestive Heart Failure GI History: Reports: Hx Gastrointestinal Bleed History: Denies: Hx Dialysis, Hx Renal Disease Musculoskeletal History: Sensory History: Reports: Hx Contacts or Glasses - readers, Hx Macular Degeneration, Hx Hearing Problem - [place] Denies: Hx Eye Prosthesis, Hx Legally Blind, Hx Deafness, Hx Hearing Aid Opthamlomology History: Reports: Hx Contacts or Glasses - readers, Hx Macular Degeneration Denies: Hx Eye Prosthesis, Hx Legally Blind Neurological History: Reports: Hx Transient Ischemic Attacks (TIA) Denies: Hx Developmental Delay - Cancer History Cancer Type, 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; LUNG CA Hx Chemotherapy: No - Surgical History Surgical History: Yes Surgery Procedure, Year, and Place: PACEMAKER, artificial heart valve, CABG - Immunization History Date of Tetanus Vaccine: utd Date of Influenza Vaccine: unk Infectious Disease History: No Infectious Disease History: Denies: Traveled Outside the [place] in Last 30 Days - Family History Known Family History: Positive: Cardiac Disease - Father - CAD and [place], Other - Mother -- stomach CA - Social History Alcohol Use: None Hx Substance Use: No Substance Use Type: Reports: None Hx Tobacco Use: Yes Smoking Status (MU): Former Smoker Have You Smoked in the Last Year: No Review of Systems Negative: Fever, Chills Negative: Chest Pain Negative: Shortness Of Breath Gastrointestinal: Other - POSITIVE: constipation Positive: Abdominal Pain. Negative: Vomiting, Nausea All Other Systems Reviewed And Are Negative: Yes Physical Exam - Summary Physical Exam Summary: VITAL SIGNS: Reviewed. GENERAL: Patient is a well-developed and nourished male who is lying comfortable in the stretcher. Patient is not in any acute respiratory distress. HEAD AND FACE: No signs of trauma. No ecchymosis, hematomas or skull depressions. No sinus tenderness. EYES: PERRLA, EOMI x 2, No injected conjunctiva, no nystagmus. EARS: Hearing grossly intact. Ear canals and tympanic membranes are within normal limits. MOUTH: Oropharynx within normal limits. NECK: Supple, trachea is midline, no adenopathy, no JVD, no carotid bruit, no c- spine tenderness, neck with full ROM. CHEST: Symmetric, no tenderness at palpation LUNGS: Crackles in the bases of the lungs. CVS: Regular rate and rhythm, S1 and S2 present, no murmurs or gallops appreciated. ABDOMEN: Soft, non-tender. No signs of distention. No rebound no guarding, and no masses palpated. Bowel sounds are normal. EXTREMITIES: FROM in all major joints, no cyanosis or clubbing. 1+ edema in bilateral lower extremities. NEURO: Alert and oriented x 3. No acute neurological deficits. Speech is normal and follows commands. SKIN: Dry and warm Triage Information Reviewed: Yes Vital Signs On Initial Exam: Initial Vitals Temp Pulse Resp BP Pulse Ox 98.8 F 70 16 129/62 98 09/26/19 15:37 09/26/19 15:37 09/26/19 15:37 09/26/19 15:37 09/26/19 15:37 Vital Signs Reviewed: Yes Procedures - Sedation Patient Received Moderate/Deep Sedation with Procedure: No Diagnostics - Vital Signs Vital Signs Temp Pulse Resp BP Pulse Ox 09/26/19 15:37 98.8 F 70 16 129/62 98 - Laboratory Result Diagrams: 09/26/19 15:59 09/26/19 15:59 Lab Statement: Any lab studies that have been ordered have been reviewed, and results considered in the medical decision making process. - Radiology Chest XR Radiology Interpretation Completed By: Radiologist Summary of Radiographic Findings: IMPRESSION: #. Airspace consolidation at the LEFT lung base concerning for potential pneumonia superimposed on chronic obstructive pulmonary disease. #. No compelling evidence for pulmonary edema. Dr. Fields has reviewed this report. Abdomen XR Radiology Interpretation Completed By: Radiologist Summary of Radiographic Findings: IMPRESSION: Consider early or partial small bowel obstruction or ileus. Dr. Fields has reviewed this report. - EKG 16:22 Cardiac Rate: NL - at 73 bpm EKG Rhythm: Sinus Rhythm Summary of EKG Findings: EKG at 1622 shows ventricular paced rhythm at a rate of [address] elevations. Similar to prior EKG on 09/18/19. This EKG was interpreted and reviewed by ED physician. Complex Multi-Symp Course/Dx Assessment/Plan: This patient is an 89 y/o male presenting to [facility] via EMS for low SPO2 reading today. Daughter reports patient was recently discharged from the hospital on 09/20/19 and had a follow up appointment today. Today PCP heard crackles in the lungs and noticed patient had a low O2 saturation reading and was referred to the ED. Patient denies any fever, chest pain, shortness of breath, nausea, vomiting. Daughter reports patient has been complaining of abd pain with constipation and has not had a bowel movement in 3 days. Patient notes he feels "pretty normal.". Patient continues to be asymptomatic and has no complaints. Blood test results without any significant abnormality except for normochromic normocytic anemia which is improved from his baseline, INR of 3.49, chloride 96, carbon dioxide 36, BNP is 168. Abdominal x-ray IMPRESSION: #. Consider early or partial small bowel obstruction or ileus. CXR IMPRESSION : #. Airspace consolidation at the LEFT lung base concerning for potential pneumonia superimposed on chronic obstructive pulmonary disease. #. No compelling evidence for pulmonary edema. In the ED the patient was given Rocephin and azithromycin for pneumonia. I ordered an abdominalpelvic CT with IV and by mouth contrast to rule out early or partial small bowel obstruction. The patient is drinking the contrast and is waiting for the CT of the abdomen and pelvis. At this time, the patient will be signed out to Dr. Katz at shift change to follow-up on the abdomen/pelvis CT and further disposition of the patient. - Diagnoses Provider Diagnoses: Pneumonia, Constipation Discharge ED - Sign-Out/Discharge Documenting (check all that apply): Sign-Out Patient Signing out patient TO: Peri Katz - Discharge Plan Condition: Stable Disposition: HOME Prescriptions: Azithromyxin ROGELIO (NF) [Z-Rogelio (Zithromax) 250 mg tabs #6] 2 tab PO .TODAY, THEN 1 DAILY #6 tab ceFUROXime 250 MG TAB [Ceftin TAB 250 MG(*)] 500 mg PO BID #14 tab Patient Education Materials: Constipation (ED), Pneumonia (ED) Referrals: Alonso Marquez MD [Primary Care Provider] - 3 Days Additional Instructions: PLEASE RETURN TO ED FOR ANY NEW OR WORSENING SYMPTOMS. PLEASE FOLLOW UP WITH YOUR PRIMARY CARE PHYSICIAN WITHIN THREE DAYS. CALL THE PHYSICIAN THAT MANAGES YOUR COUMADIN YOU WERE STARTED ON NEW MEDICATIONS THAT MAY INTERFERE WITH YOUR COUMADIN. - Billing Disposition and Condition Condition: STABLE - Attestation Statements Document Initiated by Moraima: Yes Documenting Sailajaibe: Chelsea Chino Provider For Whom Moraima is Documenting (Include Credential): Oscar Fields MD Scribe Attestation: Chelsea Lauren, scribed for Oscar Fields MD on 09/28/19 at 0758. Scribe Documentation Reviewed: Yes Provider Attestation: The documentation as recorded by the Chelsea tran accurately reflects the service I personally performed and the decisions made by me, Oscar Fields MD Status of Scribe Document: Viewed
[2019-09-26 16:11] LABS: ABS Basophils 0.1 10^3/ul (0-0.2); ABS Eosinophils 0.1 10^3/ul (0-0.6); ABS Lymphocytes 0.6 10^3/ul (1.0-4.8); ABS Monocytes 0.7 10^3/ul (0-0.8); Hematocrit 25 % (42-52); Hemoglobin 8.2 g/dL (14.0-18.0); Lymphocyte % 13.1 %; Mean Corpuscular HGB Conc 33 g/dL (31-36); Mean Corpuscular Hemoglobin 28 pg (27-31); Mean Corpuscular Volume 86 fL (80-94); Mean Platelet Volume 6.6 fL (7.4-10.4); Platelet Count 182 10^3/uL (150-450); Red Blood Count 2.94 10^6 /uL (4.18-5.48); Red Cell Distribution Width 21 % (10-15); White Blood Count 4.5 10^3/uL (3.5-10.8)
[2019-09-26 16:19] LABS: Activated Partial Thrombo Time 45.8 seconds (26.0-38.0); INR 3.49 (0.82-1.09)
[2019-09-26 16:29] LABS: Albumin/Globulin Ratio 1.3 (1-3); BUN/Creatinine Ratio 19.2 (8-20); C Reactive Protein 6.35 mg/L (<8.01); Calcium 9.1 mg/dL (8.6-10.3); EGFR African American 81.4 (>60); EGFR Non-African American 67.2 (>60); Globulin 3.2 g/dL (2-4); Potassium 3.8 mmol/L (3.5-5.0); Total Bilirubin 0.3 mg/dL (0.2-1.0); Total Protein 7.2 g/dL (6.4-8.9)
[2019-09-26 16:31] LABS: Troponin I 0.02 ng/mL (<0.03)
[2019-09-26 16:33] LABS: CKMB ng/mL 1.2 ng/mL (0.6-6.3)
--- NOTE | 2019-09-26 19:22 | ED ---
Progress - Progress Note Progress Note: Patient is received as a sign-out from Dr. Fields to Dr. Katz at 1900 09/26/[address] ABD/PEL. CT ABD/PEL IMPRESSION: 1. Large amount of stool in colon consistent with history of constipation. Nondilated small bowel with scattered air-fluid levels. No evidence of bowel obstruction. 2. Moderate bilateral perinephric stranding, nonspecific but increased since prior study from 2017. Differential considerations include fluid overload, nephritis (infection/inflammation) or, less commonly, pyelonephritis. Correlate with clinical history and UA. 3. 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 4. Masslike opacity partially visualized in the left lower lobe. Correlate with prior chest CTs. 5. Small left pleural effusion, similar to prior. 6. Diverticulosis coli. No evidence of diverticulitis. 7. Significant aortoiliac atherosclerotic plaque. THIS REPORT WAS REVIEWED BY ED PHYSICIAN. Course/Dx - Course Course Of Treatment: 89-year-old male signed out at change of shift to al with shortness of breath and abdominal pain. Chest x-ray demonstrated pneumonia. Awaiting CT abdomen and pelvis for constipation and possible small bowel obstruction versus ileus. CT scan showed no obstruction. Patient he is pen allergic,given Rocephin IV. Started on Ceftin and Z-Rogelio. follow-up with PCP. Follow-up sooner for any worsening symptoms. - Diagnoses Provider Diagnoses: Pneumonia, Constipation Discharge ED - Sign-Out/Discharge Documenting (check all that apply): Patient Departure - discharge , Receiving Sign-Out Receiving patient FROM: Oscar Fields - Discharge Plan Condition: Stable Disposition: HOME Prescriptions: Azithromyxin ROGELIO (NF) [Z-Rogelio (Zithromax) 250 mg tabs #6] 2 tab PO .TODAY, THEN 1 DAILY #6 tab ceFUROXime 250 MG TAB [Ceftin TAB 250 MG(*)] 500 mg PO BID #14 tab Patient Education Materials: Constipation (ED), Pneumonia (ED) Referrals: Alonso Marquez MD [Primary Care Provider] - 3 Days Additional Instructions: PLEASE RETURN TO ED FOR ANY NEW OR WORSENING SYMPTOMS. PLEASE FOLLOW UP WITH YOUR PRIMARY CARE PHYSICIAN WITHIN THREE DAYS. CALL THE PHYSICIAN THAT MANAGES YOUR COUMADIN YOU WERE STARTED ON NEW MEDICATIONS THAT MAY INTERFERE WITH YOUR COUMADIN. - Billing Disposition and Condition Condition: STABLE Disposition: Home - Attestation Statements Document Initiated by Sailajaibe: Yes Documenting Scribe: FERNANDO SERRATO Provider For Whom Moraima is Documenting (Include Credential): MARITZA KATZ MD Scribe Attestation: FERNANDO Lauren, scribed for MARITZA KATZ MD on 09/26/19 at 2340. Scribe Documentation Reviewed: Yes Provider Attestation: The documentation as recorded by the FERNANDO tran accurately reflects the service I personally performed and the decisions made by me, MARITZA KATZ MD Status of Scribe Document: Viewed
[2019-09-26] MEDS ORDERED: Iodixanol* (CONTRAST) 320 MG/ML 100 ML SDV IV ONE (20:16)
[2019-09-26 20:54] LABS: Urine Appearance Clear; Urine Bilirubin Negative (Negative); Urine Blood Negative (Negative); Urine Color Straw; Urine Glucose Negative (Negative); Urine Ketones Negative (Negative); Urine Nitrite Negative (Negative); Urine Protein Negative (Negative); Urine Specific Gravity 1.008 (1.010-1.030); Urine Urobilinogen Negative (Negative)
[2019-09-26] MEDS ORDERED: cefTRIAXone(*) 1 GM in NS 0.9% 50 ML* 50 ML IVPB ONE (22:05)
[2019-09-26 22:57] VITALS: BP 130/55
== END 2019-09-26 22:57 | disposition home or self-care (01) ==
LOC: ED 15:18
DX: J18.9 Pneumonia, unspecified organism (principal); K59.00 Constipation, unspecified; K57.30 Diverticulosis of large intestine without perforation or abscess without bleeding; R73.03 Prediabetes; Z79.84 Long term (current) use of oral hypoglycemic drugs; Z79.01 Long term (current) use of anticoagulants; Z95.2 Presence of prosthetic heart valve; Z95.810 Presence of automatic (implantable) cardiac defibrillator; Z86.73 Personal history of transient ischemic attack (TIA), and cerebral infarction without residual deficits; Z95.1 Presence of aortocoronary bypass graft; Z88.0 Allergy status to penicillin; Z88.8 Allergy status to other drugs, medicaments and biological substances; Z87.891 Personal history of nicotine dependence
CPT/HCPCS: 36415; 71046; 74019; 74177; 80053; 81003; 82553; 83605; 83880; 84484; 85025; 85610; 85730; 86140; 87040; 93005; 96365; 99283; J0696; Q9967